=== PATIENT | female | born 1945 | race Two or more races ===

== ENCOUNTER 2024-08-16 13:34 | Inpatient (IN) | payer OTHER ==
[~2024-08-16] VITALS: Ht 162.6 cm; Wt 94.6 kg
--- NOTE | 2024-08-16 13:48 | ECG ---
[facility] Test Date: 2024-08-16 Test Time: 13:39:52 Pat Name: SAMIRA GAN Department: er Room: [address] [place] [address] Gender: F Chip Frier: gp : 1945 Requested By: VELMA SLATER Order Number: [id number] Reading MD: Nick Rodriguez Measurements Intervals [place] Rate: 62 P: -16 UT: 289 QRS: -34 QRSD: 104 T: 66 QT: 495 QTc: 503 Interpretive Statements Sinus rhythm Prolonged UT interval Inferior infarct, old Anterior infarct, old Prolonged QT interval Electronically Signed On 08-17-2024 12:00:24 PST by Nick Rodriguez Please click the below link to view image of tracing.
--- NOTE | 2024-08-16 13:53 | ED.PDOC ---
History of Present Illness HPI Comments This is an 79-year-old female who comes in with chief complaint of possible bradycardia with some mild shortness for breath and dizziness. The patient was scheduled to have a pacemaker change next week by Dr. Rodriguez. Today the patient was at home and she was being visited by the home health nurse. After the nurse left, the patient was started feeling somewhat dizzy and states that she checked her pulse rate and it was in the 30s. 911 was called and when the paramedics arrived, the patient had a normal blood pressure with a heart rate between 55 a nd 60. She was still complaining of some dizziness but denies any chest pain, nausea or vomiting. The patient also denies any fever or chills. The patient states that she did not feel too well yesterday either. Time Seen by MD: 13:41 Reviewed Notes: Nurses Notes, Sawmill Or Timber Yard Worker Notes, Medications, Allergies (No allergies to medications) Allergies: Coded Allergies: NO KNOWN ALLERGIES (Unverified , 08/16/24) Information Source: Patient, Emergency Med Personnel Mode of Arrival: EMS Severity: Moderate Timing: Hours Duration: Since onset Prehospital treatment: 12 Lead EKG, Meteorology Professor, IVF Associated signs and symptoms Dizziness with some shortness for breath Past Medical History PAST MEDICAL HISTORY: AFIB, Cancer (History of skin cancer), CVA, High Lipids, Thyroid Surgical History: Hysterectomy, Tonsillectomy Surgical History (Other): Cataract surgery, skin cancer surgery ENTHONE SOLDER STRIPPER 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: No Pertinent 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 SOLDER STRIPPER History Family History Family History: Family hx of DM Social History Smoker: Non-Smoker Alcohol: Denies ETOH Use Drugs: Denies Drug Use Lives In: Home Constitutional: reports: weakness; denies: chills, diaphoresis, fatigue, fever, malaise, sweats, others EENTM: denies: blurred vision, double vision, ear bleeding, ear discharge, ear drainage, ear pain, ear ringing, eye pain, eye redness, hearing loss, mouth pain, mouth swelling, nasal discharge, nose bleeding, nose congestion, nose pain, photophobia, tearing, throat pain, throat swelling, voice changes, others Respiratory: reports: shortness of breath; denies: cough, hemoptysis, orthopnea, SOB at rest, SOB with excertion, stridor, wheezing, others Cardiovascular: denies: chest pain, dizzy spells, diaphoresis, Dyspnea on exertion, edema, irregular heart beat, left arm pain, lightheadedness, palpitations, PND, syncope, others Gastrointestinal: denies: abdomen distended, abdominal pain, blood streaked bowels, constipated, diarrhea, dysphagia, difficulty swallowing, hematemesis, melena, nausea, poor appetite, poor fluid intake, rectal bleeding, rectal pain, vomiting, others Genitourinary: denies: abnormal vagina bleeding, burning, dyspareunia, dysuria, flank pain, frequency, hematuria, incontinence, pain, , vagina discharge, urgency, others Neurological: reports: dizziness; denies: fainting, headache, left sided numbness, left sided weakness, numbness, paresthesia, pre-existing deficit, right sided numbness, right sided weakness, seizure, speech problems, tingling, tremors, weakness, others Musculoskeletal: denies: back pain, gout, joint pain, joint swelling, muscle pain, muscle stiffness, neck pain, others Integumetry: denies: bruises, change in color, change in hair/nails, dryness, laceration, lesions, lumps, rash, wounds, others Allergic/Immunocompromised: denies: Difficulty Healing, Frequent Infections, Hives, Itching, others Hematologic/Lymphatic: denies: anemia, blood clots, easy bleeding, easy bruising, swollen glands, others Endocrine: denies: excessive hunger, excessive sweating, excessive thirst, excessive urination, flushing, intolerance to cold, intolerance to heat, unexplained weight gain, unexplained weight loss, others Psychiatric: denies: anxiety, bipolar disorder, depression, hopeless, panic disorder, schizophrenia, sleepless, suicidal, others Physical Exam General Appearance: Moderate Distress HEENT: Normal ENT Inspection, Pharynx Normal, TMs Normal Neck: Full Range of Motion, Non-Tender, Normal, Normal Inspection Respiratory: Chest Non-Tender, Lungs Clear, No Accessory Muscle Use, No Respiratory Distress, Normal Breath Sounds Cardiovascular: No Edema, No JVD, No Murmur, No Gallop, Normal Peripheral Pulses, Regular Rate/Rhythm Breast Exam: Deferred Gastrointestinal: No Organomegaly, Non Tender, No Pulsatile Mass, Normal Bowel Sounds, Soft Genitalia: Deferred Pelvic: Deferred Rectal: Deferred Extremities: No calf tenderness, Normal capillary refill, Normal inspection, Normal range of motion, Non-tender, No pedal edema Musculoskeletal : Apperance: Normal Neurologic: Alert, physical therapy supervisor II-XII nml as Tested, No Motor Deficits, Normal Affect, Normal Mood, No Sensory Deficits Cerebellar Function: Normal Reflexes: Normal Skin: Dry, Normal Color, Warm Lymphatic: No Adenopathy Was a procedure done? Was a procedure done?: No EKG EKG : Pulse Rate (adult): 62 [place]: Normal Cardiac Rhythm: NSR Block: None ST: Nonsp Differential Dx Considerations may include: Symptomatic bradycardia, generalized weakness, electrolyte imbalance X-Ray, Labs, Meds, VS Vital Signs Date Time Temp Pulse Resp B/P (MAP) Pulse Ox O2 Delivery O2 Flow Rate FiO2 08/16/24 14:20 60 08/16/24 14:05 62 18 97 Room Air* 0 21 08/16/24 14:02 98.1 62 18 122/100 (107) 96 98.1 08/16/24 14:02 62 18 96 Room Air 08/16/24 13:53 62 08/16/24 13:50 98.4 63 16 165/92 (116) 100 08/16/24 13:39 62 Lab Test 08/16/24 14:10 08/16/24 13:56 Range/Units Urine Color Light-yellow Yellow Urine Clarity Clear Clear Urine pH 7.0 5.0-9.0 Urine Specific [place] 1.007 1.001-1.035 Urine Protein Negative Negative Urine Ketones Negative Negative Urine Blood Negative Negative /uL Urine Nitrite Negative Negative Urine Bilirubin Negative Negative Urine Urobilinogen Normal Negative mg/dL Urine Leukocyte Esterase 3+ Negative /uL Urine RBC 3 0 - 4 /hpf Urine Microscopic WBC 29 H 0-5 /HPF Urine Squamous Epithelial Cells Few <5 /hpf Urine Bacteria None seen None Seen /hpf Urine Glucose Normal Normal mg/dL White Blood Count 7.9 4.4-10.8 10^3/uL Red Blood Count 4.66 4.0-5.20 10^6/uL Hemoglobin 14.7 12.2-16.2 g/dL Hematocrit 43.8 36.0-46.0 % Mean Corpuscular Volume 93.9 80.0-100.0 fL Mean Corpuscular Hemoglobin 31.5 28.0-32.0 pg Mean Corpuscular Hemoglobin Concent 33.5 32.0-36.0 g/dL Red Cell Distribution Width 14.1 11.8-14.3 % Platelet Count 176 140-450 10^3/uL Mean Platelet Volume 9.1 6.9-10.8 fL Neutrophils (%) (Auto) 58.4 37.0-80.0 % Lymphocytes (%) (Auto) 26.5 10.0-50.0 % Monocytes (%) (Auto) 13.5 H 0.0-12.0 % Eosinophils (%) (Auto) 0.6 0.0-7.0 % Basophils (%) (Auto) 1.0 0.0-2.0 % Neutrophils # (Auto) 4.6 1.6-8.6 10 ^3/uL Lymphocytes # (Auto) 2.1 0.4-5.4 10 ^3/uL Monocytes # (Auto) 1.1 0-1.3 10 ^3/uL Eosinophils # (Auto) 0.1 0-0.8 10 ^3/uL Basophils # (Auto) 0.1 0-0.2 10 ^3/uL Nucleated Red Blood Cells 0.3 % Prothrombin Time 11.0 9.3-11.8 sec Prothrombin Time INR 1.04 0.9-1.15 Activated Partial Thromboplast Time 29.3 24.5-34.5 SEC Sodium Level 136 136-145 mmol/L Potassium Level 3.9 3.5-5.1 mmol/L Chloride Level 100 98-107 mmol/L Carbon Dioxide Level 27 20-31 mmol/L Anion Gap 9 5-15 Blood Urea Nitrogen 11 9-23 mg/dL Creatinine 0.68 0.550-1.02 mg/dL Glomerular Filtration Rate Calc 87 >90 mL/min BUN/Creatinine Ratio 16.2 10.0-20.0 Serum Glucose 76 74-106 mg/dL Calcium Level 10.0 8.7-10.4 mg/dL Magnesium Level 2.3 1.6-2.6 mg/dL Troponin I High Sensitivity 4 </=34 ng/L Chest x-ray is negative The CBC and chemistry panel are within normal limits The urine test is positive for UTI An IV Hep-Lock has already been established The patient was given Rocephin 1 g IV piggyback for the UTI At this time, we are contacting Dr. Rodriguez The patient was being admitted with a diagnosis of symptomatic bradycardia The patient understands and agrees with the management. Images Reviewed?: Images reviewed and evaluated by me Time of 1ST Reevaluation: 13:53 Reevaluation 1ST: Unchanged Patient Education/Counseling: Diagnosis, Treatment, Prognosis Family Education/Counseling: No Family Present Departure 1 Departure Time of Disposition: 15:23 Impression: Primary Impression: Symptomatic bradycardia Additional Impression: UTI (urinary tract infection) Qualified Codes: N30.00 - Acute cystitis without hematuria Disposition: 09 ADMITTED INPATIENT Admit to: Tele Condition: Fair Critical Care Note Critical Care Time?: Yes (45 min-critical care time only) Stability Stability form required: Yes Unstable for transfer: Telemetry monitoring (Telemetry monitoring required), ED Physician Assesment (Clinical assesment) Heart Score Heart Score: Heart Score Response (Comments) Value History Moderate Suspicious 1 EKG Repolarization Disturb 1 Age >65 2 Risk Factors >3 or Hx ASHD 2 Troponin Normal limit 0 Total 6 VELMA SLATER MD Aug 16, 2024 13:53
[2024-08-16 14:05] VITALS: PULSE 62; RESP 18; O2SAT 97
[2024-08-16 14:12] LABS: Basophils # (auto) 0.1 10 ^3/uL (0-0.2); Eosinophils # (auto) 0.1 10 ^3/uL (0-0.8); Eosinophils % (auto) 0.6 % (0.0-7.0); Hematocrit 43.8 % (36.0-46.0); Hemoglobin 14.7 g/dL (12.2-16.2); Lymphocytes # (auto) 2.1 10 ^3/uL (0.4-5.4); Lymphocytes % (auto) 26.5 % (10.0-50.0); Mean Corpuscular Hemoglobin 31.5 pg (28.0-32.0); Mean Corpuscular Hgb Conc. 33.5 g/dL (32.0-36.0); Mean Corpuscular Volume 93.9 fL (80.0-100.0); Monocytes # (auto) 1.1 10 ^3/uL (0-1.3); Monocytes % (auto) 13.5 % (0.0-12.0); Neutrophils # (auto) 4.6 10 ^3/uL (1.6-8.6); Neutrophils % (auto) 58.4 % (37.0-80.0); Nucleated Red Blood Cells % 0.3 %; Platelet Count (auto) 176 10^3/uL (140-450); Red Blood Cells 4.66 10^6/uL (4.0-5.20); Red Cell Distribution Width 14.1 % (11.8-14.3); White Blood Cell 7.9 10^3/uL (4.4-10.8)
[2024-08-16 14:19] LABS: Chloride 100 mmol/L (98-107); Potassium 3.9 mmol/L (3.5-5.1); Sodium 136 mmol/L (136-145)
[2024-08-16 14:20] LABS: Urine Bacteria None Seen /hpf (None Seen)
[2024-08-16 14:20] LABS: Anion Gap 9 (5-15); Carbon Dioxide 27 mmol/L (20-31)
[2024-08-16 14:25] LABS: BUN/Creatinine Ratio 16.2 (10.0-20.0); Blood Urea Nitrogen 11 mg/dL (9-23); Glucose 76 mg/dL (74-106)
[2024-08-16 14:26] LABS: Magnesium 2.3 mg/dL (1.6-2.6)
[2024-08-16 14:29] LABS: Urine Blood Negative /uL (Negative); Urine Clarity Clear (Clear); Urine Color Light-Yellow (Yellow); Urine Protein, UAD Negative (Negative); Urine Specific Gravity 1.007 (1.001-1.035); Urine Squamous Epithelial Cell FEW /hpf (<5); Urine Urobilinogen Normal (Negative); Urine WBC 29 /HPF (0-5)
[2024-08-16 14:38] LABS: INR 1.04 (0.9-1.15); Partial Thromboplastin Time 29.3 SEC (24.5-34.5)
--- NOTE | 2024-08-16 14:45 | DVH ---
CHEST RADIOGRAPH Indication: dizziness Technique: Single frontal view of the chest was obtained COMPARISON: None FINDINGS: Lines and Tubes: None Lungs: Clear Pleura: No effusion. No pneumothorax. Cardiomediastinal contours: Unremarkable Bones: Unremarkable IMPRESSION: No acute disease.
[2024-08-16] MEDS ORDERED: NITROGLYCERIN 0.4 MG SL TAB SL PRN (20:45)
[2024-08-16] MEDS ORDERED: MORPHINE SULFATE INJ 2 MG/ml SYRG IV PRN (20:45)
[2024-08-16] MEDS ORDERED: ONDANSETRON HCL 4 MG/2 ML VIAL IV PRN (20:45)
[2024-08-16 23:53] VITALS: BP 168/87; PULSE 56; RESP 17; TEMP 98.2; O2SAT 98
[2024-08-17] VITALS (62 sets, daily range): BP systolic 58–168; BP diastolic 33–87; PULSE 54–100; RESP 14–19; TEMP 97.5–98.6; O2SAT 95–100
[2024-08-17] MEDS: HYDROcodone-ACET 5/325MG TAB PO PRN (00:56)
--- NOTE | 2024-08-17 01:41 | DVHHP2 ---
GEORGETTE PETERSON DECKHAND CLAM DREDGE 08/17/24 0140: History of Present Illness Reason for Visit: Dizziness, shortness of breath History of Present Illness 79-year-old female presents with complaints of dizziness, and shortness of breath. Patient states she was at home and Checked her pulse ox when you began to experience symptoms. States her heart rate was down to the 30s. While in the emergency department ER physician reported heart rate has been Low 40s to 60s. Patient endorsed she has been followed by Dr. Rodriguez With plans for pacemaker placement. At this time patient denies fevers, chills, Chest pain, palpitations, Nausea, vomiting. 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: CVA Endocrine: Hypothyroidism Smoke: No ALCOHOL: none Drugs: None Lives: with Family Review of Systems Constitutional: Yes: Weakness, Other (Dizziness); No: Fever, Chills, Sweats, Malaise Eyes: No: Pain, Vision change, Conjunctivae inflammation, Eyelid inflammation, Other, Redness ENT: No: Ear pain, Ear discharge, Nose pain, Nose discharge, Nose congestion, Mouth pain, Mouth swelling, Throat pain, Throat swelling, Other Respiratory: Shortness of breath; No: Cough, Dry, SOB with excertion, Wheezing, Hemoptysis, Pleuritic Pain, Sputum, Wheezing, Other Cardiovascular: No: Chest Pain, Palpitations, Orthopnea, Paroxysmal Noc. Dyspnea, Edema, Lt Headedness, Other Gastrointestinal: No: Nausea, Vomiting, Abdominal Pain, Diarrhea, Constipation, Melena, Hematochezia, Other Genitourinary: No Dysuria, No Frequency, No Incontinence, No Hematuria, No Retention, No Other Musculoskeletal: No: other, neck pain, shoulder pain, arm pain, back pain, hand pain, leg pain, foot pain Skin: No: Rash, Lesions, Jaundice, Bruising, Other Neurological: No: Weakness, Numbness, Incoordination, Change in speech, Confusion, Seizures, Other Allergies: Coded Allergies: Morphine and Codeine (Verified Allergy, Unknown, HALLUCINATIONS, 08/16/24) Medications Current Medications Medications Dose Ordered Sig/Pepe Route Start Time Stop Time Status Last Admin Dose Admin Docusate Sodium 100 mg BIDPRN PRN PO 08/16/24 20:45 Acetaminophen 650 mg Q6HP PRN PO 08/16/24 20:45 Ondansetron HCl 4 mg Q4HP PRN IV 08/16/24 20:45 Nitroglycerin 0.4 mg Q5MINP PRN SL 08/16/24 20:45 Morphine Sulfate 2 mg Q30M PRN IV 08/16/24 20:45 Ceftriaxone Sodium 50 ml @ 100 mls/hr DAILY IV 08/17/24 10:00 Hydralazine HCl 10 mg Q6HP PRN IV 08/16/24 23:30 Acetaminophen/ Hydrocodone Bitart 1 tab Q6HPRN PRN PO 08/16/24 23:30 08/17/24 00:56 1 TAB Exam Vital Signs Vital Signs Date Time Temp Pulse Resp B/P (MAP) Pulse Ox O2 Delivery O2 Flow Rate FiO2 08/16/24 20:58 97.9 57 12 174/83 (113) 97 97.9 08/16/24 14:05 Room Air* 0 21 General Appearance: Alert, Oriented X3, Cooperative, No acute distress HEENT: Atraumatic, PERRLA, EOMI Respiratory: Clear to auscultation, Normal air movement Cardiovascular: Regular rate (bradycardia), Normal S1, Normal S2 Abdominal: Normal bowel sounds, Soft, No tenderness Extremities: No clubbing, No cyanosis, No edema Skin: No rashes, No breakdown Neuro: Normal speech, Strength at 5/5 X4 ext Psych/Mental Status: Mental status NL, Mood NL Labs/Xrays Labs Test 08/16/24 16:56 08/16/24 14:10 08/16/24 13:56 Range/Units Troponin I High Sensitivity 5 </=34 ng/L Urine Color Light-yellow Yellow Urine Clarity Clear Clear Urine pH 7.0 5.0-9.0 Urine Specific [place] 1.007 1.001-1.035 Urine Protein Negative Negative Urine Ketones Negative Negative Urine Blood Negative Negative /uL Urine Nitrite Negative Negative Urine Bilirubin Negative Negative Urine Urobilinogen Normal Negative mg/dL Urine Leukocyte Esterase 3+ Negative /uL Urine RBC 3 0 - 4 /hpf Urine Microscopic WBC 29 H 0-5 /HPF Urine Squamous Epithelial Cells Few <5 /hpf Urine Bacteria None seen None Seen /hpf Urine Glucose Normal Normal mg/dL White Blood Count 7.9 4.4-10.8 10^3/uL Red Blood Count 4.66 4.0-5.20 10^6/uL Hemoglobin 14.7 12.2-16.2 g/dL Hematocrit 43.8 36.0-46.0 % Mean Corpuscular Volume 93.9 80.0-100.0 fL Mean Corpuscular Hemoglobin 31.5 28.0-32.0 pg Mean Corpuscular Hemoglobin Concent 33.5 32.0-36.0 g/dL Red Cell Distribution Width 14.1 11.8-14.3 % Platelet Count 176 140-450 10^3/uL Mean Platelet Volume 9.1 6.9-10.8 fL Neutrophils (%) (Auto) 58.4 37.0-80.0 % Lymphocytes (%) (Auto) 26.5 10.0-50.0 % Monocytes (%) (Auto) 13.5 H 0.0-12.0 % Eosinophils (%) (Auto) 0.6 0.0-7.0 % Basophils (%) (Auto) 1.0 0.0-2.0 % Neutrophils # (Auto) 4.6 1.6-8.6 10 ^3/uL Lymphocytes # (Auto) 2.1 0.4-5.4 10 ^3/uL Monocytes # (Auto) 1.1 0-1.3 10 ^3/uL Eosinophils # (Auto) 0.1 0-0.8 10 ^3/uL Basophils # (Auto) 0.1 0-0.2 10 ^3/uL Nucleated Red Blood Cells 0.3 % Prothrombin Time 11.0 9.3-11.8 sec Prothrombin Time INR 1.04 0.9-1.15 Activated Partial Thromboplast Time 29.3 24.5-34.5 SEC Sodium Level 136 136-145 mmol/L Potassium Level 3.9 3.5-5.1 mmol/L Chloride Level 100 98-107 mmol/L Carbon Dioxide Level 27 20-31 mmol/L Anion Gap 9 5-15 Blood Urea Nitrogen 11 9-23 mg/dL Creatinine 0.68 0.550-1.02 mg/dL Glomerular Filtration Rate Calc 87 >90 mL/min BUN/Creatinine Ratio 16.2 10.0-20.0 Serum Glucose 76 74-106 mg/dL Calcium Level 10.0 8.7-10.4 mg/dL Magnesium Level 2.3 1.6-2.6 mg/dL Assessment/Plan Assessment/Plan Symptomatic bradycardia UTI Plan Admit to telemetry Cardiology consult. Echocardiogram. Continue home medications. As needed anti hypertensive for optimal BP management. Orthostatic vital signs. IV ABX Physical therapy evaluation GI ppx protonix / DVT ppx scd Plan discussed with: Patient My Orders Orders - GEORGETTE PETERSON NP Procedure Category Date Status Time Admit ADMIT 08/16/24 Transmitted 20:38 Code Status CODE 08/16/24 Transmitted 20:38 Vital Signs SHERLEY 08/16/24 In Process 20:38 Review Orders With SHERLEY 08/16/24 In Process Adm.Md 20:38 Encourage Activity As SHERLEY 08/16/24 In Process Tolerate 20:38 Npo (Nothing By DIET 08/17/24 Transmitted Mouth) Diet Breakfast Oxygen By Face Mask RT 08/16/24 Transmitted 20:38 Docusate Sodium PHA 08/16/24 In Process Capsule (Colace 20:45 Acetaminophen Tablet PHA 08/16/24 In Process (Tylenol Tablet) 20:45 Notify Of Changes SHERLEY 08/16/24 In Process From Base 20:38 Advance Directive SHERLEY 08/16/24 In Process 20:38 Basic Metabolic Panel LAB 08/17/24 Logged 05:00 Basic Metabolic Panel LAB 08/18/24 Verified 05:00 Basic Metabolic Panel LAB 08/19/24 Verified 05:00 Basic Metabolic Panel LAB 08/20/24 Verified 05:00 Complete Blood Count LAB 08/17/24 Logged 05:00 Complete Blood Count LAB 08/18/24 Verified 05:00 Complete Blood Count LAB 08/19/24 Verified 05:00 Complete Blood Count LAB 08/20/24 Verified 05:00 Patient Condition ORDERS 08/16/24 Transmitted 20:38 Allergies SHERLEY 08/16/24 In Process 20:38 Ondansetron Hcl PHA 08/16/24 In Process (Zofran) 20:45 Sequential SHERLEY 08/16/24 In Process Compression Device Nitroglycerin PHA 08/16/24 In Process Sublingual (Ntrostat 20:45 Morphine Sulfate PHA 08/16/24 In Process Injection 20:45 Stat Ekg For Chest SHERLEY 08/16/24 In Process Pain 20:38 Notify Md Of Changes SHERLEY 08/16/24 In Process From Base 20:38 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 For [facility] 08/16/24 In Process 24 Hours 20:38 Emergency Dysrhythmia SHERLEY 08/16/24 In Process Protocol 20:38 Rhythm Strips Once SHERLEY 08/16/24 In Process Every Shift 20:38 Oxygen By Nasal RT 08/16/24 Transmitted Cannula 20:38 Orthostatic Vital ORDERS 08/16/24 Transmitted Signs 20:38 Orthostatic Vital ORDERS 08/17/24 Transmitted Signs 20:38 Orthostatic Vital ORDERS 08/18/24 Transmitted Signs 20:38 Orthostatic Vital ORDERS 08/19/24 Transmitted Signs 20:38 Ceftriaxone 1gm/50ml PHA 08/17/24 In Process D5w (Rocephin) 10:00 Pt Request For Service PT 08/16/24 Logged 21:05 Communication Order ORDERS 08/16/24 Transmitted 21:05 Echo 2d Mode Cardiac US 08/16/24 Logged DOP 21:05 Hydralazine Injection PHA 08/16/24 In Process (Apresoline Inject 23:30 Hydrocodone-Acet PHA 08/16/24 In Process 5/325mg Tab ([place] 23:30 Date of Service: Aug 17, 2024 Billing Provider: GAB AMIN MD Common Visit Codes: NOT BILLABLE GAB AMIN MD 08/17/24 1054: Review of Systems Allergies: Coded Allergies: Morphine and Codeine (Verified Allergy, Unknown, HALLUCINATIONS, 08/16/24) Assessment/Plan Assessment/Plan Patient chart is reviewed and evaluated. Patient was seen evaluated and admitted by nurse practitioner this morning. I agree with his evaluation, documentation, assessment and care plan as outlined. Plan discussed with: Other GEORGETTE PETERSON NP Aug 17, 2024 01:40 GAB AMIN MD Aug 17, 2024 10:54
[2024-08-17] MEDS ORDERED: APIX2.5T PO (03:56)
[2024-08-17] MEDS ORDERED: ATOR10TA PO (03:56)
[2024-08-17] MEDS ORDERED: HYDR-4902 PO (03:56)
[2024-08-17] MEDS ORDERED: AMIO200T33 PO (03:56)
[2024-08-17] MEDS ORDERED: LEVO50TA7 PO (03:56)
[2024-08-17] MEDS ORDERED: POLY335015 PO (04:41)
[2024-08-17] MEDS: DOCUSATE SOD 100 MG CAP PO PRN (06:26)
[2024-08-17 07:05] LABS: Basophils # (auto) 0.1 10 ^3/uL (0-0.2); Basophils % (auto) 0.7 % (0.0-2.0); Eosinophils # (auto) 0 10 ^3/uL (0-0.8); Eosinophils % (auto) 0.4 % (0.0-7.0); Hematocrit 38.5 % (36.0-46.0); Hemoglobin 13.5 g/dL (12.2-16.2); Lymphocytes # (auto) 0.9 10 ^3/uL (0.4-5.4); Lymphocytes % (auto) 12.7 % (10.0-50.0); Mean Corpuscular Hemoglobin 32.5 pg (28.0-32.0); Mean Corpuscular Volume 92.8 fL (80.0-100.0); Monocytes # (auto) 0.8 10 ^3/uL (0-1.3); Monocytes % (auto) 11.4 % (0.0-12.0); Neutrophils # (auto) 5.6 10 ^3/uL (1.6-8.6); Neutrophils % (auto) 74.8 % (37.0-80.0); Platelet Count (auto) 152 10^3/uL (140-450); Red Blood Cells 4.15 10^6/uL (4.0-5.20); Red Cell Distribution Width 13.6 % (11.8-14.3); White Blood Cell 7.4 10^3/uL (4.4-10.8)
[2024-08-17 07:21] LABS: Anion Gap 8 (5-15); Calcium 9.8 mg/dL (8.7-10.4); Carbon Dioxide 28 mmol/L (20-31); Chloride 101 mmol/L (98-107); Potassium 3.6 mmol/L (3.5-5.1); Sodium 137 mmol/L (136-145)
[2024-08-17 07:27] LABS: BUN/Creatinine Ratio 18.4 (10.0-20.0); Blood Urea Nitrogen 14 mg/dL (9-23); Glucose 100 mg/dL (74-106)
[2024-08-17] MEDS: cefTRIAXone 1GM/50ML D5W 50 ML IV SCH (09:05)
--- NOTE | 2024-08-17 10:12 | ECG ---
[facility] Test Date: 2024-08-17 Test Time: 10:09:24 Pat Name: SAMIRA GAN Department: Respiratoy Room: [address] [place] [address] A Gender: F Asp Net Developer: AMANUEL : 1945 Requested By: LASHANDA PERRY Order Number: [id number] Reading MD: Nick Rodriguez Measurements Intervals [place] Rate: 77 P: -14 VT: 241 QRS: -28 QRSD: 97 T: 68 QT: 445 QTc: 504 Interpretive Statements Sinus rhythm Prolonged [place] interval Inferior infarct, old Anterior infarct, old Prolonged QT interval Electronically Signed On 08-17-2024 12:02:27 PST by Nick Rodriguez Please click the below link to view image of tracing.
[2024-08-17] MEDS: NOREPINEPHRINE 8 MG/250ML KIT 250 ML IV SCH (10:15)
[2024-08-17] MEDS: MIDAZOLAM DRIP 50 mg/50mL 50 ML IV SCH (10:15)
[2024-08-17] MEDS: fentaNYL Drip 2500mCg/250mlNS 250 ML IV SCH (10:15)
--- NOTE | 2024-08-17 10:40 | DVH ---
EXAM: XY CHEST PORTABLE Indication: intubated Technique: Single frontal view of the chest was obtained Comparison: XY CHEST PORTABLE on DOS: 08/16/24 FINDINGS: Lines and Tubes: Endotracheal tube projects 5 cm above level of the paty. Enteric tube side port pr ojects near the gastroesophageal junction with tip in the proximal stomach. Recommend advancement. Lungs: Left basilar atelectasis. Pleura: No effusion. No pneumothorax. Cardiomediastinal contours: Unremarkable Bones: No acute osseous abnormality. IMPRESSION: Enteric tube side port projects near the gastroesophageal junction with tip in the proximal stomach. Recommend advancement.
--- NOTE | 2024-08-17 10:49 | DVH ---
EXAM: CT HEAD WITHOUT CONTRAST HISTORY: ALOC COMPARISON: None TECHNIQUE: Axial images of the head were obtained and reformatted in coronal and sagittal planes. All CT scans at this medical facility are performed using dose modulation techniques as appropriate t o a performed exam including the following: Automated exposure control was utilized; adjustment of th e MA and/or KV according to patient size; and use of iterative reconstruction technique. CT Dose: CTDI volume is 51 mGy. Dose-length product is 942 mGy*cm FINDINGS: There is no evidence of acute intracranial hemorrhage, mass, mass effect midline shift. There is no h ydrocephalus or extra-axial fluid collection. There are patchy hypodense changes in the supratentori al white matter compatible with chronic small-vessel ischemic changes. Nieves-white matter differentiat ion appears maintained. The visualized paranasal sinuses and mastoid air cells are clear. The calvarium is intact. IMPRESSION: 1. No acute intracranial process. HS:Y
--- NOTE | 2024-08-17 11:23 | RESUS ---
CODE ASSIST ASSESSSMENT Initial Information Code Assist Date: Aug 17, 2024 Code Assist Time: 09:20 Location of Arrest: [facility] Room [facility] 281B Provider Name DR MAHONEY, DR CARTAGENA- RESIDENT, DR PERRY-RESIDENT, DR SEAMAN Time Notified: 09:20 (AT BEDSIDE) Crash Cart Opened and Supplies: Yes Comment: [facility] PRIMARY RN CALLED CHOICE HOSPITALIST TO NOTIFY OF CODE ASSIST Situation Staff concerned/worried, speci: SaO2 <90, Non-responsive, RR <8, Change LOC Situation comment: [facility] PRIMARY RN TOOK PATIENT TO URINATE ON BEDSIDE COMMODE AND ASSISTED BACK TO BED WHEN PATIENT STATED SHE FELT NAUSEATED AND DID NOT FEEL WELL. RN CALLED CODE ASSIST WHEN EYES ROLLED BACK AND PATIENT BECAME UNRESPONSIVE. Background Background: CAME IN TO ER ON 08/16 FOR POSS BRADDYCARDIA/SOB/DIZINESS, PER SON REPORT OF PACEMAKER IMPLANTATION APPOINTMENT NEXT WEDNESDAY. RECEIVED BED ON TELE FLOOR LAST NIGHT. Assessment Blood Pressure Systolic: 110 Blood Pressure Diastolic: 87 Respiratory Rate: 6 O2 Sat by Pulse Oximetry: 83 Bedside Blood Glucose: 109 Assessment comment: PALE, UNRESPONSIVE THEN AGONNALY BREATHING UPON CODE TEAM ARRIVAL. DECISION WAS MADE TO INTUBATE TO PROTECT AIRWAY. DR SEAMAN AT BEDSIDE TO INTUBATE WITH ETT PLACED AT 0943 7.5/24 CM AT LIP. EPINEPHRINE 1 MG IV PUSH GIVEN PER DR ORDER AT 0943 DUE TO BP 59/34. LEVOPHED/FENTANYL DRIPS STARTED WITH DR ORDER. TRANSFERRED TO CT THEN ICU 109 IN STABLE CONDITION WITH ICU CHARGE AND ICU RESOURCE RN. Recommendations/Interventions Procedures: Accu check, CXR Portable, Cardiac Monitoring, Inititate ACLS Protocol, Intubated (ETOMIDATE 15 MG IV GIVEN, SUCCINYLCHOLINE TOTAL 100 MG IV GIVEN DURING CODE ASSIST PER DR ORDER) Other Interventions MAG 2GM IV GIVEN ORDERED BY Outcome Outcome: Transfer to ICU Follow up Report Follow up Report UPDATED SON ON PLAN OF CARE WHO CAME TO BEDSIDE POST INTUBATION. Team Members Team Members DR URSZULA CASTILLO ER , DR CARTAGENA (RESIDENT), DR PERRY (RESIDENT), ALMA RN, MARIA G TIRE SERVICE SUPERVISOR, ROMAIN TIRE SERVICE SUPERVISOR, JONAH PROP AND EFFECTS DESIGNER, TRACE ICU CHARGE, CHARLETTE PRUETT RN RESOURCE Jonah Galarza Aug 17, 2024 11:23 KATIE MAHONEY MD Aug 17, 2024 20:50
[2024-08-17] MEDS: methylPREDNISolone SOD SUCC 125 MG/2 ML VL IV ONE (11:47)
[2024-08-17 12:26] LABS: Base Excess -4.3 mmol/L (-2.0-3.0)
--- NOTE | 2024-08-17 12:56 | DVHNC2 ---
Procedure - ULTRASOUND-GUIDED RIGHT INTERNAL JUGULAR CENTRAL VENOUS CANNULATION CPT Codes: 40971 (ultrasound guidance) 14551 (insertion of non-tunneled centrally inserted central venous catheter) 58716 (CXR interpretation) Time out time:1211 pm Patient medications and allergies reviewed. The risks and benefits of the procedure and the sedation options and risk were discussed with the patient's healthcare proxy. All questions were answered and informed consent was obtaine d. Patient identification and proposed procedure were verified prior to the procedure by the physician, and a nurse in the patient's room. The heart rate, respiratory rate, oxygen saturations, blood pressure, adequacy of pulmonary ventilation, and response to care were monitored throughout the procedure. The physical status of the patient was reassessed after the procedure. DATE: 08/17/24 PHYSICIAN: Mey Cochran PREOPERATIVE DIAGNOSIS: Cardiogenic shock, bradycardia, acute hypoxic respiratory failure POSTOPERATIVE DIAGNOSIS: Same PROCEDURE PERFORMED: Limited Ultrasound-guided Right internal jugular central line placement. ANESTHESIA: 2 mL of 1% lidocaine plain. ESTIMATED BLOOD LOSS: less than 5 mL. SPECIMENS: None. COMPLICATIONS: None. INDICATIONS FOR PROCEDURE: The patient is in need of large bore IV access for administration of fluids, including blood products and vasoactive drugs, possible transvenous cardiac pacing and CVP monitoring for hemodynamic instability. DESCRIPTION OF PROCEDURE IN DETAIL: The patient was lying in the Trendelenburg position with head turned 30 degrees away from the insertion site. The skin was thoroughly sponged with chlorhexidine and allowed to dry. All persons involved were shielded with hair nets, face masks and sterile gowns. With sterile-gloved hands the right neck area was draped with the large disposable sterile field provided in the pre-manufactured kit. The skin and subcutaneous tissues superficial to the RIGHT internal jugular vein were anesthetized with 2 mL of 1% lidocaine. The RIGHT internal jugular vein was identified on ultrasound from the angle of the mandible down into the supraclavicular fossa using the linear ultrasound probe in the transverse orientation. The carotid artery was identified and avoided utilizing color-flow. The internal jugular vein was then placed in the center of the ultrasound field and compressed for patency. A movement artifact was identified as the needle was advanced through the skin and advanced toward the vessel. A real time hyperechoic signal revealed visualization of vascular needle entry into the lumen as blood was noted to flashback in the syringe. The needle was then held in place while the guide wire was advanced. The needle was then removed. Direct visualization of guide wire location within the vein was noted on ultrasound indicating proper placement and was document in the electronic medical record chart. A skin dilator was advanced over the guidewire and removed, and the triple-lumen catheter was then advanced over the guide wire into proper position. The guide wire was removed and discarded. The ports were aspirated which showed good blood return and then carefully flushed with normal saline. The catheter was stabilized and sutured to the skin with 2-0 silk at 2 anchor points. A sterile bio-patch and dressing was placed over the catheter, including the insertion site. The patient tolerated the procedure well. A chest x-ray was ordered for position confirmation. I reviewed the image immediately after it was taken at bedside. Post-procedure chest x-ray demonstrates the central line in the superior vena and no evidence of any pneumothorax. An image recording of the procedure accompanies the chart. MEY COCHRAN MD Aug 17, 2024 12:56
--- NOTE | 2024-08-17 13:11 | DVHPN2 ---
Progress Note - Dictate Date Seen: Aug 17, 2024 Medical Necessity Reason Pt with a Central, PICC or Fol: Yes The following are medically ne: [place] Catheter Subjective Patient is seen and evaluated in the ICU. Discussed with the composer teaching artist and patient safety manager in the ICU. Patient's events including code assist note is reviewed from this morning. Apparently patient became unresponsive after she got back from normal bedside commode and she was noted to be hypotensive and decreased respirations. Therefore patient is electively intubated. Patient apparently received epinephrine and started on Levophed and transferred to ICU. vital signs Vital Sign Date Time Temp Pulse Resp B/P (MAP) Pulse Ox O2 Delivery O2 Flow Rate FiO2 08/17/24 11:32 6 08/17/24 11:23 83 08/17/24 10:00 59 58/33 (41) 100 08/17/24 08:05 Room Air* 0 Total Intake and Output 08/16/24 08/16/24 08/17/24 15:00 23:00 07:00 Intake Total 0 ml Balance 0 ml medications Current Medications Medications Dose Ordered Sig/Pepe Route Start Time Stop Time Status Last Admin Dose Admin Docusate Sodium 100 mg BIDPRN PRN PO 08/16/24 20:45 08/17/24 06:26 100 MG Acetaminophen 650 mg Q6HP PRN PO 08/16/24 20:45 Ondansetron HCl 4 mg Q4HP PRN IV 08/16/24 20:45 Nitroglycerin 0.4 mg Q5MINP PRN SL 08/16/24 20:45 Morphine Sulfate 2 mg Q30M PRN IV 08/16/24 20:45 Ceftriaxone Sodium 50 ml @ 100 mls/hr DAILY IV 08/17/24 10:00 08/17/24 09:05 100 MLS/HR Hydralazine HCl 10 mg Q6HP PRN IV 08/16/24 23:30 Acetaminophen/ Hydrocodone Bitart 1 tab Q6HPRN PRN PO 08/16/24 23:30 08/17/24 00:56 1 TAB Norepinephrine Bitartrate 250 ml @ 3.75 mls/hr Q24H IV 08/17/24 10:15 Midazolam HCl 50 ml @ 1 mls/hr Q24H IV 08/17/24 10:15 Fentanyl Citrate 250 ml @ 2.5 mls/hr Q24H IV 08/17/24 10:15 Methylprednisolone Sodium Succinate 40 mg Q8HR IV 08/17/24 14:00 objective Currently she was intubated on Levophed drip in the ICU comfortable. Family is at bedside. Sill Worker and composer teaching artist are also at bedside. HEENT pupils equal round react to light. Heart regular rate and rhythm S1 plus S2. Lungs fair air movement without any audible rales or wheezing. Abdomen soft positive bowel sounds. Extremities no edema. Neurologically no gross focal deficits noted. laboratory and microbiology Laboratory Tests 08/17/24 04:50 Test 08/17/24 04:50 Range/Units Serum Glucose 100 74-106 mg/dL Assessment/Plan Continue current ventilator management and supportive care and treatment as she is on. We will place a central line and A-line for pulmonary recommendations. IV fluids. Head CT is ordered and results do not show any acute process. I will order a CT angiogram of the chest as well as ultrasound of the legs to rule out PE/DVT. Otherwise continue rest of supportive care and treatment as she is on. Her further clinical management per clinical course and recommendations from the consultants. Updated family regarding her change in condition and course of events and plan of care at bedside. Problems(with codes): (1) UTI (urinary tract infection) (2) Symptomatic bradycardia (3) Hypotension Plan discussed with: Daughter, Other GAB AMIN MD Aug 17, 2024 13:11
[2024-08-17] MEDS: D5W/SOD CHLO 0.9% 1,000 ML IV SCH (13:15)
[2024-08-17] MEDS ORDERED: DEXTROSE (50%) 50ML SYRG IV PRN (13:15)
[2024-08-17] MEDS: PANTOPRAZOLE 40 MG/10 ML VIAL INJ IV ONE (13:15)
--- NOTE | 2024-08-17 13:26 | DVH ---
EXAM: XY CHEST PORTABLE Indication: central line placement Technique: Single frontal view of the chest was obtained Comparison: XY CHEST PORTABLE on DOS: 08/17/24, XY CHEST PORTABLE on DOS: 08/16/24, XY CHEST PORTABLE o n DOS: 08/17/24 FINDINGS: Lines and Tubes: Endotracheal tube projects 5 cm above level of the paty. Enteric tube side port pr ojects near the gastroesophageal junction with tip in the proximal stomach. Recommend advancement. I nterval placement of right internal jugular central venous catheter with tip projecting over the supe rior vena cava. Lungs: Left basilar atelectasis. Pleura: No effusion. No pneumothorax. Cardiomediastinal contours: Unremarkable Bones: No acute osseous abnormality. IMPRESSION: Slight interval advancement of the enteric tube. However, side port remains near the gastroesophagea l junction. Recommend advancement by at least 4 cm. Interval placement of right internal jugular central venous catheter with tip projecting in appropria te position
[2024-08-17] MEDS: ISOPROTERENOL HCL INJECTION 1 MG in D5W 5% 250 ML IV SCH (14:05)
[2024-08-17] MEDS: methylPREDNISolone SOD SUCC 40 MG/ML VL IV SCH (14:14)
--- NOTE | 2024-08-17 15:01 | DVH ---
Bilateral lower extremity venous duplex Clinical History: hypotention,sob Comparison: None Technique: Duplex Doppler evaluation of the deep venous systems of both lower extremities from the common femora l veins to the popliteal veins including color Doppler and spectral/pulsed waveform analysis was perf ormed. Findings: RIGHT SIDE: The common femoral vein demonstrates appropriate compressibility and waveform variability. There is compressibility/patency of the great saphenous vein at the proximal thigh. The femoral vein demonstrates appropriate compressibility and waveform variability. The deep femoral vein demonstrates appropriate compressibility and waveform variability. The popliteal vein demonstrates appropriate compressibility and waveform variability. There is normal compressibility at the tibioperoneal trunk. LEFT SIDE: The common femoral vein demonstrates appropriate compressibility and waveform variability. There is compressibility/patency of the great saphenous vein at the proximal thigh. The femoral vein demonstrates appropriate compressibility and waveform variability. The deep femoral vein demonstrates appropriate compressibility and waveform variability. The popliteal vein demonstrates appropriate compressibility and waveform variability. There is normal compressibility at the tibioperoneal trunk. Impression: 1. No right or left femoropopliteal venous thrombosis. HS:Y
[2024-08-17 15:12] LABS: Alanine Aminotransferase 31 U/L (7-40); Alkaline Phosphatase 78 U/L (46-116); Anion Gap 11 (5-15); Aspartate Aminotransferase 36 U/L (13-40); BUN/Creatinine Ratio 16.5 (10.0-20.0); Blood Urea Nitrogen 18 mg/dL (9-23); Calcium 9.6 mg/dL (8.7-10.4); Carbon Dioxide 22 mmol/L (20-31); Chloride 102 mmol/L (98-107); Potassium 3.9 mmol/L (3.5-5.1)
[2024-08-17 15:13] LABS: Total Protein 6.2 g/dL (5.7-8.2)
[2024-08-17 15:15] LABS: Glucose 146 mg/dL (74-106); Sodium 135 mmol/L (136-145)
--- NOTE | 2024-08-17 16:30 | DVHINCON2 ---
Date Seen: Aug 17, [address] Rouse Reason for Consultation Bradycardia and syncope History of Present Illness 79-year-old lady well known to me from an outpatient basis. Has been evaluated for bradycardia. 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 She was scheduled for a pacemaker next week. She came to the hospital because she was bradycardic. During her hospitalization after going to the bathroom she became dizzy and lightheaded. A code assist was called. She was transferred to the intensive care unit. Given apneic episodes she was intubated. She denied any chest pain prior to her evaluation. Her past medical history is as noted. She denied any chest pain nausea vomiting or diaphoresis in the last several weeks. Past Medical History Her past medical history significant for hypertension. History of CVA. History of atrial fibrillation that has been paroxysmal.Hypothyroidism. Past Surgical History Noncontributory. Family History: Patient reports no known family medical history. Allergies: Coded Allergies: Morphine and Codeine (Verified Allergy, Unknown, HALLUCINATIONS, 08/16/24) Home Meds Reported Medications Polyethylene Glycol 3350 (Miralax) 17 Gm Pow, 17 GM PO PRN for FOR CONSTIPATION, POW 08/17/24 Hydrocodone-Acetaminophen (Hydrocodone Bitartrate/AC 5-325 mg) 1 Tab Tab, 1 TAB PO PRN for PAIN SCALE 1 THRU 6, TAB 08/17/24 Apixaban Base (ELIQUIS) 2.5 Mg Tab, 2.5 MG PO BID, TAB 08/17/24 Levothyroxine Sodium (Levothyroxine Sodium) 50 Mcg Tab, 50 MCG PO QAM for 30 Days, MCG 08/17/24 Atorvastatin Calcium (Lipitor) 10 Mg Tab, 1 TAB PO DAILY, #30 TAB 5 Refills 08/17/24 Amiodarone Hcl (Amiodarone Hcl) 200 Mg Tab, 200 MG PO Q12HR for 30 Days 08/17/24 Current Medications Current Medications Medications (Trade) Dose Ordered Sig/Pepe Route PRN Reason Start Time Stop Time Status Last Admin Docusate Sodium (Colace Capsule) 100 mg BIDPRN PRN PO FOR CONSTIPATION 08/16/24 20:45 08/17/24 06:26 Acetaminophen (Tylenol Tablet) 650 mg Q6HP PRN PO PAIN SCALE 1-3 OR TEMP>100.4 08/16/24 20:45 Ondansetron HCl (Zofran) 4 mg Q4HP PRN IV NAUSEA / VOMITING 08/16/24 20:45 Nitroglycerin (Ntrostat Sublingual) 0.4 mg Q5MINP PRN SL FOR CHEST PAIN 08/16/24 20:45 Morphine Sulfate 2 mg Q30M PRN IV FOR CHEST PAIN 08/16/24 20:45 Ceftriaxone Sodium 50 ml @ 100 mls/hr DAILY IV 08/17/24 10:00 08/17/24 09:05 Hydralazine HCl (Apresoline Injection) 10 mg Q6HP PRN IV SBP>160 08/16/24 23:30 Acetaminophen/ Hydrocodone Bitart ([place] 5/325MG Tab) 1 tab Q6HPRN PRN PO SEVERE PAIN (7-10 PAIN SCALE) 08/16/24 23:30 08/17/24 00:56 Norepinephrine Bitartrate 250 ml @ 3.75 mls/hr Q24H IV 08/17/24 10:15 08/17/24 10:15 Midazolam HCl 50 ml @ 1 mls/hr Q24H IV 08/17/24 10:15 08/17/24 15:29 Fentanyl Citrate 250 ml @ 2.5 mls/hr Q24H IV 08/17/24 10:15 08/17/24 10:15 Methylprednisolone Sodium Succinate (Solu Medrol) 40 mg Q8HR IV 08/17/24 14:00 08/17/24 14:14 Dextrose/Sodium Chloride 1,000 ml @ 125 mls/hr Q8H IV 08/17/24 13:15 08/17/24 13:15 Diagnostic Test (Pha) (Accu-Chek Comfort Curve T) 1 strip Q6HR 08/17/24 18:00 Insulin Human Regular (InsuLIN R) Q6HR SC 08/17/24 18:00 Dextrose 50 ml UD PRN IV Blood Sugar LESS THAN 60 08/17/24 13:15 Pantoprazole Sodium (Protonix) 40 mg DAILY IV 08/18/24 10:00 Isoproterenol HCl 1 mg/Dextrose 255 ml @ 30.6 mls/hr Q8H20M IV 08/17/24 13:30 08/17/24 14:05 Review of Systems No constitutional symptoms of fevers chills or weight loss. Cardiac and respiratory as noted above. Neurologically as noted above. GI musculoskeletal endocrine hematologic oncologic negative. Rest unobtainable given patients on a ventilator. Vital Signs Vital Signs Date Time Temp Pulse Resp B/P (MAP) Pulse Ox O2 Delivery O2 Flow Rate FiO2 08/17/24 15:55 84 15 91/43 (59) 100 30 08/17/24 15:30 98.1 98.1 08/17/24 15:20 Mechanical Ventilator+ 08/17/24 14:58 2.0 Physical Exam She is unresponsive on a ventilator. Blood pressure is stable 130/70. HEENT examination is unremarkable well hydrated. Trachea central neck is supple thyroid is not palpable no jugular distention no bruits. Lungs reveal good air entry. Heart exam reveals regular S1-S2 soft S4. abdominal examination is unremarkable. Extremities reveal adequate perfusion without clubbing cyanosis no edema. Neurologically intact. Integumentary is otherwise within normal limits. Labs/Diagnostic Data Labs Test 08/17/24 14:00 08/17/24 12:12 08/17/24 09:26 08/17/24 04:50 Range/Units Sodium Level 135 L 136-145 mmol/L Potassium Level 3.9 3.5-5.1 mmol/L Chloride Level 102 98-107 mmol/L Carbon Dioxide Level 22 20-31 mmol/L Anion Gap 11 5-15 Blood Urea Nitrogen 18 9-23 mg/dL Creatinine 1.09 #H 0.550-1.02 mg/dL Glomerular Filtration Rate Calc 51 >90 mL/min BUN/Creatinine Ratio 16.5 10.0-20.0 Serum Glucose 146 H 74-106 mg/dL Lactic Acid Level 1.5 0.4-2.0 mmol/L Calcium Level 9.6 8.7-10.4 mg/dL Total Bilirubin 1.0 0.2-1.0 mg/dL Aspartate Amino Transferase (AST) 36 13-40 U/L Alanine Aminotransferase (ALT) 31 7-40 U/L Alkaline Phosphatase 78 46-116 U/L Lactate Dehydrogenase 310 H 120-246 U/L Total Protein 6.2 5.7-8.2 g/dL Albumin 4.0 3.2-4.8 g/dL Blood Gas Specimen Type Arterial Blood Gas Sample Site Right brachial Blood Gas Patient Temperature 37.0 Arterial Blood Date Drawn [id number] Arterial Blood pH 7.297 L 7.350-7.450 Arterial Blood Partial Pressure CO2 46.9 H 32.0-45.0 mmHg Arterial Blood Partial Pressure O2 264.8 H 83.0-108.0 mmHg Arterial Blood HCO3 22.4 21.0-28.0 mmol/L Arterial Blood Oxygen Saturation 99.3 H 94.0-98.0 % Arterial Blood Base Excess -4.3 L -2.0-3.0 mmol/L Arterial Blood Oxyhemoglobin 98.7 H 94.0-98.0 % Arterial Blood Carboxyhemoglobin 0.3 L 0.5-1.5 % Arterial Blood Methemoglobin 0.3 0.0-1.5 % Jimbo Test N/a Blood Gas Total Hemoglobin 16.70 H 12.0-16.0 g/dL Blood Gas Set Respiration Rate 14.0 Blood Gas Modality Vent - ac FiO2 % 100.0 Blood Gas Tidal Volume 450.0 Blood Gas PEEP or CPAP 5.0 POC Glucose 109 H 70-106 mg/dl White Blood Count 7.4 4.4-10.8 10^3/uL Red Blood Count 4.15 4.0-5.20 10^6/uL Hemoglobin 13.5 12.2-16.2 g/dL Hematocrit 38.5 # 36.0-46.0 % Mean Corpuscular Volume 92.8 80.0-100.0 fL Mean Corpuscular Hemoglobin 32.5 H 28.0-32.0 pg Mean Corpuscular Hemoglobin Concent 35.0 32.0-36.0 g/dL Red Cell Distribution Width 13.6 11.8-14.3 % Platelet Count 152 140-450 10^3/uL Mean Platelet Volume 9.7 6.9-10.8 fL Neutrophils (%) (Auto) 74.8 37.0-80.0 % Lymphocytes (%) (Auto) 12.7 10.0-50.0 % Monocytes (%) (Auto) 11.4 0.0-12.0 % Eosinophils (%) (Auto) 0.4 0.0-7.0 % Basophils (%) (Auto) 0.7 0.0-2.0 % Neutrophils # (Auto) 5.6 1.6-8.6 10 ^3/uL Lymphocytes # (Auto) 0.9 0.4-5.4 10 ^3/uL Monocytes # (Auto) 0.8 0-1.3 10 ^3/uL Eosinophils # (Auto) 0 0-0.8 10 ^3/uL Basophils # (Auto) 0.1 0-0.2 10 ^3/uL Nucleated Red Blood Cells 0.0 % Test 08/16/24 16:56 08/16/24 14:10 08/16/24 13:56 Range/Units Troponin I High Sensitivity 5 </=34 ng/L Urine Color Light-yellow Yellow Urine Clarity Clear Clear Urine pH 7.0 5.0-9.0 Urine Specific [place] 1.007 1.001-1.035 Urine Protein Negative Negative Urine Ketones Negative Negative Urine Blood Negative Negative /uL Urine Nitrite Negative Negative Urine Bilirubin Negative Negative Urine Urobilinogen Normal Negative mg/dL Urine Leukocyte Esterase 3+ Negative /uL Urine RBC 3 0 - 4 /hpf Urine Microscopic WBC 29 H 0-5 /HPF Urine Squamous Epithelial Cells Few <5 /hpf Urine Bacteria None seen None Seen /hpf Urine Glucose Normal Normal mg/dL Prothrombin Time 11.0 9.3-11.8 sec Prothrombin Time INR 1.04 0.9-1.15 Activated Partial Thromboplast Time 29.3 24.5-34.5 SEC Magnesium Level 2.3 1.6-2.6 mg/dL Outpatient echocardiogram shows normal left ventricular function. Event monitor shows tachy-princess events. Assessment Tachy-princess events. History of paroxysmal atrial fibrillation. Hypertension. Sick sinus syndrome. Syncope. Plan/Recommendation Ventilatory support. Patient will be taken for pacemaker in the a.m.. Plan discussed with: Daughter, Son NYHA Physical activity limitations: Class4(Severe)discomfort Date of Service: Aug 17, 2024 Billing Provider: ALAN VILLALOBOS Sr., MD Cardiology Common Codes: 38269-[id number] INP/OBS CARE (High) ALAN VILLALOBOS Sr., MD Aug 17, 2024 16:30
[2024-08-17] MEDS: ACCU-CHEK COMFORT CURVE STRIP VI SCH (17:27)
[2024-08-17] MEDS: InsuLIN REG 1unit/0.01ml Soln (100units/ml) SC SCH (17:56)
--- NOTE | 2024-08-17 22:12 | DVHINCON2 ---
Date of service: Aug 17, 2024 Referring Physician Gabriele Maria NP Reason for Consultation Acute hypoxic respiratory failure, on mechanical ventilator History of Present Illness 79-year-old woman with PMHx of hypertension, atrial fibrillation, hypothyroidism and CVA who presented to ED on 08/16/24 with complaints of dizziness and shortness of breath. Patient stated she was at home and checked her pulse ox when she began to experience symptoms; noted her heart rate was down to the 30s. While in the emergency department heart rate has been low in 40s to 60s. Patient has been followed by Dr. Rodriguez with plans for pacemaker placement. She denied fevers, chills, chest pain, palpitations, N/V or other acute complaints. Patient was admitted for further care and pulmonary consultation is requested for evaluation and management of acute hypoxic respiratory failure requiring mechanical ventilator. Review of Systems: Unable to obtain d/t intubated status. Past Medical History: Hypertension, atrial fibrillation, hypothyroidism and CVA Past Surgical History: None Medications: Reviewed. Allergies: Morphine and codeine. Family History: No family history of premature CAD. No family history of lung disorders. Social History: Nonsmoker. No alcohol or illicit drug use. Family History: Patient reports no known family medical history. Allergies: Coded Allergies: Iodine (Verified Allergy, Unknown, 08/18/24) Per son he states he is fairly certain his mother is allergic to shellfish/iodine Morphine and Codeine (Verified Allergy, Unknown, HALLUCINATIONS, 08/16/24) Shellfish Allergy (Verified Allergy, Unknown, 08/18/24) per son, he states he is fairly certain his mother is allergic to iodine and shellfish Home Meds Reported Medications Polyethylene Glycol 3350 (Miralax) 17 Gm Pow, 17 GM PO PRN for FOR CONSTIPATION, POW 08/17/24 Hydrocodone-Acetaminophen (Hydrocodone Bitartrate/AC 5-325 mg) 1 Tab Tab, 1 TAB PO PRN for PAIN SCALE 1 THRU 6, TAB 08/17/24 Apixaban Base (ELIQUIS) 2.5 Mg Tab, 2.5 MG PO BID, TAB 08/17/24 Levothyroxine Sodium (Levothyroxine Sodium) 50 Mcg Tab, 50 MCG PO QAM for 30 Days, MCG 08/17/24 Atorvastatin Calcium (Lipitor) 10 Mg Tab, 1 TAB PO DAILY, #30 TAB 5 Refills 08/17/24 Amiodarone Hcl (Amiodarone Hcl) 200 Mg Tab, 200 MG PO Q12HR for 30 Days 08/17/24 Current Medications Current Medications Medications (Trade) Dose Ordered Sig/Pepe Route PRN Reason Start Time Stop Time Status Last Admin Ceftriaxone Sodium 50 ml @ 100 mls/hr DAILY IV 08/17/24 10:00 08/17/24 09:05 Hydralazine HCl (Apresoline Injection) 10 mg Q6HP PRN IV SBP>160 08/16/24 23:30 Acetaminophen/ Hydrocodone Bitart ([place] 5/325MG Tab) 1 tab Q6HPRN PRN PO SEVERE PAIN (7-10 PAIN SCALE) 08/16/24 23:30 08/17/24 00:56 Norepinephrine Bitartrate 250 ml @ 3.75 mls/hr Q24H IV 08/17/24 10:15 08/17/24 10:15 Midazolam HCl 50 ml @ 1 mls/hr Q24H IV 08/17/24 10:15 08/17/24 15:29 Fentanyl Citrate 250 ml @ 2.5 mls/hr Q24H IV 08/17/24 10:15 08/17/24 10:15 Methylprednisolone Sodium Succinate (Solu Medrol) 40 mg Q8HR IV 08/17/24 14:00 08/17/24 21:56 Dextrose/Sodium Chloride 1,000 ml @ 125 mls/hr Q8H IV 08/17/24 13:15 08/17/24 21:59 Diagnostic Test (Pha) (Accu-Chek Comfort Curve T) 1 strip Q6HR 08/17/24 18:00 08/17/24 17:27 Insulin Human Regular (InsuLIN R) Q6HR SC 08/17/24 18:00 08/17/24 17:56 Dextrose 50 ml UD PRN IV Blood Sugar LESS THAN 60 08/17/24 13:15 Pantoprazole Sodium (Protonix) 40 mg DAILY IV 08/18/24 10:00 Isoproterenol HCl 1 mg/Dextrose 255 ml @ 30.6 mls/hr Q8H20M IV 08/17/24 13:30 08/17/24 21:58 Vital Signs Vital Signs Date Time Temp Pulse Resp B/P (MAP) Pulse Ox O2 Delivery O2 Flow Rate FiO2 08/17/24 21:58 100/41 08/17/24 20:15 81 17 100 30 08/17/24 20:00 Mechanical Ventilator+ 08/17/24 18:00 98.2 98.2 08/17/24 14:58 2.0 Physical Exam Gen.: Patient lying in bed in medical ICU. Sedated, intubated on mechanical ventilator. Head: Normocephalic, atraumatic. Eyes: PERRLA. Ears: Normal external anatomy. Throat: Endotracheal tube and orogastric tube in place. Neck: Supple, trachea midline. Chest: Transmitted breath sounds bilaterally. Decreased air entry bilaterally. No wheezing. Bibasilar crackles. Cardiovascular: Positive S1, positive S2. Regular rate and rhythm. Abdomen: Positive bowel sounds in all 4 quadrants. Soft, nontender, nondistended. : De La Cruz in place. Normal external genitalia. Rectal: Deferred. Skin: Warm, dry. Intact. Extremities: 2+ radial pulses bilaterally. No lower extremity edema. Neuro: Sedated. Labs/Diagnostic Data Labs Test 08/17/24 17:54 08/17/24 14:00 08/17/24 12:12 08/17/24 04:50 Range/Units POC Glucose 286 H 70-106 mg/dl Sodium Level 135 L 136-145 mmol/L Potassium Level 3.9 3.5-5.1 mmol/L Chloride Level 102 98-107 mmol/L Carbon Dioxide Level 22 20-31 mmol/L Anion Gap 11 5-15 Blood Urea Nitrogen 18 9-23 mg/dL Creatinine 1.09 #H 0.550-1.02 mg/dL Glomerular Filtration Rate Calc 51 >90 mL/min BUN/Creatinine Ratio 16.5 10.0-20.0 Serum Glucose 146 H 74-106 mg/dL Lactic Acid Level 1.5 0.4-2.0 mmol/L Calcium Level 9.6 8.7-10.4 mg/dL Total Bilirubin 1.0 0.2-1.0 mg/dL Aspartate Amino Transferase (AST) 36 13-40 U/L Alanine Aminotransferase (ALT) 31 7-40 U/L Alkaline Phosphatase 78 46-116 U/L Lactate Dehydrogenase 310 H 120-246 U/L Total Protein 6.2 5.7-8.2 g/dL Albumin 4.0 3.2-4.8 g/dL Blood Gas Specimen Type Arterial Blood Gas Sample Site Right brachial Blood Gas Patient Temperature 37.0 Arterial Blood Date Drawn [id number] Arterial Blood pH 7.297 L 7.350-7.450 Arterial Blood Partial Pressure CO2 46.9 H 32.0-45.0 mmHg Arterial Blood Partial Pressure O2 264.8 H 83.0-108.0 mmHg Arterial Blood HCO3 22.4 21.0-28.0 mmol/L Arterial Blood Oxygen Saturation 99.3 H 94.0-98.0 % Arterial Blood Base Excess -4.3 L -2.0-3.0 mmol/L Arterial Blood Oxyhemoglobin 98.7 H 94.0-98.0 % Arterial Blood Carboxyhemoglobin 0.3 L 0.5-1.5 % Arterial Blood Methemoglobin 0.3 0.0-1.5 % Jimbo Test N/a Blood Gas Total Hemoglobin 16.70 H 12.0-16.0 g/dL Blood Gas Set Respiration Rate 14.0 Blood Gas Modality Vent - ac FiO2 % 100.0 Blood Gas Tidal Volume 450.0 Blood Gas PEEP or CPAP 5.0 White Blood Count 7.4 4.4-10.8 10^3/uL Red Blood Count 4.15 4.0-5.20 10^6/uL Hemoglobin 13.5 12.2-16.2 g/dL Hematocrit 38.5 # 36.0-46.0 % Mean Corpuscular Volume 92.8 80.0-100.0 fL Mean Corpuscular Hemoglobin 32.5 H 28.0-32.0 pg Mean Corpuscular Hemoglobin Concent 35.0 32.0-36.0 g/dL Red Cell Distribution Width 13.6 11.8-14.3 % Platelet Count 152 140-450 10^3/uL Mean Platelet Volume 9.7 6.9-10.8 fL Neutrophils (%) (Auto) 74.8 37.0-80.0 % Lymphocytes (%) (Auto) 12.7 10.0-50.0 % Monocytes (%) (Auto) 11.4 0.0-12.0 % Eosinophils (%) (Auto) 0.4 0.0-7.0 % Basophils (%) (Auto) 0.7 0.0-2.0 % Neutrophils # (Auto) 5.6 1.6-8.6 10 ^3/uL Lymphocytes # (Auto) 0.9 0.4-5.4 10 ^3/uL Monocytes # (Auto) 0.8 0-1.3 10 ^3/uL Eosinophils # (Auto) 0 0-0.8 10 ^3/uL Basophils # (Auto) 0.1 0-0.2 10 ^3/uL Nucleated Red Blood Cells 0.0 % Test 08/16/24 16:56 08/16/24 14:10 08/16/24 13:56 Range/Units Troponin I High Sensitivity 5 </=34 ng/L Urine Color Light-yellow Yellow Urine Clarity Clear Clear Urine pH 7.0 5.0-9.0 Urine Specific [place] 1.007 1.001-1.035 Urine Protein Negative Negative Urine Ketones Negative Negative Urine Blood Negative Negative /uL Urine Nitrite Negative Negative Urine Bilirubin Negative Negative Urine Urobilinogen Normal Negative mg/dL Urine Leukocyte Esterase 3+ Negative /uL Urine RBC 3 0 - 4 /hpf Urine Microscopic WBC 29 H 0-5 /HPF Urine Squamous Epithelial Cells Few <5 /hpf Urine Bacteria None seen None Seen /hpf Urine Glucose Normal Normal mg/dL Prothrombin Time 11.0 9.3-11.8 sec Prothrombin Time INR 1.04 0.9-1.15 Activated Partial Thromboplast Time 29.3 24.5-34.5 SEC Magnesium Level 2.3 1.6-2.6 mg/dL Assessment Impression: Acute hypoxic respiratory failure On mechanical ventilator Shock, cardiogenic Bradycardia, symptomatic Atelectasis Plan: s/p intubation on mechanical ventilator. CXR image and report reviewed. Devices in place. Bilateral opacities. No pneumothorax. No pleural effusion. ABG reviewed. On AC mode; RR 14, VT 450, PEEP 5, FiO2 100% Titrate FIO2 to keep O2 saturation above 90%. VAP bundle. Daily ABG and CXR while intubated Sedate for ventilator synchrony - on Versed Fentanyl for analgesia Continue antibiotics. F/u cultures. Plan for central line placement for administration of pressors Pressors for hemodynamic support Levophed 12 mcg/min Titrate to keep mean arterial pressure greater than 65 mmHg. Monitor renal function Monitor electrolytes. Supplement as necessary. Monitor ins and outs. Maintain euvolemia. GI prophylaxis. DVT prophylaxis. Prognosis: Poor given patient's multiple co-morbidities. Condition: Critical Rest of plan per hospitalist and other consultants. A total of 35 minutes of critical care time was spent reviewing the patient record, examining the patient, making a diagnostic and therapeutic plan, discussing this plan with the medical personnel, following up on diagnostic studies and following the patient for clinical stability excluding any and all procedures. At least 50% of this time was spent in direct, [id number] conta ct. Thank you, ESTHER Maria, for allowing me to participate in this patient's care. Further recommendations will depend on the patient's clinical course. Please do not hesitate to contact me if you have any questions or concerns. This medical document was created using an electronic medical record system with [employer] computerized dictation system. Although these documentations are being carefully reviewed, there may still be some phonetic and typographical changes. The errors are purely typographical, due to imperfection on the software program, and do not reflect any compromise in the patient's medical care. Plan discussed with: Rusty Other (GLADYS Gasca/ESTHER Maria/) MEY RAM MD Aug 17, 2024 22:12
[2024-08-18] VITALS (108 sets, daily range): BP systolic 92–167; BP diastolic 33–66; PULSE 74–112; RESP 12–26; TEMP 98.1–98.6; O2SAT 93–100
[2024-08-18 04:11] LABS: Hematocrit 43.1 % (36.0-46.0); Hemoglobin 14.1 g/dL (12.2-16.2); Mean Corpuscular Hemoglobin 30.9 pg (28.0-32.0); Mean Corpuscular Hgb Conc. 32.8 g/dL (32.0-36.0); Mean Corpuscular Volume 94.5 fL (80.0-100.0); Platelet Count (auto) 219 10^3/uL (140-450); Red Blood Cells 4.56 10^6/uL (4.0-5.20); Red Cell Distribution Width 13.9 % (11.8-14.3); White Blood Cell 29.1 10^3/uL (4.4-10.8)
[2024-08-18 04:23] LABS: Basophils % (manual) 0 (0.0-2.0); Blast Cells 0; Eosinophils % (manual) 0 (0-7); Metamyelocytes % 0; Myelocytes % 0; Promyelocytes % 0; Reactive Lymphocytes 0
[2024-08-18 04:29] LABS: Anion Gap 11 (5-15); Chloride 103 mmol/L (98-107); Potassium 3.6 mmol/L (3.5-5.1)
[2024-08-18 04:35] LABS: BUN/Creatinine Ratio 17.6 (10.0-20.0); Blood Urea Nitrogen 22 mg/dL (9-23)
[2024-08-18 04:38] LABS: Carbon Dioxide 20 mmol/L (20-31); Glucose 371 mg/dL (74-106); Sodium 134 mmol/L (136-145)
--- NOTE | 2024-08-18 06:08 | DVH ---
CHEST RADIOGRAPH Indication: Acute resp failure Technique: Single frontal view of the chest was obtained Comparison: XY CHEST PORTABLE on DOS: 08/17/24 FINDINGS: Lines and Tubes: There is a right central venous catheter with tip terminating in the right atrium. T he enteric tube courses below the left hemidiaphragm and the tip extends outside the field of view.r the endotracheal tube terminates 6.3 cm above the paty. Lungs: No focal consolidation. Pleura: No effusion. No pneumothorax. Cardiomediastinal contours: Unremarkable Bones: No acute osseous abnormality. IMPRESSION: 1. Stable position of the support lines and tubes. 2. No acute cardiopulmonary disease.
[2024-08-18 06:25] LABS: Band Neutrophils % (manual) 6; Lymphocytes % (manual) 1 (10.0-50.0); Monocytes % (manual) 2 (0-12); Platelet Estimate Adequate
[2024-08-18 06:54] LABS: Base Excess -8.9 mmol/L (-2.0-3.0)
[2024-08-18 07:33] LABS: Basophils # (auto) 0.1 10 ^3/uL (0-0.2); Basophils % (auto) 0.3 % (0.0-2.0); Eosinophils # (auto) 0 10 ^3/uL (0-0.8); Hematocrit 42.9 % (36.0-46.0); Hemoglobin 14.3 g/dL (12.2-16.2); Lymphocytes # (auto) 0.4 10 ^3/uL (0.4-5.4); Lymphocytes % (auto) 1.5 % (10.0-50.0); Mean Corpuscular Hemoglobin 31.3 pg (28.0-32.0); Mean Corpuscular Hgb Conc. 33.4 g/dL (32.0-36.0); Mean Corpuscular Volume 93.9 fL (80.0-100.0); Monocytes # (auto) 0.8 10 ^3/uL (0-1.3); Monocytes % (auto) 2.7 % (0.0-12.0); Neutrophils # (auto) 27.9 10 ^3/uL (1.6-8.6); Neutrophils % (auto) 95.5 % (37.0-80.0); Nucleated Red Blood Cells % 0.1 %; Platelet Count (auto) 228 10^3/uL (140-450); Red Blood Cells 4.57 10^6/uL (4.0-5.20); Red Cell Distribution Width 13.9 % (11.8-14.3); White Blood Cell 29.3 10^3/uL (4.4-10.8)
[2024-08-18] MEDS: PANTOPRAZOLE 40 MG/10 ML VIAL INJ IV SCH (09:53)
[2024-08-18] MEDS: ETOMIDATE (2MG/ML) 20ML VIAL IV ONE ×2 (11:24)
[2024-08-18] MEDS: fentaNYL Drip 2500mCg/250mlNS 250 ML IV ONE (11:24)
[2024-08-18] MEDS: SUCCINYLCHOLINE CHLORIDE 20 MG/ML 10ML VIAL IV ONE (11:24)
[2024-08-18] MEDS: MIDAZOLAM DRIP 50 mg/50mL 50 ML IV ONE (11:25)
--- NOTE | 2024-08-18 11:25 | MEDREC ---
[facility] ASP Intervention Section I [facility] ASP Intervention: Review courses of therapy (PLEASE CONSIDER ESCALATING CEFTRIAXONE TO BROAD SPECTRUM ANTIBIOTICS GIVEN PATIENT'S CURRENT CONDITIONS (INTUBATED, HIGH WBC)) AKILA CERRATO Aug 18, 2024 11:25
--- NOTE | 2024-08-18 12:24 | DVHSR ---
APPROVED REPORT EXAM: Two-dimensional and M-mode echocardiogram with Doppler and color Doppler. Blood Pressure: 143/62 mmHg INDICATION Bradycardia RISK FACTORS Height: 5'4", Weight: 144 DIMENSIONS LVDd3.1 (3.8-5.7cm)LA (2D)4.2 (1.9-4.0cm)Aortic Root3.2 (2.0-3.7cm) LVDs1.8 (2.5-4.0cm)LA (MM) (1.9-4.0cm)Aortic Cusp Exc1.5 (1.5-2.0cm) EF (%) 75.0 (55-70%)Rt. Atrium4.1 (1.9-4.0cm)Asc. Aorta3.2 cm IVSd1.2 (0.7-1.1cm)RV (D)3.4 (1.8-2.4cm) PWd1.1 (0.7-1.1cm) Mitral Valve MitralMitral Stenosis E wave0.41m/sMV Mean GR.mmHg A wave0.39m/sMV Peak GR.mmHg E/A ratio1.12D MVAcm2 DECEL [id number] 1/2 [place] Aortic Valve Aortic ValveAortic Stenosis V10.88m/Seth Mean GR.3mmHg V21.23m/Seth Peak GR.6mmHg LVOT Diameter2.0 (1.8-2.4cm)Doppler AVA2.25cm2 AI P 1/2 Jusi087.89ms Pulmonic Valve V20.62m/s Tricuspid Valve TR Velocity1.98m/s [id number] Other Information Quality : Technically LimitedRhythm : Technically limited study due to on vent. Conclusion Technically good study. Sinus rhythm. Biatrial enlargement. Mild aortic root enlargement. Concentric LVH of moderate degree. Valves appear to be structurally normal. EF of 65-70% with normal RV function. Doppler is unremarkable. Mild aortic insufficiency. Moderate pulmonic insufficiency. No pericardial effusion masses or vegetations.
--- NOTE | 2024-08-18 14:05 | DVHPN2 ---
Consult Progress Note Date Seen: Aug 18, 2024 Subjective Patient reports: Other (Unresponsive. Patient on ventilator.) Review of Systems: HEENT:Abnormal ( Endotracheally intubated.), CVS:Abnormal ( On Isuprel drip.), RESPIRATORY:Abnormal ( Ventilatory support in place), GI:Normal, :Normal, MSK:Normal, NEURO:Abnormal ( unable to delineate neurological status given heavy sedation) Objective vital signs Vital Sign Date Time Temp Pulse Resp B/P (MAP) Pulse Ox O2 Delivery O2 Flow Rate FiO2 08/18/24 13:04 100 15 101/59 (73) 97 30 08/18/24 12:00 98.2 98.2 08/18/24 12:00 Mechanical Ventilator+ 08/17/24 14:58 2.0 Total Intake and Output 08/17/24 08/17/24 08/18/24 15:00 23:00 07:00 Intake Total 380.60 ml 1455.55 ml 1520.8 ml Output Total 0 ml 350 ml Balance 380.60 ml 1455.55 ml 1170.8 ml medications Current Medications Medications Dose Ordered Sig/Pepe Route Start Time Stop Time Status Last Admin Dose Admin Docusate Sodium 100 mg BIDPRN PRN PO 08/16/24 20:45 08/17/24 06:26 100 MG Acetaminophen 650 mg Q6HP PRN PO 08/16/24 20:45 Ondansetron HCl 4 mg Q4HP PRN IV 08/16/24 20:45 Nitroglycerin 0.4 mg Q5MINP PRN SL 08/16/24 20:45 Morphine Sulfate 2 mg Q30M PRN IV 08/16/24 20:45 Ceftriaxone Sodium 50 ml @ 100 mls/hr DAILY IV 08/17/24 10:00 08/18/24 09:53 100 MLS/HR Hydralazine HCl 10 mg Q6HP PRN IV 08/16/24 23:30 Acetaminophen/ Hydrocodone Bitart 1 tab Q6HPRN PRN PO 08/16/24 23:30 08/17/24 00:56 1 TAB Norepinephrine Bitartrate 250 ml @ 3.75 mls/hr Q24H IV 08/17/24 10:15 08/18/24 03:04 22.5 MLS/HR Midazolam HCl 50 ml @ 1 mls/hr Q24H IV 08/17/24 10:15 08/17/24 15:29 1 MLS/HR Fentanyl Citrate 250 ml @ 2.5 mls/hr Q24H IV 08/17/24 10:15 08/18/24 09:52 10 MLS/HR Methylprednisolone Sodium Succinate 40 mg Q8HR IV 08/17/24 14:00 08/18/24 05:14 40 MG Dextrose/Sodium Chloride 1,000 ml @ 125 mls/hr Q8H IV 08/17/24 13:15 08/18/24 05:14 125 MLS/HR Diagnostic Test (Pha) 1 strip Q6HR 08/17/24 18:00 08/18/24 12:59 1 STRIP Insulin Human Regular Q6HR SC 08/17/24 18:00 08/18/24 12:57 4 UNITS Dextrose 50 ml UD PRN IV 08/17/24 13:15 Pantoprazole Sodium 40 mg DAILY IV 08/18/24 10:00 08/18/24 09:53 40 MG Isoproterenol HCl 1 mg/Dextrose 255 ml @ 30.6 mls/hr Q8H20M IV 08/17/24 13:30 08/18/24 05:14 30.6 MLS/HR Examination: GENERAL:Normal ( on ventilator as mentioned.), GENERAL:Abnormal, HEENT:Abnormal ( Endotracheally intubated.), LUNGS:Abnormal ( Ventilatory sounds bilaterally.), CVS:Abnormal ( On an Isuprel drip.), ABDOMEN:Normal ( Normal bowel sounds.), MSK:Abnormal ( Muscle atrophy and diminished tone), SKIN:Normal, NEURO:Abnormal ( inability to fully assess given patient with heavy sedation), :Normal laboratory and microbiology Laboratory Tests 08/18/24 07:18 08/18/24 03:00 Test 08/18/24 03:00 Range/Units Serum Glucose 371 H 74-106 mg/dL Problem List/Assessment/Plan Problem List/Assessment/Plan Significant leukocytosis. Etiology undetermined. Consider infection and/or loose sigmoid reaction. 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 Recommend holding off on pacemaker implantation until etiology of leukocytosis is apparent and problems dealt with. Plan discussed with: Son Dietary Evaluation Review Comments: Nutrition support: 1. On vent, Glucerna 1.2 40ml/hr, providing 58g Pro and 1152 kcal in 24 hrs. 2. Off Vent and pass speech eval,2 g Na,low fat Low chol, CCHO-60g, Protein 60 g restriction if kidney functiondoes not improve, 3. TPN per pharmacy if NPO>7 days. Expected Outcomes/Goals: Off Vent, controlled DM, improved wound healing, maintain BW. Date of Service: Aug 18, 2024 Billing Provider: ALAN VILLALOBOS Sr., MD Cardiology Common Codes: 23471-[id number] HOSP CARE(High ALAN VILLALOBOS Sr., MD Aug 18, 2024 14:05
[2024-08-18] MEDS: D5W/SOD CHLO 0.9% 1,000 ML IV SCH (15:30)
--- NOTE | 2024-08-18 15:48 | DVHPN2 ---
Progress Note - Dictate Date Seen: Aug 18, 2024 Medical Necessity Reason Pt with a Central, PICC or Fol: Yes The following are medically ne: De La Cruz Catheter Subjective Patient is seen and evaluated in the ICU. Remains intubated comfortable on ventilator. Discussed with the nurse. Patient is started on IV steroids yesterday and noted to have a leukocytosis felt secondary to stress/demargination from steroids. Patient is still on isoproterenol for bradycardia. Heart rate in the 90s. vital signs Vital Sign Date Time Temp Pulse Resp B/P (MAP) Pulse Ox O2 Delivery O2 Flow Rate FiO2 08/18/24 15:15 108 14 110/46 (67) 98 08/18/24 14:00 30 08/18/24 14:00 Mechanical Ventilator+ 08/18/24 12:00 98.2 98.2 08/17/24 14:58 2.0 Total Intake and Output 08/17/24 08/17/24 08/18/24 15:00 23:00 07:00 Intake Total 380.60 ml 1455.55 ml 1520.8 ml Output Total 0 ml 350 ml Balance 380.60 ml 1455.55 ml 1170.8 ml medications Current Medications Medications Dose Ordered Sig/Pepe Route Start Time Stop Time Status Last Admin Dose Admin Docusate Sodium 100 mg BIDPRN PRN PO 08/16/24 20:45 08/17/24 06:26 100 MG Acetaminophen 650 mg Q6HP PRN PO 08/16/24 20:45 Ondansetron HCl 4 mg Q4HP PRN IV 08/16/24 20:45 Nitroglycerin 0.4 mg Q5MINP PRN SL 08/16/24 20:45 Morphine Sulfate 2 mg Q30M PRN IV 08/16/24 20:45 Ceftriaxone Sodium 50 ml @ 100 mls/hr DAILY IV 08/17/24 10:00 08/18/24 09:53 100 MLS/HR Hydralazine HCl 10 mg Q6HP PRN IV 08/16/24 23:30 Acetaminophen/ Hydrocodone Bitart 1 tab Q6HPRN PRN PO 08/16/24 23:30 08/17/24 00:56 1 TAB Norepinephrine Bitartrate 250 ml @ 3.75 mls/hr Q24H IV 08/17/24 10:15 08/18/24 03:04 22.5 MLS/HR Midazolam HCl 50 ml @ 1 mls/hr Q24H IV 08/17/24 10:15 08/17/24 15:29 1 MLS/HR Fentanyl Citrate 250 ml @ 2.5 mls/hr Q24H IV 08/17/24 10:15 08/18/24 09:52 10 MLS/HR Diagnostic Test (Pha) 1 strip Q6HR 08/17/24 18:00 08/18/24 12:59 1 STRIP Insulin Human Regular Q6HR SC 08/17/24 18:00 08/18/24 12:57 4 UNITS Dextrose 50 ml UD PRN IV 08/17/24 13:15 Pantoprazole Sodium 40 mg DAILY IV 08/18/24 10:00 08/18/24 09:53 40 MG Isoproterenol HCl 1 mg/Dextrose 255 ml @ 30.6 mls/hr Q8H20M IV 08/17/24 13:30 08/18/24 14:41 30.6 MLS/HR Dextrose/Sodium Chloride 1,000 ml @ 75 mls/hr [id number] IV 08/18/24 14:45 objective Currently she was intubated comfortable. Family is at bedside. HEENT pupils equal round react to light. Heart regular rate and rhythm S1 plus S2. Lungs fair air movement without any audible rales or wheezing. Abdomen soft positive bowel sounds. Extremities no edema. Neurologically no gross focal deficits noted. laboratory and microbiology Laboratory Tests 08/18/24 07:18 08/18/24 03:00 Test 08/18/24 03:00 Range/Units Serum Glucose 371 H 74-106 mg/dL Assessment/Plan Continue current ventilator management and supportive care and treatment as she is on. I will DC the IV steroids given no indication at present with leukocytosis. Continue empiric antibiotics. We will follow repeat CBC in the morning. Continue rest of supportive care and as she is on. Her further clinical management per clinical course and recommendations from the consultants. Discussed with the nurse at bedside regarding care plan. Problems(with codes): (1) UTI (urinary tract infection) (2) Symptomatic bradycardia (3) Hypotension Dietary Evaluation Review Comments: Nutrition support: 1. On vent, Glucerna 1.2 40ml/hr, providing 58g Pro and 1152 kcal in 24 hrs. 2. Off Vent and pass speech eval,2 g Na,low fat Low chol, CCHO-60g, Protein 60 g restriction if kidney functiondoes not improve, 3. TPN per pharmacy if NPO>7 days. Expected Outcomes/Goals: Off Vent, controlled DM, improved wound healing, maintain BW. Plan discussed with: Other GAB AMIN MD Aug 18, 2024 15:48
--- NOTE | 2024-08-18 22:04 | DVHPN2 ---
Progress Note - Dictate Date Seen: Aug 18, 2024 Medical Necessity Reason Pt with a Central, PICC or Fol: Yes The following are medically ne: Wong Catheter Reason for wong catheter: Strict I&O Subjective Patient seen and examined at bedside. Sedated, intubated on mechanical ventilator. Overnight events reviewed. vital signs Vital Sign Date Time Temp Pulse Resp B/P (MAP) Pulse Ox O2 Delivery O2 Flow Rate FiO2 08/18/24 20:21 106 14 127/50 (75) 97 30 08/18/24 20:00 Mechanical Ventilator+ 08/18/24 16:00 98.4 98.4 08/17/24 14:58 2.0 Total Intake and Output 08/17/24 08/17/24 08/18/24 15:00 23:00 07:00 Intake Total 380.60 ml 1455.55 ml 1520.8 ml Output Total 0 ml 350 ml Balance 380.60 ml 1455.55 ml 1170.8 ml medications Current Medications Medications Dose Ordered Sig/Pepe Route Start Time Stop Time Status Last Admin Dose Admin Docusate Sodium 100 mg BIDPRN PRN PO 08/16/24 20:45 08/17/24 06:26 100 MG Acetaminophen 650 mg Q6HP PRN PO 08/16/24 20:45 Ondansetron HCl 4 mg Q4HP PRN IV 08/16/24 20:45 Nitroglycerin 0.4 mg Q5MINP PRN SL 08/16/24 20:45 Morphine Sulfate 2 mg Q30M PRN IV 08/16/24 20:45 Ceftriaxone Sodium 50 ml @ 100 mls/hr DAILY IV 08/17/24 10:00 08/18/24 09:53 100 MLS/HR Hydralazine HCl 10 mg Q6HP PRN IV 08/16/24 23:30 Acetaminophen/ Hydrocodone Bitart 1 tab Q6HPRN PRN PO 08/16/24 23:30 08/17/24 00:56 1 TAB Norepinephrine Bitartrate 250 ml @ 3.75 mls/hr Q24H IV 08/17/24 10:15 08/18/24 03:04 22.5 MLS/HR Midazolam HCl 50 ml @ 1 mls/hr Q24H IV 08/17/24 10:15 08/17/24 15:29 1 MLS/HR Fentanyl Citrate 250 ml @ 2.5 mls/hr Q24H IV 08/17/24 10:15 08/18/24 09:52 10 MLS/HR Diagnostic Test (Pha) 1 strip Q6HR 08/17/24 18:00 08/18/24 18:13 1 STRIP Insulin Human Regular Q6HR SC 08/17/24 18:00 08/18/24 18:23 3 UNITS Dextrose 50 ml UD PRN IV 08/17/24 13:15 Pantoprazole Sodium 40 mg DAILY IV 08/18/24 10:00 08/18/24 09:53 40 MG Isoproterenol HCl 1 mg/Dextrose 255 ml @ 30.6 mls/hr Q8H20M IV 08/17/24 13:30 08/18/24 14:41 30.6 MLS/HR Dextrose/Sodium Chloride 1,000 ml @ 75 mls/hr [id number] IV 08/18/24 14:45 08/18/24 15:30 75 MLS/HR objective Gen.: Patient lying in bed in medical ICU. Sedated, intubated on mechanical ventilator. Head: Normocephalic, atraumatic. Eyes: PERRLA. Ears: Normal external anatomy. Throat: Endotracheal tube and orogastric tube in place. Neck: Supple, trachea midline. Chest: Transmitted breath sounds bilaterally. Decreased air entry bilaterally. No wheezing. Bibasilar crackles. Cardiovascular: Positive S1, positive S2. Regular rate and rhythm. Abdomen: Positive bowel sounds in all 4 quadrants. Soft, nontender, nondistended. : Wong in place. Normal external genitalia. Rectal: Deferred. Skin: Warm, dry. Intact. Extremities: 2+ radial pulses bilaterally. No lower extremity edema. Neuro: Sedated. laboratory and microbiology Laboratory Tests 08/18/24 07:18 08/18/24 03:00 Test 08/18/24 03:00 Range/Units Serum Glucose 371 H 74-106 mg/dL Assessment/Plan Impression: Acute hypoxic respiratory failure On mechanical ventilator Shock, cardiogenic Bradycardia, symptomatic Atelectasis Events: Remains on vent support On AC mode; RR 14, VT 450, PEEP 5, FiO2 100 -->30% Sedated on Versed, Fentanyl ABG reviewed, notable for acidemia. CXR image and report reviewed. Devices in place. No consolidation, pneumothorax or pleural effusion. Pressors for hemodynamic support Levophed 12 mcg/min Titrate to keep mean arterial pressure greater than 65 mmHg. Isoproterenol drip. Cardiology recs appreciated. Cardiology deferred pacemaker. Stop steroids Continue antibiotics WBC elevated at 29.3 Labs and imaging reviewed. Rest of plan as noted below. Plan: s/p intubation on mechanical ventilator. On AC mode; RR 14, VT 450, PEEP 5, FiO2 30% Titrate FIO2 to keep O2 saturation above 90%. VAP bundle. Daily ABG and CXR while intubated Sedate for ventilator synchrony Continue antibiotics. F/u cultures. Central line placement for administration of pressors Pressors for hemodynamic support Titrate to keep mean arterial pressure greater than 65 mmHg. Monitor renal function Monitor electrolytes. Supplement as necessary. Monitor ins and outs. Maintain euvolemia. GI prophylaxis. DVT prophylaxis. Prognosis: Poor given patient's multiple co-morbidities. Condition: Critical Rest of plan per hospitalist and other consultants. A total of 35 minutes of critical care time was spent reviewing the patient record, examining the patient, making a diagnostic and therapeutic plan, discussing this plan with the medical personnel, following up on diagnostic studies and following the patient for clinical stability excluding any and all procedures. At least 50% of this time was spent in direct, [id number] contact. Thank you, ESTHER Maria, for allowing me to participate in this patient's care. Further recommendations will depend on the patient's clinical course. Please do not hesitate to contact me if you have any questions or concerns. This medical document was created using an electronic medical record system with [employer] dictation system. Although these documentations are being carefully reviewed, there may still be some phonetic and typographical changes. The errors are purely typographical, due to imperfection on the software program, and do not reflect any compromise in the patient's medical care. Dietary Evaluation Review Comments: Nutrition support: 1. On vent, Glucerna 1.2 40ml/hr, providing 58g Pro and 1152 kcal in 24 hrs. 2. Off Vent and pass speech eval,2 g Na,low fat Low chol, CCHO-60g, Protein 60 g restriction if kidney functiondoes not improve, 3. TPN per pharmacy if NPO>7 days. Expected Outcomes/Goals: Off Vent, controlled DM, improved wound healing, maintain BW. Plan discussed with: Other (GLADYS Lozano) Critical Care Time(min): 35 MEY RAM MD Aug 18, 2024 22:04
[2024-08-19] VITALS (106 sets, daily range): BP systolic 94–141; BP diastolic 36–72; PULSE 85–117; RESP 5–23; TEMP 98.4–100.4; O2SAT 94–100
[2024-08-19 03:42] LABS: Hemoglobin 12.7 g/dL (12.2-16.2); Mean Corpuscular Hemoglobin 31.5 pg (28.0-32.0); Mean Corpuscular Hgb Conc. 33.4 g/dL (32.0-36.0); Mean Corpuscular Volume 94.3 fL (80.0-100.0); Platelet Count (auto) 207 10^3/uL (140-450); Red Blood Cells 4.03 10^6/uL (4.0-5.20); Red Cell Distribution Width 14.4 % (11.8-14.3)
[2024-08-19 03:49] LABS: Sodium 139 mmol/L (136-145)
[2024-08-19 03:50] LABS: Anion Gap 7 (5-15); Carbon Dioxide 25 mmol/L (20-31)
[2024-08-19 03:51] LABS: Calcium 9.1 mg/dL (8.7-10.4)
[2024-08-19 03:53] LABS: Basophils % (manual) 0 (0.0-2.0); Blast Cells 0; Eosinophils % (manual) 0 (0-7); Metamyelocytes % 0; Myelocytes % 0; Promyelocytes % 0; Reactive Lymphocytes 0
[2024-08-19 03:55] LABS: BUN/Creatinine Ratio 22.7 (10.0-20.0); Blood Urea Nitrogen 15 mg/dL (9-23)
[2024-08-19 03:57] LABS: Chloride 107 mmol/L (98-107); Glucose 163 mg/dL (74-106)
[2024-08-19 05:22] LABS: Band Neutrophils % (manual) 6; Lymphocytes % (manual) 3 (10.0-50.0); Monocytes % (manual) 3 (0-12); Platelet Estimate Adequate
[2024-08-19 06:27] LABS: Base Excess -4.8 mmol/L (-2.0-3.0)
--- NOTE | 2024-08-19 11:13 | ECG ---
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
--- NOTE | 2024-08-19 11:22 | DVHPN2 ---
Progress Note - Dictate Date Seen: Aug 19, 2024 Medical Necessity Reason Pt with a Central, PICC or Fol: Yes The following are medically ne: Wong Catheter Reason for wong catheter: Strict I&O vital signs Vital Sign Date Time Temp Pulse Resp B/P (MAP) Pulse Ox O2 Delivery O2 Flow Rate FiO2 08/19/24 10:10 94 14 128/51 (76) 99 30 08/19/24 08:15 Mechanical Ventilator+ 08/19/24 05:45 99.0 99.0 08/17/24 14:58 2.0 Total Intake and Output 08/18/24 08/18/24 08/19/24 15:00 23:00 07:00 Intake Total 1153.8 ml 1153.8 ml 1005.2 ml Output Total 550 ml 700 ml Balance 1153.8 ml 603.8 ml 305.2 ml medications Current Medications Medications Dose Ordered Sig/Pepe Route Start Time Stop Time Status Last Admin Dose Admin Docusate Sodium 100 mg BIDPRN PRN PO 08/16/24 20:45 08/17/24 06:26 100 MG Acetaminophen 650 mg Q6HP PRN PO 08/16/24 20:45 Ondansetron HCl 4 mg Q4HP PRN IV 08/16/24 20:45 Nitroglycerin 0.4 mg Q5MINP PRN SL 08/16/24 20:45 Morphine Sulfate 2 mg Q30M PRN IV 08/16/24 20:45 Ceftriaxone Sodium 50 ml @ 100 mls/hr DAILY IV 08/17/24 10:00 08/19/24 09:41 100 MLS/HR Hydralazine HCl 10 mg Q6HP PRN IV 08/16/24 23:30 Acetaminophen/ Hydrocodone Bitart 1 tab Q6HPRN PRN PO 08/16/24 23:30 08/17/24 00:56 1 TAB Norepinephrine Bitartrate 250 ml @ 3.75 mls/hr Q24H IV 08/17/24 10:15 08/19/24 09:41 22.5 MLS/HR Midazolam HCl 50 ml @ 1 mls/hr Q24H IV 08/17/24 10:15 08/19/24 03:37 3 MLS/HR Fentanyl Citrate 250 ml @ 2.5 mls/hr Q24H IV 08/17/24 10:15 08/19/24 06:40 12.5 MLS/HR Diagnostic Test (Pha) 1 strip Q6HR 08/17/24 18:00 08/19/24 06:00 1 STRIP Insulin Human Regular Q6HR SC 08/17/24 18:00 08/19/24 00:00 2 UNITS Dextrose 50 ml UD PRN IV 08/17/24 13:15 Pantoprazole Sodium 40 mg DAILY IV 08/18/24 10:00 08/19/24 09:40 40 MG Isoproterenol HCl 1 mg/Dextrose 255 ml @ 30.6 mls/hr Q8H20M IV 08/17/24 13:30 08/18/24 14:41 30.6 MLS/HR Dextrose/Sodium Chloride 1,000 ml @ 75 mls/hr [id number] IV 08/18/24 14:45 08/19/24 04:05 75 MLS/HR laboratory and microbiology Laboratory Tests 08/19/24 02:47 Test 08/19/24 02:47 Range/Units Serum Glucose 163 H 74-106 mg/dL Assessment/Plan Assessment/Plan Impression: Acute hypoxic respiratory failure On mechanical ventilator Shock, cardiogenic Bradycardia, symptomatic Atelectasis Events: Remains on vent support awaiting pacemaker placement cx neg've WBC elevated on isopren drip sedation On AC mode; RR 14, VT 450, PEEP 5, FiO2 100 -->30% CXR: congestion Plan: Sedate for ventilator synchrony daily abg, CXR Continue antibiotics. F/u cultures. Pressors for hemodynamic support Titrate to keep mean arterial pressure greater than 65 mmHg. Monitor renal function Monitor electrolytes. Supplement as necessary. Monitor ins and outs. Maintain euvolemia. GI prophylaxis. DVT prophylaxis. Prognosis: Poor given patient's multiple co-morbidities. Condition: Critical Rest of plan per hospitalist and other consultants. A total of 35 minutes of critical care time was spent Dietary Evaluation Review Comments: Nutrition support: 1. On vent, Glucerna 1.2 40ml/hr, providing 58g Pro and 1152 kcal in 24 hrs. 2. Off Vent and pass speech eval,2 g Na,low fat Low chol, CCHO-60g, Protein 60 g restriction if kidney functiondoes not improve, 3. TPN per pharmacy if NPO>7 days. Expected Outcomes/Goals: Off Vent, controlled DM, improved wound healing, maintain BW. Plan discussed with: Other (rn) FRIEDA NIEVES MD Aug 19, 2024 11:22
--- NOTE | 2024-08-19 12:05 | DVHPN2 ---
Progress Note - Dictate Date Seen: Aug 19, 2024 Medical Necessity Reason Pt with a Central, PICC or Fol: Yes The following are medically ne: Wong Catheter Reason for wong catheter: Strict I&O Subjective Patient is seen and evaluated in the ICU. Remains intubated comfortable on ventilator. Discussed with the nurse at bedside. She remains clinically stable ordered in the 90s on Isuprel drip. vital signs Vital Sign Date Time Temp Pulse Resp B/P (MAP) Pulse Ox O2 Delivery O2 Flow Rate FiO2 08/19/24 11:24 131/52 08/19/24 10:10 94 14 99 30 08/19/24 08:15 Mechanical Ventilator+ 08/19/24 05:45 99.0 99.0 08/17/24 14:58 2.0 Total Intake and Output 08/18/24 08/18/24 08/19/24 15:00 23:00 07:00 Intake Total 1153.8 ml 1153.8 ml 1005.2 ml Output Total 550 ml 700 ml Balance 1153.8 ml 603.8 ml 305.2 ml medications Current Medications Medications Dose Ordered Sig/Pepe Route Start Time Stop Time Status Last Admin Dose Admin Docusate Sodium 100 mg BIDPRN PRN PO 08/16/24 20:45 08/17/24 06:26 100 MG Acetaminophen 650 mg Q6HP PRN PO 08/16/24 20:45 Ondansetron HCl 4 mg Q4HP PRN IV 08/16/24 20:45 Nitroglycerin 0.4 mg Q5MINP PRN SL 08/16/24 20:45 Morphine Sulfate 2 mg Q30M PRN IV 08/16/24 20:45 Ceftriaxone Sodium 50 ml @ 100 mls/hr DAILY IV 08/17/24 10:00 08/19/24 09:41 100 MLS/HR Hydralazine HCl 10 mg Q6HP PRN IV 08/16/24 23:30 Acetaminophen/ Hydrocodone Bitart 1 tab Q6HPRN PRN PO 08/16/24 23:30 08/17/24 00:56 1 TAB Norepinephrine Bitartrate 250 ml @ 3.75 mls/hr Q24H IV 08/17/24 10:15 08/19/24 09:41 22.5 MLS/HR Midazolam HCl 50 ml @ 1 mls/hr Q24H IV 08/17/24 10:15 08/19/24 03:37 3 MLS/HR Fentanyl Citrate 250 ml @ 2.5 mls/hr Q24H IV 08/17/24 10:15 08/19/24 06:40 12.5 MLS/HR Diagnostic Test (Pha) 1 strip Q6HR 08/17/24 18:00 08/19/24 06:00 1 STRIP Insulin Human Regular Q6HR SC 08/17/24 18:00 08/19/24 00:00 2 UNITS Dextrose 50 ml UD PRN IV 08/17/24 13:15 Pantoprazole Sodium 40 mg DAILY IV 08/18/24 10:00 08/19/24 09:40 40 MG Isoproterenol HCl 1 mg/Dextrose 255 ml @ 30.6 mls/hr Q8H20M IV 08/17/24 13:30 08/18/24 14:41 30.6 MLS/HR Dextrose/Sodium Chloride 1,000 ml @ 75 mls/hr [id number] IV 08/18/24 14:45 08/19/24 04:05 75 MLS/HR objective Comfortable on ventilator without distress. HEENT pupils equal round react to light. Heart regular rate and rhythm S1 plus S2. Lungs fair air movement without any audible rales or wheezing. Abdomen soft positive bowel sounds. Extremities no edema. Neurologically no gross focal deficits noted. laboratory and microbiology Laboratory Tests 08/19/24 02:47 Test 08/19/24 02:47 Range/Units Serum Glucose 163 H 74-106 mg/dL Assessment/Plan Continue current ventilator management and supportive care and treatment as she is on. Continue current supportive care and treatment. Start her on Clinimix for nutrition. Follow the labs in the morning. Otherwise further clinical management per clinical course. Discussed with the nurse at bedside regarding care plan. Problems(with codes): (1) Symptomatic bradycardia (2) Hypotension Dietary Evaluation Review Comments: Nutrition support: 1. On vent, Glucerna 1.2 40ml/hr, providing 58g Pro and 1152 kcal in 24 hrs. 2. Off Vent and pass speech eval,2 g Na,low fat Low chol, CCHO-60g, Protein 60 g restriction if kidney functiondoes not improve, 3. TPN per pharmacy if NPO>7 days. Expected Outcomes/Goals: Off Vent, controlled DM, improved wound healing, maintain BW. Plan discussed with: Other GAB AMIN MD Aug 19, 2024 12:05
[2024-08-19] MEDS ORDERED: CLINIMIX PER PHARMACY 0 ML IV SCH (13:15)
[2024-08-19] MEDS ORDERED: DEXTROSE (50%) 50ML SYRG IV SCH (14:00)
[2024-08-19 16:11] LABS: Alanine Aminotransferase 27 U/L (7-40); Albumin 3.3 g/dL (3.2-4.8); Alkaline Phosphatase 53 U/L (46-116); Anion Gap 5 (5-15); BUN/Creatinine Ratio 16.4 (10.0-20.0); Bilirubin, Total 0.4 mg/dL (0.2-1.0); Blood Urea Nitrogen 10 mg/dL (9-23); Calcium 8.7 mg/dL (8.7-10.4); Carbon Dioxide 27 mmol/L (20-31); Magnesium 2.1 mg/dL (1.6-2.6); Phosphorus 2.4 mg/dL (2.4-5.1); Potassium 3.9 mmol/L (3.5-5.1); Sodium 141 mmol/L (136-145)
[2024-08-19 16:14] LABS: Aspartate Aminotransferase < 8 U/L (13-40); Chloride 109 mmol/L (98-107); Glucose 144 mg/dL (74-106); Total Protein 5.1 g/dL (5.7-8.2)
[2024-08-19] MEDS: ACCU-CHEK COMFORT CURVE STRIP VI SCH (17:44)
[2024-08-19] MEDS: InsuLIN REG 1unit/0.01ml Soln (100units/ml) SC SCH (17:48)
[2024-08-19] MEDS: POTASSIUM PHOSPHATE 22 MEQ in SODIUM CHL 0.9% 100 ML IV ONE (18:53)
[2024-08-19] MEDS: ACETAMINOPHEN 325 MG TAB PO PRN (21:48)
[2024-08-19] MEDS: AMINO ACID INFUSION IN D10W 1,000 ML IV SCH (21:48)
[2024-08-19] MEDS: D5W/SOD CHLO 0.9% 1,000 ML IV SCH (22:00)
[2024-08-20] VITALS (107 sets, daily range): BP systolic 77–134; BP diastolic 38–74; PULSE 67–128; RESP 8–21; TEMP 98.1–100; O2SAT 85–100
[2024-08-20 02:31] LABS: Basophils # (auto) 0 10 ^3/uL (0-0.2); Basophils % (auto) 0.1 % (0.0-2.0); Eosinophils # (auto) 0 10 ^3/uL (0-0.8); Eosinophils % (auto) 0.1 % (0.0-7.0); Hemoglobin 11.9 g/dL (12.2-16.2); Lymphocytes # (auto) 0.8 10 ^3/uL (0.4-5.4); Lymphocytes % (auto) 5.7 % (10.0-50.0); Mean Corpuscular Hemoglobin 31.3 pg (28.0-32.0); Mean Corpuscular Hgb Conc. 32.9 g/dL (32.0-36.0); Monocytes % (auto) 7.6 % (0.0-12.0); Neutrophils # (auto) 11.5 10 ^3/uL (1.6-8.6); Neutrophils % (auto) 86.5 % (37.0-80.0); Platelet Count (auto) 131 10^3/uL (140-450); Red Blood Cells 3.79 10^6/uL (4.0-5.20); Red Cell Distribution Width 14.5 % (11.8-14.3); White Blood Cell 13.3 10^3/uL (4.4-10.8)
[2024-08-20 03:53] LABS: Alanine Aminotransferase 24 U/L (7-40); Alkaline Phosphatase 52 U/L (46-116); Anion Gap 4 (5-15); Aspartate Aminotransferase 13 U/L (13-40); BUN/Creatinine Ratio 18.4 (10.0-20.0); Blood Urea Nitrogen 9 mg/dL (9-23); Carbon Dioxide 28 mmol/L (20-31); Chloride 107 mmol/L (98-107); Magnesium 1.8 mg/dL (1.6-2.6); Phosphorus 2.4 mg/dL (2.4-5.1); Potassium 3.8 mmol/L (3.5-5.1); Sodium 139 mmol/L (136-145)
[2024-08-20 03:54] LABS: Albumin 3.2 g/dL (3.2-4.8); Bilirubin, Total 0.5 mg/dL (0.2-1.0); Calcium 8.6 mg/dL (8.7-10.4); Glucose 146 mg/dL (74-106); Total Protein 4.9 g/dL (5.7-8.2)
[2024-08-20 04:20] LABS: Triglycerides 69 mg/dL (< 150)
[2024-08-20 06:09] LABS: Base Excess -0.5 mmol/L (-2.0-3.0)
--- NOTE | 2024-08-20 10:57 | DVHPN2 ---
Progress Note - Dictate Date Seen: Aug 20, 2024 Medical Necessity Reason Pt with a Central, PICC or Fol: Yes The following are medically ne: Wong Catheter Reason for wong catheter: Strict I&O vital signs Vital Sign Date Time Temp Pulse Resp B/P (MAP) Pulse Ox O2 Delivery O2 Flow Rate FiO2 08/20/24 09:50 113 18 105/45 (65) 98 30 08/20/24 06:00 100.0 100.0 08/20/24 06:00 Mechanical Ventilator+ Total Intake and Output 08/19/24 08/19/24 08/20/24 15:00 23:00 07:00 Intake Total 1183.80 ml 1276.9 ml 1130.6 ml Output Total 900 ml 1300 ml Balance 1183.80 ml 376.9 ml -169.4 ml medications Current Medications Medications Dose Ordered Sig/Pepe Route Start Time Stop Time Status Last Admin Dose Admin Docusate Sodium 100 mg BIDPRN PRN PO 08/16/24 20:45 08/17/24 06:26 100 MG Acetaminophen 650 mg Q6HP PRN PO 08/16/24 20:45 08/19/24 21:48 650 MG Ondansetron HCl 4 mg Q4HP PRN IV 08/16/24 20:45 Nitroglycerin 0.4 mg Q5MINP PRN SL 08/16/24 20:45 Morphine Sulfate 2 mg Q30M PRN IV 08/16/24 20:45 Ceftriaxone Sodium 50 ml @ 100 mls/hr DAILY IV 08/17/24 10:00 08/20/24 10:04 100 MLS/HR Hydralazine HCl 10 mg Q6HP PRN IV 08/16/24 23:30 Acetaminophen/ Hydrocodone Bitart 1 tab Q6HPRN PRN PO 08/16/24 23:30 08/17/24 00:56 1 TAB Norepinephrine Bitartrate 250 ml @ 3.75 mls/hr Q24H IV 08/17/24 10:15 08/20/24 02:16 11.25 MLS/HR Midazolam HCl 50 ml @ 1 mls/hr Q24H IV 08/17/24 10:15 08/19/24 20:59 3 MLS/HR Fentanyl Citrate 250 ml @ 2.5 mls/hr Q24H IV 08/17/24 10:15 08/19/24 23:40 17.5 MLS/HR Pantoprazole Sodium 40 mg DAILY IV 08/18/24 10:00 08/20/24 10:05 40 MG Isoproterenol HCl 1 mg/Dextrose 255 ml @ 30.6 mls/hr Q8H20M IV 08/17/24 13:30 08/20/24 08:05 30.6 MLS/HR Amino Acids 0 ml @ 0 mls/hr PER PHARMACY IV 08/19/24 13:15 Diagnostic Test (Pha) 1 strip Q6HR 08/19/24 18:00 08/20/24 05:50 1 STRIP Insulin Human Regular FOLLOW SLIDING SCALE Q6HR SC 08/19/24 18:00 Dextrose 50 ml UD IV 08/19/24 14:00 Amino Acids/ Electrolytes/ Dextrose 1,000 ml @ 41 mls/hr DAILY@2200 IV 08/19/24 22:00 08/19/24 21:48 41 MLS/HR Dextrose/Sodium Chloride 1,000 ml @ 50 mls/hr Q20H IV 08/19/24 22:00 08/19/24 22:00 50 MLS/HR laboratory and microbiology Laboratory Tests 08/20/24 01:26 Test 08/20/24 01:26 Range/Units Serum Glucose 146 H 74-106 mg/dL Assessment/Plan Assessment/Plan Impression: Acute hypoxic respiratory failure On mechanical ventilator Shock, cardiogenic Bradycardia, symptomatic Atelectasis Events: Remains on vent support awaiting pacemaker placement cx neg've WBC elevated on isopren drip sedation On AC mode; RR 14, VT 450, PEEP 5, FiO2 100 -->30% CXR: congestion Plan: Sedate for ventilator synchrony daily abg, CXR Continue antibiotics. F/u cultures. Pressors for hemodynamic support Titrate to keep mean arterial pressure greater than 65 mmHg. Monitor renal function Monitor electrolytes. Supplement as necessary. Monitor ins and outs. Maintain euvolemia. GI prophylaxis. DVT prophylaxis. Prognosis: Poor given patient's multiple co-morbidities. Condition: Critical Rest of plan per hospitalist and other consultants. A total of 35 minutes of critical care time was spent Dietary Evaluation Review Comments: Nutrition support: 1. On vent, Glucerna 1.2 40ml/hr, providing 58g Pro and 1152 kcal in 24 hrs. 2. Off Vent and pass speech eval,2 g Na,low fat Low chol, CCHO-60g, Protein 60 g restriction if kidney functiondoes not improve, 3. TPN per pharmacy if NPO>7 days. Expected Outcomes/Goals: Off Vent, controlled DM, improved wound healing, maintain BW. Plan discussed with: Other (rn) FRIEDA NIEVES MD Aug 20, 2024 10:57
--- NOTE | 2024-08-20 12:03 | DVH ---
CLINICAL INFORMATION: 79 years old, Female; intubated. TECHNIQUE: Single AP portable chest radiograph was obtained. COMPARISON: XY CHEST PORTABLE on DOS: 08/18/24, XY CHEST PORTABLE on DOS: 08/17/24, XY CHEST PORTABLE o n DOS: 08/17/24 FINDINGS: Stable satisfactory positioning of the endotracheal tube, enteric tube, and right internal jugular ce ntral venous catheter. Stable small left pleural effusion with overlying atelectasis and/or consolida tion. Ill-defined mild interstitial opacities appear stable. Mild atelectasis in the right lung base. No pneumothorax. No other significant interval change. IMPRESSION: No significant interval change as detailed above.
--- NOTE | 2024-08-20 14:20 | DVHPN2 ---
Progress Note - Dictate Date Seen: Aug 20, 2024 Medical Necessity Reason Pt with a Central, PICC or Fol: Yes The following are medically ne: Wong Catheter Reason for wong catheter: Strict I&O Subjective Patient is seen and evaluated in the ICU. Remains intubated comfortable on ventilator. Discussed with the nurse at bedside. Heart rate is in the 120s. Tachycardic. Labs reviewed. Mag is 1.8 potassium is 3.8. vital signs Vital Sign Date Time Temp Pulse Resp B/P (MAP) Pulse Ox O2 Delivery O2 Flow Rate FiO2 08/20/24 13:54 119 18 128/58 (81) 99 30 08/20/24 06:00 100.0 100.0 08/20/24 06:00 Mechanical Ventilator+ Total Intake and Output 08/19/24 08/19/24 08/20/24 15:00 23:00 07:00 Intake Total 1183.80 ml 1276.9 ml 1196.45 ml Output Total 900 ml 1300 ml Balance 1183.80 ml 376.9 ml -103.55 ml medications Current Medications Medications Dose Ordered Sig/Pepe Route Start Time Stop Time Status Last Admin Dose Admin Docusate Sodium 100 mg BIDPRN PRN PO 08/16/24 20:45 08/17/24 06:26 100 MG Acetaminophen 650 mg Q6HP PRN PO 08/16/24 20:45 08/19/24 21:48 650 MG Ondansetron HCl 4 mg Q4HP PRN IV 08/16/24 20:45 Nitroglycerin 0.4 mg Q5MINP PRN SL 08/16/24 20:45 Morphine Sulfate 2 mg Q30M PRN IV 08/16/24 20:45 Ceftriaxone Sodium 50 ml @ 100 mls/hr DAILY IV 08/17/24 10:00 08/20/24 10:04 100 MLS/HR Hydralazine HCl 10 mg Q6HP PRN IV 08/16/24 23:30 Acetaminophen/ Hydrocodone Bitart 1 tab Q6HPRN PRN PO 08/16/24 23:30 08/17/24 00:56 1 TAB Norepinephrine Bitartrate 250 ml @ 3.75 mls/hr Q24H IV 08/17/24 10:15 08/20/24 02:16 11.25 MLS/HR Midazolam HCl 50 ml @ 1 mls/hr Q24H IV 08/17/24 10:15 08/20/24 11:27 5 MLS/HR Fentanyl Citrate 250 ml @ 2.5 mls/hr Q24H IV 08/17/24 10:15 08/20/24 12:35 20 MLS/HR Pantoprazole Sodium 40 mg DAILY IV 08/18/24 10:00 08/20/24 10:05 40 MG Isoproterenol HCl 1 mg/Dextrose 255 ml @ 30.6 mls/hr Q8H20M IV 08/17/24 13:30 08/20/24 08:05 30.6 MLS/HR Amino Acids 0 ml @ 0 mls/hr PER PHARMACY IV 08/19/24 13:15 Diagnostic Test (Pha) 1 strip Q6HR 08/19/24 18:00 08/20/24 11:20 1 STRIP Insulin Human Regular FOLLOW SLIDING SCALE Q6HR SC 08/19/24 18:00 Dextrose 50 ml UD IV 08/19/24 14:00 Amino Acids/ Electrolytes/ Dextrose 1,000 ml @ 41 mls/hr DAILY@2200 IV 08/19/24 22:00 08/19/24 21:48 41 MLS/HR Dextrose/Sodium Chloride 1,000 ml @ 50 mls/hr Q20H IV 08/19/24 22:00 08/20/24 11:20 50 MLS/HR objective Comfortable on ventilator without distress. HEENT pupils equal round react to light. Heart regular rate and rhythm S1 plus S2. Lungs fair air movement without any audible rales or wheezing. Abdomen soft positive bowel sounds. Extremities no edema. Neurologically no gross focal deficits noted. laboratory and microbiology Laboratory Tests 08/20/24 01:26 Test 08/20/24 01:26 Range/Units Serum Glucose 146 H 74-106 mg/dL Assessment/Plan Given her tachycardia I will DC the Isuprel drip. We will resume the drip for heart rate below 60. Discussed with the nurse. We will replace her potassium and magnesium today. Otherwise continue rest of supportive care and treatment as she is on. Follow the labs in the morning. Patient was stable and should undergo pacemaker placement tomorrow. Problems(with codes): (1) Symptomatic bradycardia Dietary Evaluation Review Comments: Nutrition support: 1. On vent, Glucerna 1.2 40ml/hr, providing 58g Pro and 1152 kcal in 24 hrs. 2. Off Vent and pass speech eval,2 g Na,low fat Low chol, CCHO-60g, Protein 60 g restriction if kidney functiondoes not improve, 3. TPN per pharmacy if NPO>7 days. Expected Outcomes/Goals: Off Vent, controlled DM, improved wound healing, maintain BW. Plan discussed with: Other GAB AMIN MD Aug 20, 2024 14:20
[2024-08-20] MEDS: POTASSIUM CHL 20MEQ/100ML 100 ML IV ONE (14:30)
--- NOTE | 2024-08-20 15:51 | ECG ---
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
[2024-08-20] MEDS: MAGNESIUM SULFATE 1GM/100ML 100 ML IV SCH (16:38)
[2024-08-20] MEDS: POTASSIUM PHOSPHATE 44 MEQ in D5W 5% 250 ML IV ONE (17:46)
[2024-08-21] VITALS (103 sets, daily range): BP systolic 87–155; BP diastolic 36–83; PULSE 50–96; RESP 12–19; TEMP 96.9–99; O2SAT 94–100
[2024-08-21 04:05] LABS: Basophils # (auto) 0 10 ^3/uL (0-0.2); Basophils % (auto) 0.2 % (0.0-2.0); Eosinophils # (auto) 0.1 10 ^3/uL (0-0.8); Eosinophils % (auto) 1.3 % (0.0-7.0); Hematocrit 36.2 % (36.0-46.0); Hemoglobin 12.2 g/dL (12.2-16.2); Lymphocytes # (auto) 0.6 10 ^3/uL (0.4-5.4); Lymphocytes % (auto) 6.2 % (10.0-50.0); Mean Corpuscular Hemoglobin 31.9 pg (28.0-32.0); Mean Corpuscular Hgb Conc. 33.9 g/dL (32.0-36.0); Mean Corpuscular Volume 94.1 fL (80.0-100.0); Monocytes # (auto) 0.7 10 ^3/uL (0-1.3); Monocytes % (auto) 7.1 % (0.0-12.0); Neutrophils # (auto) 8.9 10 ^3/uL (1.6-8.6); Neutrophils % (auto) 85.2 % (37.0-80.0); Platelet Count (auto) 127 10^3/uL (140-450); Red Blood Cells 3.84 10^6/uL (4.0-5.20); Red Cell Distribution Width 14.1 % (11.8-14.3); White Blood Cell 10.4 10^3/uL (4.4-10.8)
[2024-08-21 04:16] LABS: INR 1.04 (0.9-1.15); Partial Thromboplastin Time 29.6 SEC (24.5-34.5)
[2024-08-21 04:18] LABS: Alanine Aminotransferase 21 U/L (7-40); Alkaline Phosphatase 55 U/L (46-116); Anion Gap 4 (5-15); Aspartate Aminotransferase 15 U/L (13-40); BUN/Creatinine Ratio 20.6 (10.0-20.0); Chloride 102 mmol/L (98-107); Magnesium 1.9 mg/dL (1.6-2.6); Phosphorus 3.4 mg/dL (2.4-5.1); Potassium 3.8 mmol/L (3.5-5.1); Sodium 138 mmol/L (136-145)
[2024-08-21 04:19] LABS: Bilirubin, Total 0.8 mg/dL (0.2-1.0)
[2024-08-21 04:31] LABS: Albumin 3.1 g/dL (3.2-4.8); Blood Urea Nitrogen 7 mg/dL (9-23); Calcium 8.5 mg/dL (8.7-10.4); Carbon Dioxide 32 mmol/L (20-31); Glucose 113 mg/dL (74-106); Total Protein 4.9 g/dL (5.7-8.2)
[2024-08-21 06:13] LABS: Base Excess 4.1 mmol/L (-2.0-3.0)
[2024-08-21] MEDS: VANCOMYCIN HCL 1000 MG VL ONE (08:02)
[2024-08-21] MEDS: LIDOCAINE 2%HCL (LOCAL ANESTH.) INJ 20ML MDV ONE (08:03)
[2024-08-21] MEDS: VANCOMYCIN 1GM/250ML KIT 250 ML IV ONE (08:03)
[2024-08-21] MEDS: diphenhdrAMINE HCL 50 MG/1 ML VL ONE (08:19)
[2024-08-21] MEDS: methylPREDNISolone SOD SUCC 125 MG/2 ML VL ONE (08:19)
[2024-08-21] MEDS: FAMOTIDINE (10MG/ML) 2ML VL IV ONE (08:20)
[2024-08-21] MEDS: IODIXANOL 320MG/ML 100ML BTL IV ONE (08:28)
--- NOTE | 2024-08-21 10:10 | DVHOP ---
PROCEDURE PERFORMED: Attempted pacemaker via left subclavian area. INDICATION: Sick sinus syndrome, tachybrady events. The patient was on a ventilator and sedated. No complications. The patient was getting intravenous Versed and fentanyl. Currently on a ventilator. Adequately sedated. DESCRIPTION OF PROCEDURE: Prior full informed consent obtained, the patient was prepped and draped in the usual fashion and an incision made over the left pectoral area, dissection planes with electrocautery and blunt dissection. We formed a pocket under the pectoral fascia and put a antibiotic filled sponge under the pectoral muscle. 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 It reconstituted via collaterals just proximal to the superior vena cava. We were unable to access collaterals. We closed the pocket with 4-0 Monocryl and 3-0 Vicryl. We flushed the pocket with antibiotic solution. A venogram on the right side was performed. We will reattempt a pacemaker generator replacement on the right side tomorrow. The patient tolerated the procedure well. There were no complications. The patient went to the ICU in good condition. MD ALESIA Hernandez/GERMÁN TID: [id number] RECEIPT: [id number]
[2024-08-21] MEDS: ISOPROTERENOL HCL INJECTION 1 MG in D5W 5% 250 ML IV SCH (11:30)
--- NOTE | 2024-08-21 16:48 | DVHPN2 ---
Progress Note - Dictate Date Seen: Aug 21, 2024 Medical Necessity Reason Pt with a Central, PICC or Fol: Yes The following are medically ne: Wong Catheter Reason for wong catheter: Strict I&O Subjective Patient is seen and evaluated in the ICU. Remains intubated comfortable on ventilator. Patient went for pacemaker placement however unsuccessful. Apparently patient is received weekly for re-attempt for tomorrow. Meantime she was off of Isuprel drip. Heart rate stable in the mid 50s. vital signs Vital Sign Date Time Temp Pulse Resp B/P (MAP) Pulse Ox O2 Delivery O2 Flow Rate FiO2 08/21/24 16:03 57 14 120/54 (76) 99 30 08/21/24 15:52 Mechanical Ventilator+ 08/21/24 12:00 96.9 96.9 Total Intake and Output 08/20/24 08/20/24 08/21/24 15:00 23:00 07:00 Intake Total 1255.45 ml 886.2 ml 899.5 ml Output Total 1350 ml 1300 ml Balance 1255.45 ml -463.8 ml -400.5 ml medications Current Medications Medications Dose Ordered Sig/Pepe Route Start Time Stop Time Status Last Admin Dose Admin Docusate Sodium 100 mg BIDPRN PRN PO 08/16/24 20:45 08/17/24 06:26 100 MG Acetaminophen 650 mg Q6HP PRN PO 08/16/24 20:45 08/19/24 21:48 650 MG Ondansetron HCl 4 mg Q4HP PRN IV 08/16/24 20:45 Nitroglycerin 0.4 mg Q5MINP PRN SL 08/16/24 20:45 Morphine Sulfate 2 mg Q30M PRN IV 08/16/24 20:45 Ceftriaxone Sodium 50 ml @ 100 mls/hr DAILY IV 08/17/24 10:00 08/21/24 10:38 100 MLS/HR Hydralazine HCl 10 mg Q6HP PRN IV 08/16/24 23:30 Acetaminophen/ Hydrocodone Bitart 1 tab Q6HPRN PRN PO 08/16/24 23:30 08/17/24 00:56 1 TAB Norepinephrine Bitartrate 250 ml @ 3.75 mls/hr Q24H IV 08/17/24 10:15 08/21/24 06:55 7.5 MLS/HR Midazolam HCl 50 ml @ 1 mls/hr Q24H IV 08/17/24 10:15 08/21/24 04:35 5 MLS/HR Fentanyl Citrate 250 ml @ 2.5 mls/hr Q24H IV 08/17/24 10:15 08/21/24 11:43 17.5 MLS/HR Pantoprazole Sodium 40 mg DAILY IV 08/18/24 10:00 08/21/24 10:37 40 MG Amino Acids 0 ml @ 0 mls/hr PER PHARMACY IV 08/19/24 13:15 Diagnostic Test (Pha) 1 strip Q6HR 08/19/24 18:00 08/21/24 12:27 1 STRIP Insulin Human Regular FOLLOW SLIDING SCALE Q6HR SC 08/19/24 18:00 08/21/24 12:28 2 UNITS Dextrose 50 ml UD IV 08/19/24 14:00 Amino Acids/ Electrolytes/ Dextrose 1,000 ml @ 41 mls/hr DAILY@2200 IV 08/19/24 22:00 08/20/24 21:38 41 MLS/HR Dextrose/Sodium Chloride 1,000 ml @ 50 mls/hr Q20H IV 08/19/24 22:00 08/21/24 00:30 50 MLS/HR objective Comfortable on ventilator without distress. HEENT pupils equal round react to light. Heart regular rate and rhythm S1 plus S2. Lungs fair air movement without any audible rales or wheezing. Abdomen soft positive bowel sounds. Extremities no edema. Neurologically no gross focal deficits noted. laboratory and microbiology Laboratory Tests 08/21/24 03:41 Test 08/21/24 03:41 Range/Units Serum Glucose 113 H 74-106 mg/dL Assessment/Plan Resume lisinopril drip for heart rate in the 40s. Otherwise continue rest of supportive care and treatment as she is on. Proceed with a re-attempt pacemaker placement tomorrow per Cardiology. Discussed with the nurse regarding care plan. Problems(with codes): (1) Symptomatic bradycardia (2) Hypotension Dietary Evaluation Review Comments: Nutrition support: 1. On vent, Glucerna 1.2 40ml/hr, providing 58g Pro and 1152 kcal in 24 hrs. 2. Off Vent and pass speech eval,2 g Na,low fat Low chol, CCHO-60g, Protein 60 g restriction if kidney functiondoes not improve, 3. TPN per pharmacy if NPO>7 days. Expected Outcomes/Goals: Off Vent, controlled DM, improved wound healing, maintain BW. Plan discussed with: Other GAB AMIN MD Aug 21, 2024 16:48
--- NOTE | 2024-08-21 17:22 | DVH ---
CHEST RADIOGRAPH Indication: INTUBATED Technique: Single frontal view of the chest was obtained Comparison: XY CHEST PORTABLE on DOS: 08/20/24, XY CHEST PORTABLE on DOS: 08/18/24, XY CHEST PORTABLE o n DOS: 08/17/24 FINDINGS: Lines and Tubes: Endotracheal tube 7.6 cm above the paty. Right internal jugular catheter in place superior vena cava above right atrium. Enteric tube below the left diaphragm in the stomach. Lungs: Bibasilar areas of atelectasis and or infiltrate. Possible small pleural effusions Pleura: No effusion. No pneumothorax. Cardiomediastinal contours: Unremarkable Bones: No acute osseous abnormality. IMPRESSION: 1. Endotracheal tube 7.6 cm above the paty 2. Right internal jugular catheter in good position 3. Enteric tube in the stomach below the left diaphragm. 4. Bibasilar areas of infiltrate and atelectasis and/or small pleural effusions.
--- NOTE | 2024-08-21 21:21 | DVHPN2 ---
Progress Note - Dictate Date Seen: Aug 21, 2024 Medical Necessity Reason Pt with a Central, PICC or Fol: Yes The following are medically ne: Wong Catheter Reason for wong catheter: Strict I&O Subjective Patient seen and examined at bedside. Sedated, intubated on mechanical ventilator. Overnight events reviewed. vital signs Vital Sign Date Time Temp Pulse Resp B/P (MAP) Pulse Ox O2 Delivery O2 Flow Rate FiO2 08/21/24 21:15 53 14 155/62 (93) 08/21/24 21:00 97 08/21/24 20:17 30 08/21/24 20:00 Mechanical Ventilator+ 08/21/24 16:00 98.0 98.0 Total Intake and Output 08/20/24 08/20/24 08/21/24 15:00 23:00 07:00 Intake Total 1255.45 ml 886.2 ml 995.5 ml Output Total 1350 ml 1300 ml Balance 1255.45 ml -463.8 ml -304.5 ml medications Current Medications Medications Dose Ordered Sig/Pepe Route Start Time Stop Time Status Last Admin Dose Admin Docusate Sodium 100 mg BIDPRN PRN PO 08/16/24 20:45 08/17/24 06:26 100 MG Acetaminophen 650 mg Q6HP PRN PO 08/16/24 20:45 08/19/24 21:48 650 MG Ondansetron HCl 4 mg Q4HP PRN IV 08/16/24 20:45 Nitroglycerin 0.4 mg Q5MINP PRN SL 08/16/24 20:45 Morphine Sulfate 2 mg Q30M PRN IV 08/16/24 20:45 Ceftriaxone Sodium 50 ml @ 100 mls/hr DAILY IV 08/17/24 10:00 08/21/24 10:38 100 MLS/HR Hydralazine HCl 10 mg Q6HP PRN IV 08/16/24 23:30 Acetaminophen/ Hydrocodone Bitart 1 tab Q6HPRN PRN PO 08/16/24 23:30 08/17/24 00:56 1 TAB Norepinephrine Bitartrate 250 ml @ 3.75 mls/hr Q24H IV 08/17/24 10:15 08/21/24 06:55 7.5 MLS/HR Midazolam HCl 50 ml @ 1 mls/hr Q24H IV 08/17/24 10:15 08/21/24 04:35 5 MLS/HR Fentanyl Citrate 250 ml @ 2.5 mls/hr Q24H IV 08/17/24 10:15 08/21/24 11:43 17.5 MLS/HR Pantoprazole Sodium 40 mg DAILY IV 08/18/24 10:00 08/21/24 10:37 40 MG Amino Acids 0 ml @ 0 mls/hr PER PHARMACY IV 08/19/24 13:15 Diagnostic Test (Pha) 1 strip Q6HR 08/19/24 18:00 08/21/24 18:00 1 STRIP Insulin Human Regular FOLLOW SLIDING SCALE Q6HR SC 08/19/24 18:00 08/21/24 12:28 2 UNITS Dextrose 50 ml UD IV 08/19/24 14:00 Amino Acids/ Electrolytes/ Dextrose 1,000 ml @ 41 mls/hr DAILY@2200 IV 08/19/24 22:00 08/20/24 21:38 41 MLS/HR Dextrose/Sodium Chloride 1,000 ml @ 50 mls/hr Q20H IV 08/19/24 22:00 08/21/24 00:30 50 MLS/HR objective Gen.: Patient lying in bed in medical ICU. Sedated, intubated on mechanical ventilator. Head: Normocephalic, atraumatic. Eyes: PERRLA. Ears: Normal external anatomy. Throat: Endotracheal tube and orogastric tube in place. Neck: Supple, trachea midline. Chest: Transmitted breath sounds bilaterally. Decreased air entry bilaterally. No wheezing. Bibasilar crackles. Cardiovascular: Positive S1, positive S2. Regular rate and rhythm. Abdomen: Positive bowel sounds in all 4 quadrants. Soft, nontender, nondistended. : Wong in place. Normal external genitalia. Rectal: Deferred. Skin: Warm, dry. Intact. Extremities: 2+ radial pulses bilaterally. No lower extremity edema. Neuro: Sedated. laboratory and microbiology Laboratory Tests 08/21/24 03:41 Test 08/21/24 03:41 Range/Units Serum Glucose 113 H 74-106 mg/dL Assessment/Plan Impression: Acute hypoxic respiratory failure On mechanical ventilator Shock, cardiogenic Bradycardia, symptomatic Atelectasis Events: Remains on vent support On AC mode; RR 14, VT 450, PEEP 5, FiO2 30% Cardiology plans for re-attempt at pacemaker placement Cardiology recs appreciated. Sedated on Versed, Fentanyl. ABG reviewed, compensated. CXR at 20:38 reviewed: Bibasilar atelectasis/consolidation and probable small bilateral effusions, not significantly changed compared to prior. No pulmonary edema. Pressors for hemodynamic support Levophed 2 mcg/min Titrate to keep mean arterial pressure greater than 65 mmHg. Continue antibiotics Stopped steroids WBC within normal limits. F/u sputum cultures Clinimix for nutritional support Labs and imaging reviewed. Rest of plan as noted below. Plan: s/p intubation on mechanical ventilator. On AC mode; RR 14, VT 450, PEEP 5, FiO2 30% Titrate FIO2 to keep O2 saturation above 90%. VAP bundle. Daily ABG and CXR while intubated Sedate for ventilator synchrony Continue antibiotics. F/u cultures. Central line placement for administration of pressors Pressors for hemodynamic support Titrate to keep mean arterial pressure greater than 65 mmHg. Monitor renal function Monitor electrolytes. Supplement as necessary. Monitor ins and outs. Maintain euvolemia. GI prophylaxis. DVT prophylaxis. Prognosis: Poor given patient's multiple co-morbidities. Condition: Critical Rest of plan per hospitalist and other consultants. A total of 35 minutes of critical care time was spent reviewing the patient record, examining the patient, making a diagnostic and therapeutic plan, discussing this plan with the medical personnel, following up on diagnostic studies and following the patient for clinical stability excluding any and all procedures. At least 50% of this time was spent in direct, [id number] contact. Thank you, ESTHER Maria, for allowing me to participate in this patient's care. Further recommendations will depend on the patient's clinical course. Please do not hesitate to contact me if you have any questions or concerns. This medical document was created using an electronic medical record system with [email or web address] dictation system. Although these documentations are being carefully reviewed, there may still be some phonetic and typographical changes. The errors are purely typographical, due to imperfection on the software program, and do not reflect any compromise in the patient's medical care. Dietary Evaluation Review Comments: Nutrition support: 1. On vent, Glucerna 1.2 40ml/hr, providing 58g Pro and 1152 kcal in 24 hrs. 2. Off Vent and pass speech eval,2 g Na,low fat Low chol, CCHO-60g, Protein 60 g restriction if kidney functiondoes not improve, 3. TPN per pharmacy if NPO>7 days. Expected Outcomes/Goals: Off Vent, controlled DM, improved wound healing, maintain BW. Plan discussed with: Other (GLADYS Wood) Critical Care Time(min): 35 MEY RAM MD Aug 21, 2024 21:21
[2024-08-22] VITALS (103 sets, daily range): BP systolic 101–174; BP diastolic 43–69; PULSE 46–68; RESP 13–20; TEMP 97.5–99.1; O2SAT 95–100
--- NOTE | 2024-08-22 01:42 | DVH ---
CHEST RADIOGRAPH Indication: VERIFY ETT PLACEMENT Technique: Single frontal view of the chest was obtained COMPARISON: XY CHEST XRAY 1 VIEW on DOS: 08/21/24, XY CHEST PORTABLE on DOS: 08/20/24, XY CHEST PORTABL E on DOS: 08/18/24, XY CHEST PORTABLE on DOS: 08/17/24, XY CHEST PORTABLE on DOS: 08/17/24 FINDINGS/IMPRESSION: Lines and Tubes: Tip of the ETT is in satisfactory position approximately 5 cm above the paty. Tip of the right IJ central venous catheter projects over the distal SVC. NG tube extends below the diaph ragm, the tip of which is not visualized on this study. Lungs / Pleura: Bibasilar atelectasis/consolidation and probable small bilateral effusions, not signi ficantly changed compared to the prior study. No evidence of pulmonary edema. Cardiomediastinal contours: Unremarkable
[2024-08-22 04:13] LABS: Alanine Aminotransferase 20 U/L (7-40); Alkaline Phosphatase 56 U/L (46-116); Anion Gap 6 (5-15); BUN/Creatinine Ratio 29.7 (10.0-20.0); Blood Urea Nitrogen 11 mg/dL (9-23); Calcium 8.8 mg/dL (8.7-10.4); Carbon Dioxide 30 mmol/L (20-31); Chloride 106 mmol/L (98-107); Potassium 3.7 mmol/L (3.5-5.1); Sodium 142 mmol/L (136-145)
[2024-08-22 04:14] LABS: Magnesium 1.9 mg/dL (1.6-2.6)
[2024-08-22 04:15] LABS: Aspartate Aminotransferase 13 U/L (13-40); Bilirubin, Total 0.6 mg/dL (0.2-1.0)
[2024-08-22 04:33] LABS: Albumin 2.9 g/dL (3.2-4.8); Glucose 155 mg/dL (74-106); Total Protein 4.7 g/dL (5.7-8.2)
--- NOTE | 2024-08-22 04:45 | DVH ---
CHEST RADIOGRAPH Indication: ETT PLACEMENT VERIFICATION Technique: Single frontal view of the chest was obtained Comparison: XY CHEST PORTABLE on DOS: 08/21/24 FINDINGS: Lines and Tubes: The endotracheal tube terminates 4.9 cm above the paty. Right central venous cath eter terminates in the superior vena cava. The enteric tube courses below the left hemidiaphragm and the tip extends outside the field of view. Lungs: Bibasilar airspace disease is unchanged. Pleura: Bilateral pleural effusions are unchanged. No pneumothorax. Cardiomediastinal contours: Stable. Bones: No acute osseous abnormality. IMPRESSION: 1. No significant interval change.
[2024-08-22] MEDS: NOREPINEPHRINE 8 MG/250ML KIT 250 ML IV SCH (05:15)
[2024-08-22 07:05] LABS: Base Excess 4.2 mmol/L (-2.0-3.0)
--- NOTE | 2024-08-22 07:30 | ECG ---
[facility] Test Date: 2024-08-20 Test Time: 12:02:59 Pat Name: SAMIRA GAN Department: Room: [address] [place] [address] A Gender: F Bodywork Therapist: : 1945 Requested By: GAB AMIN Order Number: [id number] Reading MD: Nick Rodriguez Measurements Intervals Diamond Rate: 103 P: 0 TN: 0 QRS: -5 QRSD: 80 T: 88 QT: 326 QTc: 427 Interpretive Statements Undetermined rhythm Anteroseptal infarct , age undetermined Electronically Signed On 08-24-2024 20:48:19 PST by Nick Rodriguez Please click the below link to view image of tracing.
--- NOTE | 2024-08-22 09:15 | DVHOP2 ---
Operative Report - 2 Report Details Date: 08/22/24 Preop Diagnosis: Tachy-princess syndrome. Postop Diagnosis: Successful placement of dual-chamber pacemaker. Surgeon: Alan Rodriguez MD Anesthesiologist: Food sedation. Patient on ventilator. Anesthesia: General (Patient deeply sedated. Fentanyl and Versed intravenously being infused. I personally supervised incision throughout the entirety of the procedure.), Mac, Local Implant: Dual-chamber pacemaker and dual leads Consent: The patient was informed of the risks and benefits of the procedure. These include but are not limited to complications of anesthesia, postoperative infection, incomplete relief of symptoms, recurrence of symptoms, damage to blood vessels, nerves and tendons, deep venous thrombosis, pulmonary embolism and possible need for repeat surgery in the future. Complications: No complications Estimated Blood Loss: 5 cc Findings: Sick sinus syndrome was successful placement of pacemaker. Indications for Surgery: Sick sinus syndrome Name of Procedure Performed Placement of dual-chamber pacemaker Procedure Details Procedure Details: Prior local anesthesia with 2% lidocaine to the right subclavian in subpectoral area the patient was prepped and draped in usual fashion followed by incisional for the right subpectoral and the social posterolateral cardiac implant by suction. We performed a pocket under the implantable muscle under the bony fentanyl aphasia and flushed with antibiotic solution. We then obtained axial stool in the right subclavian vein with the Cook needle using the Seldinger technique. We placed 9 and some Kittitian peel-away sheath over which a crypt guide wire to place on poor fixation electrodes into the right ventricle and right atrium successfully after adequate capture and sensing thresholds were obtained. Fluoroscopic guidance was used. Obese we will seizure with 0 Ethibond. The pacemaker generator was then can 9 point placed into the pocket. The pocket was closed with 3-0 Vicryl. VS skin was closed with Monocryl 4-0. Patient tolerated procedure well there were no complications. The atrial lead implanted is a Solia S 45 by [employer]. serial number is [id number]. The ventricular lead is a Solia S 53, serial number [id number], also by [employer]. The pacemaker device is an Edora 8 DR-T by [employer]. Serial number is [id number] Lead measurements as follows: Atrial lead at 0.4 milliseconds capturing at 1 volt with AP wave of 2 mV and an impedance of 565 Ohms. The right ventricular lead at 0.4 milliseconds capturing 8.5 volts R-wave of 10.5 mV with an impedance of 565 Ohms. Settings: DDDR, 65/130 ppm, AV delay of 150/135 milliseconds, PVARP at 250 MS, right atrial sensitivity at 0.5 mV with a maximum RO output. RV sensitivity of 2 mV with a maximum hiatal output. Right atrial output at 4 volts at 0.4 milliseconds and right ventricular output at 4 volts at 40 milliseconds A chest x-ray was ordered for placement. Impression: Successful placement of dual-chamber pacemaker. The indication was symptomatic bradycardia, tachy-princess syndrome. Recommendations: Continue was quite modification medications. Condition Guarded Disposition Still a Patient Date of Service: Aug 22, 2024 Billing Provider: ALAN RODRIGUEZ Sr., MD Cardiology Common Codes: 19356-[id number] INP/OBS CARE (High) Card. Pacer Implants/Gen [id number]/REPLACE DUAL LEAD PACER ALAN RODRIGUEZ Sr., MD Aug 22, 2024 09:15
--- NOTE | 2024-08-22 10:03 | DVH ---
CHEST RADIOGRAPH Indication: pacemaker placement Technique: Single frontal view of the chest was obtained Comparison: XY CHEST PORTABLE on DOS: 08/22/24, XY CHEST PORTABLE on DOS: 08/21/24, XY CHEST XRAY 1 VIE W on DOS: 08/21/24, XY CHEST PORTABLE on DOS: 08/20/24, XY CHEST PORTABLE on DOS: 08/18/24, XY CHEST POR TABLE on DOS: 08/22/24 FINDINGS: Lines and Tubes: The endotracheal tube terminates 4.9 cm above the paty. Right central venous cath eter terminates in the superior vena cava. The enteric tube courses below the left hemidiaphragm and the tip extends outside the field of view. Lungs: Bibasilar airspace disease is unchanged. Pleura: Bilateral pleural effusions are unchanged. No pneumothorax. Cardiomediastinal contours: External pacing leads are present. Interval placement of right dual lead pacemaker. Bones: No acute osseous abnormality. IMPRESSION: 1. No significant interval change.
--- NOTE | 2024-08-22 10:13 | ECG ---
[facility] Test Date: 2024-08-22 Test Time: 09:38:25 Pat Name: SAMIRA GAN Department: Room: [address] [place] [address] A Gender: F Medication Nurse: : 1945 Requested By: ALAN RODRIGUEZ Order Number: [id number] Reading MD: Alan Rodriguez Measurements Intervals Baring Rate: 65 P: 0 IA: 320 QRS: -20 QRSD: 88 T: 25 QT: 502 QTc: 522 Interpretive Statements Electronic atrial pacemaker Inferior infarct , age undetermined Prolonged QT Electronically Signed On 08-24-2024 21:04:18 PST by Alan Rodriguez Please click the below link to view image of tracing.
[2024-08-22] MEDS ORDERED: SODIUM CHLORIDE 0.9% 1,000 ML IV SCH (14:30)
[2024-08-22] MEDS: SODIUM CHLORIDE 0.9% 1,000 ML IV SCH (14:45)
--- NOTE | 2024-08-22 15:04 | DVHPN2 ---
Progress Note - Dictate Date Seen: Aug 22, 2024 Medical Necessity Reason Pt with a Central, PICC or Fol: Yes The following are medically ne: Wong Catheter Reason for wong catheter: Strict I&O Subjective Patient is seen and evaluated in the ICU. Remains intubated comfortable on ventilator. Underwent successful pacemaker placement this morning. Currently stable off of pressors. Heart rate in the 60s. vital signs Vital Sign Date Time Temp Pulse Resp B/P (MAP) Pulse Ox O2 Delivery O2 Flow Rate FiO2 08/22/24 14:30 98.2 65 14 107/53 (71) 96 208.8 08/22/24 14:00 30 08/22/24 14:00 Mechanical Ventilator+ Total Intake and Output 08/21/24 08/21/24 08/22/24 15:00 23:00 07:00 Intake Total 998.00 ml 915.60 ml 903.47 ml Output Total 1950 ml 600 ml Balance 998.00 ml -1034.40 ml 303.47 ml medications Current Medications Medications Dose Ordered Sig/Pepe Route Start Time Stop Time Status Last Admin Dose Admin Docusate Sodium 100 mg BIDPRN PRN PO 08/16/24 20:45 08/17/24 06:26 100 MG Acetaminophen 650 mg Q6HP PRN PO 08/16/24 20:45 08/19/24 21:48 650 MG Ondansetron HCl 4 mg Q4HP PRN IV 08/16/24 20:45 Nitroglycerin 0.4 mg Q5MINP PRN SL 08/16/24 20:45 Morphine Sulfate 2 mg Q30M PRN IV 08/16/24 20:45 Ceftriaxone Sodium 50 ml @ 100 mls/hr DAILY IV 08/17/24 10:00 08/22/24 10:01 100 MLS/HR Hydralazine HCl 10 mg Q6HP PRN IV 08/16/24 23:30 Acetaminophen/ Hydrocodone Bitart 1 tab Q6HPRN PRN PO 08/16/24 23:30 08/17/24 00:56 1 TAB Midazolam HCl 50 ml @ 1 mls/hr Q24H IV 08/17/24 10:15 08/22/24 07:46 4 MLS/HR Fentanyl Citrate 250 ml @ 2.5 mls/hr Q24H IV 08/17/24 10:15 08/22/24 03:24 15 MLS/HR Pantoprazole Sodium 40 mg DAILY IV 08/18/24 10:00 08/22/24 10:01 40 MG Amino Acids 0 ml @ 0 mls/hr PER PHARMACY IV 08/19/24 13:15 Diagnostic Test (Pha) 1 strip Q6HR 08/19/24 18:00 08/22/24 12:05 1 STRIP Insulin Human Regular FOLLOW SLIDING SCALE Q6HR SC 08/19/24 18:00 08/22/24 12:01 2 UNITS Dextrose 50 ml UD IV 08/19/24 14:00 Amino Acids/ Electrolytes/ Dextrose 1,000 ml @ 41 mls/hr DAILY@2200 IV 08/19/24 22:00 08/21/24 22:13 41 MLS/HR Norepinephrine Bitartrate 250 ml @ 1.875 mls/ hr Q24H IV 08/22/24 05:15 Sodium Chloride 1,000 ml @ 50 mls/hr Q20H IV 08/22/24 14:30 UNV Sodium Chloride 1,000 ml @ 50 mls/hr Q20H IV 08/22/24 14:45 objective Comfortable on ventilator without distress. HEENT pupils equal round react to light. Heart regular rate and rhythm S1 plus S2. Lungs fair air movement without any audible rales or wheezing. Abdomen soft positive bowel sounds. Extremities no edema. Neurologically no gross focal deficits noted. laboratory and microbiology Laboratory Tests 08/22/24 03:20 08/21/24 03:41 Test 08/22/24 03:20 Range/Units Serum Glucose 155 H 74-106 mg/dL Assessment/Plan Continue Clinimix for nutrition. CPAP trials possible extubation for pulmonology. Otherwise continue rest of supportive care and treatment as she is on. Further clinical management per clinical course and recommendations of the consultants. Discussed with the nurse at bedside regarding care plan. Problems(with codes): (1) Symptomatic bradycardia (2) Hypotension Dietary Evaluation Review Comments: Nutrition support: 1. On vent, Glucerna 1.2 40ml/hr, providing 58g Pro and 1152 kcal in 24 hrs. 2. Off Vent and pass speech eval,2 g Na,low fat Low chol, CCHO-60g, Protein 60 g restriction if kidney functiondoes not improve, 3. TPN per pharmacy if NPO>7 days. Expected Outcomes/Goals: Off Vent, controlled DM, improved wound healing, maintain BW. Plan discussed with: Other GAB AMIN MD Aug 22, 2024 15:04
--- NOTE | 2024-08-22 23:22 | DVHPN2 ---
Progress Note - Dictate Date Seen: Aug 22, 2024 Medical Necessity Reason Pt with a Central, PICC or Fol: Yes The following are medically ne: Wong Catheter Reason for wong catheter: Strict I&O Subjective Patient seen and examined at bedside. Sedated, intubated on mechanical ventilator. Overnight events reviewed. vital signs Vital Sign Date Time Temp Pulse Resp B/P (MAP) Pulse Ox O2 Delivery O2 Flow Rate FiO2 08/22/24 23:00 97.9 65 14 147/67 (93) 97 208.2 08/22/24 22:36 30 08/22/24 22:00 Mechanical Ventilator+ Total Intake and Output 08/21/24 08/21/24 08/22/24 15:00 23:00 07:00 Intake Total 998.00 ml 915.60 ml 903.47 ml Output Total 1950 ml 600 ml Balance 998.00 ml -1034.40 ml 303.47 ml medications Current Medications Medications Dose Ordered Sig/Pepe Route Start Time Stop Time Status Last Admin Dose Admin Docusate Sodium 100 mg BIDPRN PRN PO 08/16/24 20:45 08/17/24 06:26 100 MG Acetaminophen 650 mg Q6HP PRN PO 08/16/24 20:45 08/19/24 21:48 650 MG Ondansetron HCl 4 mg Q4HP PRN IV 08/16/24 20:45 Nitroglycerin 0.4 mg Q5MINP PRN SL 08/16/24 20:45 Morphine Sulfate 2 mg Q30M PRN IV 08/16/24 20:45 Ceftriaxone Sodium 50 ml @ 100 mls/hr DAILY IV 08/17/24 10:00 08/22/24 10:01 100 MLS/HR Hydralazine HCl 10 mg Q6HP PRN IV 08/16/24 23:30 Acetaminophen/ Hydrocodone Bitart 1 tab Q6HPRN PRN PO 08/16/24 23:30 08/17/24 00:56 1 TAB Midazolam HCl 50 ml @ 1 mls/hr Q24H IV 08/17/24 10:15 08/22/24 18:00 4 MLS/HR Fentanyl Citrate 250 ml @ 2.5 mls/hr Q24H IV 08/17/24 10:15 08/22/24 18:00 17.5 MLS/HR Pantoprazole Sodium 40 mg DAILY IV 08/18/24 10:00 08/22/24 10:01 40 MG Amino Acids 0 ml @ 0 mls/hr PER PHARMACY IV 08/19/24 13:15 Diagnostic Test (Pha) 1 strip Q6HR 08/19/24 18:00 08/22/24 21:58 1 STRIP Insulin Human Regular FOLLOW SLIDING SCALE Q6HR SC 08/19/24 18:00 08/22/24 12:01 2 UNITS Dextrose 50 ml UD IV 08/19/24 14:00 Amino Acids/ Electrolytes/ Dextrose 1,000 ml @ 41 mls/hr DAILY@2200 IV 08/19/24 22:00 08/22/24 21:54 41 MLS/HR Norepinephrine Bitartrate 250 ml @ 1.875 mls/ hr Q24H IV 08/22/24 05:15 Sodium Chloride 1,000 ml @ 50 mls/hr Q20H IV 08/22/24 14:30 UNV Sodium Chloride 1,000 ml @ 50 mls/hr Q20H IV 08/22/24 14:45 08/22/24 14:45 50 MLS/HR objective Gen.: Patient lying in bed in medical ICU. Sedated, intubated on mechanical ventilator. Head: Normocephalic, atraumatic. Eyes: PERRLA. Ears: Normal external anatomy. Throat: Endotracheal tube and orogastric tube in place. Neck: Supple, trachea midline. Chest: Transmitted breath sounds bilaterally. Decreased air entry bilaterally. No wheezing. Bibasilar crackles. Cardiovascular: Positive S1, positive S2. Regular rate and rhythm. Abdomen: Positive bowel sounds in all 4 quadrants. Soft, nontender, nondistended. : Wong in place. Normal external genitalia. Rectal: Deferred. Skin: Warm, dry. Intact. Extremities: 2+ radial pulses bilaterally. No lower extremity edema. Neuro: Sedated. laboratory and microbiology Laboratory Tests 08/22/24 03:20 08/21/24 03:41 Test 08/22/24 03:20 Range/Units Serum Glucose 155 H 74-106 mg/dL Assessment/Plan Impression: Acute hypoxic respiratory failure On mechanical ventilator Shock, cardiogenic Bradycardia, symptomatic Atelectasis Events: Remains on vent support On AC mode; RR 14, VT 450, PEEP 5, FiO2 30% S/p pacemaker placement today. Cardiology recs appreciated. Sedated on Versed, Fentanyl. ABG reviewed, notable for alkalemia. CXR reviewed, stable bibasilar airspace disease and bilateral pleural effusions Off Levophed, hemodynamically stable. Continue antibiotics Stopped steroids Sputum cultures show normal oropharyngeal tra. Clinimix for nutritional support SBT/KAYLI in the AM if okay from cardiology standpoint. CPAP with PS 8, PEEP of 5. Labs and imaging reviewed. Rest of plan as noted below. Plan: s/p intubation on mechanical ventilator. On AC mode; RR 14, VT 450, PEEP 5, FiO2 30% Titrate FIO2 to keep O2 saturation above 90%. VAP bundle. Daily ABG and CXR while intubated Sedate for ventilator synchrony Continue antibiotics. F/u cultures. Central line placement for administration of pressors Pressors if nececessary for hemodynamic support Titrate to keep mean arterial pressure greater than 65 mmHg. Monitor renal function Monitor electrolytes. Supplement as necessary. Monitor ins and outs. Maintain euvolemia. GI prophylaxis. DVT prophylaxis. Prognosis: Poor given patient's multiple co-morbidities. Condition: Critical Rest of plan per hospitalist and other consultants. A total of 35 minutes of critical care time was spent reviewing the patient record, examining the patient, making a diagnostic and therapeutic plan, discussing this plan with the medical personnel, following up on diagnostic studies and following the patient for clinical stability excluding any and all procedures. At least 50% of this time was spent in direct, [id number] contact. Thank you, ESTHER Maria, for allowing me to participate in this patient's care. Further recommendations will depend on the patient's clinical course. Please do not hesitate to contact me if you have any questions or concerns. This medical document was created using an electronic medical record system with [employer] dictation system. Although these documentations are being carefully reviewed, there may still be some phonetic and typographical changes. The errors are purely typographical, due to imperfection on the software program, and do not reflect any compromise in the patient's medical care. Dietary Evaluation Review Comments: Nutrition support: 1. On vent, Glucerna 1.2 40ml/hr, providing 58g Pro and 1152 kcal in 24 hrs. 2. Off Vent and pass speech eval,2 g Na,low fat Low chol, CCHO-60g, Protein 60 g restriction if kidney functiondoes not improve, 3. TPN per pharmacy if NPO>7 days. Expected Outcomes/Goals: Off Vent, controlled DM, improved wound healing, maintain BW. Plan discussed with: Other (RN) Critical Care Time(min): 35 MEY RAM MD Aug 22, 2024 23:22
[2024-08-22] MEDS: hydrALAZINE HCL 20 MG/ML VL IV PRN (23:49)
[2024-08-23] VITALS (108 sets, daily range): BP systolic 97–205; BP diastolic 42–82; PULSE 65–128; RESP 12–28; TEMP 97.7–100.4; O2SAT 92–100
[2024-08-23 03:40] LABS: Alanine Aminotransferase 16 U/L (7-40); Alkaline Phosphatase 54 U/L (46-116); Anion Gap 6 (5-15); BUN/Creatinine Ratio 41.2 (10.0-20.0); Bilirubin, Total 0.5 mg/dL (0.2-1.0); Blood Urea Nitrogen 14 mg/dL (9-23); Calcium 8.9 mg/dL (8.7-10.4); Carbon Dioxide 29 mmol/L (20-31); Magnesium 1.8 mg/dL (1.6-2.6); Phosphorus 2.8 mg/dL (2.4-5.1); Sodium 143 mmol/L (136-145)
[2024-08-23 03:56] LABS: Albumin 2.8 g/dL (3.2-4.8); Aspartate Aminotransferase 11 U/L (13-40); Chloride 108 mmol/L (98-107); Glucose 132 mg/dL (74-106); Potassium 3.3 mmol/L (3.5-5.1); Total Protein 4.5 g/dL (5.7-8.2)
[2024-08-23 07:32] LABS: Base Excess 2.6 mmol/L (-2.0-3.0)
[2024-08-23 08:12] LABS: Basophils # (auto) 0.1 10 ^3/uL (0-0.2); Basophils % (auto) 0.7 % (0.0-2.0); Eosinophils # (auto) 0 10 ^3/uL (0-0.8); Hematocrit 32.1 % (36.0-46.0); Hemoglobin 10.6 g/dL (12.2-16.2); Lymphocytes # (auto) 0.3 10 ^3/uL (0.4-5.4); Lymphocytes % (auto) 3.2 % (10.0-50.0); Mean Corpuscular Hemoglobin 31.4 pg (28.0-32.0); Mean Corpuscular Hgb Conc. 32.9 g/dL (32.0-36.0); Mean Corpuscular Volume 95.3 fL (80.0-100.0); Monocytes # (auto) 0.7 10 ^3/uL (0-1.3); Monocytes % (auto) 7.4 % (0.0-12.0); Neutrophils # (auto) 7.9 10 ^3/uL (1.6-8.6); Neutrophils % (auto) 88.7 % (37.0-80.0); Nucleated Red Blood Cells % 0.1 %; Platelet Count (auto) 142 10^3/uL (140-450); Red Blood Cells 3.37 10^6/uL (4.0-5.20); Red Cell Distribution Width 14.5 % (11.8-14.3); White Blood Cell 8.9 10^3/uL (4.4-10.8)
--- NOTE | 2024-08-23 08:40 | DVH ---
CLINICAL INFORMATION: 79 years old, Female; intubated. TECHNIQUE: Single AP portable chest radiograph was obtained. COMPARISON: XY CHEST PORTABLE on DOS: 08/22/24, XY CHEST PORTABLE on DOS: 08/22/24, XY CHEST PORTABLE o n DOS: 08/21/24 FINDINGS: Stable satisfactory positioning of the endotracheal tube, enteric tube, and right internal jugular ce ntral venous catheter. Small left pleural effusion with overlying atelectasis and consolidation, unch anged. Possible trace right pleural effusion with overlying atelectasis, unchanged. No pneumothorax. No other significant interval change. IMPRESSION: No significant interval change as detailed above.
[2024-08-23] MEDS: POTASSIUM CHL 20MEQ/100ML 100 ML IV SCH (12:30)
[2024-08-23] MEDS: PROPOFOL 100 ML IV SCH (16:58)
--- NOTE | 2024-08-23 17:04 | DVHPN2 ---
Subjective Assuming the care of the patient from today onwards, 79-year-old female who initially presented to the hospital with symptomatic bradycardia status post pacemaker placement, currently remains intubated and sedated. Patient has failed CPAP trial today. Changes from previous H/P or p: No Changes Eyes: No Pain, No Vision change, No Conjunctivae inflammation, No Eyelid inflammation, No Other, No Redness ENT: No Ear pain, No Ear discharge, No Nose pain, No Nose discharge, No Nose congestion, No Mouth pain, No Mouth swelling, No Throat pain, No Throat swelling, No Other Cardiovascular: No Chest Pain, No Palpitations, No Orthopnea, No Paroxysmal Noc. Dyspnea, No Edema, No Lt Headedness, No Other Respiratory: Shortness of breath Gastrointestinal: No Nausea, No Vomiting, No Abdominal Pain, No Diarrhea, No Constipation, No Melena, No Hematochezia, No Other Genitourinary: No Dysuria, No Frequency, No Incontinence, No Hematuria, No Retention, No Other Musculoskeletal: No other, No neck pain, No shoulder pain, No arm pain, No back pain, No hand pain, No leg pain, No foot pain Skin: No Rash, No Lesions, No Jaundice, No Bruising, No Other Objective Vitals Vital Signs Date Time Temp Pulse Resp B/P (MAP) Pulse Ox O2 Delivery O2 Flow Rate FiO2 08/23/24 16:58 179/75 08/23/24 15:58 115 23 96 30 08/23/24 14:45 99.7 211.5 08/23/24 14:00 Mechanical Ventilator+ Intake/Output Intake and Output 08/23/24 07:00 Intake Total 2599.250 ml Output Total 1500 ml Balance 1099.250 ml Intake Oral 0 ml IV Total 2599.250 ml Output Urine Total 1500 ml Exam HEENT pupils are reactive Neck is supple CV is S1-S2 regular rate and rhythm Respiratory diminished breath sounds bases GI positive bowel sound Extremity no edema [employer] intubated and sedated Medications Current Medications Medications Dose Ordered Sig/Pepe Route Start Time Stop Time Status Last Admin Dose Admin Docusate Sodium 100 mg BIDPRN PRN PO 08/16/24 20:45 08/17/24 06:26 100 MG Acetaminophen 650 mg Q6HP PRN PO 08/16/24 20:45 08/19/24 21:48 650 MG Ondansetron HCl 4 mg Q4HP PRN IV 08/16/24 20:45 Nitroglycerin 0.4 mg Q5MINP PRN SL 08/16/24 20:45 Morphine Sulfate 2 mg Q30M PRN IV 08/16/24 20:45 Ceftriaxone Sodium 50 ml @ 100 mls/hr DAILY IV 08/17/24 10:00 08/23/24 10:53 100 MLS/HR Hydralazine HCl 10 mg Q6HP PRN IV 08/16/24 23:30 08/23/24 13:20 10 MG Acetaminophen/ Hydrocodone Bitart 1 tab Q6HPRN PRN PO 08/16/24 23:30 08/17/24 00:56 1 TAB Midazolam HCl 50 ml @ 1 mls/hr Q24H IV 08/17/24 10:15 08/22/24 18:00 4 MLS/HR Fentanyl Citrate 250 ml @ 2.5 mls/hr Q24H IV 08/17/24 10:15 08/22/24 18:00 17.5 MLS/HR Pantoprazole Sodium 40 mg DAILY IV 08/18/24 10:00 08/23/24 10:53 40 MG Amino Acids 0 ml @ 0 mls/hr PER PHARMACY IV 08/19/24 13:15 Diagnostic Test (Pha) 1 strip Q6HR 08/19/24 18:00 08/23/24 12:00 1 STRIP Insulin Human Regular FOLLOW SLIDING SCALE Q6HR SC 08/19/24 18:00 08/22/24 12:01 2 UNITS Dextrose 50 ml UD IV 08/19/24 14:00 Amino Acids/ Electrolytes/ Dextrose 1,000 ml @ 41 mls/hr DAILY@2200 IV 08/19/24 22:00 08/22/24 21:54 41 MLS/HR Norepinephrine Bitartrate 250 ml @ 1.875 mls/ hr Q24H IV 08/22/24 05:15 Sodium Chloride 1,000 ml @ 50 mls/hr Q20H IV 08/22/24 14:30 UNV Sodium Chloride 1,000 ml @ 50 mls/hr Q20H IV 08/22/24 14:45 08/23/24 00:12 50 MLS/HR Enoxaparin Sodium 40 mg DAILY SC 08/24/24 10:00 Propofol 100 ml @ 2.253 mls/ hr Q24H IV 08/23/24 16:45 08/23/24 16:58 2.253 MLS/HR Laboratory Results Laboratory Tests 08/23/24 02:51 Chemistry Test 08/23/24 02:51 Albumin 2.8 g/dL (3.2-4.8) L Calcium Level 8.9 mg/dL (8.7-10.4) Magnesium Level 1.8 mg/dL (1.6-2.6) Phosphorus Level 2.8 mg/dL (2.4-5.1) Total Protein 4.5 g/dL (5.7-8.2) L LFT Test 08/23/24 02:51 Alanine Aminotransferase (ALT) 16 U/L (7-40) Alkaline Phosphatase 54 U/L (46-116) Aspartate Amino Transferase (AST) 11 U/L (13-40) L Total Bilirubin 0.5 mg/dL (0.2-1.0) Urinalysis Test 08/16/24 14:10 Urine Color Light-yellow (Yellow) Urine Clarity Clear (Clear) Urine pH 7.0 (5.0-9.0) Urine Specific [place] 1.007 (1.001-1.035) Urine Protein Negative (Negative) Urine Ketones Negative (Negative) Urine Blood Negative /uL (Negative) Urine Nitrite Negative (Negative) Urine Bilirubin Negative (Negative) Urine Urobilinogen Normal mg/dL (Negative) Urine Leukocyte Esterase 3+ /uL (Negative) Urine RBC 3 /hpf (0 - 4) Urine Microscopic WBC 29 /HPF (0-5) H Urine Squamous Epithelial Cells Few /hpf (<5) Urine Bacteria None seen /hpf (None Seen) Urine Glucose Normal mg/dL (Normal) Blood Gas Results Test 08/23/24 07:18 Arterial Blood pH 7.431 (7.350-7.450) FiO2 % 30.0 Microbiology Microbiology Date/Time Source Procedure Growth Status 08/19/24 00:05 Sputum Endotracheal Wash Gram Stain - Final Complete 08/19/24 00:05 Sputum Endotracheal Wash Respiratory Culture - Final Complete 08/17/24 23:00 Urine - [place] Urine Culture - Final Complete 08/17/24 16:19 Nose MRSA Screen - Final Complete 08/17/24 14:00 Blood Blood Culture - Final NO GROWTH AFTER 5 DAYS OF INCUBATION. Complete Assessment/Plan Assessment/Plan 79-year-old female who presented to the hospital with dizziness shortness breath found to have symptomatic bradycardia 1. Acute hypoxic respiratory failure remains intubated and sedated 2. Symptomatic bradycardia status post pacemaker placement 3. Leukocytosis likely reactive 4. Bilateral atelectasis 5. UTI -CPAP trial per Pulmonary, follow up Cardiology and Pulmonary recommendations -antibiotics, follow up final cultures Plan discussed with: Other My Orders Orders - SOPHIE WILKERSON MD Procedure Category Date Status Time Enoxaparin Sodium PHA 08/24/24 In Process (Lovenox) 10:00 Propofol (Diprivan) PHA 08/23/24 In Process 16:45 Date of Service: Aug 23, 2024 Billing Provider: SOPHIE WILKERSON MD Common Visit Codes: NOT BILLABLE SOPHIE WILKERSON MD Aug 23, 2024 17:04
--- NOTE | 2024-08-23 23:41 | DVHPN2 ---
Progress Note - Dictate Date Seen: Aug 23, 2024 Medical Necessity Reason Pt with a Central, PICC or Fol: Yes The following are medically ne: Wong Catheter Reason for wong catheter: Strict I&O Subjective Patient seen and examined at bedside. Sedated, intubated on mechanical ventilator. Overnight events reviewed. vital signs Vital Sign Date Time Temp Pulse Resp B/P (MAP) Pulse Ox O2 Delivery O2 Flow Rate FiO2 08/23/24 23:30 99.7 67 15 109/47 (67) 97 211.5 08/23/24 22:35 30 08/23/24 22:00 Mechanical Ventilator+ Total Intake and Output 08/22/24 08/22/24 08/23/24 15:00 23:00 07:00 Intake Total 908.750 ml 900.0 ml 790.5 ml Output Total 1100 ml 400 ml Balance 908.750 ml -200.0 ml 390.5 ml medications Current Medications Medications Dose Ordered Sig/Pepe Route Start Time Stop Time Status Last Admin Dose Admin Docusate Sodium 100 mg BIDPRN PRN PO 08/16/24 20:45 08/17/24 06:26 100 MG Acetaminophen 650 mg Q6HP PRN PO 08/16/24 20:45 08/23/24 18:34 650 MG Ondansetron HCl 4 mg Q4HP PRN IV 08/16/24 20:45 Nitroglycerin 0.4 mg Q5MINP PRN SL 08/16/24 20:45 Morphine Sulfate 2 mg Q30M PRN IV 08/16/24 20:45 Ceftriaxone Sodium 50 ml @ 100 mls/hr DAILY IV 08/17/24 10:00 08/23/24 10:53 100 MLS/HR Hydralazine HCl 10 mg Q6HP PRN IV 08/16/24 23:30 08/23/24 13:20 10 MG Acetaminophen/ Hydrocodone Bitart 1 tab Q6HPRN PRN PO 08/16/24 23:30 08/17/24 00:56 1 TAB Midazolam HCl 50 ml @ 1 mls/hr Q24H IV 08/17/24 10:15 08/23/24 18:34 2 MLS/HR Fentanyl Citrate 250 ml @ 2.5 mls/hr Q24H IV 08/17/24 10:15 08/23/24 18:35 10 MLS/HR Pantoprazole Sodium 40 mg DAILY IV 08/18/24 10:00 08/23/24 10:53 40 MG Amino Acids 0 ml @ 0 mls/hr PER PHARMACY IV 08/19/24 13:15 Diagnostic Test (Pha) 1 strip Q6HR 08/19/24 18:00 08/23/24 17:31 1 STRIP Insulin Human Regular FOLLOW SLIDING SCALE Q6HR SC 08/19/24 18:00 08/22/24 12:01 2 UNITS Dextrose 50 ml UD IV 08/19/24 14:00 Amino Acids/ Electrolytes/ Dextrose 1,000 ml @ 41 mls/hr DAILY@2200 IV 08/19/24 22:00 08/23/24 21:34 41 MLS/HR Norepinephrine Bitartrate 250 ml @ 1.875 mls/ hr Q24H IV 08/22/24 05:15 Sodium Chloride 1,000 ml @ 50 mls/hr Q20H IV 08/22/24 14:30 UNV Sodium Chloride 1,000 ml @ 50 mls/hr Q20H IV 08/22/24 14:45 08/23/24 00:12 50 MLS/HR Enoxaparin Sodium 40 mg DAILY SC 08/24/24 10:00 Propofol 100 ml @ 2.253 mls/ hr Q24H IV 08/23/24 16:45 08/23/24 16:58 2.253 MLS/HR Dexmedetomidine HCl 400 mcg/ Dextrose 100 ml @ 3.755 mls/ hr Q24H IV 08/23/24 17:30 objective Gen.: Patient lying in bed in medical ICU. Sedated, intubated on mechanical ventilator. Head: Normocephalic, atraumatic. Eyes: PERRLA. Ears: Normal external anatomy. Throat: Endotracheal tube and orogastric tube in place. Neck: Supple, trachea midline. Chest: Transmitted breath sounds bilaterally. Decreased air entry bilaterally. No wheezing. Bibasilar crackles. Cardiovascular: Positive S1, positive S2. Regular rate and rhythm. Abdomen: Positive bowel sounds in all 4 quadrants. Soft, nontender, nondistended. : Wong in place. Normal external genitalia. Rectal: Deferred. Skin: Warm, dry. Intact. Extremities: 2+ radial pulses bilaterally. No lower extremity edema. Neuro: Sedated. laboratory and microbiology Laboratory Tests 08/23/24 02:51 Test 08/23/24 02:51 Range/Units Serum Glucose 132 H 74-106 mg/dL Assessment/Plan Impression: Acute hypoxic respiratory failure On mechanical ventilator Shock, cardiogenic Bradycardia, symptomatic Atelectasis Events: Remains on vent support On AC mode; RR 14, VT 450, PEEP 5, FiO2 30% S/p pacemaker placement yesterday Cardiology recs appreciated. Sedated on Versed, Propofol, Fentanyl. Patient tolerated CPAP for 4 hours - developed tachypnea and tachycardia. Start Precedex ABG reviewed, compensated. CXR reviewed, stable bibasilar airspace disease and bilateral pleural effusions Off pressors, hemodynamically stable. Continue antibiotics Discontinued steroids Clinimix for nutritional support SBT/KAYLI Labs and imaging reviewed. Rest of plan as noted below. Plan: s/p intubation on mechanical ventilator. On AC mode; RR 14, VT 450, PEEP 5, FiO2 30% Titrate FIO2 to keep O2 saturation above 90%. VAP bundle. Daily ABG and CXR while intubated Sedate for ventilator synchrony Continue antibiotics. F/u cultures. Sputum cultures show normal oropharyngeal tra. Pressors if necessary for hemodynamic support Titrate to keep mean arterial pressure greater than 65 mmHg. Monitor renal function Monitor electrolytes. Supplement as necessary. Monitor ins and outs. Maintain euvolemia. GI prophylaxis. DVT prophylaxis. Prognosis: Poor given patient's multiple co-morbidities. Condition: Critical Rest of plan per hospitalist and other consultants. A total of 35 minutes of critical care time was spent reviewing the patient record, examining the patient, making a diagnostic and therapeutic plan, discussing this plan with the medical personnel, following up on diagnostic studies and following the patient for clinical stability excluding any and all procedures. At least 50% of this time was spent in direct, [id number] contact. Thank you, ESTHER Maria, for allowing me to participate in this patient's care. Further recommendations will depend on the patient's clinical course. Please do not hesitate to contact me if you have any questions or concerns. This medical document was created using an electronic medical record system with [employer] system. Although these documentations are being carefully reviewed, there may still be some phonetic and typographical changes. The errors are purely typographical, due to imperfection on the software program, and do not reflect any compromise in the patient's medical care. Dietary Evaluation Review Comments: Nutrition support: 1. On vent, Glucerna 1.2 40ml/hr, providing 58g Pro and 1152 kcal in 24 hrs. 2. Off Vent and pass speech eval,2 g Na,low fat Low chol, CCHO-60g, Protein 60 g restriction if kidney functiondoes not improve, 3. TPN per pharmacy if NPO>7 days. Expected Outcomes/Goals: Off Vent, controlled DM, improved wound healing, maintain BW. Plan discussed with: Other (GLADYS Olivier) Critical Care Time(min): 35 MEY RAM MD Aug 23, 2024 23:41
[2024-08-24] VITALS (106 sets, daily range): BP systolic 80–203; BP diastolic 34–101; PULSE 65–100; RESP 14–32; TEMP 97.9–101.3; O2SAT 80–100
[2024-08-24 04:05] LABS: Sodium 142 mmol/L (136-145)
[2024-08-24 04:06] LABS: Anion Gap 7 (5-15); Calcium 8.7 mg/dL (8.7-10.4); Carbon Dioxide 28 mmol/L (20-31); Chloride 107 mmol/L (98-107); Potassium 3.5 mmol/L (3.5-5.1)
[2024-08-24 04:11] LABS: Blood Urea Nitrogen 19 mg/dL (9-23); Glucose 84 mg/dL (74-106)
[2024-08-24 04:27] LABS: Potassium 3.5 mmol/L (3.5-5.1)
[2024-08-24 04:28] LABS: Calcium 8.9 mg/dL (8.7-10.4)
[2024-08-24 04:34] LABS: Magnesium 1.8 mg/dL (1.6-2.6)
[2024-08-24 04:35] LABS: Phosphorus 2.8 mg/dL (2.4-5.1)
[2024-08-24 04:42] LABS: Albumin 3.1 g/dL (3.2-4.8)
[2024-08-24] MEDS: LIDOCAINE 2%HCL (LOCAL ANESTH.) INJ 20ML MDV ONE (07:50)
[2024-08-24] MEDS: VANCOMYCIN HCL 1000 MG VL ONE ×2 (07:50→07:51)
[2024-08-24] MEDS: diphenhdrAMINE HCL 50 MG/1 ML VL ONE (07:51)
[2024-08-24] MEDS: FAMOTIDINE (10MG/ML) 2ML VL IV ONE (07:51)
[2024-08-24] MEDS: VANCOMYCIN 1GM/250ML KIT 250 ML IV ONE ×2 (07:51→07:52)
[2024-08-24] MEDS: methylPREDNISolone SOD SUCC 125 MG/2 ML VL ONE (07:52)
[2024-08-24] MEDS: IODIXANOL 320MG/ML 100ML BTL IV ONE (07:52)
[2024-08-24 08:01] LABS: Basophils # (auto) 0 10 ^3/uL (0-0.2); Basophils % (auto) 0.1 % (0.0-2.0); Eosinophils # (auto) 0 10 ^3/uL (0-0.8); Eosinophils % (auto) 0.1 % (0.0-7.0); Hematocrit 33.3 % (36.0-46.0); Hemoglobin 11.2 g/dL (12.2-16.2); Lymphocytes # (auto) 0.8 10 ^3/uL (0.4-5.4); Lymphocytes % (auto) 5.4 % (10.0-50.0); Mean Corpuscular Hemoglobin 32.1 pg (28.0-32.0); Mean Corpuscular Hgb Conc. 33.8 g/dL (32.0-36.0); Monocytes # (auto) 1.9 10 ^3/uL (0-1.3); Monocytes % (auto) 13.6 % (0.0-12.0); Neutrophils # (auto) 11.2 10 ^3/uL (1.6-8.6); Neutrophils % (auto) 80.8 % (37.0-80.0); Platelet Count (auto) 146 10^3/uL (140-450); Red Cell Distribution Width 14.8 % (11.8-14.3); White Blood Cell 13.9 10^3/uL (4.4-10.8)
[2024-08-24 09:06] LABS: Base Excess -2.1 mmol/L (-2.0-3.0)
--- NOTE | 2024-08-24 09:39 | DVH ---
EXAM: XY CHEST PORTABLE Indication: RE-CHECK CONSOLIDATION AND ATELECTASIS Technique: Single AP portable chest radiograph was obtained. Comparison: XY CHEST PORTABLE on DOS: 08/23/24, XY CHEST PORTABLE on DOS: 08/22/24, XY CHEST PORTABLE o n DOS: 08/22/24, XY CHEST PORTABLE on DOS: 08/21/24, XY CHEST XRAY 1 VIEW on DOS: 08/21/24, XY CHEST POR TABLE on DOS: 08/23/24 FINDINGS: Stable satisfactory positioning of the endotracheal tube, enteric tube, and right internal jugular ce ntral venous catheter. Small left pleural effusion with overlying atelectasis and consolidation, unch anged. Possible trace right pleural effusion with overlying atelectasis, unchanged. No pneumothorax. No other significant interval change. IMPRESSION: No significant interval change as detailed above.
[2024-08-24] MEDS: ENOXAPARIN SOD 40 MG/0.4 ML SYRINGE SC SCH (11:09)
[2024-08-24] MEDS: POTASSIUM CHL 20MEQ/100ML 100 ML IV ONE (16:17)
--- NOTE | 2024-08-24 16:32 | DVHPN2 ---
Subjective 79-year-old female who initially presented to the hospital with symptomatic bradycardia status post pacemaker placement, currently remains intubated and sedated. Patient has failed CPAP trial today again. Changes from previous H/P or p: No Changes Eyes: No Pain, No Vision change, No Conjunctivae inflammation, No Eyelid inflammation, No Other, No Redness ENT: No Ear pain, No Ear discharge, No Nose pain, No Nose discharge, No Nose congestion, No Mouth pain, No Mouth swelling, No Throat pain, No Throat swelling, No Other Cardiovascular: No Chest Pain, No Palpitations, No Orthopnea, No Paroxysmal Noc. Dyspnea, No Edema, No Lt Headedness, No Other Respiratory: Shortness of breath Gastrointestinal: No Nausea, No Vomiting, No Abdominal Pain, No Diarrhea, No Constipation, No Melena, No Hematochezia, No Other Genitourinary: No Dysuria, No Frequency, No Incontinence, No Hematuria, No Retention, No Other Musculoskeletal: No other, No neck pain, No shoulder pain, No arm pain, No back pain, No hand pain, No leg pain, No foot pain Skin: No Rash, No Lesions, No Jaundice, No Bruising, No Other Objective Vitals Vital Signs Date Time Temp Pulse Resp B/P (MAP) Pulse Ox O2 Delivery O2 Flow Rate FiO2 08/24/24 16:16 99.1 68 23 146/61 (89) 100 210.4 08/24/24 13:50 30 08/24/24 06:00 Mechanical Ventilator+ Intake/Output Intake and Output 08/24/24 07:00 Intake Total 2436.212 ml Output Total 600 ml Balance 1836.212 ml Intake Oral 40 ml IV Total 2396.212 ml Output Urine Total 600 ml Exam HEENT pupils are reactive Neck is supple CV is S1-S2 regular rate and rhythm Respiratory diminished breath sounds bases GI positive bowel sound 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 Medications Current Medications Medications Dose Ordered Sig/Pepe Route Start Time Stop Time Status Last Admin Dose Admin Docusate Sodium 100 mg BIDPRN PRN PO 08/16/24 20:45 08/17/24 06:26 100 MG Acetaminophen 650 mg Q6HP PRN PO 08/16/24 20:45 08/24/24 02:42 650 MG Ondansetron HCl 4 mg Q4HP PRN IV 08/16/24 20:45 Nitroglycerin 0.4 mg Q5MINP PRN SL 08/16/24 20:45 Morphine Sulfate 2 mg Q30M PRN IV 08/16/24 20:45 Ceftriaxone Sodium 50 ml @ 100 mls/hr DAILY IV 08/17/24 10:00 08/24/24 11:09 100 MLS/HR Hydralazine HCl 10 mg Q6HP PRN IV 08/16/24 23:30 08/23/24 13:20 10 MG Acetaminophen/ Hydrocodone Bitart 1 tab Q6HPRN PRN PO 08/16/24 23:30 08/17/24 00:56 1 TAB Midazolam HCl 50 ml @ 1 mls/hr Q24H IV 08/17/24 10:15 08/23/24 18:34 2 MLS/HR Fentanyl Citrate 250 ml @ 2.5 mls/hr Q24H IV 08/17/24 10:15 08/23/24 18:35 10 MLS/HR Pantoprazole Sodium 40 mg DAILY IV 08/18/24 10:00 08/24/24 11:09 40 MG Amino Acids 0 ml @ 0 mls/hr PER PHARMACY IV 08/19/24 13:15 Diagnostic Test (Pha) 1 strip Q6HR 08/19/24 18:00 08/24/24 12:00 1 STRIP Insulin Human Regular FOLLOW SLIDING SCALE Q6HR SC 08/19/24 18:00 08/22/24 12:01 2 UNITS Dextrose 50 ml UD IV 08/19/24 14:00 Amino Acids/ Electrolytes/ Dextrose 1,000 ml @ 41 mls/hr DAILY@2200 IV 08/19/24 22:00 08/23/24 21:34 41 MLS/HR Norepinephrine Bitartrate 250 ml @ 1.875 mls/ hr Q24H IV 08/22/24 05:15 Sodium Chloride 1,000 ml @ 50 mls/hr Q20H IV 08/22/24 14:30 UNV Sodium Chloride 1,000 ml @ 50 mls/hr Q20H IV 08/22/24 14:45 08/24/24 03:15 50 MLS/HR Enoxaparin Sodium 40 mg DAILY SC 08/24/24 10:00 08/24/24 11:09 40 MG Propofol 100 ml @ 2.253 mls/ hr Q24H IV 08/23/24 16:45 08/24/24 03:22 9.012 MLS/HR Dexmedetomidine HCl 400 mcg/ Dextrose 100 ml @ 3.755 mls/ hr Q24H IV 08/23/24 17:30 08/24/24 02:46 3.755 MLS/HR Laboratory Results Laboratory Tests 08/24/24 03:04 Chemistry Test 08/24/24 03:04 08/24/24 08:38 Albumin 3.1 g/dL (3.2-4.8) L Calcium Level 8.7 mg/dL (8.7-10.4) Magnesium Level 1.8 mg/dL (1.6-2.6) 1.8 mg/dL (1.6-2.6) Phosphorus Level 2.8 mg/dL (2.4-5.1) Urinalysis Test 08/16/24 14:10 Urine Color Light-yellow (Yellow) Urine Clarity Clear (Clear) Urine pH 7.0 (5.0-9.0) Urine Specific [place] 1.007 (1.001-1.035) Urine Protein Negative (Negative) Urine Ketones Negative (Negative) Urine Blood Negative /uL (Negative) Urine Nitrite Negative (Negative) Urine Bilirubin Negative (Negative) Urine Urobilinogen Normal mg/dL (Negative) Urine Leukocyte Esterase 3+ /uL (Negative) Urine RBC 3 /hpf (0 - 4) Urine Microscopic WBC 29 /HPF (0-5) H Urine Squamous Epithelial Cells Few /hpf (<5) Urine Bacteria None seen /hpf (None Seen) Urine Glucose Normal mg/dL (Normal) Blood Gas Results Test 08/24/24 07:09 Arterial Blood pH 7.413 (7.350-7.450) FiO2 % 30.0 Microbiology Microbiology Date/Time Source Procedure Growth Status 08/19/24 00:05 Sputum Endotracheal Wash Gram Stain - Final Complete 08/19/24 00:05 Sputum Endotracheal Wash Respiratory Culture - Final Complete 08/17/24 23:00 Urine - [place] Urine Culture - Final Complete 08/17/24 16:19 Nose MRSA Screen - Final Complete 08/17/24 14:00 Blood Blood Culture - Final NO GROWTH AFTER 5 DAYS OF INCUBATION. Complete Assessment/Plan Assessment/Plan 79-year-old female who presented to the hospital with dizziness shortness breath found to have symptomatic bradycardia 1. Acute hypoxic respiratory failure remains intubated and sedated 2. Symptomatic bradycardia status post pacemaker placement 3. Leukocytosis likely reactive 4. Bilateral atelectasis 5. UTI -CPAP trial per Pulmonary, follow up Cardiology and Pulmonary recommendations -antibiotics, Plan discussed with: Other My Orders Orders - SOPHIE WILKERSON MD Procedure Category Date Status Time Propofol (Diprivan) PHA 08/23/24 In Process 16:45 D5w 5% (Dextrose 5%) PHA 08/23/24 In Process W/Dexmedetomidine 17:30 Date of Service: Aug 24, 2024 Billing Provider: SOPHIE WILKERSON MD Common Visit Codes: NOT BILLABLE SOPHIE WILKERSON MD Aug 24, 2024 16:32
[2024-08-24] MEDS: ACETAMINOPHEN 650 mg PER 20.3 mL UD ONE (19:15)
--- NOTE | 2024-08-24 22:52 | DVHPN2 ---
Progress Note - Dictate Date Seen: Aug 24, 2024 Medical Necessity Reason Pt with a Central, PICC or Fol: Yes The following are medically ne: Wong Catheter Reason for wong catheter: Strict I&O Subjective Patient seen and examined at bedside. Sedated, intubated on mechanical ventilator. Overnight events reviewed. vital signs Vital Sign Date Time Temp Pulse Resp B/P (MAP) Pulse Ox O2 Delivery O2 Flow Rate FiO2 08/24/24 22:23 65 14 112/39 (63) 100 30 08/24/24 22:00 Mechanical Ventilator+ 08/24/24 19:15 101.1 Total Intake and Output 08/23/24 08/23/24 08/24/24 15:00 23:00 07:00 Intake Total 834.0 ml 748.612 ml 963.1 ml Output Total 300 ml 300 ml Balance 834.0 ml 448.612 ml 663.1 ml medications Current Medications Medications Dose Ordered Sig/Pepe Route Start Time Stop Time Status Last Admin Dose Admin Docusate Sodium 100 mg BIDPRN PRN PO 08/16/24 20:45 08/17/24 06:26 100 MG Ondansetron HCl 4 mg Q4HP PRN IV 08/16/24 20:45 Nitroglycerin 0.4 mg Q5MINP PRN SL 08/16/24 20:45 Morphine Sulfate 2 mg Q30M PRN IV 08/16/24 20:45 Ceftriaxone Sodium 50 ml @ 100 mls/hr DAILY IV 08/17/24 10:00 08/24/24 11:09 100 MLS/HR Hydralazine HCl 10 mg Q6HP PRN IV 08/16/24 23:30 08/23/24 13:20 10 MG Acetaminophen/ Hydrocodone Bitart 1 tab Q6HPRN PRN PO 08/16/24 23:30 08/17/24 00:56 1 TAB Midazolam HCl 50 ml @ 1 mls/hr Q24H IV 08/17/24 10:15 08/23/24 18:34 2 MLS/HR Fentanyl Citrate 250 ml @ 2.5 mls/hr Q24H IV 08/17/24 10:15 08/23/24 18:35 10 MLS/HR Pantoprazole Sodium 40 mg DAILY IV 08/18/24 10:00 08/24/24 11:09 40 MG Amino Acids 0 ml @ 0 mls/hr PER PHARMACY IV 08/19/24 13:15 Diagnostic Test (Pha) 1 strip Q6HR 08/19/24 18:00 08/24/24 18:16 1 STRIP Insulin Human Regular FOLLOW SLIDING SCALE Q6HR SC 08/19/24 18:00 08/22/24 12:01 2 UNITS Dextrose 50 ml UD IV 08/19/24 14:00 Amino Acids/ Electrolytes/ Dextrose 1,000 ml @ 41 mls/hr DAILY@2200 IV 08/19/24 22:00 08/24/24 21:53 41 MLS/HR Norepinephrine Bitartrate 250 ml @ 1.875 mls/ hr Q24H IV 08/22/24 05:15 Sodium Chloride 1,000 ml @ 50 mls/hr Q20H IV 08/22/24 14:30 UNV Sodium Chloride 1,000 ml @ 50 mls/hr Q20H IV 08/22/24 14:45 08/24/24 03:15 50 MLS/HR Enoxaparin Sodium 40 mg DAILY SC 08/24/24 10:00 08/24/24 11:09 40 MG Propofol 100 ml @ 2.253 mls/ hr Q24H IV 08/23/24 16:45 08/24/24 22:05 18.024 MLS/HR Dexmedetomidine HCl 400 mcg/ Dextrose 100 ml @ 3.755 mls/ hr Q24H IV 08/23/24 17:30 08/24/24 02:46 3.755 MLS/HR Enteral Nutritional Formula 1,000 ml 35ML/HR GT 08/24/24 18:00 Acetaminophen 650 mg Q6HP PRN GT 08/24/24 18:15 objective Gen.: Patient lying in bed in medical ICU. Sedated, intubated on mechanical ventilator. Head: Normocephalic, atraumatic. Eyes: PERRLA. Ears: Normal external anatomy. Throat: Endotracheal tube and orogastric tube in place. Neck: Supple, trachea midline. Chest: Transmitted breath sounds bilaterally. Decreased air entry bilaterally. No wheezing. Bibasilar crackles. Cardiovascular: Positive S1, positive S2. Regular rate and rhythm. Abdomen: Positive bowel sounds in all 4 quadrants. Soft, nontender, nondistended. : Wong in place. Normal external genitalia. Rectal: Deferred. Skin: Warm, dry. Intact. Extremities: 2+ radial pulses bilaterally. No lower extremity edema. Neuro: Sedated. laboratory and microbiology Laboratory Tests 08/24/24 03:04 Test 08/24/24 03:04 Range/Units Serum Glucose 84 74-106 mg/dL Assessment/Plan Impression: Acute hypoxic respiratory failure On mechanical ventilator Shock, cardiogenic Bradycardia, symptomatic Atelectasis Events: Remains on vent support On AC mode; RR 14, VT 450, PEEP 5, FiO2 30% S/p pacemaker placement Cardiology recs appreciated. Sedated on Versed, Propofol, Fentanyl. Patient tolerated CPAP for 1.5 hours - noted to have hypertension Will do CPAP trial in AM. Increased ET tube secretions, blood tinged. Plan for bronchoscopy to evaluate airway. ABG reviewed, compensated. CXR reviewed, demonstrates small left pleural effusion with overlying atelectasis and consolidation, unchanged. Possible trace right pleural effusion with overlying atelectasis, unchanged. No pneumothorax. Off pressors, hemodynamically stable. Continue antibiotics Clinimix for nutritional support Monitor renal function Monitor electrolytes. Supplement as necessary. Potassium supplementation SBT/KAYLI Labs and imaging reviewed. Rest of plan as noted below. Plan: s/p intubation on mechanical ventilator. On AC mode; RR 14, VT 450, PEEP 5, FiO2 30% Titrate FIO2 to keep O2 saturation above 90%. VAP bundle. Daily ABG and CXR while intubated Sedate for ventilator synchrony Continue antibiotics. Steroids discontinued F/u cultures. Sputum cultures show normal oropharyngeal tra. Pressors if necessary for hemodynamic support Titrate to keep mean arterial pressure greater than 65 mmHg. Monitor renal function Monitor electrolytes. Supplement as necessary. Monitor ins and outs. Maintain euvolemia. GI prophylaxis. DVT prophylaxis. Prognosis: Poor given patient's multiple co-morbidities. Condition: Critical Rest of plan per hospitalist and other consultants. A total of 35 minutes of critical care time was spent reviewing the patient record, examining the patient, making a diagnostic and therapeutic plan, discussing this plan with the medical personnel, following up on diagnostic studies and following the patient for clinical stability excluding any and all procedures. At least 50% of this time was spent in direct, [id number] contact. Thank you, ESTHER Maria, for allowing me to participate in this patient's care. Further recommendations will depend on the patient's clinical course. Please do not hesitate to contact me if you have any questions or concerns. This medical document was created using an electronic medical record system with [employer] dictation system. Although these documentations are being carefully reviewed, there may still be some phonetic and typographical changes. The errors are purely typographical, due to imperfection on the software program, and do not reflect any compromise in the patient's medical care. Dietary Evaluation Review Comments: Nutrition support: 1. On vent, Glucerna 1.2 40ml/hr, providing 58g Pro and 1152 kcal in 24 hrs. 2. Off Vent and pass speech eval,2 g Na,low fat Low chol, CCHO-60g, Protein 60 g restriction if kidney functiondoes not improve, 3. TPN per pharmacy if NPO>7 days. Expected Outcomes/Goals: Off Vent, controlled DM, improved wound healing, maintain BW. Plan discussed with: Other (GLADYS Dejesus) Critical Care Time(min): 35 MEY RAM MD Aug 24, 2024 22:52
[2024-08-25] VITALS (106 sets, daily range): BP systolic 88–165; BP diastolic 31–91; PULSE 65–100; RESP 13–33; TEMP 97.2–100.9; O2SAT 65–100
[2024-08-25 04:40] LABS: Anion Gap 6 (5-15); Basophils # (auto) 0 10 ^3/uL (0-0.2); Basophils % (auto) 0.2 % (0.0-2.0); Carbon Dioxide 29 mmol/L (20-31); Chloride 105 mmol/L (98-107); Eosinophils # (auto) 0.1 10 ^3/uL (0-0.8); Eosinophils % (auto) 1.2 % (0.0-7.0); Hematocrit 30.4 % (36.0-46.0); Hemoglobin 10.3 g/dL (12.2-16.2); Lymphocytes # (auto) 0.5 10 ^3/uL (0.4-5.4); Lymphocytes % (auto) 4.6 % (10.0-50.0); Mean Corpuscular Hemoglobin 31.6 pg (28.0-32.0); Mean Corpuscular Volume 92.9 fL (80.0-100.0); Monocytes # (auto) 0.9 10 ^3/uL (0-1.3); Monocytes % (auto) 7.9 % (0.0-12.0); Neutrophils # (auto) 10.3 10 ^3/uL (1.6-8.6); Neutrophils % (auto) 86.1 % (37.0-80.0); Platelet Count (auto) 120 10^3/uL (140-450); Red Blood Cells 3.27 10^6/uL (4.0-5.20); Red Cell Distribution Width 14.1 % (11.8-14.3); Sodium 140 mmol/L (136-145); White Blood Cell 11.9 10^3/uL (4.4-10.8)
[2024-08-25 04:46] LABS: BUN/Creatinine Ratio 37.1 (10.0-20.0); Blood Urea Nitrogen 13 mg/dL (9-23); GFR African American 230 mL/min; GFR Non-African American 190 mL/min; Glucose 86 mg/dL (74-106); Magnesium 1.7 mg/dL (1.6-2.6)
[2024-08-25 04:48] LABS: Phosphorus 3.2 mg/dL (2.4-5.1)
[2024-08-25 05:18] LABS: Albumin 2.8 g/dL (3.2-4.8); Calcium 8.6 mg/dL (8.7-10.4); Potassium 3.1 mmol/L (3.5-5.1)
--- NOTE | 2024-08-25 05:34 | DVH ---
CHEST RADIOGRAPH Indication: RECHECK BILAT ATELECTASIS Technique: Single frontal view of the chest was obtained Comparison: XY CHEST PORTABLE on DOS: 08/24/24 FINDINGS: Lines and Tubes: The endotracheal tube terminates 4.1 cm above the paty. Dual-chamber pacemaker wit h right atrial and ventricular leads. Right central venous catheter terminates in the superior vena cava. Lungs: Bibasilar airspace disease. Pleura: Bilateral pleural effusions. Left apical pneumothorax. Cardiomediastinal contours: Stable cardiac silhouette. Bones: No acute osseous abnormality. IMPRESSION: 1. Left apical pneumothorax. 2. Bibasilar opacities and pleural effusions similar to prior study.
[2024-08-25] MEDS: MAGNESIUM SULFATE 1GM/100ML 100 ML IV ONE (06:15)
[2024-08-25] MEDS: POTASSIUM CHL 20MEQ/100ML 100 ML IV ONE (06:18)
[2024-08-25] MEDS: POTASSIUM CHL 20MEQ/100ML 200 ML IV ONE (07:02)
[2024-08-25 07:31] LABS: Base Excess 2.8 mmol/L (-2.0-3.0)
--- NOTE | 2024-08-25 13:09 | DVH ---
EXAM: XY CHEST PORTABLE Indication: pneumothorax Technique: Single frontal view of the chest was obtained Comparison: XY CHEST PORTABLE on DOS: 08/25/24, XY CHEST PORTABLE on DOS: 08/24/24, XY CHEST PORTABLE o n DOS: 08/23/24, XY CHEST PORTABLE on DOS: 08/22/24, XY CHEST PORTABLE on DOS: 08/22/24, XY CHEST PORTAB LE on DOS: 08/25/24 FINDINGS: Lines and Tubes: The endotracheal tube terminates 4.1 cm above the paty. Dual-chamber pacemaker wit h right atrial and ventricular leads. Right central venous catheter terminates in the superior vena cava. Lungs: Bibasilar airspace disease. Pleura: Bilateral pleural effusions. Left apical pneumothorax. Cardiomediastinal contours: Stable cardiac silhouette. Bones: No acute osseous abnormality. IMPRESSION: No significant change compared to prior exam.
--- NOTE | 2024-08-25 14:08 | DVH ---
CT Chest without intravenous contrast INDICATION: assess left ptx TECHNIQUE: Multidetector spiral CT of the chest was performed from the lung apices to the upper abdom en. Axial, coronal and sagittal multiplanar reformats were performed. Radiation Dose : 1. Chest: CTDI volume is 17.44 mGy. Dose-length product is 684.26 mGy*cm The dose indicators for CT are the volume Computed Tomography (CT) Dose Index (CTDIvol) and the Dose Length Product (DLP), and are measured in units of mGy and mGy-cm, respectively. These indicators are not patient dose, but values generated from the CT scanner acquisition factors. The report includes radiation exposure data for exposures received during this examination. Comparison: None Findings: Lower neck: Endotracheal tube in satisfactory position. Lungs: Bilateral lower lobe compressive atelectasis. Heart/Vascular Structures: Cardiomegaly. Coronary artery calcifications. Vascular calcifications of t he aorta. Lymph Nodes: No adenopathy Pleura: Small bilateral pleural effusions. Small left pneumothorax. Musculoskeletal: No acute osseous abnormality. Diffuse osteopenia. Degenerative changes of the spine . Chronic appearing compression deformities of the thoracolumbar spine. Soft tissues: Normal. Upper abdomen: Enteric catheter in satisfactory position. IMPRESSION: Small left pneumothorax. CHF/pulmonary edema. Radiation optimization: All CT scans at this facility use at least one of these dose optimization annabel hniques: automated exposure control mA and/or kV adjustment per patient size (includes targeted exam s where dose is matched to clinical indication) or iterative reconstruction.
--- NOTE | 2024-08-25 16:37 | DVHPN2 ---
Subjective 79-year-old female who initially presented to the hospital with symptomatic bradycardia status post pacemaker placement, currently remains intubated and sedated. The patient was found to have a small left-sided pleural effusion, CPAP trial is canceled. Changes from previous H/P or p: No Changes Eyes: No Pain, No Vision change, No Conjunctivae inflammation, No Eyelid inflammation, No Other, No Redness ENT: No Ear pain, No Ear discharge, No Nose pain, No Nose discharge, No Nose congestion, No Mouth pain, No Mouth swelling, No Throat pain, No Throat swelling, No Other Cardiovascular: No Chest Pain, No Palpitations, No Orthopnea, No Paroxysmal Noc. Dyspnea, No Edema, No Lt Headedness, No Other Respiratory: Shortness of breath Gastrointestinal: No Nausea, No Vomiting, No Abdominal Pain, No Diarrhea, No Constipation, No Melena, No Hematochezia, No Other Genitourinary: No Dysuria, No Frequency, No Incontinence, No Hematuria, No Retention, No Other Musculoskeletal: No other, No neck pain, No shoulder pain, No arm pain, No back pain, No hand pain, No leg pain, No foot pain Skin: No Rash, No Lesions, No Jaundice, No Bruising, No Other Objective Vitals Vital Signs Date Time Temp Pulse Resp B/P (MAP) Pulse Ox O2 Delivery O2 Flow Rate FiO2 08/25/24 16:20 88 30 141/55 (83) 95 30 08/25/24 13:00 97.2 207.0 08/25/24 12:00 Mechanical Ventilator+ Intake/Output Intake and Output 08/25/24 07:00 Intake Total 3003.1 ml Output Total 1725 ml Balance 1278.1 ml Intake Oral 30 ml IV Total 2973.1 ml Output Urine Total 1725 ml Exam HEENT pupils are reactive Neck is supple CV is S1-S2 regular rate and rhythm Respiratory diminished breath sounds bases GI positive bowel sound 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 Medications Current Medications Medications Dose Ordered Sig/Pepe Route Start Time Stop Time Status Last Admin Dose Admin Docusate Sodium 100 mg BIDPRN PRN PO 08/16/24 20:45 08/17/24 06:26 100 MG Ondansetron HCl 4 mg Q4HP PRN IV 08/16/24 20:45 Nitroglycerin 0.4 mg Q5MINP PRN SL 08/16/24 20:45 Morphine Sulfate 2 mg Q30M PRN IV 08/16/24 20:45 Ceftriaxone Sodium 50 ml @ 100 mls/hr DAILY IV 08/17/24 10:00 08/25/24 09:30 100 MLS/HR Hydralazine HCl 10 mg Q6HP PRN IV 08/16/24 23:30 08/25/24 14:28 10 MG Acetaminophen/ Hydrocodone Bitart 1 tab Q6HPRN PRN PO 08/16/24 23:30 08/17/24 00:56 1 TAB Midazolam HCl 50 ml @ 1 mls/hr Q24H IV 08/17/24 10:15 08/25/24 04:03 1 MLS/HR Fentanyl Citrate 250 ml @ 2.5 mls/hr Q24H IV 08/17/24 10:15 08/25/24 04:59 5 MLS/HR Pantoprazole Sodium 40 mg DAILY IV 08/18/24 10:00 08/25/24 09:29 40 MG Amino Acids 0 ml @ 0 mls/hr PER PHARMACY IV 08/19/24 13:15 Diagnostic Test (Pha) 1 strip Q6HR 08/19/24 18:00 08/25/24 12:00 1 STRIP Insulin Human Regular FOLLOW SLIDING SCALE Q6HR SC 08/19/24 18:00 08/22/24 12:01 2 UNITS Dextrose 50 ml UD IV 08/19/24 14:00 Amino Acids/ Electrolytes/ Dextrose 1,000 ml @ 41 mls/hr DAILY@2200 IV 08/19/24 22:00 08/24/24 21:53 41 MLS/HR Norepinephrine Bitartrate 250 ml @ 1.875 mls/ hr Q24H IV 08/22/24 05:15 Sodium Chloride 1,000 ml @ 50 mls/hr Q20H IV 08/22/24 14:30 UNV Sodium Chloride 1,000 ml @ 50 mls/hr Q20H IV 08/22/24 14:45 08/24/24 03:15 50 MLS/HR Enoxaparin Sodium 40 mg DAILY SC 08/24/24 10:00 08/25/24 09:30 40 MG Propofol 100 ml @ 2.253 mls/ hr Q24H IV 08/23/24 16:45 08/25/24 15:53 13.518 MLS/HR Dexmedetomidine HCl 400 mcg/ Dextrose 100 ml @ 3.755 mls/ hr Q24H IV 08/23/24 17:30 08/25/24 04:00 3.755 MLS/HR Enteral Nutritional Formula 1,000 ml 35ML/HR GT 08/24/24 18:00 Acetaminophen 650 mg Q6HP PRN GT 08/24/24 18:15 Laboratory Results Laboratory Tests 08/25/24 04:11 Chemistry Test 08/25/24 04:11 Albumin 2.8 g/dL (3.2-4.8) L Calcium Level 8.6 mg/dL (8.7-10.4) L Magnesium Level 1.7 mg/dL (1.6-2.6) Phosphorus Level 3.2 mg/dL (2.4-5.1) Urinalysis Test 08/16/24 14:10 Urine Color Light-yellow (Yellow) Urine Clarity Clear (Clear) Urine pH 7.0 (5.0-9.0) Urine Specific [place] 1.007 (1.001-1.035) Urine Protein Negative (Negative) Urine Ketones Negative (Negative) Urine Blood Negative /uL (Negative) Urine Nitrite Negative (Negative) Urine Bilirubin Negative (Negative) Urine Urobilinogen Normal mg/dL (Negative) Urine Leukocyte Esterase 3+ /uL (Negative) Urine RBC 3 /hpf (0 - 4) Urine Microscopic WBC 29 /HPF (0-5) H Urine Squamous Epithelial Cells Few /hpf (<5) Urine Bacteria None seen /hpf (None Seen) Urine Glucose Normal mg/dL (Normal) Blood Gas Results Test 08/25/24 06:37 Arterial Blood pH 7.464 (7.350-7.450) FiO2 % 30.0 Microbiology Microbiology Date/Time Source Procedure Growth Status 08/24/24 21:05 Bronchial Washings Gram Stain - Final Resulted 08/24/24 21:05 Bronchial Washings Respiratory Culture Pending Resulted 08/17/24 23:00 Urine - [place] Urine Culture - Final Complete 08/17/24 16:19 Nose MRSA Screen - Final Complete 08/17/24 14:00 Blood Blood Culture - Final NO GROWTH AFTER 5 DAYS OF INCUBATION. Complete Assessment/Plan Assessment/Plan 79-year-old female who presented to the hospital with dizziness shortness breath found to have symptomatic bradycardia 1. Acute hypoxic respiratory failure remains intubated and sedated 2. Symptomatic bradycardia status post pacemaker placement 3. Leukocytosis likely reactive 4. Left-sided pneumothorax 5. UTI 6. Bilateral atelectasis -repeat chest x-ray daily for assessing the left pneumothorax, follow up Cardiology and Pulmonary recommendations -antibiotics, ceftriaxone once pneumothorax resolves. Plan discussed with: Other My Orders Orders - SOPHIE WILKERSON MD Procedure Category Date Status Time Nutritional PHA 08/24/24 In Process Supplements (Glucerna 18:00 Acetaminophen PHA 08/24/24 In Process Solution Oral 18:15 Chest Portable XY 08/25/24 Resulted 04:00 Bilat Low Ext Art US 08/25/24 Taken Duplex 15:32 Date of Service: Aug 25, 2024 Billing Provider: SOPHIE WILKERSON MD Common Visit Codes: NOT BILLABLE SOPHIE WILKERSON MD Aug 25, 2024 16:37
[2024-08-25] MEDS: ACETAMINOPHEN 650 mg PER 20.3 mL UD GT PRN (17:29)
--- NOTE | 2024-08-25 17:33 | DVH ---
Bilateral Lower Extremity Arterial Duplex Clinical History: mottling, weak pedal pulses Comparison: None Technique: Duplex Doppler evaluation including color Doppler and spectral/pulsed waveform analysis of the lower extremity arteries was performed. Findings: RIGHT: Peak systolic velocities are less than 150 centimeter/second. The waveforms are biphasic with diastolic flow. LEFT: Peak systolic velocities are less than 150 centimeter/second. The waveforms are monophasic in the posterior tibial artery.. IMPRESSION: No hemodynamically significant stenosis based on peak systolic velocity criteria. Monophasic arterial waveforms in the left posterior tibial artery possibly representing underlying pe ripheral arterial disease. REFERENCE VALUES, [facility] ([facility]) vascular Imaging Lab Criteria: Peak systolic velocity ranges (in cm/sec) are as follows: <150 cm/s - <20 % stenosis 150-200 cm/s - 20-49% stenosis 200-300 cm/s - 50-75% stenosis >300 cm/s -> 75% stenosis
--- NOTE | 2024-08-25 19:54 | DVHNC2 ---
Procedure - LEFT Cook Keagan Pigtail Chest tube placement procedure note: Physician: Dr Gisele Cochran Date: 08/25/2024 Diagnosis: Pneumothorax, Hypoxia Indication: Hypoxia, evacuation of air from pleural space Consent: Consent was obtained from patient's healthcare proxy prior to procedure. Indication, risks, and benefits were explained at length. Patient medications and allergies reviewed. The risks and benefits of the procedure and the sedation options and risk were discussed with the patient's healthcare proxy. All questions were answered and informed consent was o btained. Patient identification and proposed procedure were verified prior to the procedure by the physician, and a nurse in the patient's room. The heart rate, respiratory rate, oxygen saturations, blood pressure, adequacy of pulmonary ventilation, and response to care were monitored throughout the procedure. The physical status of the patient was reassessed after the procedure. Procedure summary: A time-out was performed and a chest x-ray was reviewed prior to procedure. The appropriate site was confirmed and marked. My hands were washed immediately prior to the procedure, I wore a surgical cap, mask with protective eyewear, sterile gown and sterile gloves throughout the procedure. The patient was prepped and draped in a sterile manner using chlorhexidine scrub after the appropriate level was percussed and confirmed by ultrasound. 1% lidocaine was used to anesthetize the skin, subcutaneous tissue, superior aspect of the rib periosteum and parietal pleura. An 18-gauge needle with syringe attached was inserted into the left pleural space with aspiration of air to verify placement. A guidewire was advanced into the left pleural space and needle was withdrawn. 0.5 cm incision was made through the skin and subcutaneous tissues were dilated with a dilator. The 14 [place] Cook Keagan pigtail chest drain was inserted into the left pleural space. The drain was then immediately connected to a Pleur- evac. Adequate placement confirmed by air leak. The chest tube was sutured in place and dressing was applied. The patient tolerated the procedure well. CXR post procedure demonstrates LEFT chest tube in place and re-expansion of the lung. Estimated blood loss: Less than 5 mL. Complications: None. CPT [id number] MEY COCHRAN MD Aug 25, 2024 19:54
--- NOTE | 2024-08-25 20:20 | DVH ---
CHEST RADIOGRAPH Indication: CHEST TUBE INSERTION Technique: Single frontal view of the chest was obtained Comparison: XY CHEST PORTABLE on DOS: 08/25/24, XY CHEST PORTABLE on DOS: 08/25/24, XY CHEST PORTABLE o n DOS: 08/24/24 FINDINGS: Lines and Tubes: Endotracheal tube 4.5 cm above the paty. Dual-chamber pacemaker in place unchanged from earlier film on 08/25/2024. Chron internal jugular catheter in place. Enteric tube below the l eft diaphragm in the stomach. Lungs: Chest tube in place in the mid left chest. Pleura: Small bilateral pleural effusions No pneumothorax. Cardiomediastinal contours: Unremarkable Bones: No acute osseous abnormality. IMPRESSION: 1. Endotracheal tube in place 4.5 cm above the paty. 2. Enteric tube below the left diaphragm in the stomach. 3. Right internal jugular catheter in place unchanged. 4. Pacemaker in place unchanged. 5. Chest tube in place in the mid left chest.
--- NOTE | 2024-08-25 23:14 | DVHPN2 ---
Progress Note - Dictate Date Seen: Aug 25, 2024 Medical Necessity Reason Pt with a Central, PICC or Fol: Yes The following are medically ne: Wong Catheter Reason for wong catheter: Strict I&O Subjective Patient seen and examined at bedside. Sedated, intubated on mechanical ventilator. Overnight events reviewed. vital signs Vital Sign Date Time Temp Pulse Resp B/P (MAP) Pulse Ox O2 Delivery O2 Flow Rate FiO2 08/25/24 22:15 100.4 71 17 114/49 (70) 99 212.7 08/25/24 22:00 30 08/25/24 22:00 Mechanical Ventilator+ Total Intake and Output 08/24/24 08/24/24 08/25/24 15:00 23:00 07:00 Intake Total 1010.7 ml 1042.3 ml 950.1 ml Output Total 575 ml 1150 ml Balance 1010.7 ml 467.3 ml -199.9 ml medications Current Medications Medications Dose Ordered Sig/Pepe Route Start Time Stop Time Status Last Admin Dose Admin Docusate Sodium 100 mg BIDPRN PRN PO 08/16/24 20:45 08/17/24 06:26 100 MG Ondansetron HCl 4 mg Q4HP PRN IV 08/16/24 20:45 Nitroglycerin 0.4 mg Q5MINP PRN SL 08/16/24 20:45 Morphine Sulfate 2 mg Q30M PRN IV 08/16/24 20:45 Ceftriaxone Sodium 50 ml @ 100 mls/hr DAILY IV 08/17/24 10:00 08/25/24 09:30 100 MLS/HR Hydralazine HCl 10 mg Q6HP PRN IV 08/16/24 23:30 08/25/24 14:28 10 MG Acetaminophen/ Hydrocodone Bitart 1 tab Q6HPRN PRN PO 08/16/24 23:30 08/17/24 00:56 1 TAB Midazolam HCl 50 ml @ 1 mls/hr Q24H IV 08/17/24 10:15 08/25/24 04:03 1 MLS/HR Fentanyl Citrate 250 ml @ 2.5 mls/hr Q24H IV 08/17/24 10:15 08/25/24 04:59 5 MLS/HR Pantoprazole Sodium 40 mg DAILY IV 08/18/24 10:00 08/25/24 09:29 40 MG Amino Acids 0 ml @ 0 mls/hr PER PHARMACY IV 08/19/24 13:15 Diagnostic Test (Pha) 1 strip Q6HR 08/19/24 18:00 08/25/24 18:00 1 STRIP Insulin Human Regular FOLLOW SLIDING SCALE Q6HR SC 08/19/24 18:00 08/22/24 12:01 2 UNITS Dextrose 50 ml UD IV 08/19/24 14:00 Amino Acids/ Electrolytes/ Dextrose 1,000 ml @ 41 mls/hr DAILY@2200 IV 08/19/24 22:00 08/25/24 21:34 41 MLS/HR Norepinephrine Bitartrate 250 ml @ 1.875 mls/ hr Q24H IV 08/22/24 05:15 Sodium Chloride 1,000 ml @ 50 mls/hr Q20H IV 08/22/24 14:30 UNV Sodium Chloride 1,000 ml @ 50 mls/hr Q20H IV 08/22/24 14:45 08/24/24 03:15 50 MLS/HR Enoxaparin Sodium 40 mg DAILY SC 08/24/24 10:00 08/25/24 09:30 40 MG Propofol 100 ml @ 2.253 mls/ hr Q24H IV 08/23/24 16:45 08/25/24 20:32 22.53 MLS/HR Dexmedetomidine HCl 400 mcg/ Dextrose 100 ml @ 3.755 mls/ hr Q24H IV 08/23/24 17:30 08/25/24 04:00 3.755 MLS/HR Enteral Nutritional Formula 1,000 ml 35ML/HR GT 08/24/24 18:00 Acetaminophen 650 mg Q6HP PRN GT 08/24/24 18:15 08/25/24 17:29 650 MG objective Gen.: Patient lying in bed in medical ICU. Sedated, intubated on mechanical ventilator. Head: Normocephalic, atraumatic. Eyes: PERRLA. Ears: Normal external anatomy. Throat: Endotracheal tube and orogastric tube in place. Neck: Supple, trachea midline. Chest: Transmitted breath sounds bilaterally. Decreased air entry bilaterally. No wheezing. Bibasilar crackles. Cardiovascular: Positive S1, positive S2. Regular rate and rhythm. Abdomen: Positive bowel sounds in all 4 quadrants. Soft, nontender, nondistended. : Wong in place. Normal external genitalia. Rectal: Deferred. Skin: Warm, dry. Intact. Extremities: 2+ radial pulses bilaterally. No lower extremity edema. Neuro: Sedated. laboratory and microbiology Laboratory Tests 08/25/24 04:11 Test 08/25/24 04:11 Range/Units Serum Glucose 86 74-106 mg/dL Assessment/Plan Impression: Acute hypoxic respiratory failure On mechanical ventilator Shock, cardiogenic Bradycardia, symptomatic Atelectasis Events: Chest x-ray notable for left apical pneumothorax that was present since 08/24/24; no interval changes on this x-ray. We will obtain CT chest w/o contrast for further evaluation of left pneumothorax and to assess the size. ABG reviewed, notable for alkalemia. Remains on vent support On AC mode; RR 14, VT 450, PEEP 5, FiO2 30% Currently sedated on Propofol/Precedex drip Off Versed/Fentanyl. Consider CPAP trial after CT chest is completed. S/p bronchoscopy with BAL yesterday - follow up pleural fluid cultures Continue antibiotics TPN/Clinimix for nutritional support Monitor renal function Monitor electrolytes. Supplement as necessary. Potassium, magnesium supplementation IV fluids with NS at 50 ml/hr. S/p pacemaker placement Cardiology recs appreciated. SBT/KAYLI Labs and imaging reviewed. Rest of plan as noted below. Plan: s/p intubation on mechanical ventilator. On AC mode; RR 14, VT 450, PEEP 5, FiO2 30% Titrate FIO2 to keep O2 saturation above 90%. VAP bundle. Daily ABG and CXR while intubated Sedate for ventilator synchrony Continue antibiotics. Steroids discontinued F/u cultures. Awaiting pleural fluid cultures Sputum cultures show normal oropharyngeal tra. Pressors if necessary for hemodynamic support Titrate to keep mean arterial pressure greater than 65 mmHg. Monitor renal function Monitor electrolytes. Supplement as necessary. Monitor ins and outs. Maintain euvolemia. GI prophylaxis. DVT prophylaxis. Prognosis: Poor given patient's multiple co-morbidities. Condition: Critical Rest of plan per hospitalist and other consultants. A total of 35 minutes of critical care time was spent reviewing the patient record, examining the patient, making a diagnostic and therapeutic plan, discussing this plan with the medical personnel, following up on diagnostic studies and following the patient for clinical stability excluding any and all procedures. At least 50% of this time was spent in direct, [id number] contact. Thank you, LEVERS LACE MACHINE OPERATOR Crow, for allowing me to participate in this patient's care. Further recommendations will depend on the patient's clinical course. Please do not hesitate to contact me if you have any questions or concerns. This medical document was created using an electronic medical record system with [employer] dictation system. Although these documentations are being carefully reviewed, there may still be some phonetic and typographical changes. The errors are purely typographical, due to imperfection on the software program, and do not reflect any compromise in the patient's medical care. Dietary Evaluation Review Comments: Nutrition support: 1. On vent, Glucerna 1.2 40ml/hr, providing 58g Pro and 1152 kcal in 24 hrs. 2. Off Vent and pass speech eval,2 g Na,low fat Low chol, CCHO-60g, Protein 60 g restriction if kidney functiondoes not improve, 3. TPN per pharmacy if NPO>7 days. Expected Outcomes/Goals: Off Vent, controlled DM, improved wound healing, maintain BW. Plan discussed with: Other (GLADYS Forbes) Critical Care Time(min): 35 MEY RAM MD Aug 25, 2024 23:14
[2024-08-26] VITALS (107 sets, daily range): BP systolic 91–169; BP diastolic 40–107; PULSE 65–90; RESP 12–34; TEMP 97.7–100.6; O2SAT 97–100
[2024-08-26 03:42] LABS: Basophils # (auto) 0 10 ^3/uL (0-0.2); Basophils % (auto) 0.1 % (0.0-2.0); Eosinophils # (auto) 0.1 10 ^3/uL (0-0.8); Eosinophils % (auto) 1.3 % (0.0-7.0); Hematocrit 28.8 % (36.0-46.0); Hemoglobin 9.9 g/dL (12.2-16.2); Lymphocytes # (auto) 0.5 10 ^3/uL (0.4-5.4); Mean Corpuscular Hemoglobin 31.9 pg (28.0-32.0); Mean Corpuscular Hgb Conc. 34.2 g/dL (32.0-36.0); Mean Corpuscular Volume 93.1 fL (80.0-100.0); Monocytes # (auto) 0.8 10 ^3/uL (0-1.3); Monocytes % (auto) 8.5 % (0.0-12.0); Neutrophils % (auto) 85.1 % (37.0-80.0); Platelet Count (auto) 120 10^3/uL (140-450); Red Cell Distribution Width 13.8 % (11.8-14.3); White Blood Cell 9.4 10^3/uL (4.4-10.8)
[2024-08-26 04:04] LABS: Alanine Aminotransferase 14 U/L (7-40); Alkaline Phosphatase 99 U/L (46-116); Anion Gap 7 (5-15); Aspartate Aminotransferase 16 U/L (13-40); BUN/Creatinine Ratio 32.4 (10.0-20.0); Blood Urea Nitrogen 12 mg/dL (9-23); Carbon Dioxide 28 mmol/L (20-31); Glucose 101 mg/dL (74-106); Magnesium 1.8 mg/dL (1.6-2.6); Sodium 142 mmol/L (136-145)
[2024-08-26 04:05] LABS: Bilirubin, Total 0.6 mg/dL (0.2-1.0); Phosphorus 3.4 mg/dL (2.4-5.1)
[2024-08-26 04:06] LABS: Albumin 2.6 g/dL (3.2-4.8); Calcium 8.6 mg/dL (8.7-10.4); Chloride 107 mmol/L (98-107); Potassium 2.8 mmol/L (3.5-5.1); Total Protein 4.4 g/dL (5.7-8.2)
[2024-08-26] MEDS: POTASSIUM CHL 20MEQ/100ML 100 ML IV SCH ×2 (05:13→16:12)
--- NOTE | 2024-08-26 05:35 | DVH ---
EXAM: XY CHEST PORTABLE HISTORY: PATIENT INTUBATED COMPARISON: XY CHEST PORTABLE on DOS: 08/25/24, XY CHEST PORTABLE on DOS: 08/25/24, XY CHEST PORTABLE o n DOS: 08/25/24, XY CHEST PORTABLE on DOS: 08/24/24, XY CHEST PORTABLE on DOS: 08/23/24, chest CT dated 08/25/2024 TECHNIQUE: Portable AP view of the chest was performed. FINDINGS: Endotracheal tube is re-identified with its tip 3.7 cm above the paty. OG tube, right IJ central li ne, left thoracostomy tube, and right chest pacemaker are re-identified. No definite residual left pn eumothorax. There are bilateral lung base infiltrates and/or effusions, right greater than left, with slightly increased opacity in the right lung base compared with the previous chest x-ray. The heart is enlarged. IMPRESSION: 1. Mechanical ventilation with tubes and lines as above. 2. Definite residual left pneumothorax, with small bore left thoracostomy tube in place. 3. Bilateral lung base infiltrates and effusions with slightly increased right basilar opacity compar ed with chest x-ray performed 1 day earlier. 4. Cardiomegaly.
[2024-08-26 07:50] LABS: Base Excess 1.6 mmol/L (-2.0-3.0)
[2024-08-26] MEDS ORDERED: POTASSIUM CHL 20MEQ/100ML 100 ML IV SCH (11:00)
--- NOTE | 2024-08-26 12:36 | DVHPN2 ---
Subjective 79-year-old female who initially presented to the hospital with symptomatic bradycardia status post pacemaker placement, currently remains intubated and sedated. The patient was found to have a small left-sided pleural effusion, status post small chest tube placement. Changes from previous H/P or p: No Changes Eyes: No Pain, No Vision change, No Conjunctivae inflammation, No Eyelid inflammation, No Other, No Redness ENT: No Ear pain, No Ear discharge, No Nose pain, No Nose discharge, No Nose congestion, No Mouth pain, No Mouth swelling, No Throat pain, No Throat swelling, No Other Cardiovascular: No Chest Pain, No Palpitations, No Orthopnea, No Paroxysmal Noc. Dyspnea, No Edema, No Lt Headedness, No Other Respiratory: Shortness of breath Gastrointestinal: No Nausea, No Vomiting, No Abdominal Pain, No Diarrhea, No Constipation, No Melena, No Hematochezia, No Other Genitourinary: No Dysuria, No Frequency, No Incontinence, No Hematuria, No Retention, No Other Musculoskeletal: No other, No neck pain, No shoulder pain, No arm pain, No back pain, No hand pain, No leg pain, No foot pain Skin: No Rash, No Lesions, No Jaundice, No Bruising, No Other Objective Vitals Vital Signs Date Time Temp Pulse Resp B/P (MAP) Pulse Ox O2 Delivery O2 Flow Rate FiO2 08/26/24 12:33 131/52 08/26/24 11:37 89 30 100 30 08/26/24 11:30 99.0 210.2 08/26/24 10:00 Mechanical Ventilator+ Intake/Output Intake and Output 08/26/24 07:00 Intake Total 1937.070 ml Output Total 2420 ml Balance -482.930 ml Intake Oral 30 ml IV Total 1907.070 ml Output Urine Total 2100 ml Chest Tube Drainage Total 320 ml Exam HEENT pupils are reactive Neck is supple CV is S1-S2 regular rate and rhythm Respiratory diminished breath sounds bases GI positive bowel sound Extremity no edema 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 Medications Current Medications Medications Dose Ordered Sig/Pepe Route Start Time Stop Time Status Last Admin Dose Admin Docusate Sodium 100 mg BIDPRN PRN PO 08/16/24 20:45 08/17/24 06:26 100 MG Ondansetron HCl 4 mg Q4HP PRN IV 08/16/24 20:45 Nitroglycerin 0.4 mg Q5MINP PRN SL 08/16/24 20:45 Morphine Sulfate 2 mg Q30M PRN IV 08/16/24 20:45 Ceftriaxone Sodium 50 ml @ 100 mls/hr DAILY IV 08/17/24 10:00 08/26/24 09:35 100 MLS/HR Hydralazine HCl 10 mg Q6HP PRN IV 08/16/24 23:30 08/26/24 09:36 10 MG Acetaminophen/ Hydrocodone Bitart 1 tab Q6HPRN PRN PO 08/16/24 23:30 08/17/24 00:56 1 TAB Midazolam HCl 50 ml @ 1 mls/hr Q24H IV 08/17/24 10:15 08/25/24 04:03 1 MLS/HR Fentanyl Citrate 250 ml @ 2.5 mls/hr Q24H IV 08/17/24 10:15 08/26/24 11:10 10 MLS/HR Pantoprazole Sodium 40 mg DAILY IV 08/18/24 10:00 08/26/24 09:34 40 MG Amino Acids 0 ml @ 0 mls/hr PER PHARMACY IV 08/19/24 13:15 Diagnostic Test (Pha) 1 strip Q6HR 08/19/24 18:00 08/26/24 05:12 1 STRIP Insulin Human Regular FOLLOW SLIDING SCALE Q6HR SC 08/19/24 18:00 08/22/24 12:01 2 UNITS Dextrose 50 ml UD IV 08/19/24 14:00 Amino Acids/ Electrolytes/ Dextrose 1,000 ml @ 41 mls/hr DAILY@2200 IV 08/19/24 22:00 08/25/24 21:34 41 MLS/HR Norepinephrine Bitartrate 250 ml @ 1.875 mls/ hr Q24H IV 08/22/24 05:15 Sodium Chloride 1,000 ml @ 50 mls/hr Q20H IV 08/22/24 14:30 UNV Sodium Chloride 1,000 ml @ 50 mls/hr Q20H IV 08/22/24 14:45 08/24/24 03:15 50 MLS/HR Enoxaparin Sodium 40 mg DAILY SC 08/24/24 10:00 08/26/24 09:35 40 MG Propofol 100 ml @ 2.253 mls/ hr Q24H IV 08/23/24 16:45 08/26/24 12:33 22.53 MLS/HR Dexmedetomidine HCl 400 mcg/ Dextrose 100 ml @ 3.755 mls/ hr Q24H IV 08/23/24 17:30 08/25/24 04:00 3.755 MLS/HR Enteral Nutritional Formula 1,000 ml 35ML/HR GT 08/24/24 18:00 Acetaminophen 650 mg Q6HP PRN GT 08/24/24 18:15 08/25/24 17:29 650 MG Potassium Chloride 100 ml @ 50 mls/hr Q2H IV 08/26/24 14:00 08/26/24 17:59 Laboratory Results Laboratory Tests 08/26/24 03:23 Chemistry Test 08/26/24 03:23 Albumin 2.6 g/dL (3.2-4.8) L Calcium Level 8.6 mg/dL (8.7-10.4) L Magnesium Level 1.8 mg/dL (1.6-2.6) Phosphorus Level 3.4 mg/dL (2.4-5.1) Total Protein 4.4 g/dL (5.7-8.2) L LFT Test 08/26/24 03:23 Alanine Aminotransferase (ALT) 14 U/L (7-40) Alkaline Phosphatase 99 U/L (46-116) Aspartate Amino Transferase (AST) 16 U/L (13-40) Total Bilirubin 0.6 mg/dL (0.2-1.0) Urinalysis Test 08/16/24 14:10 Urine Color Light-yellow (Yellow) Urine Clarity Clear (Clear) Urine pH 7.0 (5.0-9.0) Urine Specific [place] 1.007 (1.001-1.035) Urine Protein Negative (Negative) Urine Ketones Negative (Negative) Urine Blood Negative /uL (Negative) Urine Nitrite Negative (Negative) Urine Bilirubin Negative (Negative) Urine Urobilinogen Normal mg/dL (Negative) Urine Leukocyte Esterase 3+ /uL (Negative) Urine RBC 3 /hpf (0 - 4) Urine Microscopic WBC 29 /HPF (0-5) H Urine Squamous Epithelial Cells Few /hpf (<5) Urine Bacteria None seen /hpf (None Seen) Urine Glucose Normal mg/dL (Normal) Blood Gas Results Test 08/26/24 07:08 Arterial Blood pH 7.479 (7.350-7.450) FiO2 % 30.0 Microbiology Microbiology Date/Time Source Procedure Growth Status 08/24/24 21:05 Bronchial Washings Gram Stain - Final Resulted 08/24/24 21:05 Bronchial Washings Respiratory Culture Pending Resulted 08/17/24 23:00 Urine - [place] Urine Culture - Final Complete 08/17/24 16:19 Nose MRSA Screen - Final Complete 08/17/24 14:00 Blood Blood Culture - Final NO GROWTH AFTER 5 DAYS OF INCUBATION. Complete Assessment/Plan Assessment/Plan 79-year-old female who presented to the hospital with dizziness shortness breath found to have symptomatic bradycardia 1. Acute hypoxic respiratory failure remains intubated and sedated 2. Symptomatic bradycardia status post pacemaker placement 3. Leukocytosis likely reactive 4. Left-sided pneumothorax status post chest tube placement 5. UTI 6. Bilateral atelectasis -repeat chest x-ray daily for assessing the left pneumothorax, follow up Cardiology and Pulmonary recommendations -antibiotics, CPAP trial once pneumothorax resolved. Plan discussed with: Other My Orders Orders - SOPHIE WILKERSON MD Procedure Category Date Status Time Bilat Low Ext Art US 08/25/24 Resulted Duplex 15:32 Date of Service: Aug 26, 2024 Billing Provider: SOPHIE WILKERSON MD Common Visit Codes: NOT BILLABLE SOPHIE WILKERSON MD Aug 26, 2024 12:36
[2024-08-26] MEDS: MAGNESIUM SULFATE 1GM/100ML 100 ML IV SCH (12:43)
[2024-08-26] MEDS: MAGNESIUM SULFATE 1GM/100ML 100 ML IV ONE (14:49)
[2024-08-26] MEDS: Glucerna 1.2 Cal 1Liter BOTTLE GT SCH (19:28)
--- NOTE | 2024-08-26 21:27 | DVHPN2 ---
Progress Note - Dictate Date Seen: Aug 26, 2024 Medical Necessity Reason Pt with a Central, PICC or Fol: Yes The following are medically ne: Wong Catheter Reason for wong catheter: Strict I&O Subjective Patient seen and examined at bedside. Sedated, intubated on mechanical ventilator. Overnight events reviewed. vital signs Vital Sign Date Time Temp Pulse Resp B/P (MAP) Pulse Ox O2 Delivery O2 Flow Rate FiO2 08/26/24 20:52 151/74 08/26/24 20:15 99.5 82 18 99 211.1 08/26/24 20:02 30 08/26/24 20:00 Mechanical Ventilator+ Total Intake and Output 08/25/24 08/25/24 08/26/24 15:00 23:00 07:00 Intake Total 750.849 ml 610.511 ml 575.71 ml Output Total 900 ml 1520 ml Balance 750.849 ml -289.489 ml -944.29 ml medications Current Medications Medications Dose Ordered Sig/Pepe Route Start Time Stop Time Status Last Admin Dose Admin Docusate Sodium 100 mg BIDPRN PRN PO 08/16/24 20:45 08/26/24 19:25 100 MG Ondansetron HCl 4 mg Q4HP PRN IV 08/16/24 20:45 Nitroglycerin 0.4 mg Q5MINP PRN SL 08/16/24 20:45 Morphine Sulfate 2 mg Q30M PRN IV 08/16/24 20:45 Ceftriaxone Sodium 50 ml @ 100 mls/hr DAILY IV 08/17/24 10:00 08/26/24 09:35 100 MLS/HR Hydralazine HCl 10 mg Q6HP PRN IV 08/16/24 23:30 08/26/24 09:36 10 MG Acetaminophen/ Hydrocodone Bitart 1 tab Q6HPRN PRN PO 08/16/24 23:30 08/17/24 00:56 1 TAB Midazolam HCl 50 ml @ 1 mls/hr Q24H IV 08/17/24 10:15 08/25/24 04:03 1 MLS/HR Fentanyl Citrate 250 ml @ 2.5 mls/hr Q24H IV 08/17/24 10:15 08/26/24 11:10 10 MLS/HR Pantoprazole Sodium 40 mg DAILY IV 08/18/24 10:00 08/26/24 09:34 40 MG Amino Acids 0 ml @ 0 mls/hr PER PHARMACY IV 08/19/24 13:15 Diagnostic Test (Pha) 1 strip Q6HR 08/19/24 18:00 08/26/24 18:00 1 STRIP Insulin Human Regular FOLLOW SLIDING SCALE Q6HR SC 08/19/24 18:00 08/22/24 12:01 2 UNITS Dextrose 50 ml UD IV 08/19/24 14:00 Amino Acids/ Electrolytes/ Dextrose 1,000 ml @ 41 mls/hr DAILY@2200 IV 08/19/24 22:00 08/26/24 21:24 41 MLS/HR Norepinephrine Bitartrate 250 ml @ 1.875 mls/ hr Q24H IV 08/22/24 05:15 Sodium Chloride 1,000 ml @ 50 mls/hr Q20H IV 08/22/24 14:30 UNV Sodium Chloride 1,000 ml @ 50 mls/hr Q20H IV 08/22/24 14:45 08/26/24 18:41 50 MLS/HR Enoxaparin Sodium 40 mg DAILY SC 08/24/24 10:00 08/26/24 09:35 40 MG Propofol 100 ml @ 2.253 mls/ hr Q24H IV 08/23/24 16:45 08/26/24 20:52 22.53 MLS/HR Dexmedetomidine HCl 400 mcg/ Dextrose 100 ml @ 3.755 mls/ hr Q24H IV 08/23/24 17:30 08/25/24 04:00 3.755 MLS/HR Enteral Nutritional Formula 1,000 ml 35ML/HR GT 08/24/24 18:00 08/26/24 19:28 1,000 ML Acetaminophen 650 mg Q6HP PRN GT 08/24/24 18:15 08/25/24 17:29 650 MG objective Gen.: Patient lying in bed in medical ICU. Sedated, intubated on mechanical ventilator. Head: Normocephalic, atraumatic. Eyes: PERRLA. Ears: Normal external anatomy. Throat: Endotracheal tube and orogastric tube in place. Neck: Supple, trachea midline. Chest: Transmitted breath sounds bilaterally. Decreased air entry bilaterally. No wheezing. Bibasilar crackles. Cardiovascular: Positive S1, positive S2. Regular rate and rhythm. Abdomen: Positive bowel sounds in all 4 quadrants. Soft, nontender, nondistended. : Wong in place. Normal external genitalia. Rectal: Deferred. Skin: Warm, dry. Intact. Extremities: 2+ radial pulses bilaterally. No lower extremity edema. Neuro: Sedated. laboratory and microbiology Laboratory Tests 08/26/24 03:23 Test 08/26/24 03:23 Range/Units Serum Glucose 101 74-106 mg/dL Assessment/Plan Impression: Acute hypoxic respiratory failure On mechanical ventilator Shock, cardiogenic Bradycardia, symptomatic Atelectasis Events: CT chest notable for left pneumothorax S/p left chest tube yesterday. no air leak. Monitor output. Placed to -20 cmH2O. CXR demonstrated re-expansion of the lung. CXR today shows pneumothorax present - we will hold CPAP to allow for healing of the lung today. ABG reviewed, notable for alkalemia. Remains on vent support On AC mode; RR 14, VT 450, PEEP 5, FiO2 30% Decrease VT to 400. Remains sedated on Propofol/Precedex drip Continue antibiotics WBC is WNL. TPN for nutritional support Cardiology recs appreciated. Monitor renal function Monitor electrolytes. Supplement as necessary. K of 2.8 - potassium supplementation magnesium supplementation Hgb now 9.9 g/dL - monitor S/p bronchoscopy with BAL on 08/24 - follow up pleural fluid cultures S/p pacemaker placement Labs and imaging reviewed. Rest of plan as noted below. Plan: s/p intubation on mechanical ventilator. On AC mode; RR 14, VT 450, PEEP 5, FiO2 30% Titrate FIO2 to keep O2 saturation above 90%. VAP bundle. Daily ABG and CXR while intubated Sedate for ventilator synchrony Continue antibiotics. Steroids discontinued F/u cultures. Awaiting pleural fluid cultures Sputum cultures show normal oropharyngeal tra. Pressors if necessary for hemodynamic support Titrate to keep mean arterial pressure greater than 65 mmHg. Monitor renal function Monitor electrolytes. Supplement as necessary. Monitor ins and outs. Maintain euvolemia. GI prophylaxis. DVT prophylaxis. Prognosis: Poor given patient's multiple co-morbidities. Condition: Critical Rest of plan per hospitalist and other consultants. A total of 35 minutes of critical care time was spent reviewing the patient record, examining the patient, making a diagnostic and therapeutic plan, discussing this plan with the medical personnel, following up on diagnostic studies and following the patient for clinical stability excluding any and all procedures. At least 50% of this time was spent in direct, [id number] contact. Thank you, MILL BEAM FITTER Crow, for allowing me to participate in this patient's care. Further recommendations will depend on the patient's clinical course. Please do not hesitate to contact me if you have any questions or concerns. This medical document was created using an electronic medical record system with [employer] dictation system. Although these documentations are being carefully reviewed, there may still be some phonetic and typographical changes. The errors are purely typographical, due to imperfection on the software program, and do not reflect any compromise in the patient's medical care. Dietary Evaluation Review Comments: Nutrition support: 1. On vent, Glucerna 1.2 40ml/hr, providing 58g Pro and 1152 kcal in 24 hrs. 2. Off Vent and pass speech eval,2 g Na,low fat Low chol, CCHO-60g, Protein 60 g restriction if kidney functiondoes not improve, 3. TPN per pharmacy if NPO>7 days. Expected Outcomes/Goals: Off Vent, controlled DM, improved wound healing, maintain BW. Plan discussed with: Other (GLADYS Hernández) Critical Care Time(min): 35 MEY RAM MD Aug 26, 2024 21:27
[2024-08-27] VITALS (113 sets, daily range): BP systolic 81–194; BP diastolic 33–88; PULSE 65–94; RESP 16–40; TEMP 98.8–100.4; O2SAT 94–100
[2024-08-27 04:15] LABS: Basophils # (auto) 0 10 ^3/uL (0-0.2); Basophils % (auto) 0.2 % (0.0-2.0); Eosinophils # (auto) 0.2 10 ^3/uL (0-0.8); Eosinophils % (auto) 1.2 % (0.0-7.0); Hematocrit 28.6 % (36.0-46.0); Hemoglobin 9.8 g/dL (12.2-16.2); Lymphocytes # (auto) 0.4 10 ^3/uL (0.4-5.4); Lymphocytes % (auto) 3.1 % (10.0-50.0); Mean Corpuscular Hemoglobin 32.1 pg (28.0-32.0); Mean Corpuscular Hgb Conc. 34.1 g/dL (32.0-36.0); Monocytes # (auto) 0.9 10 ^3/uL (0-1.3); Monocytes % (auto) 6.7 % (0.0-12.0); Neutrophils # (auto) 11.3 10 ^3/uL (1.6-8.6); Neutrophils % (auto) 88.8 % (37.0-80.0); Platelet Count (auto) 136 10^3/uL (140-450); Red Blood Cells 3.04 10^6/uL (4.0-5.20); Red Cell Distribution Width 13.8 % (11.8-14.3); White Blood Cell 12.8 10^3/uL (4.4-10.8)
[2024-08-27 04:38] LABS: Alanine Aminotransferase 17 U/L (7-40); Alkaline Phosphatase 101 U/L (46-116); Anion Gap 5 (5-15); BUN/Creatinine Ratio 37.5 (10.0-20.0); Blood Urea Nitrogen 12 mg/dL (9-23); Carbon Dioxide 28 mmol/L (20-31); Chloride 106 mmol/L (98-107); Glucose 100 mg/dL (74-106); Potassium 3.5 mmol/L (3.5-5.1); Sodium 139 mmol/L (136-145); Triglycerides 95 mg/dL (< 150)
[2024-08-27 04:40] LABS: Aspartate Aminotransferase 26 U/L (13-40); Bilirubin, Total 0.6 mg/dL (0.2-1.0); Phosphorus 2.9 mg/dL (2.4-5.1)
[2024-08-27 04:48] LABS: Albumin 2.6 g/dL (3.2-4.8); Calcium 8.4 mg/dL (8.7-10.4); Total Protein 4.4 g/dL (5.7-8.2)
--- NOTE | 2024-08-27 05:47 | DVH ---
EXAM: XY CHEST PORTABLE Indication: PATIENT INTUBATED Technique: Portable AP view of the chest was performed. Comparison: XY CHEST PORTABLE on DOS: 08/26/24, XY CHEST PORTABLE on DOS: 08/25/24, XY CHEST PORTABLE o n DOS: 08/25/24, XY CHEST PORTABLE on DOS: 08/25/24, XY CHEST PORTABLE on DOS: 08/24/24, XY CHEST PORTAB LE on DOS: 08/26/24 FINDINGS: Endotracheal tube is re-identified with its tip 5.7 cm above the paty. OG tube, right IJ central li ne, left thoracostomy tube, and right chest pacemaker are re-identified. No definite residual left pn eumothorax. There are bilateral lung base infiltrates and/or effusions, right greater than left, stab le compared with the previous chest x-ray. The heart is enlarged. IMPRESSION: No significant change compared to prior exam.
[2024-08-27 07:09] LABS: Base Excess -1.3 mmol/L (-2.0-3.0)
[2024-08-27] MEDS ORDERED: EPINEPHrine HCL 0.5 ML NEB NEB PRN (10:45)
[2024-08-27] MEDS: POTASSIUM CHL 20MEQ/100ML 100 ML IV ONE (12:19)
--- NOTE | 2024-08-27 16:17 | DVHPN2 ---
Subjective 79-year-old female who initially presented to the hospital with symptomatic bradycardia status post pacemaker placement, currently remains intubated and sedated. The patient was found to have a small left-sided pleural effusion, status post small chest tube placement. Reviewed: Care Plan Changes from previous H/P or p: No Changes Eyes: No Pain, No Vision change, No Conjunctivae inflammation, No Eyelid inflammation, No Other, No Redness ENT: No Ear pain, No Ear discharge, No Nose pain, No Nose discharge, No Nose congestion, No Mouth pain, No Mouth swelling, No Throat pain, No Throat swelling, No Other Cardiovascular: No Chest Pain, No Palpitations, No Orthopnea, No Paroxysmal Noc. Dyspnea, No Edema, No Lt Headedness, No Other Respiratory: Shortness of breath Gastrointestinal: No Nausea, No Vomiting, No Abdominal Pain, No Diarrhea, No Constipation, No Melena, No Hematochezia, No Other Genitourinary: No Dysuria, No Frequency, No Incontinence, No Hematuria, No Retention, No Other Musculoskeletal: No other, No neck pain, No shoulder pain, No arm pain, No back pain, No hand pain, No leg pain, No foot pain Skin: No Rash, No Lesions, No Jaundice, No Bruising, No Other Objective Vitals Vital Signs Date Time Temp Pulse Resp B/P (MAP) Pulse Ox O2 Delivery O2 Flow Rate FiO2 08/27/24 16:04 82 40 138/64 (88) 96 30 08/27/24 15:46 Mechanical Ventilator+ 08/27/24 15:45 99.5 211.1 Intake/Output Intake and Output 08/27/24 07:00 Intake Total 3105.025 ml Output Total 1395 ml Balance 1710.025 ml Intake Oral 60 ml IV Total 3020.025 ml Tube Feeding 25 ml Output Urine Total 1125 ml Chest Tube Drainage Total 270 ml Exam HEENT pupils are reactive Neck is supple CV is S1-S2 regular rate and rhythm Respiratory diminished breath sounds bases GI positive bowel sound 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 Medications Current Medications Medications Dose Ordered Sig/Pepe Route Start Time Stop Time Status Last Admin Dose Admin Docusate Sodium 100 mg BIDPRN PRN PO 08/16/24 20:45 08/26/24 19:25 100 MG Ondansetron HCl 4 mg Q4HP PRN IV 08/16/24 20:45 Nitroglycerin 0.4 mg Q5MINP PRN SL 08/16/24 20:45 Morphine Sulfate 2 mg Q30M PRN IV 08/16/24 20:45 Ceftriaxone Sodium 50 ml @ 100 mls/hr DAILY IV 08/17/24 10:00 08/27/24 08:25 100 MLS/HR Hydralazine HCl 10 mg Q6HP PRN IV 08/16/24 23:30 08/27/24 09:35 10 MG Acetaminophen/ Hydrocodone Bitart 1 tab Q6HPRN PRN PO 08/16/24 23:30 08/17/24 00:56 1 TAB Midazolam HCl 50 ml @ 1 mls/hr Q24H IV 08/17/24 10:15 08/25/24 04:03 1 MLS/HR Fentanyl Citrate 250 ml @ 2.5 mls/hr Q24H IV 08/17/24 10:15 08/27/24 00:13 12.5 MLS/HR Pantoprazole Sodium 40 mg DAILY IV 08/18/24 10:00 08/27/24 08:26 40 MG Amino Acids 0 ml @ 0 mls/hr PER PHARMACY IV 08/19/24 13:15 Diagnostic Test (Pha) 1 strip Q6HR 08/19/24 18:00 08/27/24 16:12 1 STRIP Insulin Human Regular FOLLOW SLIDING SCALE Q6HR SC 08/19/24 18:00 08/22/24 12:01 2 UNITS Dextrose 50 ml UD IV 08/19/24 14:00 Amino Acids/ Electrolytes/ Dextrose 1,000 ml @ 41 mls/hr DAILY@2200 IV 08/19/24 22:00 08/26/24 21:24 41 MLS/HR Norepinephrine Bitartrate 250 ml @ 1.875 mls/ hr Q24H IV 08/22/24 05:15 Sodium Chloride 1,000 ml @ 50 mls/hr Q20H IV 08/22/24 14:30 UNV Sodium Chloride 1,000 ml @ 50 mls/hr Q20H IV 08/22/24 14:45 08/26/24 18:41 50 MLS/HR Enoxaparin Sodium 40 mg DAILY SC 08/24/24 10:00 08/27/24 08:26 40 MG Propofol 100 ml @ 2.253 mls/ hr Q24H IV 08/23/24 16:45 08/27/24 05:31 13.518 MLS/HR Dexmedetomidine HCl 400 mcg/ Dextrose 100 ml @ 3.755 mls/ hr Q24H IV 08/23/24 17:30 08/27/24 08:00 9.388 MLS/HR Enteral Nutritional Formula 1,000 ml 35ML/HR GT 08/24/24 18:00 08/26/24 19:28 1,000 ML Acetaminophen 650 mg Q6HP PRN GT 08/24/24 18:15 08/25/24 17:29 650 MG Epinephrine HCl 0.5 ml ONCE PRN NEB 08/27/24 10:45 Cancel Laboratory Results Laboratory Tests 08/27/24 03:36 Chemistry Test 08/27/24 03:36 Albumin 2.6 g/dL (3.2-4.8) L Calcium Level 8.4 mg/dL (8.7-10.4) L Magnesium Level 2.0 mg/dL (1.6-2.6) Phosphorus Level 2.9 mg/dL (2.4-5.1) Total Protein 4.4 g/dL (5.7-8.2) L Lipid panel Test 08/27/24 03:36 Triglycerides Level 95 mg/dL (< 150) LFT Test 08/27/24 03:36 Alanine Aminotransferase (ALT) 17 U/L (7-40) Alkaline Phosphatase 101 U/L (46-116) Aspartate Amino Transferase (AST) 26 U/L (13-40) Total Bilirubin 0.6 mg/dL (0.2-1.0) Urinalysis Test 08/16/24 14:10 Urine Color Light-yellow (Yellow) Urine Clarity Clear (Clear) Urine pH 7.0 (5.0-9.0) Urine Specific [place] 1.007 (1.001-1.035) Urine Protein Negative (Negative) Urine Ketones Negative (Negative) Urine Blood Negative /uL (Negative) Urine Nitrite Negative (Negative) Urine Bilirubin Negative (Negative) Urine Urobilinogen Normal mg/dL (Negative) Urine Leukocyte Esterase 3+ /uL (Negative) Urine RBC 3 /hpf (0 - 4) Urine Microscopic WBC 29 /HPF (0-5) H Urine Squamous Epithelial Cells Few /hpf (<5) Urine Bacteria None seen /hpf (None Seen) Urine Glucose Normal mg/dL (Normal) Blood Gas Results Test 08/27/24 06:55 Arterial Blood pH 7.445 (7.350-7.450) FiO2 % 30.0 Microbiology Microbiology Date/Time Source Procedure Growth Status 08/24/24 21:05 Bronchial Washings Gram Stain - Final Resulted 08/24/24 21:05 Bronchial Washings Respiratory Culture - Preliminary Resulted 08/17/24 23:00 Urine - [place] Urine Culture - Final Complete 08/17/24 16:19 Nose MRSA Screen - Final Complete 08/17/24 14:00 Blood Blood Culture - Final NO GROWTH AFTER 5 DAYS OF INCUBATION. Complete Assessment/Plan Assessment/Plan 79-year-old female who presented to the hospital with dizziness shortness breath found to have symptomatic bradycardia 1. Acute hypoxic respiratory failure remains intubated and sedated 2. Symptomatic bradycardia status post pacemaker placement 3. Leukocytosis likely reactive 4. Left-sided pneumothorax status post chest tube placement 5. UTI 6. Bilateral atelectasis -patient has failed CPAP trial ollow up Cardiology and Pulmonary recommendations -antibiotics, daily CPAP trial. Plan discussed with: Other Date of Service: Aug 27, 2024 Billing Provider: SOPHIE WILKERSON MD Common Visit Codes: NOT BILLABLE SOPHIE WILKERSON MD Aug 27, 2024 16:16
[2024-08-27] MEDS: DOCUSATE ORAL LIQUID 100 MG/10 ML UD GT SCH (21:08)
[2024-08-27] MEDS: SENNA 8.6 MG TAB PO SCH (21:08)
[2024-08-27] MEDS: cloNIDine 0.2 mg/24hr 7DAY PATCH TD SCH (22:00)
--- NOTE | 2024-08-27 23:23 | DVHPN2 ---
Progress Note - Dictate Date Seen: Aug 27, 2024 Medical Necessity Reason Pt with a Central, PICC or Fol: Yes The following are medically ne: Wong Catheter Reason for wong catheter: Strict I&O Subjective Patient seen and examined at bedside. Sedated, intubated on mechanical ventilator. Overnight events reviewed. vital signs Vital Sign Date Time Temp Pulse Resp B/P (MAP) Pulse Ox O2 Delivery O2 Flow Rate FiO2 08/27/24 22:30 67 22 95/37 (56) 98 35 08/27/24 22:07 99.9 08/27/24 17:46 Mechanical Ventilator+ Total Intake and Output 08/26/24 08/26/24 08/27/24 15:00 23:00 07:00 Intake Total 860.74 ml 1147.750 ml 1096.535 ml Output Total 825 ml 570 ml Balance 860.74 ml 322.750 ml 526.535 ml medications Current Medications Medications Dose Ordered Sig/Pepe Route Start Time Stop Time Status Last Admin Dose Admin Docusate Sodium 100 mg BIDPRN PRN PO 08/16/24 20:45 08/26/24 19:25 100 MG Ondansetron HCl 4 mg Q4HP PRN IV 08/16/24 20:45 Nitroglycerin 0.4 mg Q5MINP PRN SL 08/16/24 20:45 Morphine Sulfate 2 mg Q30M PRN IV 08/16/24 20:45 Ceftriaxone Sodium 50 ml @ 100 mls/hr DAILY IV 08/17/24 10:00 08/27/24 08:25 100 MLS/HR Hydralazine HCl 10 mg Q6HP PRN IV 08/16/24 23:30 08/27/24 20:22 10 MG Acetaminophen/ Hydrocodone Bitart 1 tab Q6HPRN PRN PO 08/16/24 23:30 08/17/24 00:56 1 TAB Midazolam HCl 50 ml @ 1 mls/hr Q24H IV 08/17/24 10:15 08/25/24 04:03 1 MLS/HR Fentanyl Citrate 250 ml @ 2.5 mls/hr Q24H IV 08/17/24 10:15 08/27/24 00:13 12.5 MLS/HR Pantoprazole Sodium 40 mg DAILY IV 08/18/24 10:00 08/27/24 08:26 40 MG Amino Acids 0 ml @ 0 mls/hr PER PHARMACY IV 08/19/24 13:15 Diagnostic Test (Pha) 1 strip Q6HR 08/19/24 18:00 08/27/24 16:12 1 STRIP Insulin Human Regular FOLLOW SLIDING SCALE Q6HR SC 08/19/24 18:00 08/22/24 12:01 2 UNITS Dextrose 50 ml UD IV 08/19/24 14:00 Amino Acids/ Electrolytes/ Dextrose 1,000 ml @ 41 mls/hr DAILY@2200 IV 08/19/24 22:00 08/27/24 21:08 41 MLS/HR Norepinephrine Bitartrate 250 ml @ 1.875 mls/ hr Q24H IV 08/22/24 05:15 Sodium Chloride 1,000 ml @ 50 mls/hr Q20H IV 08/22/24 14:30 UNV Sodium Chloride 1,000 ml @ 50 mls/hr Q20H IV 08/22/24 14:45 08/26/24 18:41 50 MLS/HR Enoxaparin Sodium 40 mg DAILY SC 08/24/24 10:00 08/27/24 08:26 40 MG Propofol 100 ml @ 2.253 mls/ hr Q24H IV 08/23/24 16:45 08/27/24 22:10 11.265 MLS/HR Dexmedetomidine HCl 400 mcg/ Dextrose 100 ml @ 3.755 mls/ hr Q24H IV 08/23/24 17:30 08/27/24 08:00 9.388 MLS/HR Enteral Nutritional Formula 1,000 ml 35ML/HR GT 08/24/24 18:00 08/26/24 19:28 1,000 ML Acetaminophen 650 mg Q6HP PRN GT 08/24/24 18:15 08/27/24 21:07 650 MG Epinephrine HCl 0.5 ml ONCE PRN NEB 08/27/24 10:45 Cancel Polyethylene Glycol 17 gm DAILY PO 08/28/24 10:00 Docusate Sodium 100 mg BID GT 08/27/24 22:00 08/27/24 21:08 100 MG Sennosides 8.6 mg HS PO 08/27/24 22:00 08/27/24 21:08 8.6 MG Clonidine HCl 0.2 mg Q7D TD 08/27/24 22:00 objective Gen.: Patient lying in bed in medical ICU. Sedated, intubated on mechanical ventilator. Head: Normocephalic, atraumatic. Eyes: PERRLA. Ears: Normal external anatomy. Throat: Endotracheal tube and orogastric tube in place. Neck: Supple, trachea midline. Chest: Transmitted breath sounds bilaterally. Decreased air entry bilaterally. No wheezing. Bibasilar crackles. Cardiovascular: Positive S1, positive S2. Regular rate and rhythm. Abdomen: Positive bowel sounds in all 4 quadrants. Soft, nontender, nondistended. : Wong in place. Normal external genitalia. Rectal: Deferred. Skin: Warm, dry. Intact. Extremities: 2+ radial pulses bilaterally. No lower extremity edema. Neuro: Sedated. laboratory and microbiology Laboratory Tests 08/27/24 03:36 Test 08/27/24 03:36 Range/Units Serum Glucose 100 74-106 mg/dL Assessment/Plan Impression: Acute hypoxic respiratory failure On mechanical ventilator Shock, cardiogenic Bradycardia, symptomatic Atelectasis Events: Chest tube shows no air leak. Monitor output. Placed to -20 cmH2O. CXR demonstrated no left pneumothorax. CPAP trial. ABG reviewed, compensated Remains on vent support On AC mode; RR 14, VT 400, PEEP 5, FiO2 35% Fentanyl/Precedex drip Continue antibiotics WBC is 12.8 K. Clinimix for nutritional support Cardiology recs appreciated. Monitor renal function Monitor electrolytes. Supplement as necessary. magnesium supplementation Hgb now 9.8 g/dL - monitor Taper sedation CPAP in AM with PS 8, PEEP 5 S/p bronchoscopy with BAL on 08/24 - follow up pleural fluid cultures S/p pacemaker placement Labs and imaging reviewed. Rest of plan as noted below. Plan: s/p intubation on mechanical ventilator. On AC mode; RR 14, VT 400, PEEP 5, FiO2 35% Titrate FIO2 to keep O2 saturation above 90%. VAP bundle. Daily ABG and CXR while intubated Sedate for ventilator synchrony Continue antibiotics. Steroids discontinued F/u cultures. Awaiting pleural fluid cultures Sputum cultures show normal oropharyngeal tra. Pressors if necessary for hemodynamic support Titrate to keep mean arterial pressure greater than 65 mmHg. Monitor renal function Monitor electrolytes. Supplement as necessary. Monitor ins and outs. Maintain euvolemia. GI prophylaxis. DVT prophylaxis. Prognosis: Poor given patient's multiple co-morbidities. Condition: Critical Rest of plan per hospitalist and other consultants. A total of 35 minutes of critical care time was spent reviewing the patient record, examining the patient, making a diagnostic and therapeutic plan, discussing this plan with the medical personnel, following up on diagnostic studies and following the patient for clinical stability excluding any and all procedures. At least 50% of this time was spent in direct, [id number] contact. Thank you, ESTHER Maria, for allowing me to participate in this patient's care. Further recommendations will depend on the patient's clinical course. Please do not hesitate to contact me if you have any questions or concerns. This medical document was created using an electronic medical record system with [employer] dictation system. Although these documentations are being carefully reviewed, there may still be some phonetic and typographical changes. The errors are purely typographical, due to imperfection on the software program, and do not reflect any compromise in the patient's medical care. Dietary Evaluation Review Comments: Nutrition support: 1. On vent, Glucerna 1.2 40ml/hr, providing 58g Pro and 1152 kcal in 24 hrs. 2. Off Vent and pass speech eval,2 g Na,low fat Low chol, CCHO-60g, Protein 60 g restriction if kidney functiondoes not improve, 3. TPN per pharmacy if NPO>7 days. Expected Outcomes/Goals: Off Vent, controlled DM, improved wound healing, maintain BW. Plan discussed with: Other (GLADYS Mills) Critical Care Time(min): 35 MEY RAM MD Aug 27, 2024 23:23
[2024-08-28] VITALS (106 sets, daily range): BP systolic 82–188; BP diastolic 30–111; PULSE 65–109; RESP 14–40; TEMP 97.9–100.8; O2SAT 96–100
[2024-08-28 03:43] LABS: Basophils # (auto) 0 10 ^3/uL (0-0.2); Basophils % (auto) 0.2 % (0.0-2.0); Eosinophils # (auto) 0.1 10 ^3/uL (0-0.8); Eosinophils % (auto) 0.6 % (0.0-7.0); Hematocrit 31.3 % (36.0-46.0); Hemoglobin 10.3 g/dL (12.2-16.2); Lymphocytes # (auto) 0.4 10 ^3/uL (0.4-5.4); Lymphocytes % (auto) 2.5 % (10.0-50.0); Mean Corpuscular Hemoglobin 30.9 pg (28.0-32.0); Mean Corpuscular Hgb Conc. 32.9 g/dL (32.0-36.0); Mean Corpuscular Volume 93.9 fL (80.0-100.0); Monocytes % (auto) 6.2 % (0.0-12.0); Neutrophils # (auto) 14.4 10 ^3/uL (1.6-8.6); Neutrophils % (auto) 90.5 % (37.0-80.0); Platelet Count (auto) 169 10^3/uL (140-450); Red Blood Cells 3.33 10^6/uL (4.0-5.20); Red Cell Distribution Width 14.4 % (11.8-14.3); White Blood Cell 15.9 10^3/uL (4.4-10.8)
[2024-08-28 03:52] LABS: Alanine Aminotransferase 23 U/L (7-40); Alkaline Phosphatase 112 U/L (46-116); Anion Gap 7 (5-15); Aspartate Aminotransferase 32 U/L (13-40); BUN/Creatinine Ratio 33.3 (10.0-20.0); Blood Urea Nitrogen 13 mg/dL (9-23); Carbon Dioxide 26 mmol/L (20-31); Chloride 105 mmol/L (98-107); Magnesium 1.9 mg/dL (1.6-2.6); Sodium 138 mmol/L (136-145)
[2024-08-28 03:53] LABS: Albumin 2.8 g/dL (3.2-4.8); Bilirubin, Total 0.8 mg/dL (0.2-1.0); Calcium 8.5 mg/dL (8.7-10.4); Glucose 117 mg/dL (74-106); Phosphorus 2.6 mg/dL (2.4-5.1); Potassium 3.4 mmol/L (3.5-5.1)
[2024-08-28 03:54] LABS: Total Protein 4.8 g/dL (5.7-8.2)
--- NOTE | 2024-08-28 04:55 | DVH ---
CHEST RADIOGRAPH Indication: intubated Technique: Single frontal view of the chest was obtained COMPARISON: XY CHEST PORTABLE on DOS: 08/27/24, XY CHEST PORTABLE on DOS: 08/26/24, XY CHEST PORTABLE o n DOS: 08/25/24, XY CHEST PORTABLE on DOS: 08/25/24, XY CHEST PORTABLE on DOS: 08/25/24 FINDINGS: Lines and Tubes: Endotracheal tube, enteric catheter, right chest wall pacemaker and left chest tube in satisfactory position. Lungs: Multifocal airspace disease. Pleura: No effusion. No pneumothorax. Cardiomediastinal contours: Unremarkable Bones: Unremarkable IMPRESSION: Lines and tubes in satisfactory position. No significant interval change.
[2024-08-28] MEDS: DexmedeTOMIDine 2 ML IV ONE (04:56)
[2024-08-28] MEDS: DexmedeTOMIDine 4 ML IV ONE (04:56)
[2024-08-28 07:08] LABS: Base Excess -1.1 mmol/L (-2.0-3.0)
[2024-08-28] MEDS: POLYETHYLENE GLYCOL 17 GM PWDR PO SCH (10:42)
[2024-08-28] MEDS: POTASSIUM CHL 20MEQ/100ML 100 ML IV ONE ×2 (13:37→20:11)
[2024-08-28] MEDS: ALBUMIN 25% 100 ML IV SCH (15:35)
--- NOTE | 2024-08-28 16:31 | DVHPN2 ---
Subjective 79-year-old female who initially presented to the hospital with symptomatic bradycardia status post pacemaker placement, currently remains intubated and sedated. The patient was found to have a small left-sided pneumothorax, status post small chest tube placement. Reviewed: Care Plan Changes from previous H/P or p: No Changes Eyes: No Pain, No Vision change, No Conjunctivae inflammation, No Eyelid inflammation, No Other, No Redness ENT: No Ear pain, No Ear discharge, No Nose pain, No Nose discharge, No Nose congestion, No Mouth pain, No Mouth swelling, No Throat pain, No Throat swelling, No Other Cardiovascular: No Chest Pain, No Palpitations, No Orthopnea, No Paroxysmal Noc. Dyspnea, No Edema, No Lt Headedness, No Other Respiratory: Shortness of breath Gastrointestinal: No Nausea, No Vomiting, No Abdominal Pain, No Diarrhea, No Constipation, No Melena, No Hematochezia, No Other Genitourinary: No Dysuria, No Frequency, No Incontinence, No Hematuria, No Retention, No Other Musculoskeletal: No other, No neck pain, No shoulder pain, No arm pain, No back pain, No hand pain, No leg pain, No foot pain Skin: No Rash, No Lesions, No Jaundice, No Bruising, No Other Objective Vitals Vital Signs Date Time Temp Pulse Resp B/P (MAP) Pulse Ox O2 Delivery O2 Flow Rate FiO2 08/28/24 16:00 35 08/28/24 16:00 106 38 168/75 (106) 99 08/28/24 16:00 Mechanical Ventilator+ 08/28/24 15:38 100.4 Intake/Output Intake and Output 08/28/24 07:00 Intake Total 3090.255 ml Output Total 1333 ml Balance 1757.255 ml Intake Oral 50 ml IV Total 3040.255 ml Output Urine Total 1075 ml Chest Tube Drainage Total 158 ml Drainage Total 100 ml Exam HEENT pupils are reactive Neck is supple CV is S1-S2 regular rate and rhythm Respiratory diminished breath sounds bases GI positive bowel sound 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 Medications Current Medications Medications Dose Ordered Sig/Pepe Route Start Time Stop Time Status Last Admin Dose Admin Docusate Sodium 100 mg BIDPRN PRN PO 08/16/24 20:45 08/26/24 19:25 100 MG Ondansetron HCl 4 mg Q4HP PRN IV 08/16/24 20:45 Nitroglycerin 0.4 mg Q5MINP PRN SL 08/16/24 20:45 Morphine Sulfate 2 mg Q30M PRN IV 08/16/24 20:45 Ceftriaxone Sodium 50 ml @ 100 mls/hr DAILY IV 08/17/24 10:00 08/28/24 10:42 100 MLS/HR Hydralazine HCl 10 mg Q6HP PRN IV 08/16/24 23:30 08/28/24 08:51 10 MG Acetaminophen/ Hydrocodone Bitart 1 tab Q6HPRN PRN PO 08/16/24 23:30 08/28/24 09:23 1 TAB Midazolam HCl 50 ml @ 1 mls/hr Q24H IV 08/17/24 10:15 08/25/24 04:03 1 MLS/HR Fentanyl Citrate 250 ml @ 2.5 mls/hr Q24H IV 08/17/24 10:15 08/28/24 04:55 10 MLS/HR Pantoprazole Sodium 40 mg DAILY IV 08/18/24 10:00 08/28/24 10:42 40 MG Amino Acids 0 ml @ 0 mls/hr PER PHARMACY IV 08/19/24 13:15 Diagnostic Test (Pha) 1 strip Q6HR 08/19/24 18:00 08/28/24 11:51 1 STRIP Insulin Human Regular FOLLOW SLIDING SCALE Q6HR SC 08/19/24 18:00 08/28/24 11:54 2 UNITS Dextrose 50 ml UD IV 08/19/24 14:00 Amino Acids/ Electrolytes/ Dextrose 1,000 ml @ 41 mls/hr DAILY@2200 IV 08/19/24 22:00 08/27/24 21:08 41 MLS/HR Norepinephrine Bitartrate 250 ml @ 1.875 mls/ hr Q24H IV 08/22/24 05:15 08/28/24 11:38 1.875 MLS/HR Sodium Chloride 1,000 ml @ 50 mls/hr Q20H IV 08/22/24 14:30 UNV Enoxaparin Sodium 40 mg DAILY SC 08/24/24 10:00 08/28/24 10:43 40 MG Propofol 100 ml @ 2.253 mls/ hr Q24H IV 08/23/24 16:45 08/28/24 06:13 4.506 MLS/HR Dexmedetomidine HCl 400 mcg/ Dextrose 100 ml @ 3.755 mls/ hr Q24H IV 08/23/24 17:30 08/28/24 06:13 11.265 MLS/HR Enteral Nutritional Formula 1,000 ml 35ML/HR GT 08/24/24 18:00 08/26/24 19:28 1,000 ML Acetaminophen 650 mg Q6HP PRN GT 08/24/24 18:15 08/28/24 15:38 650 MG Epinephrine HCl 0.5 ml ONCE PRN NEB 08/27/24 10:45 Cancel Polyethylene Glycol 17 gm DAILY PO 08/28/24 10:00 08/28/24 10:42 17 GM Docusate Sodium 100 mg BID GT 08/27/24 22:00 08/28/24 10:42 100 MG Sennosides 8.6 mg HS PO 08/27/24 22:00 08/27/24 21:08 8.6 MG Clonidine HCl 0.2 mg Q7D TD 08/27/24 22:00 Albumin Human 100 ml @ 100 mls/hr Q8H IV 08/28/24 14:00 08/29/24 06:59 08/28/24 15:35 100 MLS/HR Laboratory Results Laboratory Tests 08/28/24 03:15 Chemistry Test 08/28/24 03:15 Albumin 2.8 g/dL (3.2-4.8) L Calcium Level 8.5 mg/dL (8.7-10.4) L Magnesium Level 1.9 mg/dL (1.6-2.6) Phosphorus Level 2.6 mg/dL (2.4-5.1) Total Protein 4.8 g/dL (5.7-8.2) L LFT Test 08/28/24 03:15 Alanine Aminotransferase (ALT) 23 U/L (7-40) Alkaline Phosphatase 112 U/L (46-116) Aspartate Amino Transferase (AST) 32 U/L (13-40) Total Bilirubin 0.8 mg/dL (0.2-1.0) Urinalysis Test 08/16/24 14:10 Urine Color Light-yellow (Yellow) Urine Clarity Clear (Clear) Urine pH 7.0 (5.0-9.0) Urine Specific [place] 1.007 (1.001-1.035) Urine Protein Negative (Negative) Urine Ketones Negative (Negative) Urine Blood Negative /uL (Negative) Urine Nitrite Negative (Negative) Urine Bilirubin Negative (Negative) Urine Urobilinogen Normal mg/dL (Negative) Urine Leukocyte Esterase 3+ /uL (Negative) Urine RBC 3 /hpf (0 - 4) Urine Microscopic WBC 29 /HPF (0-5) H Urine Squamous Epithelial Cells Few /hpf (<5) Urine Bacteria None seen /hpf (None Seen) Urine Glucose Normal mg/dL (Normal) Blood Gas Results Test 08/28/24 07:01 Arterial Blood pH 7.433 (7.350-7.450) FiO2 % 35.0 Microbiology Microbiology Date/Time Source Procedure Growth Status 08/24/24 21:05 Bronchial Washings Gram Stain - Final Complete 08/24/24 21:05 Bronchial Washings Respiratory Culture - Final Complete 08/17/24 23:00 Urine - [place] Urine Culture - Final Complete 08/17/24 16:19 Nose MRSA Screen - Final Complete 08/17/24 14:00 Blood Blood Culture - Final NO GROWTH AFTER 5 DAYS OF INCUBATION. Complete Assessment/Plan Assessment/Plan 79-year-old female who presented to the hospital with dizziness shortness breath found to have symptomatic bradycardia 1. Acute hypoxic respiratory failure remains intubated and sedated 2. Symptomatic bradycardia status post pacemaker placement 3. Leukocytosis likely reactive 4. Left-sided pneumothorax status post chest tube placement 5. UTI 6. Bilateral atelectasis -continue chest tube -patient has failed CPAP trial Follow up Cardiology and Pulmonary recommendations -antibiotics, daily CPAP trial. Plan discussed with: Other My Orders Orders - SOPHIE WILKERSON MD Procedure Category Date Status Time Polyethylene Glycol PHA 08/28/24 In Process 17g Powder (Miralax 10:00 Docusate Sodium PHA 08/27/24 In Process Liquid (Colace Liquid) 22:00 Senna Pod Tablet PHA 08/27/24 In Process (Senokot Tablet) 22:00 Clonidine 0.2mg/24hr PHA 08/27/24 In Process 7day Patc (Catapres 22:00 Cpap Trial For Am ORDERS 08/28/24 Transmitted 08:00 Chest Portable XY 08/28/24 Resulted 04:00 Communication Order ORDERS 08/28/24 Transmitted 11:00 Date of Service: Aug 28, 2024 Billing Provider: SOPHIE WILKERSON MD Common Visit Codes: NOT BILLABLE SOPHIE WILKERSON MD Aug 28, 2024 16:31
[2024-08-28] MEDS: FUROSEMIDE 20 MG/2 ML VIAL IV ONE ×2 (16:53→23:16)
--- NOTE | 2024-08-28 23:03 | DVHPN2 ---
Progress Note - Dictate Date Seen: Aug 28, 2024 Medical Necessity Reason Pt with a Central, PICC or Fol: Yes The following are medically ne: Wong Catheter Reason for wong catheter: Strict I&O Subjective Patient seen and examined at bedside. Sedated, intubated on mechanical ventilator. Overnight events reviewed. vital signs Vital Sign Date Time Temp Pulse Resp B/P (MAP) Pulse Ox O2 Delivery O2 Flow Rate FiO2 08/28/24 22:22 71 18 111/43 (65) 99 35 08/28/24 21:15 98.8 209.8 08/28/24 18:00 Mechanical Ventilator+ Total Intake and Output 08/27/24 08/27/24 08/28/24 15:00 23:00 07:00 Intake Total 1040.534 ml 1062.440 ml 947.281 ml Output Total 558 ml 775 ml Balance 1040.534 ml 504.440 ml 172.281 ml medications Current Medications Medications Dose Ordered Sig/Pepe Route Start Time Stop Time Status Last Admin Dose Admin Docusate Sodium 100 mg BIDPRN PRN PO 08/16/24 20:45 08/26/24 19:25 100 MG Ondansetron HCl 4 mg Q4HP PRN IV 08/16/24 20:45 Nitroglycerin 0.4 mg Q5MINP PRN SL 08/16/24 20:45 Morphine Sulfate 2 mg Q30M PRN IV 08/16/24 20:45 Ceftriaxone Sodium 50 ml @ 100 mls/hr DAILY IV 08/17/24 10:00 08/28/24 10:42 100 MLS/HR Hydralazine HCl 10 mg Q6HP PRN IV 08/16/24 23:30 08/28/24 08:51 10 MG Acetaminophen/ Hydrocodone Bitart 1 tab Q6HPRN PRN PO 08/16/24 23:30 08/28/24 09:23 1 TAB Midazolam HCl 50 ml @ 1 mls/hr Q24H IV 08/17/24 10:15 08/28/24 20:10 3 MLS/HR Fentanyl Citrate 250 ml @ 2.5 mls/hr Q24H IV 08/17/24 10:15 08/28/24 20:13 22.5 MLS/HR Pantoprazole Sodium 40 mg DAILY IV 08/18/24 10:00 08/28/24 10:42 40 MG Amino Acids 0 ml @ 0 mls/hr PER PHARMACY IV 08/19/24 13:15 Diagnostic Test (Pha) 1 strip Q6HR 08/19/24 18:00 08/28/24 18:15 1 STRIP Insulin Human Regular FOLLOW SLIDING SCALE Q6HR SC 08/19/24 18:00 08/28/24 11:54 2 UNITS Dextrose 50 ml UD IV 08/19/24 14:00 Amino Acids/ Electrolytes/ Dextrose 1,000 ml @ 41 mls/hr DAILY@2200 IV 08/19/24 22:00 08/28/24 22:06 41 MLS/HR Norepinephrine Bitartrate 250 ml @ 1.875 mls/ hr Q24H IV 08/22/24 05:15 08/28/24 11:38 1.875 MLS/HR Sodium Chloride 1,000 ml @ 50 mls/hr Q20H IV 08/22/24 14:30 UNV Enoxaparin Sodium 40 mg DAILY SC 08/24/24 10:00 08/28/24 10:43 40 MG Propofol 100 ml @ 2.253 mls/ hr Q24H IV 08/23/24 16:45 08/28/24 18:43 18.024 MLS/HR Dexmedetomidine HCl 400 mcg/ Dextrose 100 ml @ 3.755 mls/ hr Q24H IV 08/23/24 17:30 08/28/24 06:13 11.265 MLS/HR Enteral Nutritional Formula 1,000 ml 35ML/HR GT 08/24/24 18:00 08/26/24 19:28 1,000 ML Acetaminophen 650 mg Q6HP PRN GT 08/24/24 18:15 08/28/24 15:38 650 MG Epinephrine HCl 0.5 ml ONCE PRN NEB 08/27/24 10:45 Cancel Polyethylene Glycol 17 gm DAILY PO 08/28/24 10:00 08/28/24 10:42 17 GM Docusate Sodium 100 mg BID GT 08/27/24 22:00 08/28/24 22:05 100 MG Sennosides 8.6 mg HS PO 08/27/24 22:00 08/28/24 22:05 8.6 MG Clonidine HCl 0.2 mg Q7D TD 08/27/24 22:00 Albumin Human 100 ml @ 100 mls/hr Q8H IV 08/28/24 14:00 08/29/24 06:59 08/28/24 22:06 100 MLS/HR objective Gen.: Patient lying in bed in medical ICU. Sedated, intubated on mechanical ventilator. Head: Normocephalic, atraumatic. Eyes: PERRLA. Ears: Normal external anatomy. Throat: Endotracheal tube and orogastric tube in place. Neck: Supple, trachea midline. Chest: Transmitted breath sounds bilaterally. Decreased air entry bilaterally. No wheezing. Bibasilar crackles. Cardiovascular: Positive S1, positive S2. Regular rate and rhythm. Abdomen: Positive bowel sounds in all 4 quadrants. Soft, nontender, nondistended. : Wong in place. Normal external genitalia. Rectal: Deferred. Skin: Warm, dry. Intact. Extremities: 2+ radial pulses bilaterally. No lower extremity edema. Neuro: Sedated. laboratory and microbiology Laboratory Tests 08/28/24 03:15 Test 08/28/24 03:15 Range/Units Serum Glucose 117 H 74-106 mg/dL Assessment/Plan Impression: Acute hypoxic respiratory failure On mechanical ventilator Shock, cardiogenic Bradycardia, symptomatic Atelectasis Events: Chest tube shows no air leak. Monitor output. Placed to -20 cmH2O. CXR demonstrated no left pneumothorax. CPAP trial this PM. ABG reviewed, compensated Remains on vent support On AC mode; RR 14, VT 400, PEEP 5, FiO2 30% Sedated on Propofol Albumin ordered Continue antibiotics WBC trending up, 15.9 K. TPN for nutritional support Cardiology recs appreciated. Monitor renal function Monitor electrolytes. Supplement as necessary. magnesium supplementation Hgb now 10.3 g/dL - continue to monitor SBT/KAYLI Taper sedation CPAP with PS 8, PEEP 5 S/p bronchoscopy with BAL on 08/24 - follow up pleural fluid cultures S/p pacemaker placement Labs and imaging reviewed. Rest of plan as noted below. Plan: s/p intubation on mechanical ventilator. On AC mode; RR 14, VT 400, PEEP 5, FiO2 35% Titrate FIO2 to keep O2 saturation above 90%. VAP bundle. Daily ABG and CXR while intubated Sedate for ventilator synchrony Continue antibiotics. Steroids discontinued F/u cultures. Awaiting pleural fluid cultures Sputum cultures show normal oropharyngeal tra. Pressors if necessary for hemodynamic support Titrate to keep mean arterial pressure greater than 65 mmHg. Monitor renal function Monitor electrolytes. Supplement as necessary. Monitor ins and outs. Maintain euvolemia. GI prophylaxis. DVT prophylaxis. Prognosis: Poor given patient's multiple co-morbidities. Condition: Critical Rest of plan per hospitalist and other consultants. A total of 35 minutes of critical care time was spent reviewing the patient record, examining the patient, making a diagnostic and therapeutic plan, discussing this plan with the medical personnel, following up on diagnostic studies and following the patient for clinical stability excluding any and all procedures. At least 50% of this time was spent in direct, [id number] contact. Thank you, ESTHER Maria, for allowing me to participate in this patient's care. Further recommendations will depend on the patient's clinical course. Please do not hesitate to contact me if you have any questions or concerns. This medical document was created using an electronic medical record system with [employer] dictation system. Although these documentations are being carefully reviewed, there may still be some phonetic and typographical changes. The errors are purely typographical, due to imperfection on the software program, and do not reflect any compromise in the patient's medical care. Dietary Evaluation Review Comments: Nutrition support: 1. On vent, Glucerna 1.2 40ml/hr, providing 58g Pro and 1152 kcal in 24 hrs. 2. Off Vent and pass speech eval,2 g Na,low fat Low chol, CCHO-60g, Protein 60 g restriction if kidney functiondoes not improve, 3. TPN per pharmacy if NPO>7 days. Expected Outcomes/Goals: Off Vent, controlled DM, improved wound healing, maintain BW. Plan discussed with: Other (GLADYS Licea) Critical Care Time(min): 35 MEY RAM MD Aug 28, 2024 23:03
[2024-08-29] VITALS (108 sets, daily range): BP systolic 86–149; BP diastolic 38–75; PULSE 73–98; RESP 9–30; TEMP 98.4–100.8; O2SAT 88–99
--- NOTE | 2024-08-29 03:51 | DVH ---
CHEST RADIOGRAPH Indication: ET, Chest tube, OGT, and Central Line placement Technique: Single frontal view of the chest was obtained COMPARISON: XY CHEST PORTABLE on DOS: 08/28/24, XY CHEST PORTABLE on DOS: 08/27/24, XY CHEST PORTABLE o n DOS: 08/26/24, XY CHEST PORTABLE on DOS: 08/25/24, XY CHEST PORTABLE on DOS: 08/25/24 FINDINGS: Lines and Tubes: Endotracheal, enteric and right internal jugular central venous catheter is again no alfreda unchanged. Left-sided pigtail chest tube also again noted unchanged. Right-sided permanent pacem alexi overlies and obscures the lateral chest with atrial and ventricular wire leads. Lungs: Persistent patchy airspace disease is noted in the right lung and left base. Pleura: Suspect superimposed pleural effusions, right greater than left. No pneumothorax. Cardiomediastinal contours: Obscured. Bones: Osteopenia. IMPRESSION: 1. Significant change from the prior study.
[2024-08-29] MEDS: POTASSIUM CHL 20MEQ/100ML 100 ML IV ONE ×2 (04:00→05:30)
[2024-08-29 04:08] LABS: Basophils # (auto) 0 10 ^3/uL (0-0.2); Basophils % (auto) 0.1 % (0.0-2.0); Eosinophils # (auto) 0.1 10 ^3/uL (0-0.8); Eosinophils % (auto) 0.7 % (0.0-7.0); Hematocrit 24.4 % (36.0-46.0); Hemoglobin 8.2 g/dL (12.2-16.2); Lymphocytes # (auto) 0.4 10 ^3/uL (0.4-5.4); Lymphocytes % (auto) 2.7 % (10.0-50.0); Mean Corpuscular Hemoglobin 31.4 pg (28.0-32.0); Mean Corpuscular Hgb Conc. 33.6 g/dL (32.0-36.0); Mean Corpuscular Volume 93.3 fL (80.0-100.0); Monocytes % (auto) 6.6 % (0.0-12.0); Neutrophils % (auto) 89.9 % (37.0-80.0); Platelet Count (auto) 144 10^3/uL (140-450); Red Blood Cells 2.62 10^6/uL (4.0-5.20); Red Cell Distribution Width 13.7 % (11.8-14.3); White Blood Cell 15.6 10^3/uL (4.4-10.8)
[2024-08-29 04:22] LABS: Alanine Aminotransferase 26 U/L (7-40); Alkaline Phosphatase 108 U/L (46-116); Anion Gap 7 (5-15); BUN/Creatinine Ratio 24.4 (10.0-20.0); Blood Urea Nitrogen 11 mg/dL (9-23); Carbon Dioxide 29 mmol/L (20-31); Chloride 103 mmol/L (98-107); Magnesium 1.8 mg/dL (1.6-2.6); Sodium 139 mmol/L (136-145)
[2024-08-29 04:24] LABS: Aspartate Aminotransferase 24 U/L (13-40)
[2024-08-29 04:54] LABS: Albumin 3.2 g/dL (3.2-4.8); Calcium 8.5 mg/dL (8.7-10.4); Glucose 106 mg/dL (74-106); Phosphorus 2.1 mg/dL (2.4-5.1); Potassium 2.7 mmol/L (3.5-5.1); Total Protein 4.9 g/dL (5.7-8.2)
[2024-08-29] MEDS: POTASSIUM EFFERVESENT TAB 25 MEQ GT ONE (06:16)
[2024-08-29] MEDS: FUROSEMIDE 20 MG/2 ML VIAL IV ONE (08:43)
--- NOTE | 2024-08-29 10:55 | MEDREC ---
[facility] ASP Intervention Section I [facility] ASP Intervention: Review courses of therapy (PLEASE CONSIDER ESCALATION OF ANTIBIOTICS FOR POTENTIAL VAP ) PLACIDO BERNARDO PHARMACIST Aug 29, 2024 10:55
--- NOTE | 2024-08-29 15:56 | DVHPN2 ---
Subjective 79-year-old female who initially presented to the hospital with symptomatic bradycardia status post pacemaker placement, currently remains intubated and sedated. The patient was found to have a small left-sided pneumothorax, status post small chest tube placement. Reviewed: Care Plan Changes from previous H/P or p: No Changes Eyes: No Pain, No Vision change, No Conjunctivae inflammation, No Eyelid inflammation, No Other, No Redness ENT: No Ear pain, No Ear discharge, No Nose pain, No Nose discharge, No Nose congestion, No Mouth pain, No Mouth swelling, No Throat pain, No Throat swelling, No Other Cardiovascular: No Chest Pain, No Palpitations, No Orthopnea, No Paroxysmal Noc. Dyspnea, No Edema, No Lt Headedness, No Other Respiratory: Shortness of breath Gastrointestinal: No Nausea, No Vomiting, No Abdominal Pain, No Diarrhea, No Constipation, No Melena, No Hematochezia, No Other Genitourinary: No Dysuria, No Frequency, No Incontinence, No Hematuria, No Retention, No Other Musculoskeletal: No other, No neck pain, No shoulder pain, No arm pain, No back pain, No hand pain, No leg pain, No foot pain Skin: No Rash, No Lesions, No Jaundice, No Bruising, No Other Objective Vitals Vital Signs Date Time Temp Pulse Resp B/P (MAP) Pulse Ox O2 Delivery O2 Flow Rate FiO2 08/29/24 14:49 84 22 104/40 95 35 08/29/24 12:15 99.3 210.7 08/29/24 12:00 Mechanical Ventilator+ Intake/Output Intake and Output 08/29/24 07:00 Intake Total 2814.908 ml Output Total 3300 ml Balance -485.092 ml Intake Oral 290 ml IV Total 2305.908 ml Tube Feeding 219 ml Output Urine Total 3100 ml Chest Tube Drainage Total 100 ml Other 100 ml Exam HEENT pupils are reactive Neck is supple CV is S1-S2 regular rate and rhythm Respiratory diminished breath sounds bases GI positive bowel sound 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 no 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 Medications Current Medications Medications Dose Ordered Sig/Pepe Route Start Time Stop Time Status Last Admin Dose Admin Docusate Sodium 100 mg BIDPRN PRN PO 08/16/24 20:45 08/26/24 19:25 100 MG Ondansetron HCl 4 mg Q4HP PRN IV 08/16/24 20:45 Nitroglycerin 0.4 mg Q5MINP PRN SL 08/16/24 20:45 Morphine Sulfate 2 mg Q30M PRN IV 08/16/24 20:45 Ceftriaxone Sodium 50 ml @ 100 mls/hr DAILY IV 08/17/24 10:00 08/29/24 10:36 100 MLS/HR Hydralazine HCl 10 mg Q6HP PRN IV 08/16/24 23:30 08/28/24 08:51 10 MG Acetaminophen/ Hydrocodone Bitart 1 tab Q6HPRN PRN PO 08/16/24 23:30 08/28/24 09:23 1 TAB Midazolam HCl 50 ml @ 1 mls/hr Q24H IV 08/17/24 10:15 08/29/24 04:31 5 MLS/HR Fentanyl Citrate 250 ml @ 2.5 mls/hr Q24H IV 08/17/24 10:15 08/29/24 08:48 20 MLS/HR Pantoprazole Sodium 40 mg DAILY IV 08/18/24 10:00 08/29/24 10:36 40 MG Amino Acids 0 ml @ 0 mls/hr PER PHARMACY IV 08/19/24 13:15 Diagnostic Test (Pha) 1 strip Q6HR 08/19/24 18:00 08/29/24 11:56 1 STRIP Insulin Human Regular FOLLOW SLIDING SCALE Q6HR SC 08/19/24 18:00 08/28/24 11:54 2 UNITS Dextrose 50 ml UD IV 08/19/24 14:00 Amino Acids/ Electrolytes/ Dextrose 1,000 ml @ 41 mls/hr DAILY@2200 IV 08/19/24 22:00 08/28/24 22:06 41 MLS/HR Norepinephrine Bitartrate 250 ml @ 1.875 mls/ hr Q24H IV 08/22/24 05:15 08/28/24 11:38 1.875 MLS/HR Sodium Chloride 1,000 ml @ 50 mls/hr Q20H IV 08/22/24 14:30 UNV Enoxaparin Sodium 40 mg DAILY SC 08/24/24 10:00 08/28/24 10:43 40 MG Propofol 100 ml @ 2.253 mls/ hr Q24H IV 08/23/24 16:45 08/29/24 15:22 13.518 MLS/HR Dexmedetomidine HCl 400 mcg/ Dextrose 100 ml @ 3.755 mls/ hr Q24H IV 08/23/24 17:30 08/28/24 06:13 11.265 MLS/HR Enteral Nutritional Formula 1,000 ml 35ML/HR GT 08/24/24 18:00 08/26/24 19:28 1,000 ML Acetaminophen 650 mg Q6HP PRN GT 08/24/24 18:15 08/29/24 01:03 650 MG Epinephrine HCl 0.5 ml ONCE PRN NEB 08/27/24 10:45 Cancel Polyethylene Glycol 17 gm DAILY PO 08/28/24 10:00 08/29/24 10:36 17 GM Docusate Sodium 100 mg BID GT 08/27/24 22:00 08/29/24 10:36 100 MG Sennosides 8.6 mg HS PO 08/27/24 22:00 08/28/24 22:05 8.6 MG Clonidine HCl 0.2 mg Q7D TD 08/27/24 22:00 Lactulose 30 ml Q8HR PO 08/29/24 22:00 Magnesium Sulfate/ Dextrose 100 ml @ 100 mls/hr Q1HR IV 08/29/24 16:00 08/29/24 17:59 Laboratory Results Laboratory Tests 08/29/24 03:24 Chemistry Test 08/29/24 03:24 Albumin 3.2 g/dL (3.2-4.8) Calcium Level 8.5 mg/dL (8.7-10.4) L Magnesium Level 1.8 mg/dL (1.6-2.6) Phosphorus Level 2.1 mg/dL (2.4-5.1) L Total Protein 4.9 g/dL (5.7-8.2) L LFT Test 08/29/24 03:24 Alanine Aminotransferase (ALT) 26 U/L (7-40) Alkaline Phosphatase 108 U/L (46-116) Aspartate Amino Transferase (AST) 24 U/L (13-40) Total Bilirubin 1.0 mg/dL (0.2-1.0) Urinalysis Test 08/16/24 14:10 Urine Color Light-yellow (Yellow) Urine Clarity Clear (Clear) Urine pH 7.0 (5.0-9.0) Urine Specific [place] 1.007 (1.001-1.035) Urine Protein Negative (Negative) Urine Ketones Negative (Negative) Urine Blood Negative /uL (Negative) Urine Nitrite Negative (Negative) Urine Bilirubin Negative (Negative) Urine Urobilinogen Normal mg/dL (Negative) Urine Leukocyte Esterase 3+ /uL (Negative) Urine RBC 3 /hpf (0 - 4) Urine Microscopic WBC 29 /HPF (0-5) H Urine Squamous Epithelial Cells Few /hpf (<5) Urine Bacteria None seen /hpf (None Seen) Urine Glucose Normal mg/dL (Normal) Blood Gas Results Test 08/29/24 07:08 Arterial Blood pH 7.436 (7.350-7.450) FiO2 % 35.0 Microbiology Microbiology Date/Time Source Procedure Growth Status 08/24/24 21:05 Bronchial Washings Gram Stain - Final Complete 08/24/24 21:05 Bronchial Washings Respiratory Culture - Final Complete 08/17/24 23:00 Urine - [place] Urine Culture - Final Complete 08/17/24 16:19 Nose MRSA Screen - Final Complete 08/17/24 14:00 Blood Blood Culture - Final NO GROWTH AFTER 5 DAYS OF INCUBATION. Complete Assessment/Plan Assessment/Plan 79-year-old female who presented to the hospital with dizziness shortness breath found to have symptomatic bradycardia 1. Acute hypoxic respiratory failure remains intubated and sedated 2. Symptomatic bradycardia status post pacemaker placement 3. Leukocytosis likely reactive 4. Left-sided pneumothorax status post chest tube placement 5. UTI 6. Bilateral atelectasis 7. Acute CHF exacerbation -albumin followed by IV diuretics -continue chest tube Follow up Cardiology and Pulmonary recommendations -antibiotics, Plan discussed with: Other My Orders Orders - SOPHIE WILKERSON MD Procedure Category Date Status Time Kub Abdomen Single XY 08/29/24 Logged View 15:33 Lactulose Oral PHA 08/29/24 In Process 22:00 Magnesium Sulfate PHA 08/29/24 In Process 1gm/100ml 16:00 Sodium Phosphates PHA 08/29/24 In Process 20:00 Date of Service: Aug 29, 2024 Billing Provider: SOPHIE WILKERSON MD Common Visit Codes: NOT BILLABLE SOPHIE WILKERSON MD Aug 29, 2024 15:56
[2024-08-29] MEDS: MAGNESIUM SULFATE 1GM/100ML 100 ML IV SCH (16:00)
--- NOTE | 2024-08-29 17:08 | DVH ---
Exam: XY KUB ABDOMEN SINGLE VIEW Indication: DISTENDED ABD, LBM 2/8 Comparison: Lower images of CT scan of the chest dated 08/25/2024. Technique: Supine AP view of the abdomen was performed. Findings/Impression: 1. No evidence of bowel obstruction. 2. NG tube tip is in the stomach about 14 cm distal to the GE junction. 3. Cardiomegaly, right chest pacemaker, and left chest small bore thoracostomy tube, not fully imaged here. 4. Chronic compression fractures of the lumbar and lower thoracic spine, not well characterized on th is single AP film.
[2024-08-29] MEDS: SODIUM PHOSPHATES 40 MEQ in D5W 5% 250 ML IV ONE (20:54)
[2024-08-29] MEDS: LACTULOSE 20Gm/30ML SOLN PO SCH (22:03)
--- NOTE | 2024-08-29 22:46 | DVHPN2 ---
Progress Note - Dictate Date Seen: Aug 29, 2024 Medical Necessity Reason Pt with a Central, PICC or Fol: Yes The following are medically ne: Wong Catheter Reason for wong catheter: Strict I&O Subjective Patient seen and examined at bedside. Sedated, intubated on mechanical ventilator. Overnight events reviewed. vital signs Vital Sign Date Time Temp Pulse Resp B/P (MAP) Pulse Ox O2 Delivery O2 Flow Rate FiO2 08/29/24 21:14 101/47 08/29/24 20:45 98.6 78 17 91 209.5 08/29/24 20:04 35 08/29/24 18:00 Mechanical Ventilator+ Total Intake and Output 08/28/24 08/28/24 08/29/24 15:00 23:00 07:00 Intake Total 730.376 ml 1105.888 ml 978.644 ml Output Total 650 ml 2650 ml Balance 730.376 ml 455.888 ml -1671.356 ml medications Current Medications Medications Dose Ordered Sig/Pepe Route Start Time Stop Time Status Last Admin Dose Admin Docusate Sodium 100 mg BIDPRN PRN PO 08/16/24 20:45 08/26/24 19:25 100 MG Ondansetron HCl 4 mg Q4HP PRN IV 08/16/24 20:45 Nitroglycerin 0.4 mg Q5MINP PRN SL 08/16/24 20:45 Morphine Sulfate 2 mg Q30M PRN IV 08/16/24 20:45 Ceftriaxone Sodium 50 ml @ 100 mls/hr DAILY IV 08/17/24 10:00 08/29/24 10:36 100 MLS/HR Hydralazine HCl 10 mg Q6HP PRN IV 08/16/24 23:30 08/28/24 08:51 10 MG Acetaminophen/ Hydrocodone Bitart 1 tab Q6HPRN PRN PO 08/16/24 23:30 08/28/24 09:23 1 TAB Midazolam HCl 50 ml @ 1 mls/hr Q24H IV 08/17/24 10:15 08/29/24 15:59 7 MLS/HR Fentanyl Citrate 250 ml @ 2.5 mls/hr Q24H IV 08/17/24 10:15 08/29/24 19:31 25 MLS/HR Pantoprazole Sodium 40 mg DAILY IV 08/18/24 10:00 08/29/24 10:36 40 MG Amino Acids 0 ml @ 0 mls/hr PER PHARMACY IV 08/19/24 13:15 Diagnostic Test (Pha) 1 strip Q6HR 08/19/24 18:00 08/29/24 18:05 1 STRIP Insulin Human Regular FOLLOW SLIDING SCALE Q6HR SC 08/19/24 18:00 08/28/24 11:54 2 UNITS Dextrose 50 ml UD IV 08/19/24 14:00 Amino Acids/ Electrolytes/ Dextrose 1,000 ml @ 41 mls/hr DAILY@2200 IV 08/19/24 22:00 08/29/24 22:03 41 MLS/HR Norepinephrine Bitartrate 250 ml @ 1.875 mls/ hr Q24H IV 08/22/24 05:15 08/28/24 11:38 1.875 MLS/HR Sodium Chloride 1,000 ml @ 50 mls/hr Q20H IV 08/22/24 14:30 UNV Enoxaparin Sodium 40 mg DAILY SC 08/24/24 10:00 08/28/24 10:43 40 MG Propofol 100 ml @ 2.253 mls/ hr Q24H IV 08/23/24 16:45 08/29/24 21:14 9.012 MLS/HR Dexmedetomidine HCl 400 mcg/ Dextrose 100 ml @ 3.755 mls/ hr Q24H IV 08/23/24 17:30 08/28/24 06:13 11.265 MLS/HR Enteral Nutritional Formula 1,000 ml 35ML/HR GT 08/24/24 18:00 08/29/24 17:22 1,000 ML Acetaminophen 650 mg Q6HP PRN GT 08/24/24 18:15 08/29/24 01:03 650 MG Epinephrine HCl 0.5 ml ONCE PRN NEB 08/27/24 10:45 Cancel Polyethylene Glycol 17 gm DAILY PO 08/28/24 10:00 08/29/24 10:36 17 GM Docusate Sodium 100 mg BID GT 08/27/24 22:00 08/29/24 22:03 100 MG Sennosides 8.6 mg HS PO 08/27/24 22:00 08/29/24 22:03 8.6 MG Clonidine HCl 0.2 mg Q7D TD 08/27/24 22:00 Lactulose 30 ml Q8HR PO 08/29/24 22:00 08/29/24 22:03 30 ML objective Gen.: Patient lying in bed in medical ICU. Sedated, intubated on mechanical ventilator. Head: Normocephalic, atraumatic. Eyes: PERRLA. Ears: Normal external anatomy. Throat: Endotracheal tube and orogastric tube in place. Neck: Supple, trachea midline. Chest: Transmitted breath sounds bilaterally. Decreased air entry bilaterally. No wheezing. Bibasilar crackles. Cardiovascular: Positive S1, positive S2. Regular rate and rhythm. Abdomen: Positive bowel sounds in all 4 quadrants. Soft, nontender, nondistended. : Wong in place. Normal external genitalia. Rectal: Deferred. Skin: Warm, dry. Intact. Extremities: 2+ radial pulses bilaterally. No lower extremity edema. Neuro: Sedated. laboratory and microbiology Laboratory Tests 08/29/24 03:24 Test 08/29/24 03:24 Range/Units Serum Glucose 106 74-106 mg/dL Assessment/Plan Impression: Acute hypoxic respiratory failure On mechanical ventilator Shock, cardiogenic Bradycardia, symptomatic Atelectasis Events: Chest tube shows no air leak. Monitor output. Placed to -20 cmH2O. CXR demonstrated no left pneumothorax. Right pleural effusion Obtain consent for right thoracentesis CPAP trial this PM. ABG reviewed, compensated Remains on vent support On AC mode; RR 14, VT 400, PEEP 5, FiO2 30% Sedated on Propofol Daily SBT/KAYLI. Continue antibiotics Monitor WBC Continue TPN for nutritional support Cardiology recs appreciated. Monitor renal function Monitor electrolytes. Supplement as necessary. Supplement phosphorus Hypokalemia, supplement Monitor hemoglobin SBT/KAYLI Taper sedation CPAP with PS 8, PEEP 5 S/p bronchoscopy with BAL on 08/24 - follow up pleural fluid cultures S/p pacemaker placement Labs and imaging reviewed. Rest of plan as noted below. Plan: s/p intubation on mechanical ventilator. On AC mode; RR 14, VT 400, PEEP 5, FiO2 35% Titrate FIO2 to keep O2 saturation above 90%. VAP bundle. Daily ABG and CXR while intubated Sedate for ventilator synchrony Continue antibiotics. Steroids discontinued F/u cultures. Awaiting pleural fluid cultures Sputum cultures show normal oropharyngeal tra. Pressors if necessary for hemodynamic support Titrate to keep mean arterial pressure greater than 65 mmHg. Monitor renal function Monitor electrolytes. Supplement as necessary. Monitor ins and outs. Maintain euvolemia. GI prophylaxis. DVT prophylaxis. Prognosis: Poor given patient's multiple co-morbidities. Condition: Critical Rest of plan per hospitalist and other consultants. A total of 35 minutes of critical care time was spent reviewing the patient record, examining the patient, making a diagnostic and therapeutic plan, discussing this plan with the medical personnel, following up on diagnostic studies and following the patient for clinical stability excluding any and all procedures. At least 50% of this time was spent in direct, [id number] contact. Thank you, ESTHER Maria, for allowing me to participate in this patient's care. Further recommendations will depend on the patient's clinical course. Please do not hesitate to contact me if you have any questions or concerns. This medical document was created using an electronic medical record system with [employer] dictation system. Although these documentations are being carefully reviewed, there may still be some phonetic and typographical changes. The errors are purely typographical, due to imperfection on the software program, and do not reflect any compromise in the patient's medical care. Dietary Evaluation Review Comments: Nutrition support: 1. On vent, Glucerna 1.2 40ml/hr, providing 58g Pro and 1152 kcal in 24 hrs. 2. Off Vent and pass speech eval,2 g Na,low fat Low chol, CCHO-60g, Protein 60 g restriction if kidney functiondoes not improve, 3. TPN per pharmacy if NPO>7 days. Expected Outcomes/Goals: Off Vent, controlled DM, improved wound healing, maintain BW. Plan discussed with: Other (GLADYS Licea) Critical Care Time(min): 35 MEY RAM MD Aug 29, 2024 22:46
[2024-08-29 23:31] LABS: Alanine Aminotransferase 18 U/L (7-40); Anion Gap 5 (5-15); Aspartate Aminotransferase 22 U/L (13-40); BUN/Creatinine Ratio 32.4 (10.0-20.0); Blood Urea Nitrogen 12 mg/dL (9-23); Carbon Dioxide 31 mmol/L (20-31); Chloride 101 mmol/L (98-107); Glucose 102 mg/dL (74-106); Sodium 137 mmol/L (136-145)
[2024-08-29 23:34] LABS: Albumin 3.1 g/dL (3.2-4.8); Alkaline Phosphatase 117 U/L (46-116); Calcium 8.6 mg/dL (8.7-10.4); Potassium 3.2 mmol/L (3.5-5.1); Total Protein 4.7 g/dL (5.7-8.2)
[2024-08-30] VITALS (106 sets, daily range): BP systolic 87–118; BP diastolic 35–52; PULSE 65–76; RESP 6–22; TEMP 97–99; O2SAT 87–98
[2024-08-30 04:49] LABS: Basophils # (auto) 0 10 ^3/uL (0-0.2); Basophils % (auto) 0.1 % (0.0-2.0); Eosinophils # (auto) 0.2 10 ^3/uL (0-0.8); Hematocrit 26.2 % (36.0-46.0); Hemoglobin 8.5 g/dL (12.2-16.2); Lymphocytes # (auto) 0.5 10 ^3/uL (0.4-5.4); Lymphocytes % (auto) 2.3 % (10.0-50.0); Mean Corpuscular Hgb Conc. 32.6 g/dL (32.0-36.0); Monocytes # (auto) 1.2 10 ^3/uL (0-1.3); Monocytes % (auto) 5.5 % (0.0-12.0); Neutrophils # (auto) 19.2 10 ^3/uL (1.6-8.6); Neutrophils % (auto) 91.1 % (37.0-80.0); Platelet Count (auto) 148 10^3/uL (140-450); Red Blood Cells 2.76 10^6/uL (4.0-5.20); Red Cell Distribution Width 14.3 % (11.8-14.3); White Blood Cell 21.1 10^3/uL (4.4-10.8)
[2024-08-30 05:02] LABS: Alanine Aminotransferase 18 U/L (7-40); Anion Gap 7 (5-15); Aspartate Aminotransferase 24 U/L (13-40); BUN/Creatinine Ratio 37.8 (10.0-20.0); Blood Urea Nitrogen 14 mg/dL (9-23); Calcium 8.7 mg/dL (8.7-10.4); Carbon Dioxide 30 mmol/L (20-31); Chloride 100 mmol/L (98-107); Magnesium 2.2 mg/dL (1.6-2.6); Sodium 137 mmol/L (136-145)
[2024-08-30 05:04] LABS: Bilirubin, Total 1.1 mg/dL (0.2-1.0); Phosphorus 4.1 mg/dL (2.4-5.1)
--- NOTE | 2024-08-30 05:10 | DVH ---
CHEST RADIOGRAPH Indication: intubated Technique: Single frontal view of the chest was obtained COMPARISON: XY CHEST PORTABLE on DOS: 08/29/24, XY CHEST PORTABLE on DOS: 08/28/24, XY CHEST PORTABLE o n DOS: 08/27/24, XY CHEST PORTABLE on DOS: 08/26/24, XY CHEST PORTABLE on DOS: 08/25/24 FINDINGS: Lines and Tubes: Endotracheal tube, enteric catheter and right central venous catheter in satisfactor y position. Left chest tube in satisfactory position. Right chest wall pacemaker. Lungs: Multifocal airspace disease. Pleura: No effusion. No pneumothorax. Cardiomediastinal contours: Unremarkable Bones: Unremarkable IMPRESSION: Lines and tubes in satisfactory position. No significant interval change.
[2024-08-30 05:36] LABS: Albumin 3.1 g/dL (3.2-4.8); Alkaline Phosphatase 119 U/L (46-116); Glucose 109 mg/dL (74-106); Total Protein 4.8 g/dL (5.7-8.2)
[2024-08-30 05:54] LABS: Base Excess 2.1 mmol/L (-2.0-3.0)
[2024-08-30] MEDS ORDERED: POTASSIUM CHL 20MEQ/100ML 100 ML IV ONE (13:15)
[2024-08-30] MEDS: POTASSIUM CHL 20MEQ/100ML 100 ML IV SCH (14:15)
--- NOTE | 2024-08-30 14:57 | DVHPN2 ---
Subjective 79-year-old female who initially presented to the hospital with symptomatic bradycardia status post pacemaker placement, currently remains intubated and sedated. The patient was found to have a small left-sided pneumothorax, status post small chest tube placement. Reviewed: Care Plan Changes from previous H/P or p: No Changes Eyes: No Pain, No Vision change, No Conjunctivae inflammation, No Eyelid inflammation, No Other, No Redness ENT: No Ear pain, No Ear discharge, No Nose pain, No Nose discharge, No Nose congestion, No Mouth pain, No Mouth swelling, No Throat pain, No Throat swelling, No Other Cardiovascular: No Chest Pain, No Palpitations, No Orthopnea, No Paroxysmal Noc. Dyspnea, No Edema, No Lt Headedness, No Other Respiratory: Shortness of breath Gastrointestinal: No Nausea, No Vomiting, No Abdominal Pain, No Diarrhea, No Constipation, No Melena, No Hematochezia, No Other Genitourinary: No Dysuria, No Frequency, No Incontinence, No Hematuria, No Retention, No Other Musculoskeletal: No other, No neck pain, No shoulder pain, No arm pain, No back pain, No hand pain, No leg pain, No foot pain Skin: No Rash, No Lesions, No Jaundice, No Bruising, No Other Objective Vitals Vital Signs Date Time Temp Pulse Resp B/P (MAP) Pulse Ox O2 Delivery O2 Flow Rate FiO2 08/30/24 14:45 98.4 69 16 99/37 (57) 94 209.1 08/30/24 13:45 50 08/30/24 12:00 Mechanical Ventilator+ Intake/Output Intake and Output 08/30/24 07:00 Intake Total 2514.932 ml Output Total 1870 ml Balance 644.932 ml Intake Oral 90 ml IV Total 2343.932 ml Tube Feeding 81 ml Output Urine Total 1650 ml Chest Tube Drainage Total 220 ml Exam HEENT pupils are reactive Neck is supple CV is S1-S2 regular rate and rhythm Respiratory diminished breath sounds bases GI positive bowel sound Extremity no edema [employer] intubated and sedated Medications Current Medications Medications Dose Ordered Sig/Pepe Route Start Time Stop Time Status Last Admin Dose Admin Docusate Sodium 100 mg BIDPRN PRN PO 08/16/24 20:45 08/26/24 19:25 100 MG Ondansetron HCl 4 mg Q4HP PRN IV 08/16/24 20:45 Nitroglycerin 0.4 mg Q5MINP PRN SL 08/16/24 20:45 Morphine Sulfate 2 mg Q30M PRN IV 08/16/24 20:45 Ceftriaxone Sodium 50 ml @ 100 mls/hr DAILY IV 08/17/24 10:00 08/30/24 10:32 100 MLS/HR Hydralazine HCl 10 mg Q6HP PRN IV 08/16/24 23:30 08/28/24 08:51 10 MG Acetaminophen/ Hydrocodone Bitart 1 tab Q6HPRN PRN PO 08/16/24 23:30 08/28/24 09:23 1 TAB Midazolam HCl 50 ml @ 1 mls/hr Q24H IV 08/17/24 10:15 08/30/24 14:38 6 MLS/HR Fentanyl Citrate 250 ml @ 2.5 mls/hr Q24H IV 08/17/24 10:15 08/30/24 14:44 25 MLS/HR Pantoprazole Sodium 40 mg DAILY IV 08/18/24 10:00 08/30/24 10:32 40 MG Amino Acids 0 ml @ 0 mls/hr PER PHARMACY IV 08/19/24 13:15 Diagnostic Test (Pha) 1 strip Q6HR 08/19/24 18:00 08/30/24 12:18 1 STRIP Insulin Human Regular FOLLOW SLIDING SCALE Q6HR SC 08/19/24 18:00 08/28/24 11:54 2 UNITS Dextrose 50 ml UD IV 08/19/24 14:00 Amino Acids/ Electrolytes/ Dextrose 1,000 ml @ 41 mls/hr DAILY@2200 IV 08/19/24 22:00 08/29/24 22:03 41 MLS/HR Norepinephrine Bitartrate 250 ml @ 1.875 mls/ hr Q24H IV 08/22/24 05:15 08/28/24 11:38 1.875 MLS/HR Sodium Chloride 1,000 ml @ 50 mls/hr Q20H IV 08/22/24 14:30 UNV Enoxaparin Sodium 40 mg DAILY SC 08/24/24 10:00 08/30/24 10:33 40 MG Propofol 100 ml @ 2.253 mls/ hr Q24H IV 08/23/24 16:45 08/30/24 10:31 13.518 MLS/HR Dexmedetomidine HCl 400 mcg/ Dextrose 100 ml @ 3.755 mls/ hr Q24H IV 08/23/24 17:30 08/28/24 06:13 11.265 MLS/HR Enteral Nutritional Formula 1,000 ml 35ML/HR GT 08/24/24 18:00 08/29/24 17:22 1,000 ML Acetaminophen 650 mg Q6HP PRN GT 08/24/24 18:15 08/29/24 01:03 650 MG Epinephrine HCl 0.5 ml ONCE PRN NEB 08/27/24 10:45 Cancel Polyethylene Glycol 17 gm DAILY PO 08/28/24 10:00 08/30/24 10:33 17 GM Docusate Sodium 100 mg BID GT 08/27/24 22:00 08/30/24 10:32 100 MG Sennosides 8.6 mg HS PO 08/27/24 22:00 08/29/24 22:03 8.6 MG Clonidine HCl 0.2 mg Q7D TD 08/27/24 22:00 Lactulose 30 ml Q8HR PO 08/29/24 22:00 08/30/24 14:19 30 ML Potassium Chloride 100 ml @ 50 mls/hr Q2H IV 08/30/24 14:00 08/30/24 19:59 08/30/24 14:15 50 MLS/HR Laboratory Results Laboratory Tests 08/30/24 03:45 Chemistry Test 08/29/24 23:00 08/30/24 03:45 Albumin 3.1 g/dL (3.2-4.8) L 3.1 g/dL (3.2-4.8) L Calcium Level 8.6 mg/dL (8.7-10.4) L 8.7 mg/dL (8.7-10.4) Total Protein 4.7 g/dL (5.7-8.2) L 4.8 g/dL (5.7-8.2) L Magnesium Level 2.2 mg/dL (1.6-2.6) Phosphorus Level 4.1 mg/dL (2.4-5.1) LFT Test 08/29/24 23:00 08/30/24 03:45 Alanine Aminotransferase (ALT) 18 U/L (7-40) 18 U/L (7-40) Alkaline Phosphatase 117 U/L (46-116) H 119 U/L (46-116) H Aspartate Amino Transferase (AST) 22 U/L (13-40) 24 U/L (13-40) Total Bilirubin 1.0 mg/dL (0.2-1.0) 1.1 mg/dL (0.2-1.0) H Urinalysis Test 08/16/24 14:10 Urine Color Light-yellow (Yellow) Urine Clarity Clear (Clear) Urine pH 7.0 (5.0-9.0) Urine Specific [place] 1.007 (1.001-1.035) Urine Protein Negative (Negative) Urine Ketones Negative (Negative) Urine Blood Negative /uL (Negative) Urine Nitrite Negative (Negative) Urine Bilirubin Negative (Negative) Urine Urobilinogen Normal mg/dL (Negative) Urine Leukocyte Esterase 3+ /uL (Negative) Urine RBC 3 /hpf (0 - 4) Urine Microscopic WBC 29 /HPF (0-5) H Urine Squamous Epithelial Cells Few /hpf (<5) Urine Bacteria None seen /hpf (None Seen) Urine Glucose Normal mg/dL (Normal) Blood Gas Results Test 08/30/24 05:46 Arterial Blood pH 7.388 (7.350-7.450) FiO2 % 50.0 Microbiology Microbiology Date/Time Source Procedure Growth Status 08/24/24 21:05 Bronchial Washings Gram Stain - Final Complete 08/24/24 21:05 Bronchial Washings Respiratory Culture - Final Complete 08/17/24 23:00 Urine - [place] Urine Culture - Final Complete 08/17/24 16:19 Nose MRSA Screen - Final Complete 08/17/24 14:00 Blood Blood Culture - Final NO GROWTH AFTER 5 DAYS OF INCUBATION. Complete Assessment/Plan Assessment/Plan 79-year-old female who presented to the hospital with dizziness shortness breath found to have symptomatic bradycardia 1. Acute hypoxic respiratory failure remains intubated and sedated 2. Symptomatic bradycardia status post pacemaker placement 3. Leukocytosis likely reactive 4. Left-sided pneumothorax status post chest tube placement 5. UTI 6. Bilateral atelectasis 7. Acute CHF exacerbation WITH DIASTOLIC DYSFUNCTION -albumin followed by IV diuretics -continue chest tube Follow up Cardiology and Pulmonary recommendations -antibiotics, Plan discussed with: Other My Orders Orders - SOPHIE WILKERSON MD Procedure Category Date Status Time Kub Abdomen Single XY 08/29/24 Resulted View 15:33 Lactulose Oral PHA 08/29/24 In Process 22:00 Potassium Chl PHA 08/30/24 In Process 20meq/100ml 14:00 Date of Service: Aug 30, 2024 Billing Provider: SOPHIE WILKERSON MD Common Visit Codes: NOT BILLABLE SOPHIE WILKERSON MD Aug 30, 2024 14:57
[2024-08-30] MEDS: PROPOFOL 100 ML IV SCH (17:31)
--- NOTE | 2024-08-30 17:52 | DVH ---
EXAM: XY CHEST PORTABLE TECHNIQUE: Single frontal chest radiograph CLINICAL HISTORY: post thoracentesis. COMPARISON: XY CHEST PORTABLE on DOS: 08/30/24 at 4:18 AM, Findings/Impression: Frontal chest radiograph demonstrates no acute osseous or superficial soft tissue abnormalities. Endotracheal tube terminates 3.7 cm from joe paty. Enteric tube is overlying the plane of the stoma ch. Right sided IJ catheter terminates in the right atrium. Similar left chest tube pigtail catheter. The trachea is midline. The cardiac silhouette and mediastinum are within normal limits. Diffuse coarsened interstitial markings, similar to prior. Decreased size of the right pleural effusion with trace residual. No definite pneumothorax.
--- NOTE | 2024-08-30 20:07 | DVHNC2 ---
Procedure - Ultrasound-guided RIGHT thoracentesis procedure note: Physician: Dr Gisele Cochran Date: 08/30/24 Time out: 17:25 pm Consent: Consent was obtained from patient's healthcare proxy prior to procedure. Indication, risks, and benefits were explained at length. Procedure summary: A time-out was performed and a chest x-ray was reviewed prior to procedure. The appropriate site was confirmed and marked. My hands were washed immediately prior to the procedure, I wore a surgical cap, mask with protective eyewear, sterile gown and sterile gloves throughout the procedure. The patient was prepped and draped in a sterile manner using chlorhexidine scrub after the appropriate level was percussed and confirmed by ultrasound. 1% lidocaine was used to anesthetize the skin, subcutaneous tissue, superior aspect of the rib periosteum and parietal pleura. A finder needle was then introduced over the superior aspect of the rib to locate the pleural fluid; sero-sanguinous fluid was aspirated. Thoracentesis needle was then introduced through the skin incision into the pleural space using negative aspiration pressure. The thoracentesis catheter was then threaded without difficulty. 450 mL's of sero- sanguinous colored fluid were removed without difficulty. The catheter was then removed. No immediate complications were noted during the procedure. A postprocedure chest x-ray demonstrated no pneumothorax and interval reduction in right pleural effusion. The pleural fluid will be sent for cultures and cytology. Estimated blood loss is less than 5 mL's. CPT: 08640 MEY COCHRAN MD Aug 30, 2024 20:07
[2024-08-30 22:00] LABS: Body Fluid Polymorphonuclear 68 % (0-25); Body Fluid Red Blood Cells 208194 CUMM (0-2000); Body Fluid White Blood Cells 325 CUMM (0-200)
--- NOTE | 2024-08-30 23:17 | DVHPN2 ---
Progress Note - Dictate Date Seen: Aug 30, 2024 Medical Necessity Reason Pt with a Central, PICC or Fol: Yes The following are medically ne: Wong Catheter Reason for wong catheter: Strict I&O Subjective Patient seen and examined at bedside. Sedated, intubated on mechanical ventilator. Overnight events reviewed. vital signs Vital Sign Date Time Temp Pulse Resp B/P (MAP) Pulse Ox O2 Delivery O2 Flow Rate FiO2 08/30/24 22:43 65 17 103/40 (61) 95 45 08/30/24 19:00 98.2 208.8 08/30/24 18:00 Mechanical Ventilator+ Total Intake and Output 08/29/24 08/29/24 08/30/24 15:00 23:00 07:00 Intake Total 717.394 ml 915.644 ml 881.894 ml Output Total 1460 ml 410 ml Balance 717.394 ml -544.356 ml 471.894 ml medications Current Medications Medications Dose Ordered Sig/Pepe Route Start Time Stop Time Status Last Admin Dose Admin Docusate Sodium 100 mg BIDPRN PRN PO 08/16/24 20:45 08/26/24 19:25 100 MG Ondansetron HCl 4 mg Q4HP PRN IV 08/16/24 20:45 Nitroglycerin 0.4 mg Q5MINP PRN SL 08/16/24 20:45 Morphine Sulfate 2 mg Q30M PRN IV 08/16/24 20:45 Ceftriaxone Sodium 50 ml @ 100 mls/hr DAILY IV 08/17/24 10:00 08/30/24 10:32 100 MLS/HR Hydralazine HCl 10 mg Q6HP PRN IV 08/16/24 23:30 08/28/24 08:51 10 MG Acetaminophen/ Hydrocodone Bitart 1 tab Q6HPRN PRN PO 08/16/24 23:30 08/28/24 09:23 1 TAB Midazolam HCl 50 ml @ 1 mls/hr Q24H IV 08/17/24 10:15 08/30/24 14:38 6 MLS/HR Fentanyl Citrate 250 ml @ 2.5 mls/hr Q24H IV 08/17/24 10:15 08/30/24 14:44 25 MLS/HR Pantoprazole Sodium 40 mg DAILY IV 08/18/24 10:00 08/30/24 10:32 40 MG Amino Acids 0 ml @ 0 mls/hr PER PHARMACY IV 08/19/24 13:15 Diagnostic Test (Pha) 1 strip Q6HR 08/19/24 18:00 08/30/24 22:49 1 STRIP Insulin Human Regular FOLLOW SLIDING SCALE Q6HR SC 08/19/24 18:00 08/28/24 11:54 2 UNITS Dextrose 50 ml UD IV 08/19/24 14:00 Amino Acids/ Electrolytes/ Dextrose 1,000 ml @ 41 mls/hr DAILY@2200 IV 08/19/24 22:00 08/30/24 22:18 41 MLS/HR Norepinephrine Bitartrate 250 ml @ 1.875 mls/ hr Q24H IV 08/22/24 05:15 08/30/24 21:51 9.375 MLS/HR Sodium Chloride 1,000 ml @ 50 mls/hr Q20H IV 08/22/24 14:30 UNV Enoxaparin Sodium 40 mg DAILY SC 08/24/24 10:00 08/30/24 10:33 40 MG Enteral Nutritional Formula 1,000 ml 35ML/HR GT 08/24/24 18:00 08/29/24 17:22 1,000 ML Acetaminophen 650 mg Q6HP PRN GT 08/24/24 18:15 08/29/24 01:03 650 MG Epinephrine HCl 0.5 ml ONCE PRN NEB 08/27/24 10:45 Cancel Polyethylene Glycol 17 gm DAILY PO 08/28/24 10:00 08/30/24 10:33 17 GM Docusate Sodium 100 mg BID GT 08/27/24 22:00 08/30/24 10:32 100 MG Sennosides 8.6 mg HS PO 08/27/24 22:00 08/29/24 22:03 8.6 MG Clonidine HCl 0.2 mg Q7D TD 08/27/24 22:00 Lactulose 30 ml Q8HR PO 08/29/24 22:00 08/30/24 14:19 30 ML Propofol 100 ml @ 2.937 mls/ hr Q24H IV 08/30/24 17:00 08/30/24 21:45 17.622 MLS/HR objective Gen.: Patient lying in bed in medical ICU. Sedated, intubated on mechanical ventilator. Head: Normocephalic, atraumatic. Eyes: PERRLA. Ears: Normal external anatomy. Throat: Endotracheal tube and orogastric tube in place. Neck: Supple, trachea midline. Chest: Transmitted breath sounds bilaterally. Decreased air entry bilaterally. No wheezing. Bibasilar crackles. Cardiovascular: Positive S1, positive S2. Regular rate and rhythm. Abdomen: Positive bowel sounds in all 4 quadrants. Soft, nontender, nondistended. : Wong in place. Normal external genitalia. Rectal: Deferred. Skin: Warm, dry. Intact. Extremities: 2+ radial pulses bilaterally. No lower extremity edema. Neuro: Sedated. laboratory and microbiology Laboratory Tests 08/30/24 03:45 Test 08/30/24 03:45 Range/Units Serum Glucose 109 H 74-106 mg/dL Assessment/Plan Impression: Acute hypoxic respiratory failure On mechanical ventilator Shock, cardiogenic Bradycardia, symptomatic Atelectasis Events: Chest tube shows no air leak. Monitor output. Placed to -20 cmH2O. CXR demonstrated no left pneumothorax. Right pleural effusion S/p right thoracentesis - drained 450 ml serosanguineous fluid See separate procedure note for details. CXR demonstrated decreased size of the right pleural effusion with trace residual. No pneumothorax. ABG reviewed, compensated Remains on vent support On AC mode; RR 14, VT 400, PEEP 5, FiO2 50% Sedated on Propofol/Versed/Fentanyl Pressors for hemodynamic support Levophed 4 mcg/min Titrate to keep mean arterial pressure greater than 65 mmHg. Daily SBT/KAYLI. Continue antibiotics Monitor WBC Clinimix for nutritional support Cardiology recs appreciated. Monitor renal function Monitor electrolytes. Supplement as necessary. Supplement potassium Monitor hemoglobin SBT/KAYLI Taper sedation CPAP with PS 8, PEEP 5 S/p bronchoscopy with BAL on 08/24 - follow up pleural fluid cultures S/p pacemaker placement Labs and imaging reviewed. Rest of plan as noted below. Plan: s/p intubation on mechanical ventilator. On AC mode; RR 14, VT 400, PEEP 5, FiO2 50% Titrate FIO2 to keep O2 saturation above 90%. VAP bundle. Daily ABG and CXR while intubated Sedate for ventilator synchrony Continue antibiotics. Steroids discontinued F/u cultures. Awaiting pleural fluid cultures Sputum cultures show normal oropharyngeal tra. Pressors for hemodynamic support Titrate to keep mean arterial pressure greater than 65 mmHg. Monitor renal function Monitor electrolytes. Supplement as necessary. Monitor ins and outs. Maintain euvolemia. GI prophylaxis. DVT prophylaxis. Prognosis: Poor given patient's multiple co-morbidities. Condition: Critical Rest of plan per hospitalist and other consultants. A total of 35 minutes of critical care time was spent reviewing the patient record, examining the patient, making a diagnostic and therapeutic plan, discussing this plan with the medical personnel, following up on diagnostic studies and following the patient for clinical stability excluding any and all procedures. At least 50% of this time was spent in direct, [id number] contact. Thank you, ESTHER Maria, for allowing me to participate in this patient's care. Further recommendations will depend on the patient's clinical course. Please do not hesitate to contact me if you have any questions or concerns. This medical document was created using an electronic medical record system with impok dictation system. Although these documentations are being carefully reviewed, there may still be some phonetic and typographical changes. The errors are purely typographical, due to imperfection on the software program, and do not reflect any compromise in the patient's medical care. Dietary Evaluation Review Comments: Nutrition support: 1. On vent, Glucerna 1.2 40ml/hr, providing 58g Pro and 1152 kcal in 24 hrs. 2. Off Vent and pass speech eval,2 g Na,low fat Low chol, CCHO-60g, Protein 60 g restriction if kidney functiondoes not improve, 3. TPN per pharmacy if NPO>7 days. Expected Outcomes/Goals: Off Vent, controlled DM, improved wound healing, maintain BW. Plan discussed with: Other (GLADYS Yepez/Jennifer) Critical Care Time(min): 35 MEY RAM MD Aug 30, 2024 23:17
[2024-08-31] VITALS (111 sets, daily range): BP systolic 84–131; BP diastolic 32–76; PULSE 65–93; RESP 12–22; TEMP 96.8–103.3; O2SAT 89–100
[2024-08-31 03:57] LABS: Alanine Aminotransferase 18 U/L (7-40); Anion Gap 5 (5-15); Aspartate Aminotransferase 28 U/L (13-40); BUN/Creatinine Ratio 35.9 (10.0-20.0); Blood Urea Nitrogen 14 mg/dL (9-23); Carbon Dioxide 30 mmol/L (20-31); Chloride 101 mmol/L (98-107); Glucose 103 mg/dL (74-106); Magnesium 2.1 mg/dL (1.6-2.6); Potassium 3.6 mmol/L (3.5-5.1); Sodium 136 mmol/L (136-145)
[2024-08-31 03:58] LABS: Bilirubin, Total 1.1 mg/dL (0.2-1.0); Phosphorus 3.4 mg/dL (2.4-5.1)
[2024-08-31 04:04] LABS: Albumin 2.8 g/dL (3.2-4.8); Alkaline Phosphatase 125 U/L (46-116); Calcium 8.6 mg/dL (8.7-10.4); Total Protein 4.6 g/dL (5.7-8.2)
--- NOTE | 2024-08-31 05:28 | DVH ---
EXAM: XR Chest, 1 View CLINICAL INDICATION: INTUBATED TECHNIQUE: Frontal view of the chest. COMPARISON: XY CHEST PORTABLE on DOS: 08/30/24, XY CHEST PORTABLE on DOS: 08/30/24, XY CHEST PORTABLE on DOS: 08/29/24, XY CHEST PORTABLE on DOS: 08/28/24, XY CHEST PORTABLE on DOS: 08/27/24 FINDINGS: LUNGS AND PLEURAL SPACES: See below. HEART: Cardiomegaly with pulmonary congestion and edema. Superimposed pneumonia cannot be excluded. MEDIASTINUM: Unremarkable. Normal mediastinal contour. BONES/JOINTS: Unremarkable. No acute fracture. TUBES, LINES AND DEVICES: The endotracheal tube (ETT) is in satisfactory position. Enteric tube ti p in the stomach. Right internal jugular central venous catheter tip in the superior vena cava. Lef t-sided pigtail chest. No pneumothorax. OTHER FINDINGS: . IMPRESSION: Cardiomegaly with pulmonary congestion and edema. Superimposed pneumonia cannot be excluded.
[2024-08-31 06:09] LABS: Basophils # (auto) 0.1 10 ^3/uL (0-0.2); Basophils % (auto) 0.3 % (0.0-2.0); Eosinophils # (auto) 0.3 10 ^3/uL (0-0.8); Eosinophils % (auto) 1.4 % (0.0-7.0); Hematocrit 26.8 % (36.0-46.0); Hemoglobin 8.6 g/dL (12.2-16.2); Lymphocytes # (auto) 0.5 10 ^3/uL (0.4-5.4); Lymphocytes % (auto) 2.4 % (10.0-50.0); Mean Corpuscular Hemoglobin 30.6 pg (28.0-32.0); Mean Corpuscular Hgb Conc. 32.3 g/dL (32.0-36.0); Monocytes % (auto) 5.3 % (0.0-12.0); Neutrophils # (auto) 17.8 10 ^3/uL (1.6-8.6); Neutrophils % (auto) 90.6 % (37.0-80.0); Platelet Count (auto) 160 10^3/uL (140-450); Red Blood Cells 2.82 10^6/uL (4.0-5.20); Red Cell Distribution Width 14.6 % (11.8-14.3); White Blood Cell 19.7 10^3/uL (4.4-10.8)
[2024-08-31 06:29] LABS: Base Excess 2.4 mmol/L (-2.0-3.0)
[2024-08-31] MEDS: FUROSEMIDE 40 MG/4 ML VIAL IV ONE ×2 (15:01→15:16)
--- NOTE | 2024-08-31 16:02 | DVHPN2 ---
Consult Progress Note Date Seen: Aug 31, 2024 Subjective Patient reports: Other Objective vital signs Vital Sign Date Time Temp Pulse Resp B/P (MAP) Pulse Ox O2 Delivery O2 Flow Rate FiO2 08/31/24 15:03 100/40 08/31/24 13:46 79 21 93 55 08/31/24 11:39 Mechanical Ventilator+ 08/31/24 09:15 99.3 210.7 Total Intake and Output 08/30/24 08/30/24 08/31/24 15:00 23:00 07:00 Intake Total 872.144 ml 1022.573 ml 830.593 ml Output Total 850 ml 1240 ml Balance 872.144 ml 172.573 ml -409.407 ml medications Current Medications Medications Dose Ordered Sig/Pepe Route Start Time Stop Time Status Last Admin Dose Admin Docusate Sodium 100 mg BIDPRN PRN PO 08/16/24 20:45 08/26/24 19:25 100 MG Ondansetron HCl 4 mg Q4HP PRN IV 08/16/24 20:45 Nitroglycerin 0.4 mg Q5MINP PRN SL 08/16/24 20:45 Morphine Sulfate 2 mg Q30M PRN IV 08/16/24 20:45 Ceftriaxone Sodium 50 ml @ 100 mls/hr DAILY IV 08/17/24 10:00 08/31/24 08:23 100 MLS/HR Hydralazine HCl 10 mg Q6HP PRN IV 08/16/24 23:30 08/28/24 08:51 10 MG Acetaminophen/ Hydrocodone Bitart 1 tab Q6HPRN PRN PO 08/16/24 23:30 08/28/24 09:23 1 TAB Midazolam HCl 50 ml @ 1 mls/hr Q24H IV 08/17/24 10:15 08/31/24 15:02 1 MLS/HR Fentanyl Citrate 250 ml @ 2.5 mls/hr Q24H IV 08/17/24 10:15 08/31/24 15:03 10 MLS/HR Pantoprazole Sodium 40 mg DAILY IV 08/18/24 10:00 08/31/24 08:23 40 MG Amino Acids 0 ml @ 0 mls/hr PER PHARMACY IV 08/19/24 13:15 Diagnostic Test (Pha) 1 strip Q6HR 08/19/24 18:00 08/31/24 10:49 1 STRIP Insulin Human Regular FOLLOW SLIDING SCALE Q6HR SC 08/19/24 18:00 08/28/24 11:54 2 UNITS Dextrose 50 ml UD IV 08/19/24 14:00 Amino Acids/ Electrolytes/ Dextrose 1,000 ml @ 41 mls/hr DAILY@2200 IV 08/19/24 22:00 08/30/24 22:18 41 MLS/HR Norepinephrine Bitartrate 250 ml @ 1.875 mls/ hr Q24H IV 08/22/24 05:15 08/30/24 21:51 9.375 MLS/HR Sodium Chloride 1,000 ml @ 50 mls/hr Q20H IV 08/22/24 14:30 UNV Enoxaparin Sodium 40 mg DAILY SC 08/24/24 10:00 08/31/24 08:23 40 MG Enteral Nutritional Formula 1,000 ml 35ML/HR GT 08/24/24 18:00 08/29/24 17:22 1,000 ML Acetaminophen 650 mg Q6HP PRN GT 08/24/24 18:15 08/29/24 01:03 650 MG Epinephrine HCl 0.5 ml ONCE PRN NEB 08/27/24 10:45 Cancel Polyethylene Glycol 17 gm DAILY PO 08/28/24 10:00 08/31/24 08:24 17 GM Docusate Sodium 100 mg BID GT 08/27/24 22:00 08/31/24 08:23 100 MG Sennosides 8.6 mg HS PO 08/27/24 22:00 08/29/24 22:03 8.6 MG Clonidine HCl 0.2 mg Q7D TD 08/27/24 22:00 Lactulose 30 ml Q8HR PO 08/29/24 22:00 08/31/24 15:17 30 ML Propofol 100 ml @ 2.937 mls/ hr Q24H IV 08/30/24 17:00 08/31/24 08:25 11.748 MLS/HR Examination: GENERAL:Abnormal, LUNGS:Abnormal, CVS:Normal, ABDOMEN:Normal, SKIN:Normal, NEURO:Abnormal (sedated) laboratory and microbiology Laboratory Tests 08/31/24 03:00 Test 08/31/24 03:00 Range/Units Serum Glucose 103 74-106 mg/dL Problem List/Assessment/Plan Problem List/Assessment/Plan Hypertension. Sick sinus syndrome. Respiratory failure. Possible respiratory infection. Status post pacemaker. Notably frail. Recommendations: Supportive measures. Tested pacer with magnet it appears to be working well. Plan discussed with: Other Dietary Evaluation Review Comments: Nutrition support: 1. On vent, Glucerna 1.2 40ml/hr, providing 58g Pro and 1152 kcal in 24 hrs. 2. Off Vent and pass speech eval,2 g Na,low fat Low chol, CCHO-60g, Protein 60 g restriction if kidney functiondoes not improve, 3. TPN per pharmacy if NPO>7 days. Expected Outcomes/Goals: Off Vent, controlled DM, improved wound healing, maintain BW. Date of Service: Aug 31, 2024 Billing Provider: ALAN VILLALOBOS Sr., MD Cardiology Common Codes: [id number] HOSP CARE(High ALAN VILLALOBOS Sr., MD Aug 31, 2024 16:02
--- NOTE | 2024-08-31 16:52 | DVHPN2 ---
Subjective 79-year-old female who initially presented to the hospital with symptomatic bradycardia status post pacemaker placement, currently remains intubated and sedated. The patient was found to have a small left-sided pneumothorax, status post small chest tube placement. Reviewed: Care Plan Changes from previous H/P or p: No Changes Eyes: No Pain, No Vision change, No Conjunctivae inflammation, No Eyelid inflammation, No Other, No Redness ENT: No Ear pain, No Ear discharge, No Nose pain, No Nose discharge, No Nose congestion, No Mouth pain, No Mouth swelling, No Throat pain, No Throat swelling, No Other Cardiovascular: No Chest Pain, No Palpitations, No Orthopnea, No Paroxysmal Noc. Dyspnea, No Edema, No Lt Headedness, No Other Respiratory: Shortness of breath Gastrointestinal: No Nausea, No Vomiting, No Abdominal Pain, No Diarrhea, No Constipation, No Melena, No Hematochezia, No Other Genitourinary: No Dysuria, No Frequency, No Incontinence, No Hematuria, No Retention, No Other Musculoskeletal: No other, No neck pain, No shoulder pain, No arm pain, No back pain, No hand pain, No leg pain, No foot pain Skin: No Rash, No Lesions, No Jaundice, No Bruising, No Other Objective Vitals Vital Signs Date Time Temp Pulse Resp B/P (MAP) Pulse Ox O2 Delivery O2 Flow Rate FiO2 08/31/24 16:03 79 22 116/44 (68) 93 55 08/31/24 15:38 Mechanical Ventilator+ 08/31/24 09:15 99.3 210.7 Intake/Output Intake and Output 08/31/24 07:00 Intake Total 2725.310 ml Output Total 2090 ml Balance 635.310 ml Intake Oral 120 ml IV Total 2605.310 ml Output Urine Total 1050 ml Gastric Drainage Total 340 ml Chest Tube Drainage Total 200 ml Other 500 ml Exam HEENT pupils are reactive Neck is supple CV is S1-S2 regular rate and rhythm Respiratory diminished breath sounds bases GI positive bowel sound 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 Medications Current Medications Medications Dose Ordered Sig/Pepe Route Start Time Stop Time Status Last Admin Dose Admin Docusate Sodium 100 mg BIDPRN PRN PO 08/16/24 20:45 08/26/24 19:25 100 MG Ondansetron HCl 4 mg Q4HP PRN IV 08/16/24 20:45 Nitroglycerin 0.4 mg Q5MINP PRN SL 08/16/24 20:45 Morphine Sulfate 2 mg Q30M PRN IV 08/16/24 20:45 Ceftriaxone Sodium 50 ml @ 100 mls/hr DAILY IV 08/17/24 10:00 08/31/24 08:23 100 MLS/HR Hydralazine HCl 10 mg Q6HP PRN IV 08/16/24 23:30 08/28/24 08:51 10 MG Acetaminophen/ Hydrocodone Bitart 1 tab Q6HPRN PRN PO 08/16/24 23:30 08/28/24 09:23 1 TAB Midazolam HCl 50 ml @ 1 mls/hr Q24H IV 08/17/24 10:15 08/31/24 15:02 1 MLS/HR Fentanyl Citrate 250 ml @ 2.5 mls/hr Q24H IV 08/17/24 10:15 08/31/24 15:03 10 MLS/HR Pantoprazole Sodium 40 mg DAILY IV 08/18/24 10:00 08/31/24 08:23 40 MG Amino Acids 0 ml @ 0 mls/hr PER PHARMACY IV 08/19/24 13:15 Diagnostic Test (Pha) 1 strip Q6HR 08/19/24 18:00 08/31/24 16:39 1 STRIP Insulin Human Regular FOLLOW SLIDING SCALE Q6HR SC 08/19/24 18:00 08/28/24 11:54 2 UNITS Dextrose 50 ml UD IV 08/19/24 14:00 Amino Acids/ Electrolytes/ Dextrose 1,000 ml @ 41 mls/hr DAILY@2200 IV 08/19/24 22:00 08/30/24 22:18 41 MLS/HR Norepinephrine Bitartrate 250 ml @ 1.875 mls/ hr Q24H IV 08/22/24 05:15 08/30/24 21:51 9.375 MLS/HR Sodium Chloride 1,000 ml @ 50 mls/hr Q20H IV 08/22/24 14:30 UNV Enoxaparin Sodium 40 mg DAILY SC 08/24/24 10:00 08/31/24 08:23 40 MG Enteral Nutritional Formula 1,000 ml 35ML/HR GT 08/24/24 18:00 08/29/24 17:22 1,000 ML Acetaminophen 650 mg Q6HP PRN GT 08/24/24 18:15 08/29/24 01:03 650 MG Epinephrine HCl 0.5 ml ONCE PRN NEB 08/27/24 10:45 Cancel Polyethylene Glycol 17 gm DAILY PO 08/28/24 10:00 08/31/24 08:24 17 GM Docusate Sodium 100 mg BID GT 08/27/24 22:00 08/31/24 08:23 100 MG Clonidine HCl 0.2 mg Q7D TD 08/27/24 22:00 Lactulose 30 ml Q8HR PO 08/29/24 22:00 08/31/24 15:17 30 ML Propofol 100 ml @ 2.937 mls/ hr Q24H IV 08/30/24 17:00 08/31/24 08:25 11.748 MLS/HR Sennosides 17.2 mg HS PO 08/31/24 22:00 UNV Laboratory Results Laboratory Tests 08/31/24 03:00 Chemistry Test 08/31/24 03:00 Albumin 2.8 g/dL (3.2-4.8) L Calcium Level 8.6 mg/dL (8.7-10.4) L Magnesium Level 2.1 mg/dL (1.6-2.6) Phosphorus Level 3.4 mg/dL (2.4-5.1) Total Protein 4.6 g/dL (5.7-8.2) L LFT Test 08/31/24 03:00 Alanine Aminotransferase (ALT) 18 U/L (7-40) Alkaline Phosphatase 125 U/L (46-116) H Aspartate Amino Transferase (AST) 28 U/L (13-40) Total Bilirubin 1.1 mg/dL (0.2-1.0) H Urinalysis Test 08/16/24 14:10 Urine Color Light-yellow (Yellow) Urine Clarity Clear (Clear) Urine pH 7.0 (5.0-9.0) Urine Specific [place] 1.007 (1.001-1.035) Urine Protein Negative (Negative) Urine Ketones Negative (Negative) Urine Blood Negative /uL (Negative) Urine Nitrite Negative (Negative) Urine Bilirubin Negative (Negative) Urine Urobilinogen Normal mg/dL (Negative) Urine Leukocyte Esterase 3+ /uL (Negative) Urine RBC 3 /hpf (0 - 4) Urine Microscopic WBC 29 /HPF (0-5) H Urine Squamous Epithelial Cells Few /hpf (<5) Urine Bacteria None seen /hpf (None Seen) Urine Glucose Normal mg/dL (Normal) Blood Gas Results Test 08/31/24 06:17 Arterial Blood pH 7.305 (7.350-7.450) FiO2 % 55.0 Microbiology Microbiology Date/Time Source Procedure Growth Status 08/30/24 18:35 Pleural Fluid Gram Stain - Final Resulted 08/30/24 18:35 Pleural Fluid Body Fluid Culture - Preliminary Resulted 08/24/24 21:05 Bronchial Washings Gram Stain - Final Complete 08/24/24 21:05 Bronchial Washings Respiratory Culture - Final Complete 08/17/24 23:00 Urine - [place] Urine Culture - Final Complete 08/17/24 16:19 Nose MRSA Screen - Final Complete 08/17/24 14:00 Blood Blood Culture - Final NO GROWTH AFTER 5 DAYS OF INCUBATION. Complete Assessment/Plan Assessment/Plan 79-year-old female who presented to the hospital with dizziness shortness breath found to have symptomatic bradycardia 1. Acute hypoxic respiratory failure remains intubated and sedated 2. Symptomatic bradycardia status post pacemaker placement 3. Leukocytosis likely reactive 4. Left-sided pneumothorax status post chest tube placement 5. UTI 6. Bilateral atelectasis 7. Acute CHF exacerbation WITH DIASTOLIC DYSFUNCTION 8. Right-sided pleural effusion status post thoracentesis -albumin followed by IV diuretics , -continue chest tube Follow up Cardiology and Pulmonary recommendations -antibiotics, Plan discussed with: Other My Orders Orders - SOPHIE WILKERSON MD Procedure Category Date Status Time Senna Pod Tablet PHA 08/31/24 Logged (Senokot Tablet) 22:00 Date of Service: Aug 31, 2024 Billing Provider: SOPHIE WILKERSON MD Common Visit Codes: NOT BILLABLE SOPHIE WILKERSON MD Aug 31, 2024 16:52
[2024-08-31] MEDS: SENNA 8.6 MG TAB PO SCH (22:40)
--- NOTE | 2024-08-31 22:51 | DVHPN2 ---
Progress Note - Dictate Date Seen: Aug 31, 2024 Medical Necessity Reason Pt with a Central, PICC or Fol: Yes The following are medically ne: Wong Catheter Reason for wong catheter: Strict I&O Subjective Patient seen and examined at bedside. Sedated, intubated on mechanical ventilator. Overnight events reviewed. vital signs Vital Sign Date Time Temp Pulse Resp B/P (MAP) Pulse Ox O2 Delivery O2 Flow Rate FiO2 08/31/24 22:00 76 22 104/76 (85) 96 55 08/31/24 19:00 97.2 207.0 08/31/24 17:33 Mechanical Ventilator+ Total Intake and Output 08/30/24 08/30/24 08/31/24 15:00 23:00 07:00 Intake Total 872.144 ml 1022.573 ml 830.593 ml Output Total 850 ml 1240 ml Balance 872.144 ml 172.573 ml -409.407 ml medications Current Medications Medications Dose Ordered Sig/Pepe Route Start Time Stop Time Status Last Admin Dose Admin Docusate Sodium 100 mg BIDPRN PRN PO 08/16/24 20:45 08/26/24 19:25 100 MG Ondansetron HCl 4 mg Q4HP PRN IV 08/16/24 20:45 Nitroglycerin 0.4 mg Q5MINP PRN SL 08/16/24 20:45 Ceftriaxone Sodium 50 ml @ 100 mls/hr DAILY IV 08/17/24 10:00 08/31/24 08:23 100 MLS/HR Hydralazine HCl 10 mg Q6HP PRN IV 08/16/24 23:30 08/28/24 08:51 10 MG Midazolam HCl 50 ml @ 1 mls/hr Q24H IV 08/17/24 10:15 08/31/24 15:02 1 MLS/HR Pantoprazole Sodium 40 mg DAILY IV 08/18/24 10:00 08/31/24 08:23 40 MG Amino Acids 0 ml @ 0 mls/hr PER PHARMACY IV 08/19/24 13:15 Diagnostic Test (Pha) 1 strip Q6HR 08/19/24 18:00 08/31/24 16:39 1 STRIP Insulin Human Regular FOLLOW SLIDING SCALE Q6HR SC 08/19/24 18:00 08/28/24 11:54 2 UNITS Dextrose 50 ml UD IV 08/19/24 14:00 Amino Acids/ Electrolytes/ Dextrose 1,000 ml @ 41 mls/hr DAILY@2200 IV 08/19/24 22:00 08/30/24 22:18 41 MLS/HR Norepinephrine Bitartrate 250 ml @ 1.875 mls/ hr Q24H IV 08/22/24 05:15 08/30/24 21:51 9.375 MLS/HR Sodium Chloride 1,000 ml @ 50 mls/hr Q20H IV 08/22/24 14:30 UNV Enoxaparin Sodium 40 mg DAILY SC 08/24/24 10:00 08/31/24 08:23 40 MG Enteral Nutritional Formula 1,000 ml 35ML/HR GT 08/24/24 18:00 08/29/24 17:22 1,000 ML Acetaminophen 650 mg Q6HP PRN GT 08/24/24 18:15 08/29/24 01:03 650 MG Epinephrine HCl 0.5 ml ONCE PRN NEB 08/27/24 10:45 Cancel Polyethylene Glycol 17 gm DAILY PO 08/28/24 10:00 08/31/24 08:24 17 GM Docusate Sodium 100 mg BID GT 08/27/24 22:00 08/31/24 08:23 100 MG Clonidine HCl 0.2 mg Q7D TD 08/27/24 22:00 Lactulose 30 ml Q8HR PO 08/29/24 22:00 08/31/24 15:17 30 ML Propofol 100 ml @ 2.937 mls/ hr Q24H IV 08/30/24 17:00 08/31/24 08:25 11.748 MLS/HR Sennosides 17.2 mg HS PO 08/31/24 22:00 Fentanyl Citrate 250 ml @ 2.5 mls/hr Q24H IV 08/31/24 19:00 objective Gen.: Patient lying in bed in medical ICU. Sedated, intubated on mechanical ventilator. Head: Normocephalic, atraumatic. Eyes: PERRLA. Ears: Normal external anatomy. Throat: Endotracheal tube and orogastric tube in place. Neck: Supple, trachea midline. Chest: Transmitted breath sounds bilaterally. Decreased air entry bilaterally. No wheezing. Bibasilar crackles. Cardiovascular: Positive S1, positive S2. Regular rate and rhythm. Abdomen: Positive bowel sounds in all 4 quadrants. Soft, nontender, nondistended. : Wong in place. Normal external genitalia. Rectal: Deferred. Skin: Warm, dry. Intact. Extremities: 2+ radial pulses bilaterally. No lower extremity edema. Neuro: Sedated. laboratory and microbiology Laboratory Tests 08/31/24 03:00 Test 08/31/24 03:00 Range/Units Serum Glucose 103 74-106 mg/dL Assessment/Plan Impression: Acute hypoxic respiratory failure On mechanical ventilator Shock, cardiogenic Bradycardia, symptomatic Atelectasis Events: Chest tube shows no air leak. Monitor output. Placed to -20 cmH2O. S/p right thoracentesis on 08/30 - drained 450 ml serosanguineous fluid See separate procedure note for details. CXR demonstrated decreased size of the right pleural effusion with trace residual. No pneumothorax. ABG reviewed, compensated Remains on vent support On AC mode; RR 14, VT 400, PEEP 5, FiO2 50% Fio2 requirements increased to 50% CPAP trial this PM. Sedated on Propofol/Fentanyl Off Versed Off pressors, hemodynamically stable. Give Lasix 40 mg IVP x1 for diuresis Daily SBT/KAYLI. Continue antibiotics Monitor WBC TPN/Clinimix for nutritional support Cardiology recs appreciated. Monitor renal function Monitor electrolytes. Supplement as necessary. Supplement potassium, phophorus Monitor hemoglobin SBT/KAYLI Taper sedation CPAP with PS 8, PEEP 5 S/p bronchoscopy with BAL on 08/24 - follow up pleural fluid cultures S/p pacemaker placement Labs and imaging reviewed. Rest of plan as noted below. Plan: s/p intubation on mechanical ventilator. On AC mode; RR 14, VT 400, PEEP 5, FiO2 50% Titrate FIO2 to keep O2 saturation above 90%. VAP bundle. Daily ABG and CXR while intubated Sedate for ventilator synchrony Continue antibiotics. Steroids discontinued F/u cultures. Awaiting pleural fluid cultures Sputum cultures show normal oropharyngeal tra. Pressors if necessary for hemodynamic support Titrate to keep mean arterial pressure greater than 65 mmHg. Monitor renal function Monitor electrolytes. Supplement as necessary. Monitor ins and outs. Maintain euvolemia. GI prophylaxis. DVT prophylaxis. Prognosis: Poor given patient's multiple co-morbidities. Condition: Critical Rest of plan per hospitalist and other consultants. A total of 35 minutes of critical care time was spent reviewing the patient record, examining the patient, making a diagnostic and therapeutic plan, discussing this plan with the medical personnel, following up on diagnostic studies and following the patient for clinical stability excluding any and all procedures. At least 50% of this time was spent in direct, [id number] contact. Thank you, ESTHER Maria, for allowing me to participate in this patient's care. Further recommendations will depend on the patient's clinical course. Please do not hesitate to contact me if you have any questions or concerns. This medical document was created using an electronic medical record system with [employer] dictation system. Although these documentations are being carefully reviewed, there may still be some phonetic and typographical changes. The errors are purely typographical, due to imperfection on the software program, and do not reflect any compromise in the patient's medical care. Dietary Evaluation Review Comments: Nutrition support: 1. On vent, Glucerna 1.2 40ml/hr, providing 58g Pro and 1152 kcal in 24 hrs. 2. Off Vent and pass speech eval,2 g Na,low fat Low chol, CCHO-60g, Protein 60 g restriction if kidney functiondoes not improve, 3. TPN per pharmacy if NPO>7 days. Expected Outcomes/Goals: Off Vent, controlled DM, improved wound healing, maintain BW. Plan discussed with: Other (GLADYS Black) Critical Care Time(min): 35 MEY RAM MD Aug 31, 2024 22:51
[2024-09-01] VITALS (108 sets, daily range): BP systolic 86–170; BP diastolic 31–69; PULSE 68–96; RESP 12–31; TEMP 96.6–100.2; O2SAT 91–100
[2024-09-01 03:47] LABS: Hematocrit 27.9 % (36.0-46.0); Hemoglobin 9.1 g/dL (12.2-16.2); Mean Corpuscular Hemoglobin 30.8 pg (28.0-32.0); Mean Corpuscular Hgb Conc. 32.6 g/dL (32.0-36.0); Mean Corpuscular Volume 94.5 fL (80.0-100.0); Platelet Count (auto) 184 10^3/uL (140-450); Red Blood Cells 2.95 10^6/uL (4.0-5.20); Red Cell Distribution Width 14.3 % (11.8-14.3); White Blood Cell 27.1 10^3/uL (4.4-10.8)
[2024-09-01 03:48] LABS: Alanine Aminotransferase 22 U/L (7-40); Anion Gap 8 (5-15); Aspartate Aminotransferase 38 U/L (13-40); BUN/Creatinine Ratio 23.3 (10.0-20.0); Bilirubin, Total 1.1 mg/dL (0.2-1.0); Blood Urea Nitrogen 14 mg/dL (9-23); Calcium 9.1 mg/dL (8.7-10.4); Carbon Dioxide 28 mmol/L (20-31); Chloride 101 mmol/L (98-107); Phosphorus 4.2 mg/dL (2.4-5.1); Sodium 137 mmol/L (136-145)
[2024-09-01 04:06] LABS: Basophils % (manual) 0 (0.0-2.0); Blast Cells 0; Eosinophils % (manual) 0 (0-7); Metamyelocytes % 0; Myelocytes % 0; Promyelocytes % 0; Reactive Lymphocytes 0
[2024-09-01 04:12] LABS: Alkaline Phosphatase 142 U/L (46-116); Glucose 138 mg/dL (74-106); Potassium 3.3 mmol/L (3.5-5.1)
--- NOTE | 2024-09-01 05:52 | DVH ---
EXAM: XR Chest, 1 View CLINICAL INDICATION: INTUBATED TECHNIQUE: Frontal view of the chest. COMPARISON: XY CHEST PORTABLE on DOS: 08/31/24, XY CHEST PORTABLE on DOS: 08/30/24, XY CHEST PORTABLE on DOS: 08/30/24, XY CHEST PORTABLE on DOS: 08/29/24, XY CHEST PORTABLE on DOS: 08/28/24 FINDINGS: LUNGS AND PLEURAL SPACES: Pulmonary congestion and edema. Pneumonia cannot be excluded. No pneumot horax. HEART: Unremarkable. No cardiomegaly. MEDIASTINUM: Unremarkable. Normal mediastinal contour. BONES/JOINTS: Unremarkable. No acute fracture. TUBES, LINES AND DEVICES: Stable tubes and lines. OTHER FINDINGS: . IMPRESSION: Pulmonary congestion and edema. Pneumonia cannot be excluded. No significant change from the prior e xam.
[2024-09-01 06:03] LABS: Band Neutrophils % (manual) 3; Lymphocytes % (manual) 2 (10.0-50.0); Monocytes % (manual) 2 (0-12); Platelet Estimate Adequate
[2024-09-01] MEDS: POTASSIUM CHL 20MEQ/100ML 100 ML IV SCH ×2 (06:27→17:21)
[2024-09-01] MEDS: fentaNYL Drip 2500mCg/250mlNS 250 ML IV SCH (06:41)
[2024-09-01 07:47] LABS: Base Excess 2.1 mmol/L (-2.0-3.0)
[2024-09-01] MEDS: FUROSEMIDE 40 MG/4 ML VIAL IV ONE (11:16)
[2024-09-01 12:07] LABS: Albumin, Body Fluid 1.3 g/dL (Not Estab.); Protein, Body Fluid 2.5 g/dL (.)
[2024-09-01 14:59] LABS: Alanine Aminotransferase 21 U/L (7-40); Anion Gap 6 (5-15); BUN/Creatinine Ratio 22.6 (10.0-20.0); Blood Urea Nitrogen 14 mg/dL (9-23); Chloride 99 mmol/L (98-107); Sodium 137 mmol/L (136-145)
[2024-09-01 15:00] LABS: Bilirubin, Total 1.1 mg/dL (0.2-1.0)
[2024-09-01 15:01] LABS: Albumin 3.1 g/dL (3.2-4.8); Alkaline Phosphatase 154 U/L (46-116); Aspartate Aminotransferase 44 U/L (13-40); Calcium 8.7 mg/dL (8.7-10.4); Carbon Dioxide 32 mmol/L (20-31); Glucose 137 mg/dL (74-106); Potassium 3.3 mmol/L (3.5-5.1); Total Protein 5.6 g/dL (5.7-8.2)
--- NOTE | 2024-09-01 23:06 | DVHPN2 ---
Progress Note - Dictate Date Seen: Sep 01, 2024 Medical Necessity Reason Pt with a Central, PICC or Fol: Yes The following are medically ne: Wong Catheter Reason for wong catheter: Strict I&O Subjective Patient seen and examined at bedside. Sedated, intubated on mechanical ventilator. Overnight events reviewed. vital signs Vital Sign Date Time Temp Pulse Resp B/P (MAP) Pulse Ox O2 Delivery O2 Flow Rate FiO2 09/01/24 22:32 82 21 130/47 (74) 99 40 09/01/24 22:00 Mechanical Ventilator+ 09/01/24 21:00 99.9 211.8 Total Intake and Output 08/31/24 08/31/24 09/01/24 15:00 23:00 07:00 Intake Total 602.050 ml 507.488 ml 661.863 ml Output Total 725 ml 1600 ml Balance 602.050 ml -217.512 ml -938.137 ml medications Current Medications Medications Dose Ordered Sig/Pepe Route Start Time Stop Time Status Last Admin Dose Admin Docusate Sodium 100 mg BIDPRN PRN PO 08/16/24 20:45 08/26/24 19:25 100 MG Ondansetron HCl 4 mg Q4HP PRN IV 08/16/24 20:45 Nitroglycerin 0.4 mg Q5MINP PRN SL 08/16/24 20:45 Ceftriaxone Sodium 50 ml @ 100 mls/hr DAILY IV 08/17/24 10:00 09/01/24 09:25 100 MLS/HR Hydralazine HCl 10 mg Q6HP PRN IV 08/16/24 23:30 08/28/24 08:51 10 MG Midazolam HCl 50 ml @ 1 mls/hr Q24H IV 08/17/24 10:15 08/31/24 15:02 1 MLS/HR Pantoprazole Sodium 40 mg DAILY IV 08/18/24 10:00 09/01/24 09:23 40 MG Amino Acids 0 ml @ 0 mls/hr PER PHARMACY IV 08/19/24 13:15 Diagnostic Test (Pha) 1 strip Q6HR 08/19/24 18:00 09/01/24 17:22 1 STRIP Insulin Human Regular FOLLOW SLIDING SCALE Q6HR SC 08/19/24 18:00 08/28/24 11:54 2 UNITS Dextrose 50 ml UD IV 08/19/24 14:00 Amino Acids/ Electrolytes/ Dextrose 1,000 ml @ 41 mls/hr DAILY@2200 IV 08/19/24 22:00 09/01/24 22:00 41 MLS/HR Norepinephrine Bitartrate 250 ml @ 1.875 mls/ hr Q24H IV 08/22/24 05:15 09/01/24 11:20 9.375 MLS/HR Sodium Chloride 1,000 ml @ 50 mls/hr Q20H IV 08/22/24 14:30 UNV Enoxaparin Sodium 40 mg DAILY SC 08/24/24 10:00 09/01/24 09:23 40 MG Enteral Nutritional Formula 1,000 ml 35ML/HR GT 08/24/24 18:00 08/29/24 17:22 1,000 ML Acetaminophen 650 mg Q6HP PRN GT 08/24/24 18:15 08/31/24 22:39 650 MG Epinephrine HCl 0.5 ml ONCE PRN NEB 08/27/24 10:45 Cancel Polyethylene Glycol 17 gm DAILY PO 08/28/24 10:00 09/01/24 09:24 17 GM Docusate Sodium 100 mg BID GT 08/27/24 22:00 09/01/24 21:54 100 MG Clonidine HCl 0.2 mg Q7D TD 08/27/24 22:00 Lactulose 30 ml Q8HR PO 08/29/24 22:00 09/01/24 21:54 30 ML Propofol 100 ml @ 2.937 mls/ hr Q24H IV 08/30/24 17:00 09/01/24 19:50 14.685 MLS/HR Sennosides 17.2 mg HS PO 08/31/24 22:00 09/01/24 21:54 17.2 MG Fentanyl Citrate 250 ml @ 2.5 mls/hr Q24H IV 08/31/24 19:00 09/01/24 06:41 15 MLS/HR objective Gen.: Patient lying in bed in medical ICU. Sedated, intubated on mechanical ventilator. Head: Normocephalic, atraumatic. Eyes: PERRLA. Ears: Normal external anatomy. Throat: Endotracheal tube and orogastric tube in place. Neck: Supple, trachea midline. Chest: Transmitted breath sounds bilaterally. Decreased air entry bilaterally. No wheezing. Bibasilar crackles. Cardiovascular: Positive S1, positive S2. Regular rate and rhythm. Abdomen: Positive bowel sounds in all 4 quadrants. Soft, nontender, nondistended. : Wong in place. Normal external genitalia. Rectal: Deferred. Skin: Warm, dry. Intact. Extremities: 2+ radial pulses bilaterally. No lower extremity edema. Neuro: Sedated. laboratory and microbiology Laboratory Tests 09/01/24 13:50 09/01/24 03:00 Test 09/01/24 13:50 Range/Units Serum Glucose 137 H 74-106 mg/dL Assessment/Plan Impression: Acute hypoxic respiratory failure On mechanical ventilator Shock, cardiogenic Bradycardia, symptomatic Atelectasis Events: Chest tube shows no air leak. Monitor output. Placed to -20 cmH2O. ABG reviewed, compensated Remains on vent support On AC mode; RR 18, VT 500, PEEP 8, FiO2 45% Will taper PEEP to 5. Improved O2 requirements Sedated on Propofol/Fentanyl Pressors for hemodynamic support On Levophed 4 mcg/min Titrate to keep mean arterial pressure greater than 65 mmHg.. Continue antibiotics Monitor WBC Clinimix for nutritional support Lasix 40 mg IVP for diuresis Cardiology recs appreciated. Monitor renal function Monitor electrolytes. Supplement as necessary. Supplement potassium Monitor hemoglobin Daily SBT/KAYLI Taper sedation CPAP with PS 8, PEEP 5 S/p right thoracentesis on 08/30 - drained 450 ml serosanguineous fluid See separate procedure note for details. CXR demonstrated decreased right pleural effusion with trace residual. No pneumothorax. S/p bronchoscopy with BAL on 08/24 S/p pacemaker placement Labs and imaging reviewed. Rest of plan as noted below. Plan: s/p intubation on mechanical ventilator. On AC mode; RR 18, VT 500, PEEP 8, FiO2 45% Will taper PEEP to 5. Titrate FIO2 to keep O2 saturation above 90%. VAP bundle. Daily ABG and CXR while intubated Sedate for ventilator synchrony Continue antibiotics. Steroids discontinued F/u cultures. Pleural fluid cultures show no growth Sputum cultures show normal oropharyngeal tra. Pressors for hemodynamic support Titrate to keep mean arterial pressure greater than 65 mmHg. Monitor renal function Monitor electrolytes. Supplement as necessary. Monitor ins and outs. Maintain euvolemia. GI prophylaxis. DVT prophylaxis. Prognosis: Poor given patient's multiple co-morbidities. Condition: Critical Rest of plan per hospitalist and other consultants. A total of 35 minutes of critical care time was spent reviewing the patient record, examining the patient, making a diagnostic and therapeutic plan, discussing this plan with the medical personnel, following up on diagnostic studies and following the patient for clinical stability excluding any and all procedures. At least 50% of this time was spent in direct, sego-[id number] contact. Thank you, ESTHER Maria, for allowing me to participate in this patient's care. Further recommendations will depend on the patient's clinical course. Please do not hesitate to contact me if you have any questions or concerns. This medical document was created using an electronic medical record system with [employer] dictation system. Although these documentations are being carefully reviewed, there may still be some phonetic and typographical changes. The errors are purely typographical, due to imperfection on the software program, and do not reflect any compromise in the patient's medical care. Dietary Evaluation Review Comments: Nutrition support: 1. On vent, Glucerna 1.2 40ml/hr, providing 58g Pro and 1152 kcal in 24 hrs. 2. Off Vent and pass speech eval,2 g Na,low fat Low chol, CCHO-60g, Protein 60 g restriction if kidney functiondoes not improve, 3. TPN per pharmacy if NPO>7 days. Expected Outcomes/Goals: Off Vent, controlled DM, improved wound healing, maintain BW. Plan discussed with: Other (GLADYS Flowers) Critical Care Time(min): 35 MEY RAM MD Sep 01, 2024 23:06
[2024-09-02] VITALS (108 sets, daily range): BP systolic 84–172; BP diastolic 25–65; PULSE 66–99; RESP 5–32; TEMP 98.6–100.8; O2SAT 86–100
[2024-09-02 04:11] LABS: Basophils # (auto) 0.1 10 ^3/uL (0-0.2); Eosinophils # (auto) 0.1 10 ^3/uL (0-0.8); Eosinophils % (auto) 0.7 % (0.0-7.0); Monocytes # (auto) 0.8 10 ^3/uL (0-1.3); Monocytes % (auto) 4.6 % (0.0-12.0)
[2024-09-02 04:14] LABS: Basophils % (auto) 0.5 % (0.0-2.0); Hematocrit 24.2 % (36.0-46.0); Hemoglobin 8.3 g/dL (12.2-16.2); Lymphocytes # (auto) 0.3 10 ^3/uL (0.4-5.4); Lymphocytes % (auto) 1.9 % (10.0-50.0); Mean Corpuscular Hemoglobin 31.9 pg (28.0-32.0); Mean Corpuscular Hgb Conc. 34.4 g/dL (32.0-36.0); Mean Corpuscular Volume 92.7 fL (80.0-100.0); Neutrophils # (auto) 16.8 10 ^3/uL (1.6-8.6); Neutrophils % (auto) 92.3 % (37.0-80.0); Platelet Count (auto) 215 10^3/uL (140-450); Red Blood Cells 2.61 10^6/uL (4.0-5.20); Red Cell Distribution Width 13.9 % (11.8-14.3); White Blood Cell 18.2 10^3/uL (4.4-10.8)
[2024-09-02 04:30] LABS: Alanine Aminotransferase 24 U/L (7-40); Anion Gap 7 (5-15); Bilirubin, Total 0.8 mg/dL (0.2-1.0); Blood Urea Nitrogen 14 mg/dL (9-23); Chloride 98 mmol/L (98-107); Phosphorus 2.5 mg/dL (2.4-5.1); Sodium 137 mmol/L (136-145)
[2024-09-02 04:35] LABS: Albumin 2.8 g/dL (3.2-4.8); Alkaline Phosphatase 125 U/L (46-116); Aspartate Aminotransferase 42 U/L (13-40); Carbon Dioxide 32 mmol/L (20-31); Glucose 114 mg/dL (74-106); Potassium 3.5 mmol/L (3.5-5.1); Total Protein 5.1 g/dL (5.7-8.2)
--- NOTE | 2024-09-02 05:44 | DVH ---
CHEST RADIOGRAPH Indication: INTUBATED Technique: Single frontal view of the chest was obtained COMPARISON: XY CHEST PORTABLE on DOS: 09/01/24, XY CHEST PORTABLE on DOS: 08/31/24, XY CHEST PORTABLE o n DOS: 08/30/24, XY CHEST PORTABLE on DOS: 08/30/24, XY CHEST PORTABLE on DOS: 08/29/24, XY CHEST PORTAB LE on DOS: 08/30/24 FINDINGS: Lines and Tubes: Endotracheal tube, enteric catheter and right central venous catheter in satisfactor y position. Left chest tube in satisfactory position. Right chest wall pacemaker. Lungs: Multifocal airspace disease. Pleura: No effusion. No pneumothorax. Cardiomediastinal contours: Cardiomegaly Bones: Unremarkable IMPRESSION: Lines and tubes in satisfactory position. No significant interval change.
[2024-09-02 06:44] LABS: Base Excess 6.3 mmol/L (-2.0-3.0)
--- NOTE | 2024-09-02 12:07 | MEDREC ---
COUNTS INCLUDE 234 BEDS AT THE [facility] Intervention Section I COUNTS INCLUDE 234 BEDS AT THE [facility] Intervention: Review courses of therapy (PATIENT HAS BEEN ON CEFTRIAXONE SINCE 08/17. HE HAD FEVER THIS MORNING. THE WBC REMAINS ELEVATED. THE CHEST X-RAY SHOWED MULTIFOCAL AIRSPACE DISEASE. PLEASE CONSIDER ESCALATING ANTIBIOTICS IF CLINICALLY APPROPRIATE ) AKILA CERRATO Sep 02, 2024 12:07
--- NOTE | 2024-09-02 15:33 | DVHPN2 ---
Subjective 79-year-old female who initially presented to the hospital with symptomatic bradycardia status post pacemaker placement, currently remains intubated and sedated. The patient was found to have a small left-sided pneumothorax, status post small chest tube placement. Reviewed: Care Plan Changes from previous H/P or p: No Changes Eyes: No Pain, No Vision change, No Conjunctivae inflammation, No Eyelid inflammation, No Other, No Redness ENT: No Ear pain, No Ear discharge, No Nose pain, No Nose discharge, No Nose congestion, No Mouth pain, No Mouth swelling, No Throat pain, No Throat swelling, No Other Cardiovascular: No Chest Pain, No Palpitations, No Orthopnea, No Paroxysmal Noc. Dyspnea, No Edema, No Lt Headedness, No Other Respiratory: Shortness of breath Gastrointestinal: No Nausea, No Vomiting, No Abdominal Pain, No Diarrhea, No Constipation, No Melena, No Hematochezia, No Other Genitourinary: No Dysuria, No Frequency, No Incontinence, No Hematuria, No Retention, No Other Musculoskeletal: No other, No neck pain, No shoulder pain, No arm pain, No back pain, No hand pain, No leg pain, No foot pain Skin: No Rash, No Lesions, No Jaundice, No Bruising, No Other Objective Vitals Vital Signs Date Time Temp Pulse Resp B/P (MAP) Pulse Ox O2 Delivery O2 Flow Rate FiO2 09/02/24 14:30 99.0 76 17 100/33 (55) 91 210.2 09/02/24 14:04 30 09/02/24 14:00 Mechanical Ventilator+ Intake/Output Intake and Output 09/02/24 07:00 Intake Total 2321.686 ml Output Total 3130 ml Balance -808.314 ml Intake Oral 120 ml IV Total 2201.686 ml Output Urine Total 3000 ml Chest Tube Drainage Total 130 ml Exam HEENT pupils are reactive Neck is supple CV is S1-S2 regular rate and rhythm Respiratory diminished breath sounds bases GI positive bowel sound 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 Medications Current Medications Medications Dose Ordered Sig/Pepe Route Start Time Stop Time Status Last Admin Dose Admin Docusate Sodium 100 mg BIDPRN PRN PO 08/16/24 20:45 08/26/24 19:25 100 MG Ondansetron HCl 4 mg Q4HP PRN IV 08/16/24 20:45 Nitroglycerin 0.4 mg Q5MINP PRN SL 08/16/24 20:45 Ceftriaxone Sodium 50 ml @ 100 mls/hr DAILY IV 08/17/24 10:00 09/02/24 10:14 100 MLS/HR Hydralazine HCl 10 mg Q6HP PRN IV 08/16/24 23:30 08/28/24 08:51 10 MG Midazolam HCl 50 ml @ 1 mls/hr Q24H IV 08/17/24 10:15 09/02/24 13:53 1 MLS/HR Pantoprazole Sodium 40 mg DAILY IV 08/18/24 10:00 09/02/24 10:17 40 MG Amino Acids 0 ml @ 0 mls/hr PER PHARMACY IV 08/19/24 13:15 Diagnostic Test (Pha) 1 strip Q6HR 08/19/24 18:00 09/02/24 11:41 1 STRIP Insulin Human Regular FOLLOW SLIDING SCALE Q6HR SC 08/19/24 18:00 09/02/24 11:49 2 UNITS Dextrose 50 ml UD IV 08/19/24 14:00 Amino Acids/ Electrolytes/ Dextrose 1,000 ml @ 41 mls/hr DAILY@2200 IV 08/19/24 22:00 09/01/24 22:00 41 MLS/HR Norepinephrine Bitartrate 250 ml @ 1.875 mls/ hr Q24H IV 08/22/24 05:15 09/01/24 11:20 9.375 MLS/HR Sodium Chloride 1,000 ml @ 50 mls/hr Q20H IV 08/22/24 14:30 UNV Enoxaparin Sodium 40 mg DAILY SC 08/24/24 10:00 09/02/24 11:42 40 MG Enteral Nutritional Formula 1,000 ml 35ML/HR GT 08/24/24 18:00 08/29/24 17:22 1,000 ML Acetaminophen 650 mg Q6HP PRN GT 08/24/24 18:15 09/02/24 03:03 650 MG Epinephrine HCl 0.5 ml ONCE PRN NEB 08/27/24 10:45 Cancel Polyethylene Glycol 17 gm DAILY PO 08/28/24 10:00 09/02/24 10:22 17 GM Docusate Sodium 100 mg BID GT 08/27/24 22:00 09/02/24 10:22 100 MG Clonidine HCl 0.2 mg Q7D TD 08/27/24 22:00 Lactulose 30 ml Q8HR PO 08/29/24 22:00 09/02/24 05:35 30 ML Propofol 100 ml @ 2.937 mls/ hr Q24H IV 08/30/24 17:00 09/02/24 12:08 20.559 MLS/HR Sennosides 17.2 mg HS PO 08/31/24 22:00 09/01/24 21:54 17.2 MG Fentanyl Citrate 250 ml @ 2.5 mls/hr Q24H IV 08/31/24 19:00 09/02/24 12:08 22.5 MLS/HR Laboratory Results Laboratory Tests 09/02/24 03:40 Chemistry Test 09/02/24 03:40 Albumin 2.8 g/dL (3.2-4.8) L Calcium Level 9.0 mg/dL (8.7-10.4) Magnesium Level 2.0 mg/dL (1.6-2.6) Phosphorus Level 2.5 mg/dL (2.4-5.1) Total Protein 5.1 g/dL (5.7-8.2) L LFT Test 09/02/24 03:40 Alanine Aminotransferase (ALT) 24 U/L (7-40) Alkaline Phosphatase 125 U/L (46-116) H Aspartate Amino Transferase (AST) 42 U/L (13-40) H Total Bilirubin 0.8 mg/dL (0.2-1.0) Urinalysis Test 08/16/24 14:10 Urine Color Light-yellow (Yellow) Urine Clarity Clear (Clear) Urine pH 7.0 (5.0-9.0) Urine Specific [place] 1.007 (1.001-1.035) Urine Protein Negative (Negative) Urine Ketones Negative (Negative) Urine Blood Negative /uL (Negative) Urine Nitrite Negative (Negative) Urine Bilirubin Negative (Negative) Urine Urobilinogen Normal mg/dL (Negative) Urine Leukocyte Esterase 3+ /uL (Negative) Urine RBC 3 /hpf (0 - 4) Urine Microscopic WBC 29 /HPF (0-5) H Urine Squamous Epithelial Cells Few /hpf (<5) Urine Bacteria None seen /hpf (None Seen) Urine Glucose Normal mg/dL (Normal) Blood Gas Results Test 09/02/24 06:40 Arterial Blood pH 7.492 (7.350-7.450) FiO2 % 45.0 Microbiology Microbiology Date/Time Source Procedure Growth Status 09/01/24 08:18 Blood Blood Culture - Preliminary NO GROWTH AFTER 24 HOURS OF INCUBATION. Resulted 09/01/24 06:10 Urine - [place] Urine Culture - Preliminary Resulted 08/30/24 18:35 Pleural Fluid Gram Stain - Final Resulted 08/30/24 18:35 Pleural Fluid Body Fluid Culture - Preliminary Resulted 08/24/24 21:05 Bronchial Washings Gram Stain - Final Complete 08/24/24 21:05 Bronchial Washings Respiratory Culture - Final Complete 08/17/24 16:19 Nose MRSA Screen - Final Complete Assessment/Plan Assessment/Plan 79-year-old female who presented to the hospital with dizziness shortness breath found to have symptomatic bradycardia 1. Acute hypoxic respiratory failure remains intubated and sedated 2. Symptomatic bradycardia status post pacemaker placement 3. Leukocytosis likely reactive 4. Left-sided pneumothorax status post chest tube placement 5. UTI 6. Bilateral atelectasis 7. Acute CHF exacerbation WITH DIASTOLIC DYSFUNCTION 8. Right-sided pleural effusion status post thoracentesis -albumin followed by IV diuretics , -continue chest tube Follow up Cardiology and Pulmonary recommendations -antibiotics, Plan discussed with: Other My Orders Orders - SOPHIE WILKERSON MD Procedure Category Date Status Time Abg W/ Co-Ox RT 09/02/24 Logged 06:30 Modified Resuscitive CODE 09/02/24 Transmitted Measures Date of Service: Sep 02, 2024 Billing Provider: SOPHIE WILKERSON MD Common Visit Codes: NOT BILLABLE SOPHIE WILKERSON MD Sep 02, 2024 15:33
[2024-09-02] MEDS: MIDAZOLAM DRIP 50 mg/50mL 50 ML IV SCH (16:00)
[2024-09-02] MEDS: PROPOFOL 100 ML IV SCH (16:00)
[2024-09-02] MEDS: fentaNYL Drip 2500mCg/250mlNS 250 ML IV SCH (16:00)
[2024-09-02] MEDS ORDERED: QUEtiapine FUMARATE 25 MG TAB PO ONE (22:00)
[2024-09-02] MEDS ORDERED: QUEtiapine FUMARATE 25 MG TAB PO SCH (22:00)
--- NOTE | 2024-09-02 23:39 | DVHPN2 ---
Progress Note - Dictate Date Seen: Sep 02, 2024 Medical Necessity Reason Pt with a Central, PICC or Fol: Yes The following are medically ne: Wong Catheter Reason for wong catheter: Strict I&O Subjective Patient seen and examined at bedside. Sedated, intubated on mechanical ventilator. Overnight events reviewed. vital signs Vital Sign Date Time Temp Pulse Resp B/P (MAP) Pulse Ox O2 Delivery O2 Flow Rate FiO2 09/02/24 22:03 90 22 130/45 (73) 93 40 09/02/24 21:51 99.7 09/02/24 18:00 Mechanical Ventilator+ Total Intake and Output 09/01/24 09/01/24 09/02/24 15:00 23:00 07:00 Intake Total 652.733 ml 901.796 ml 767.157 ml Output Total 2300 ml 830 ml Balance 652.733 ml -1398.204 ml -62.843 ml medications Current Medications Medications Dose Ordered Sig/Pepe Route Start Time Stop Time Status Last Admin Dose Admin Docusate Sodium 100 mg BIDPRN PRN PO 08/16/24 20:45 08/26/24 19:25 100 MG Ondansetron HCl 4 mg Q4HP PRN IV 08/16/24 20:45 Nitroglycerin 0.4 mg Q5MINP PRN SL 08/16/24 20:45 Hydralazine HCl 10 mg Q6HP PRN IV 08/16/24 23:30 08/28/24 08:51 10 MG Pantoprazole Sodium 40 mg DAILY IV 08/18/24 10:00 09/02/24 10:17 40 MG Amino Acids 0 ml @ 0 mls/hr PER PHARMACY IV 08/19/24 13:15 Diagnostic Test (Pha) 1 strip Q6HR 08/19/24 18:00 09/02/24 18:18 1 STRIP Insulin Human Regular FOLLOW SLIDING SCALE Q6HR SC 08/19/24 18:00 09/02/24 11:49 2 UNITS Dextrose 50 ml UD IV 08/19/24 14:00 Amino Acids/ Electrolytes/ Dextrose 1,000 ml @ 41 mls/hr DAILY@2200 IV 08/19/24 22:00 09/02/24 21:32 41 MLS/HR Norepinephrine Bitartrate 250 ml @ 1.875 mls/ hr Q24H IV 08/22/24 05:15 09/01/24 11:20 9.375 MLS/HR Sodium Chloride 1,000 ml @ 50 mls/hr Q20H IV 08/22/24 14:30 UNV Enoxaparin Sodium 40 mg DAILY SC 08/24/24 10:00 09/02/24 11:42 40 MG Enteral Nutritional Formula 1,000 ml 35ML/HR GT 08/24/24 18:00 08/29/24 17:22 1,000 ML Acetaminophen 650 mg Q6HP PRN GT 08/24/24 18:15 09/02/24 20:51 650 MG Epinephrine HCl 0.5 ml ONCE PRN NEB 08/27/24 10:45 Cancel Polyethylene Glycol 17 gm DAILY PO 08/28/24 10:00 09/02/24 10:22 17 GM Docusate Sodium 100 mg BID GT 08/27/24 22:00 09/02/24 10:22 100 MG Clonidine HCl 0.2 mg Q7D TD 08/27/24 22:00 Lactulose 30 ml Q8HR PO 08/29/24 22:00 09/02/24 05:35 30 ML Sennosides 17.2 mg HS PO 08/31/24 22:00 09/01/24 21:54 17.2 MG Dexmedetomidine HCl 400 mcg/ Dextrose 100 ml @ 4.75 mls/hr Q21H4M IV 09/02/24 15:45 Fentanyl Citrate 250 ml @ 2.5 mls/hr Q24H IV 09/02/24 16:00 09/02/24 20:52 32.5 MLS/HR Propofol 100 ml @ 2.937 mls/ hr Q24H IV 09/02/24 16:00 09/02/24 20:50 20.559 MLS/HR Midazolam HCl 50 ml @ 1 mls/hr Q24H IV 09/02/24 16:00 09/02/24 20:50 6 MLS/HR objective Gen.: Patient lying in bed in medical ICU. Sedated, intubated on mechanical ventilator. Head: Normocephalic, atraumatic. Eyes: PERRLA. Ears: Normal external anatomy. Throat: Endotracheal tube and orogastric tube in place. Neck: Supple, trachea midline. Chest: Transmitted breath sounds bilaterally. Decreased air entry bilaterally. No wheezing. Bibasilar crackles. Cardiovascular: Positive S1, positive S2. Regular rate and rhythm. Abdomen: Positive bowel sounds in all 4 quadrants. Soft, nontender, nondistended. : Wong in place. Normal external genitalia. Rectal: Deferred. Skin: Warm, dry. Intact. Extremities: 2+ radial pulses bilaterally. No lower extremity edema. Neuro: Sedated. laboratory and microbiology Laboratory Tests 09/02/24 03:40 Test 09/02/24 03:40 Range/Units Serum Glucose 114 H 74-106 mg/dL Assessment/Plan Impression: Acute hypoxic respiratory failure On mechanical ventilator Shock, cardiogenic Bradycardia, symptomatic Atelectasis Events: Chest tube shows no air leak. Monitor output. Placed to water seal. Obtain CXR in 4 hours Remains on vent support On AC mode; RR 18, VT 400, PEEP 5, FiO2 35% Improved O2 requirements Sedated on Propofol/Versed/Fentanyl Pressors for hemodynamic support On Levophed 3 mcg/min Titrate to keep mean arterial pressure greater than 65 mmHg.. Improving pressor requirements Continue antibiotics Monitor WBC Start Seroquel 50 mg q.12 hours Clinimix for nutritional support Cardiology recs appreciated. Monitor renal function Monitor electrolytes. Supplement as necessary. Monitor hemoglobin Daily SBT/KAYLI Taper sedation CPAP trial in AM. Note, pt has not tolerated taper of sedation - becomes dys-synchronous S/p right thoracentesis on 08/30 - drained 450 ml serosanguineous fluid See separate procedure note for details. CXR demonstrated decreased right pleural effusion with trace residual. No pneumothorax. S/p bronchoscopy with BAL on 08/24 S/p pacemaker placement Labs and imaging reviewed. Rest of plan as noted below. Plan: s/p intubation on mechanical ventilator. On AC mode; RR 18, VT 400, PEEP 5, FiO2 35% Titrate FIO2 to keep O2 saturation above 90%. VAP bundle. Daily ABG and CXR while intubated Sedate for ventilator synchrony Continue antibiotics. Steroids discontinued F/u cultures. Pleural fluid cultures show no growth Sputum cultures show normal oropharyngeal tra. Pressors for hemodynamic support Titrate to keep mean arterial pressure greater than 65 mmHg. Monitor renal function Monitor electrolytes. Supplement as necessary. Monitor ins and outs. Maintain euvolemia. GI prophylaxis. DVT prophylaxis. Prognosis: Poor given patient's multiple co-morbidities. Condition: Critical Rest of plan per hospitalist and other consultants. A total of 35 minutes of critical care time was spent reviewing the patient record, examining the patient, making a diagnostic and therapeutic plan, discussing this plan with the medical personnel, following up on diagnostic studies and following the patient for clinical stability excluding any and all procedures. At least 50% of this time was spent in direct, [id number] contact. Thank you, ESTHER Maria, for allowing me to participate in this patient's care. Further recommendations will depend on the patient's clinical course. Please do not hesitate to contact me if you have any questions or concerns. This medical document was created using an electronic medical record system with [employer] dictation system. Although these documentations are being carefully reviewed, there may still be some phonetic and typographical changes. The errors are purely typographical, due to imperfection on the software program, and do not reflect any compromise in the patient's medical care. Dietary Evaluation Review Comments: Nutrition support: 1. On vent, Glucerna 1.2 40ml/hr, providing 58g Pro and 1152 kcal in 24 hrs. 2. Off Vent and pass speech eval,2 g Na,low fat Low chol, CCHO-60g, Protein 60 g restriction if kidney functiondoes not improve, 3. TPN per pharmacy if NPO>7 days. Expected Outcomes/Goals: Off Vent, controlled DM, improved wound healing, maintain BW. Plan discussed with: Other (GLADYS Ramsay) Critical Care Time(min): 35 MEY RAM MD Sep 02, 2024 23:39
[2024-09-03] VITALS (106 sets, daily range): BP systolic 79–188; BP diastolic 27–84; PULSE 65–91; RESP 0–28; TEMP 97.2–100.4; O2SAT 89–98
[2024-09-03 04:32] LABS: Alanine Aminotransferase 24 U/L (7-40); Anion Gap 7 (5-15); BUN/Creatinine Ratio 30.3 (10.0-20.0); Bilirubin, Total 0.8 mg/dL (0.2-1.0); Blood Urea Nitrogen 10 mg/dL (9-23); Chloride 100 mmol/L (98-107); Magnesium 1.8 mg/dL (1.6-2.6); Sodium 139 mmol/L (136-145)
[2024-09-03 04:34] LABS: Albumin 2.5 g/dL (3.2-4.8); Alkaline Phosphatase 140 U/L (46-116); Aspartate Aminotransferase 43 U/L (13-40); Calcium 8.5 mg/dL (8.7-10.4); Carbon Dioxide 32 mmol/L (20-31); Glucose 107 mg/dL (74-106); Phosphorus 2.4 mg/dL (2.4-5.1); Total Protein 4.8 g/dL (5.7-8.2)
[2024-09-03 05:08] LABS: Triglycerides 143 mg/dL (< 150)
[2024-09-03] MEDS: POTASSIUM CHL 20MEQ/100ML 100 ML IV SCH (05:35)
[2024-09-03 11:20] LABS: Basophils # (auto) 0.1 10 ^3/uL (0-0.2); Basophils % (auto) 0.7 % (0.0-2.0); Eosinophils # (auto) 0.3 10 ^3/uL (0-0.8); Eosinophils % (auto) 2.3 % (0.0-7.0); Hemoglobin 8.3 g/dL (12.2-16.2); Lymphocytes # (auto) 0.4 10 ^3/uL (0.4-5.4); Lymphocytes % (auto) 3.6 % (10.0-50.0); Mean Corpuscular Hemoglobin 31.1 pg (28.0-32.0); Mean Corpuscular Hgb Conc. 33.2 g/dL (32.0-36.0); Mean Corpuscular Volume 93.7 fL (80.0-100.0); Monocytes # (auto) 0.5 10 ^3/uL (0-1.3); Monocytes % (auto) 4.8 % (0.0-12.0); Neutrophils # (auto) 9.8 10 ^3/uL (1.6-8.6); Neutrophils % (auto) 88.6 % (37.0-80.0); Nucleated Red Blood Cells % 0.1 %; Platelet Count (auto) 220 10^3/uL (140-450); Red Blood Cells 2.67 10^6/uL (4.0-5.20); Red Cell Distribution Width 14.3 % (11.8-14.3)
--- NOTE | 2024-09-03 12:18 | DVH ---
CHEST RADIOGRAPH Indication: re-check multifocal airspace disease Technique: Single frontal view of the chest was obtained COMPARISON: XY CHEST PORTABLE on DOS: 09/02/24 FINDINGS: Lines and Tubes: Endotracheal tube terminates 5.9 cm from the paty. Enteric tube courses past the G E junction with the side port overlying the plane of the stomach. Right IJ CVC terminates near the SV C / brachiocephalic junction. Right-sided dual-chamber pacemaker with leads intact. Left-sided chest tube is in place. Lungs: Multifocal airspace disease ([id number]) is similar from prior. Pleura: Small left pleural effusion is similar from prior. Probable trace right pleural effusion. No pneumothorax. Cardiomediastinal contours: Unremarkable Bones: Unremarkable IMPRESSION: Lines and tubes are stable. Similar multifocal airspace disease. Small left pleural effusion and probable trace right pleural eff usion.
[2024-09-03] MEDS: SODIUM PHOSPHATES 20 MEQ in SODIUM CHL 0.9% 100 ML IV ONE (17:00)
--- NOTE | 2024-09-03 17:15 | DVHPN2 ---
Subjective 79-year-old female who initially presented to the hospital with symptomatic bradycardia status post pacemaker placement, currently remains intubated and sedated. The patient was found to have a small left-sided pneumothorax, status post small chest tube placement. Reviewed: Care Plan Changes from previous H/P or p: No Changes Eyes: No Pain, No Vision change, No Conjunctivae inflammation, No Eyelid inflammation, No Other, No Redness ENT: No Ear pain, No Ear discharge, No Nose pain, No Nose discharge, No Nose congestion, No Mouth pain, No Mouth swelling, No Throat pain, No Throat swelling, No Other Cardiovascular: No Chest Pain, No Palpitations, No Orthopnea, No Paroxysmal Noc. Dyspnea, No Edema, No Lt Headedness, No Other Respiratory: Shortness of breath Gastrointestinal: No Nausea, No Vomiting, No Abdominal Pain, No Diarrhea, No Constipation, No Melena, No Hematochezia, No Other Genitourinary: No Dysuria, No Frequency, No Incontinence, No Hematuria, No Retention, No Other Musculoskeletal: No other, No neck pain, No shoulder pain, No arm pain, No back pain, No hand pain, No leg pain, No foot pain Skin: No Rash, No Lesions, No Jaundice, No Bruising, No Other Objective Vitals Vital Signs Date Time Temp Pulse Resp B/P (MAP) Pulse Ox O2 Delivery O2 Flow Rate FiO2 09/03/24 16:54 96/31 09/03/24 16:40 65 22 95 40 09/03/24 16:06 100.4 09/03/24 12:00 Mechanical Ventilator+ Intake/Output Intake and Output 09/03/24 07:00 Intake Total 2152.100 ml Output Total 2405 ml Balance -252.900 ml Intake Oral 50 ml IV Total 2102.100 ml Output Urine Total 2375 ml Chest Tube Drainage Total 30 ml Exam HEENT pupils are reactive Neck is supple CV is S1-S2 regular rate and rhythm Respiratory diminished breath sounds bases GI positive bowel sound 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 Medications Current Medications Medications Dose Ordered Sig/Pepe Route Start Time Stop Time Status Last Admin Dose Admin Docusate Sodium 100 mg BIDPRN PRN PO 08/16/24 20:45 08/26/24 19:25 100 MG Ondansetron HCl 4 mg Q4HP PRN IV 08/16/24 20:45 Nitroglycerin 0.4 mg Q5MINP PRN SL 08/16/24 20:45 Hydralazine HCl 10 mg Q6HP PRN IV 08/16/24 23:30 08/28/24 08:51 10 MG Pantoprazole Sodium 40 mg DAILY IV 08/18/24 10:00 09/03/24 09:52 40 MG Amino Acids 0 ml @ 0 mls/hr PER PHARMACY IV 08/19/24 13:15 Diagnostic Test (Pha) 1 strip Q6HR 08/19/24 18:00 09/03/24 12:00 1 STRIP Insulin Human Regular FOLLOW SLIDING SCALE Q6HR SC 08/19/24 18:00 09/02/24 11:49 2 UNITS Dextrose 50 ml UD IV 08/19/24 14:00 Amino Acids/ Electrolytes/ Dextrose 1,000 ml @ 41 mls/hr DAILY@2200 IV 08/19/24 22:00 09/02/24 21:32 41 MLS/HR Norepinephrine Bitartrate 250 ml @ 1.875 mls/ hr Q24H IV 08/22/24 05:15 09/03/24 10:13 3.75 MLS/HR Sodium Chloride 1,000 ml @ 50 mls/hr Q20H IV 08/22/24 14:30 UNV Enoxaparin Sodium 40 mg DAILY SC 08/24/24 10:00 09/02/24 11:42 40 MG Enteral Nutritional Formula 1,000 ml 35ML/HR GT 08/24/24 18:00 08/29/24 17:22 1,000 ML Acetaminophen 650 mg Q6HP PRN GT 08/24/24 18:15 09/03/24 16:06 650 MG Epinephrine HCl 0.5 ml ONCE PRN NEB 08/27/24 10:45 Cancel Polyethylene Glycol 17 gm DAILY PO 08/28/24 10:00 09/03/24 09:53 17 GM Docusate Sodium 100 mg BID GT 08/27/24 22:00 09/03/24 09:53 100 MG Clonidine HCl 0.2 mg Q7D TD 08/27/24 22:00 Lactulose 30 ml Q8HR PO 08/29/24 22:00 09/03/24 14:22 30 ML Sennosides 17.2 mg HS PO 08/31/24 22:00 09/01/24 21:54 17.2 MG Dexmedetomidine HCl 400 mcg/ Dextrose 100 ml @ 4.75 mls/hr Q21H4M IV 09/02/24 15:45 09/03/24 10:08 4.75 MLS/HR Fentanyl Citrate 250 ml @ 2.5 mls/hr Q24H IV 09/02/24 16:00 09/03/24 13:30 22.5 MLS/HR Propofol 100 ml @ 2.937 mls/ hr Q24H IV 09/02/24 16:00 09/03/24 16:54 17.622 MLS/HR Midazolam HCl 50 ml @ 1 mls/hr Q24H IV 09/02/24 16:00 09/03/24 06:19 6 MLS/HR Laboratory Results Laboratory Tests 09/03/24 03:30 09/03/24 11:02 Chemistry Test 09/03/24 03:30 Albumin 2.5 g/dL (3.2-4.8) L Calcium Level 8.5 mg/dL (8.7-10.4) L Magnesium Level 1.8 mg/dL (1.6-2.6) Phosphorus Level 2.4 mg/dL (2.4-5.1) Total Protein 4.8 g/dL (5.7-8.2) L Lipid panel Test 09/03/24 03:30 Triglycerides Level 143 mg/dL (< 150) LFT Test 09/03/24 03:30 Alanine Aminotransferase (ALT) 24 U/L (7-40) Alkaline Phosphatase 140 U/L (46-116) H Aspartate Amino Transferase (AST) 43 U/L (13-40) H Total Bilirubin 0.8 mg/dL (0.2-1.0) Urinalysis Test 08/16/24 14:10 Urine Color Light-yellow (Yellow) Urine Clarity Clear (Clear) Urine pH 7.0 (5.0-9.0) Urine Specific [place] 1.007 (1.001-1.035) Urine Protein Negative (Negative) Urine Ketones Negative (Negative) Urine Blood Negative /uL (Negative) Urine Nitrite Negative (Negative) Urine Bilirubin Negative (Negative) Urine Urobilinogen Normal mg/dL (Negative) Urine Leukocyte Esterase 3+ /uL (Negative) Urine RBC 3 /hpf (0 - 4) Urine Microscopic WBC 29 /HPF (0-5) H Urine Squamous Epithelial Cells Few /hpf (<5) Urine Bacteria None seen /hpf (None Seen) Urine Glucose Normal mg/dL (Normal) Blood Gas Results Test 09/03/24 08:21 Arterial Blood pH 7.412 (7.350-7.450) FiO2 % 40.0 Microbiology Microbiology Date/Time Source Procedure Growth Status 09/01/24 08:18 Blood Blood Culture - Preliminary NO GROWTH AFTER 48 HOURS OF INCUBATION. Resulted 09/01/24 06:10 Urine - [place] Urine Culture - Final Complete 08/30/24 18:35 Pleural Fluid Gram Stain - Final Resulted 08/30/24 18:35 Pleural Fluid Body Fluid Culture - Preliminary Resulted 08/24/24 21:05 Bronchial Washings Gram Stain - Final Complete 08/24/24 21:05 Bronchial Washings Respiratory Culture - Final Complete 08/17/24 16:19 Nose MRSA Screen - Final Complete Assessment/Plan Assessment/Plan 79-year-old female who presented to the hospital with dizziness shortness breath found to have symptomatic bradycardia 1. Acute hypoxic respiratory failure remains intubated and sedated 2. Symptomatic bradycardia status post pacemaker placement 3. Leukocytosis likely reactive 4. Left-sided pneumothorax status post chest tube placement 5. UTI 6. Bilateral atelectasis 7. Acute CHF exacerbation WITH DIASTOLIC DYSFUNCTION 8. Right-sided pleural effusion status post thoracentesis -albumin followed by IV diuretics , -continue chest tube Follow up Cardiology and Pulmonary recommendations -talked to patient's son and updated on the phone day before yesterday. Plan discussed with: Other Date of Service: Sep 03, 2024 Billing Provider: SOPHIE WILKERSON MD Common Visit Codes: NOT BILLABLE SOPHIE WILKERSON MD Sep 03, 2024 17:15
[2024-09-03] MEDS: ENOXAPARIN SOD 40 MG/0.4 ML SYRINGE SC ONE (20:04)
--- NOTE | 2024-09-03 20:35 | DVHPN2 ---
Progress Note - Dictate Date Seen: Sep 03, 2024 Medical Necessity Reason Pt with a Central, PICC or Fol: Yes The following are medically ne: Wong Catheter Reason for wong catheter: Strict I&O Subjective Patient seen and examined at bedside. Sedated, intubated on mechanical ventilator. Overnight events reviewed. vital signs Vital Sign Date Time Temp Pulse Resp B/P (MAP) Pulse Ox O2 Delivery O2 Flow Rate FiO2 09/03/24 20:11 65 19 113/44 (67) 97 40 09/03/24 19:00 97.2 207.0 09/03/24 18:00 Mechanical Ventilator+ Total Intake and Output 09/02/24 09/02/24 09/03/24 15:00 23:00 07:00 Intake Total 566.097 ml 662.156 ml 923.847 ml Output Total 1030 ml 1375 ml Balance 566.097 ml -367.844 ml -451.153 ml medications Current Medications Medications Dose Ordered Sig/Pepe Route Start Time Stop Time Status Last Admin Dose Admin Docusate Sodium 100 mg BIDPRN PRN PO 08/16/24 20:45 08/26/24 19:25 100 MG Ondansetron HCl 4 mg Q4HP PRN IV 08/16/24 20:45 Nitroglycerin 0.4 mg Q5MINP PRN SL 08/16/24 20:45 Hydralazine HCl 10 mg Q6HP PRN IV 08/16/24 23:30 08/28/24 08:51 10 MG Pantoprazole Sodium 40 mg DAILY IV 08/18/24 10:00 09/03/24 09:52 40 MG Amino Acids 0 ml @ 0 mls/hr PER PHARMACY IV 08/19/24 13:15 Diagnostic Test (Pha) 1 strip Q6HR 08/19/24 18:00 09/03/24 17:53 1 STRIP Insulin Human Regular FOLLOW SLIDING SCALE Q6HR SC 08/19/24 18:00 09/02/24 11:49 2 UNITS Dextrose 50 ml UD IV 08/19/24 14:00 Amino Acids/ Electrolytes/ Dextrose 1,000 ml @ 41 mls/hr DAILY@2200 IV 08/19/24 22:00 09/02/24 21:32 41 MLS/HR Norepinephrine Bitartrate 250 ml @ 1.875 mls/ hr Q24H IV 08/22/24 05:15 09/03/24 10:13 3.75 MLS/HR Sodium Chloride 1,000 ml @ 50 mls/hr Q20H IV 08/22/24 14:30 UNV Enoxaparin Sodium 40 mg DAILY SC 08/24/24 10:00 09/02/24 11:42 40 MG Enteral Nutritional Formula 1,000 ml 35ML/HR GT 08/24/24 18:00 08/29/24 17:22 1,000 ML Acetaminophen 650 mg Q6HP PRN GT 08/24/24 18:15 09/03/24 16:06 650 MG Epinephrine HCl 0.5 ml ONCE PRN NEB 08/27/24 10:45 Cancel Polyethylene Glycol 17 gm DAILY PO 08/28/24 10:00 09/03/24 09:53 17 GM Docusate Sodium 100 mg BID GT 08/27/24 22:00 09/03/24 09:53 100 MG Clonidine HCl 0.2 mg Q7D TD 08/27/24 22:00 Lactulose 30 ml Q8HR PO 08/29/24 22:00 09/03/24 14:22 30 ML Sennosides 17.2 mg HS PO 08/31/24 22:00 09/01/24 21:54 17.2 MG Dexmedetomidine HCl 400 mcg/ Dextrose 100 ml @ 4.75 mls/hr Q21H4M IV 09/02/24 15:45 09/03/24 10:08 4.75 MLS/HR Fentanyl Citrate 250 ml @ 2.5 mls/hr Q24H IV 09/02/24 16:00 09/03/24 13:30 22.5 MLS/HR Propofol 100 ml @ 2.937 mls/ hr Q24H IV 09/02/24 16:00 09/03/24 16:54 17.622 MLS/HR Midazolam HCl 50 ml @ 1 mls/hr Q24H IV 09/02/24 16:00 09/03/24 20:02 4 MLS/HR objective Gen.: Patient lying in bed in medical ICU. Sedated, intubated on mechanical ventilator. Head: Normocephalic, atraumatic. Eyes: PERRLA. Ears: Normal external anatomy. Throat: Endotracheal tube and orogastric tube in place. Neck: Supple, trachea midline. Chest: Transmitted breath sounds bilaterally. Decreased air entry bilaterally. No wheezing. Bibasilar crackles. Cardiovascular: Positive S1, positive S2. Regular rate and rhythm. Abdomen: Positive bowel sounds in all 4 quadrants. Soft, nontender, nondistended. : Wong in place. Normal external genitalia. Rectal: Deferred. Skin: Warm, dry. Intact. Extremities: 2+ radial pulses bilaterally. No lower extremity edema. Neuro: Sedated. laboratory and microbiology Laboratory Tests 09/03/24 11:02 09/03/24 03:30 Test 09/03/24 03:30 Range/Units Serum Glucose 107 H 74-106 mg/dL Assessment/Plan Impression: Acute hypoxic respiratory failure On mechanical ventilator Shock, cardiogenic Bradycardia, symptomatic Atelectasis Events: Chest tube shows no air leak. Monitor output. Placed to water seal. CXR reviewed, demonstrates multifocal airspace disease. Small left pleural effusion and probable trace right pleural effusion. ABG reviewed, compensated. Remains on vent support On AC mode; RR 18, VT 400, PEEP 5, FiO2 40% Sedated on Propofol/Versed/Fentanyl Pressors for hemodynamic support On Levophed 2 mcg/min Titrate to keep mean arterial pressure greater than 65 mmHg.. Improving pressor requirements Continue antibiotics Monitor WBC Clinimix for nutritional support Cardiology recs appreciated. Monitor renal function Monitor electrolytes. Supplement as necessary. Potassium supplementation Monitor hemoglobin Daily SBT/KAYLI Taper sedation CPAP trial in AM. Note, we have not been able to taper sedation due to pt becoming tachypneic + dys-synchronous on vent. S/p right thoracentesis on 08/30 - drained 450 ml serosanguineous fluid See separate procedure note for details. CXR demonstrated decreased right pleural effusion with trace residual. No pneumothorax. S/p bronchoscopy with BAL on 08/24 S/p pacemaker placement Labs and imaging reviewed. Rest of plan as noted below. Plan: s/p intubation on mechanical ventilator. On AC mode; RR 18, VT 400, PEEP 5, FiO2 40% Titrate FIO2 to keep O2 saturation above 90%. VAP bundle. Daily ABG and CXR while intubated Sedate for ventilator synchrony Continue antibiotics. Steroids discontinued F/u cultures. Pleural fluid cultures show no growth Sputum cultures show normal oropharyngeal tra. Pressors for hemodynamic support Titrate to keep mean arterial pressure greater than 65 mmHg. Monitor renal function Monitor electrolytes. Supplement as necessary. Monitor ins and outs. Maintain euvolemia. GI prophylaxis. DVT prophylaxis. Prognosis: Poor given patient's multiple co-morbidities. Condition: Critical Rest of plan per hospitalist and other consultants. A total of 35 minutes of critical care time was spent reviewing the patient record, examining the patient, making a diagnostic and therapeutic plan, discussing this plan with the medical personnel, following up on diagnostic studies and following the patient for clinical stability excluding any and all procedures. At least 50% of this time was spent in direct, [id number] contact. Thank you, ESTHER Maria, for allowing me to participate in this patient's care. Further recommendations will depend on the patient's clinical course. Please do not hesitate to contact me if you have any questions or concerns. This medical document was created using an electronic medical record system with [employer] dictation system. Although these documentations are being carefully reviewed, there may still be some phonetic and typographical changes. The errors are purely typographical, due to imperfection on the software program, and do not reflect any compromise in the patient's medical care. Dietary Evaluation Review Comments: Nutrition support: 1. On vent, Glucerna 1.2 40ml/hr, providing 58g Pro and 1152 kcal in 24 hrs. 2. Off Vent and pass speech eval,2 g Na,low fat Low chol, CCHO-60g, Protein 60 g restriction if kidney functiondoes not improve, 3. TPN per pharmacy if NPO>7 days. Expected Outcomes/Goals: Off Vent, controlled DM, improved wound healing, maintain BW. Plan discussed with: Other (GLADYS Dejesus) Critical Care Time(min): 35 MEY RAM MD Sep 03, 2024 20:34
[2024-09-04] VITALS (73 sets, daily range): BP systolic 83–181; BP diastolic 29–79; PULSE 65–101; RESP 0–30; TEMP 98.2–100.8; O2SAT 2–100
[2024-09-04 03:50] LABS: Basophils # (auto) 0.1 10 ^3/uL (0-0.2); Eosinophils # (auto) 0.3 10 ^3/uL (0-0.8); Hemoglobin 8.4 g/dL (12.2-16.2); Monocytes # (auto) 0.6 10 ^3/uL (0-1.3)
[2024-09-04 03:54] LABS: Basophils % (auto) 0.7 % (0.0-2.0); Eosinophils % (auto) 2.9 % (0.0-7.0); Hematocrit 24.8 % (36.0-46.0); Lymphocytes # (auto) 0.6 10 ^3/uL (0.4-5.4); Lymphocytes % (auto) 5.5 % (10.0-50.0); Mean Corpuscular Hemoglobin 31.4 pg (28.0-32.0); Mean Corpuscular Hgb Conc. 33.8 g/dL (32.0-36.0); Mean Corpuscular Volume 92.9 fL (80.0-100.0); Monocytes % (auto) 5.5 % (0.0-12.0); Neutrophils # (auto) 9.1 10 ^3/uL (1.6-8.6); Neutrophils % (auto) 85.4 % (37.0-80.0); Platelet Count (auto) 214 10^3/uL (140-450); Red Blood Cells 2.67 10^6/uL (4.0-5.20); Red Cell Distribution Width 14.4 % (11.8-14.3); White Blood Cell 10.7 10^3/uL (4.4-10.8)
[2024-09-04 04:09] LABS: Alanine Aminotransferase 24 U/L (7-40); Anion Gap 8 (5-15); BUN/Creatinine Ratio 31.3 (10.0-20.0); Bilirubin, Total 0.6 mg/dL (0.2-1.0); Blood Urea Nitrogen 10 mg/dL (9-23); Chloride 100 mmol/L (98-107); Magnesium 1.7 mg/dL (1.6-2.6); Phosphorus 3.5 mg/dL (2.4-5.1); Sodium 139 mmol/L (136-145)
[2024-09-04 04:22] LABS: Albumin 2.5 g/dL (3.2-4.8); Alkaline Phosphatase 135 U/L (46-116); Aspartate Aminotransferase 46 U/L (13-40); Calcium 8.5 mg/dL (8.7-10.4); Carbon Dioxide 31 mmol/L (20-31); Glucose 111 mg/dL (74-106); Potassium 3.1 mmol/L (3.5-5.1); Total Protein 5.2 g/dL (5.7-8.2)
--- NOTE | 2024-09-04 05:01 | DVH ---
CHEST RADIOGRAPH Indication: RECHECK PLEURAL EFFUSIONS Technique: Single frontal view of the chest was obtained Comparison: XY CHEST PORTABLE on DOS: 09/03/24, XY CHEST PORTABLE on DOS: 09/02/24, XY CHEST PORTABLE on DOS: 09/01/24 FINDINGS: Lines and Tubes: The endotracheal tube terminates 3.6 cm above the paty. Right central venous cath eter terminates in the right atrium. Dual-chamber pacemaker with right atrial and ventricular leads. The enteric tube courses below the left hemidiaphragm and the tip extends outside the field of view. Left pigtail catheter is unchanged. Lungs: Diffuse bilateral interstitial and alveolar opacities are unchanged. Pleura: Bilateral pleural effusions are unchanged. No pneumothorax. Cardiomediastinal contours: Stable. Bones: No acute osseous abnormality. IMPRESSION: 1. Stable and appropriate position of the support lines and tubes. 2. No significant interval change in bilateral airspace and interstitial opacities.
[2024-09-04] MEDS: POTASSIUM CHL 20MEQ/100ML 100 ML IV SCH (05:25)
[2024-09-04] MEDS: MAGNESIUM SULFATE 1GM/100ML 100 ML IV SCH (05:25)
[2024-09-04 08:01] LABS: Base Excess 2.4 mmol/L (-2.0-3.0)
[2024-09-04] MEDS ORDERED: MORPHINE SULFATE INJ 2 MG/ml SYRG IV PRN (13:30)
[2024-09-04] MEDS ORDERED: HYDROMORPHONE HCL 1 MG/ML INJ IV PRN (13:45)
[2024-09-04] MEDS: HYDROmorphone HCL 2 MG/ML VL/or syr IV PRN (15:22)
[2024-09-04] MEDS: LORazepam 2MG/ML-1ML VIAL IV PRN (15:22)
--- NOTE | 2024-09-04 17:02 | DVHDS2 ---
Summary Date of Admission Aug 16, 2024 at 20:38 Date and Time of Expiration: Sep 04, 2024 16:22 Labs/Diagnostic Data: Laboratory Results Test 09/04/24 07:14 09/04/24 05:12 09/04/24 03:22 09/03/24 03:30 Blood Gas Specimen Type Arterial Blood Gas Sample Site Right radial Blood Gas Patient Temperature 37.0 Arterial Blood Date Drawn [id number] Arterial Blood pH 7.446 (7.350-7.450) Arterial Blood Partial Pressure CO2 39.5 mmHg (32.0-45.0) Arterial Blood Partial Pressure O2 58.2 mmHg (83.0-108.0) Arterial Blood HCO3 26.6 mmol/L (21.0-28.0) Arterial Blood Oxygen Saturation 89.7 % (94.0-98.0) Arterial Blood Base Excess 2.4 mmol/L (-2.0-3.0) Arterial Blood Oxyhemoglobin 89.1 % (94.0-98.0) Arterial Blood Carboxyhemoglobin 0.4 % (0.5-1.5) Arterial Blood Methemoglobin 0.3 % (0.0-1.5) Jimbo Test Modified Blood Gas Total Hemoglobin 10.30 g/dL (12.0-16.0) Blood Gas Set Respiration Rate 18.0 Blood Gas Modality Vent - ac FiO2 % 40.0 Blood Gas Tidal Volume 400.0 Blood Gas PEEP or CPAP 5.0 Blood Gas Critical Value Read Back Yes POC Glucose 96 mg/dl (70-106) White Blood Count 10.7 10^3/uL (4.4-10.8) Red Blood Count 2.67 10^6/uL (4.0-5.20) Hemoglobin 8.4 g/dL (12.2-16.2) Hematocrit 24.8 % (36.0-46.0) Mean Corpuscular Volume 92.9 fL (80.0-100.0) Mean Corpuscular Hemoglobin 31.4 pg (28.0-32.0) Mean Corpuscular Hemoglobin Concent 33.8 g/dL (32.0-36.0) Red Cell Distribution Width 14.4 % (11.8-14.3) Platelet Count 214 10^3/uL (140-450) Mean Platelet Volume 7.5 fL (6.9-10.8) Neutrophils (%) (Auto) 85.4 % (37.0-80.0) Lymphocytes (%) (Auto) 5.5 % (10.0-50.0) Monocytes (%) (Auto) 5.5 % (0.0-12.0) Eosinophils (%) (Auto) 2.9 % (0.0-7.0) Basophils (%) (Auto) 0.7 % (0.0-2.0) Neutrophils # (Auto) 9.1 10 ^3/uL (1.6-8.6) Lymphocytes # (Auto) 0.6 10 ^3/uL (0.4-5.4) Monocytes # (Auto) 0.6 10 ^3/uL (0-1.3) Eosinophils # (Auto) 0.3 10 ^3/uL (0-0.8) Basophils # (Auto) 0.1 10 ^3/uL (0-0.2) Nucleated Red Blood Cells 0.0 % Sodium Level 139 mmol/L (136-145) Potassium Level 3.1 mmol/L (3.5-5.1) Chloride Level 100 mmol/L (98-107) Carbon Dioxide Level 31 mmol/L (20-31) Anion Gap 8 (5-15) Blood Urea Nitrogen 10 mg/dL (9-23) Creatinine 0.32 mg/dL (0.550-1.02) Glomerular Filtration Rate Calc 105 mL/min (>90) BUN/Creatinine Ratio 31.3 (10.0-20.0) Serum Glucose 111 mg/dL (74-106) Calcium Level 8.5 mg/dL (8.7-10.4) Phosphorus Level 3.5 mg/dL (2.4-5.1) Magnesium Level 1.7 mg/dL (1.6-2.6) Total Bilirubin 0.6 mg/dL (0.2-1.0) Aspartate Amino Transferase (AST) 46 U/L (13-40) Alanine Aminotransferase (ALT) 24 U/L (7-40) Alkaline Phosphatase 135 U/L (46-116) Total Protein 5.2 g/dL (5.7-8.2) Albumin 2.5 g/dL (3.2-4.8) Triglycerides Level 143 mg/dL (< 150) Test 09/01/24 03:00 08/31/24 06:17 08/30/24 18:35 08/25/24 04:11 Differential Total Cells Counted 100.0 (100) Neutrophils % (Manual) 93 (37.0-80.0) Band Neutrophils % (Manual) 3 Lymphocytes % (Manual) 2 (10.0-50.0) Monocytes % (Manual) 2 (0-12) Eosinophils % (Manual) 0 (0-7) Basophils % (Manual) 0 (0.0-2.0) Metamyelocytes % (manual) 0 Myelocytes % (Manual) 0 Promyelocytes % (Manual) 0 Blast Cells % (Manual) 0 Reactive Lymphocytes 0 Platelet Estimate Adequate Blood Gas Notified Whom hannah Cochran md Blood Gas Notified Time [id number] Blood Gas Notified By Body Fluid Source Pleural fluid Body Fluid pH 9.0 Body Fluid WBC (Manual) 325 CUMM (0-200) Body Fluid RBC (Manual) 774670 CUMM (0-2000) Body Fluid Mononuclear Cells 32 % Body Fluid Polymorphonuclear Cells 68 % (0-25) Body Fluid Glucose 93 mg/dL (.) Body Fluid Total Protein 2.5 g/dL (.) Body Fluid Albumin 1.3 g/dL (Not Estab.) Body Fluid Lactate Dehydrogenase 296 IU/L (.) Body Fluid Amylase 30 U/L (.) Estimated GFR () 230 mL/min Estimated GFR (Non- 190 mL/min Test 08/21/24 03:41 08/17/24 14:00 08/16/24 16:56 08/16/24 14:10 Prothrombin Time 11.0 sec (9.3-11.8) Prothrombin Time INR 1.04 (0.9-1.15) Activated Partial Thromboplast Time 29.6 SEC (24.5-34.5) Lactic Acid Level 1.5 mmol/L (0.4-2.0) Lactate Dehydrogenase 310 U/L (120-246) Troponin I High Sensitivity 5 ng/L (</=34) Urine Color Light-yellow (Yellow) Urine Clarity Clear (Clear) Urine pH 7.0 (5.0-9.0) Urine Specific [place] 1.007 (1.001-1.035) Urine Protein Negative (Negative) Urine Ketones Negative (Negative) Urine Blood Negative /uL (Negative) Urine Nitrite Negative (Negative) Urine Bilirubin Negative (Negative) Urine Urobilinogen Normal mg/dL (Negative) Urine Leukocyte Esterase 3+ /uL (Negative) Urine RBC 3 /hpf (0 - 4) Urine Microscopic WBC 29 /HPF (0-5) Urine Squamous Epithelial Cells Few /hpf (<5) Urine Bacteria None seen /hpf (None Seen) Urine Glucose Normal mg/dL (Normal) Other Laboratory Tests 09/04/24 03:22 Brief Hx & Hospital Course: 79-year-old female who presented to the hospital with dizziness shortness breath found to have symptomatic bradycardia . Patient eventually found to have acute hypoxic respiratory failure requiring intubation. Patient's underwent successful placement of permanent dual-chamber pacemaker placement by Cardiology. Patient was also treated for UTI as well as underwent thoracentesis for right-sided pleural effusion. Patient did develop left-sided pneumothorax status post chest tube placement. Patient has failed multiple CPAP trial. Eventually patient's son wanted her on comfort care.. Patient was made comfort care and she on September 04. Final Diagnosis/Problems List 1. Acute hypoxic respiratory failure requiring intubation on mechanical ventilation 2. Sick sinus syndrome Secondary Diagnosis: 3. Atherosclerotic heart disease. Discharge Disposition: Still a Patient SOPHIE WILKERSON MD Sep 04, 2024 17:01
--- NOTE | 2024-09-04 23:41 | DVHPN2 ---
Progress Note - Dictate Date Seen: Sep 04, 2024 Medical Necessity Reason Pt with a Central, PICC or Fol: Yes The following are medically ne: Wong Catheter Reason for wong catheter: Strict I&O Subjective Patient seen and examined at bedside. Sedated, intubated on mechanical ventilator. Overnight events reviewed. vital signs Vital Sign Date Time Temp Pulse Resp B/P (MAP) Pulse Ox O2 Delivery O2 Flow Rate FiO2 09/04/24 16:00 18 Room Air* 0 N/A Mechanical Ventilator+ 09/04/24 16:00 86 09/04/24 16:00 98.8 209.8 09/04/24 15:45 2 Total Intake and Output 09/03/24 09/03/24 09/04/24 15:00 23:00 07:00 Intake Total 1100.72 ml 769.538 ml 937.851 ml Output Total 615 ml 585 ml Balance 1100.72 ml 154.538 ml 352.851 ml medications Current Medications Medications Dose Ordered Sig/Pepe Route Start Time Stop Time Status Last Admin Dose Admin Sodium Chloride 1,000 ml @ 50 mls/hr Q20H IV 08/22/24 14:30 UNV Epinephrine HCl 0.5 ml ONCE PRN NEB 08/27/24 10:45 Cancel objective Gen.: Patient lying in bed in medical ICU. Sedated, intubated on mechanical ventilator. Head: Normocephalic, atraumatic. Eyes: PERRLA. Ears: Normal external anatomy. Throat: Endotracheal tube and orogastric tube in place. Neck: Supple, trachea midline. Chest: Transmitted breath sounds bilaterally. Decreased air entry bilaterally. No wheezing. Bibasilar crackles. Cardiovascular: Positive S1, positive S2. Regular rate and rhythm. Abdomen: Positive bowel sounds in all 4 quadrants. Soft, nontender, nondistended. : Wong in place. Normal external genitalia. Rectal: Deferred. Skin: Warm, dry. Intact. Extremities: 2+ radial pulses bilaterally. No lower extremity edema. Neuro: Sedated. laboratory and microbiology Laboratory Tests 09/04/24 03:22 Test 09/04/24 03:22 Range/Units Serum Glucose 111 H 74-106 mg/dL Assessment/Plan Impression: Acute hypoxic respiratory failure On mechanical ventilator Shock, cardiogenic Bradycardia, symptomatic Atelectasis Events: Chest tube in place, no air leak. Placed to water seal. CXR reviewed, demonstrates diffuse bilateral interstitial and alveolar opacities are unchanged. Bilateral pleural effusions are unchanged. ABG reviewed, compensated. Remains on vent support On AC mode; RR 18, VT 400, PEEP 5, FiO2 40% Sedated on Propofol/Versed/Fentanyl Off Levophed Continue antibiotics Monitor WBC Clinimix for nutritional support Cardiology recs appreciated. Monitor renal function Monitor electrolytes. Supplement as necessary. Potassium supplementation Monitor hemoglobin We have not been able to taper sedation due to pt becoming tachypneic + dys- synchronous on vent. Goals of care discussed with family - Family agreed for compassionate extubation and comfort measures. S/p right thoracentesis on 08/30 - drained 450 ml serosanguineous fluid See separate procedure note for details. CXR demonstrated decreased right pleural effusion with trace residual. No pneumothorax. S/p bronchoscopy with BAL on 08/24 S/p pacemaker placement Labs and imaging reviewed. Plan: s/p intubation on mechanical ventilator. On AC mode; RR 18, VT 400, PEEP 5, FiO2 40% Plan for compassionate extubation and comfort measures. Continue antibiotics. Steroids discontinued F/u cultures. Pleural fluid cultures show no growth Sputum cultures show normal oropharyngeal tra. Pressors if necessary for hemodynamic support Titrate to keep mean arterial pressure greater than 65 mmHg. Monitor renal function Monitor electrolytes. Supplement as necessary. Monitor ins and outs. Maintain euvolemia. GI prophylaxis. DVT prophylaxis. Prognosis: Poor given patient's multiple co-morbidities. Condition: Critical Rest of plan per hospitalist and other consultants. A total of 35 minutes of critical care time was spent reviewing the patient record, examining the patient, making a diagnostic and therapeutic plan, discussing this plan with the medical personnel, following up on diagnostic studies and following the patient for clinical stability excluding any and all procedures. At least 50% of this time was spent in direct, [id number] contact. Thank you, ESTHER Maria, for allowing me to participate in this patient's care. Further recommendations will depend on the patient's clinical course. Please do not hesitate to contact me if you have any questions or concerns. This medical document was created using an electronic medical record system with [employer] system. Although these documentations are being carefully reviewed, there may still be some phonetic and typographical changes. The errors are purely typographical, due to imperfection on the software program, and do not reflect any compromise in the patient's medical care. Dietary Evaluation Review Comments: Nutrition support: 1. On vent, Glucerna 1.2 40ml/hr, providing 58g Pro and 1152 kcal in 24 hrs. 2. Off Vent and pass speech eval,2 g Na,low fat Low chol, CCHO-60g, Protein 60 g restriction if kidney functiondoes not improve, 3. TPN per pharmacy if NPO>7 days. Expected Outcomes/Goals: Off Vent, controlled DM, improved wound healing, maintain BW. Plan discussed with: Other (GLADYS Randle) Critical Care Time(min): 35 MEY RAM MD Sep 04, 2024 23:41
--- NOTE | 2024-09-06 08:37 | ECG ---
[facility] Test Date: 2024-09-02 Test Time: 17:18:38 Pat Name: SAMIRA GAN Department: ICU Room: [address] [place] [address] A Gender: F Screen Cutter And Trimmer: BELINDA : 1945 Requested By: SOPHIE WILKERSON Order Number: [id number] Reading MD: Nick Rodriguez Measurements Intervals [place] Rate: 90 P: -13 NV: 235 QRS: -18 QRSD: 90 T: 39 QT: 362 QTc: 443 Interpretive Statements Sinus rhythm Prolonged NV interval Inferior infarct, old Consider anterior infarct Baseline wander in lead(s) V2 Electronically Signed On 09-08-2024 13:26:07 PST by Nick Rodriguez Please click the below link to view image of tracing.
--- NOTE | 2024-09-08 17:11 | DVHNC2 ---
Procedure - Bronchoscopy procedure note: Indications: Left lower lobe atelectasis, Possible mucous plugging. Medicines: See [employer] notes. Complications: None Date: 08/24/2024 Time out: 21:02 Ship Unloader: GLADYS Giron Procedure: Patient medications and allergies reviewed. The risks and benefits of the procedure and the sedation options and risk were discussed with the patient's healthcare proxy. All questions were answered and informed consent was obtained. Patient identification and proposed procedure were verified prior to the procedure by the physician, and a nurse, and the respiratory therapist in ICU room. The heart rate, respiratory rate, oxygen saturations, blood pressure, adequacy of pulmonary ventilation, and response to care were monitored throughout the procedure. The physical status of the patient was reassessed after the procedure. After obtaining informed consent, the bronchoscope was introduced through the endotracheal tube and advanced into the trachea bronchial tree of both lungs. The procedure was accomplished without difficulty. The patient tolerated the procedure well. Findings: The trachea is in normal caliber. The paty is sharp. The tracheobronchial tree of the right lung was examined to at least the first subsegmental level. The bronchial mucosa and anatomy in the right lung are normal. There are no end obronchial lesions. There was copious whitish secretions from right main stem bronchus onward throughout R4-R10. Right middle lobe (RML) Bronchoalveolar lavage (BAL) obtained. RML BAL sent for gram stain and culture. The left upper lobe, lingula, and left lower lobe were examined to at least the first subsegmental level. Bronchial mucosa and anatomy in the left upper lobe and lingula are normal. There were no endobronchial lesions. There was copious whitish secretions from left main stem bronchus onward throughout L1-L10. Mucous plugging removed from L6-L10. There was no active bleeding at the completion of the procedure. Estimated blood loss: Less than 5 mL. Impression: Right and Left lower lobe atelectasis due to mucous plugging Mucous plugging from L6-L10 and R4-R10 RML BAL performed Recommendation: Follow-up RML BAL results. Procedure codes: 87062, bronchoscopy, rigid and flexible, including fluoroscopic guidance, one performed; with bronchial endobronchial broncho-alveolar lavage, single or multiple sites MEY RAM MD Sep 08, 2024 17:11
== END 2024-09-04 18:22 | DRG 242 ==
LOC: EDBD 13:34 → ER 13:41 → OVERFLOW 20:38 → TELE-WESTW 21:02 → ICU WEST 08-17 09:48
PROVIDERS: ADMIT Internal Medicine; ATTEND Internal Medicine
PROC: 0BH17EZ Insertion of Endotracheal Airway into Trachea, Via Natural or Artificial Opening (ICD-10-PCS; 2024-08-17)
PROC: 5A1955Z Respiratory Ventilation, Greater than 96 Consecutive Hours (ICD-10-PCS; 2024-08-17)
PROC: 02HV33Z Insertion of Infusion Device into Superior Vena Cava, Percutaneous Approach (ICD-10-PCS; 2024-08-17)
PROC: B548ZZA Ultrasonography of Superior Vena Cava, Guidance (ICD-10-PCS; 2024-08-17)
PROC: 5A12012 Performance of Cardiac Output, Single, Manual (ICD-10-PCS; 2024-08-17)
PROC: B5171ZZ Fluoroscopy of Left Subclavian Vein using Low Osmolar Contrast (ICD-10-PCS; 2024-08-21)
PROC: B516YZZ Fluoroscopy of Right Subclavian Vein using Other Contrast (ICD-10-PCS; 2024-08-21)
PROC: 0JH606Z Insertion of Pacemaker, Dual Chamber into Chest Subcutaneous Tissue and Fascia, Open Approach (ICD-10-PCS; principal; 2024-08-22)
PROC: 02H63JZ Insertion of Pacemaker Lead into Right Atrium, Percutaneous Approach (ICD-10-PCS; 2024-08-22)
PROC: 02HK3JZ Insertion of Pacemaker Lead into Right Ventricle, Percutaneous Approach (ICD-10-PCS; 2024-08-22)
PROC: 0B9D8ZX Drainage of Right Middle Lung Lobe, Via Natural or Artificial Opening Endoscopic, Diagnostic (ICD-10-PCS; 2024-08-24)
PROC: 0BC78ZZ Extirpation of Matter from Left Main Bronchus, Via Natural or Artificial Opening Endoscopic (ICD-10-PCS; 2024-08-24)
PROC: 0BC38ZZ Extirpation of Matter from Right Main Bronchus, Via Natural or Artificial Opening Endoscopic (ICD-10-PCS; 2024-08-24)
PROC: 0W9B30Z Drainage of Left Pleural Cavity with Drainage Device, Percutaneous Approach (ICD-10-PCS; 2024-08-25)
PROC: 0W993ZZ Drainage of Right Pleural Cavity, Percutaneous Approach (ICD-10-PCS; 2024-08-30)
DX: I49.5 Sick sinus syndrome (principal); I50.33 Acute on chronic diastolic (congestive) heart failure; J96.01 Acute respiratory failure with hypoxia; N17.0 Acute kidney failure with tubular necrosis; R65.11 Systemic inflammatory response syndrome (SIRS) of non-infectious origin with acute organ dysfunction; N30.00 Acute cystitis without hematuria; J98.11 Atelectasis; E87.4 Mixed disorder of acid-base balance; J93.83 Other pneumothorax; I82.B12 Acute embolism and thrombosis of left subclavian vein; R47.01 Aphasia; I25.10 Atherosclerotic heart disease of native coronary artery without angina pectoris; R57.0 Cardiogenic shock; I95.9 Hypotension, unspecified; E11.9 Type 2 diabetes mellitus without complications; E87.6 Hypokalemia; I11.0 Hypertensive heart disease with heart failure; I48.0 Paroxysmal atrial fibrillation; Z86.73 Personal history of transient ischemic attack (TIA), and cerebral infarction without residual deficits; Z79.899 Other long term (current) drug therapy; Z79.01 Long term (current) use of anticoagulants; Z90.710 Acquired absence of both cervix and uterus; Z88.5 Allergy status to narcotic agent; Z83.3 Family history of diabetes mellitus; Z85.828 Personal history of other malignant neoplasm of skin; Z88.6 Allergy status to analgesic agent
CPT/HCPCS: 32555; 33208; 36012; 36415; 36556; 36600; 70450; 71045; 71250; 74018; 76937; 80048; 80053; 80069; 81001; 82150; 82805; 82962; 83605; 83615; 83735; 83986; 84100; 84478; 84484; 85007; 85025; 85027; 85610; 85730; 86850; 86870; 86900; 86901; 87040; 87070; 87081; 87086; 87205; 89051; 92950; 93005; 93306; 93925; 93970; 94002; 94003; 99152; 99291; C1724; G0378; J0330; J2470; J2704; J3480; J3490; J7042; J7060; P9047; Q9967